=== PATIENT | female | born 1960 | race Caucasian/White ===

== ENCOUNTER 2023-03-03 14:43 | Outpatient (OUT) | payer MEDICARE, SELFPAY ==
[2023-03-03 15:16] LABS: Uric Acid 4.9 mg/dL (2.6-6.0)
== END 2023-03-03 14:44 | disposition home or self-care (01) ==
LOC: LAB 14:43
PROVIDERS: PCP Family Medicine; Visit Provider Family Medicine
DX: M25.579 Pain in unspecified ankle and joints of unspecified foot (principal)
CPT/HCPCS: 36415; 84550

== ENCOUNTER 2023-09-27 12:10 | Outpatient (OUT) | payer MEDICARE, SELFPAY ==
--- NOTE | 2023-09-27 | XR_ITS ---
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 FINDINGS: BONES: Mild dextrocurvature. Mild degenerative spondylosis and facet osteoarthropathy DISC SPACES: Normal. No significant disc height narrowing, subluxation, or endplate abnormality. PARASPINOUS: Negative. No paraspinous abnormality is seen. OTHER: Right-sided neurostimulator. 5 mm left nephrolith XR/XR lumbar spine 2-3V IMPRESSION: Mild degenerative changes with dextrocurvature Electronically authenticated by: CARLY TOTH Date: 09/29/2023 07:07
== END 2023-09-27 12:11 | disposition home or self-care (01) ==
LOC: RAD 12:13
PROVIDERS: PCP Family Medicine; Visit Provider Family Medicine
DX: M48.04 Spinal stenosis, thoracic region (principal); G95.9 Disease of spinal cord, unspecified
CPT/HCPCS: 72100

== ENCOUNTER 2023-10-25 09:00 | Inpatient (IN) | payer MEDICARE, SELFPAY ==
[2023-10-25] VITALS (12 sets, daily range): BP systolic 141–154; BP diastolic 82–103; PULSE 59–81; TEMP 36.6–36.9; O2SAT 97–98; BMI 22.3; BMI 24.4
--- OUTSIDE RECORDS SUMMARY | 2023-10-25 09:08 | XMS_ITS | CCD ---
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 Name Role Phone House Sr., Husam Escamilla Primary Care Provider HOUSE, DR BERNAL Primary Care Unavailable TIMMIS, DR MOORE Admitting Unavailable TIMMIS, DR MOORE Attending Unavailable TIMMIS, DR MOORE Consulting Unavailable ZIEBER, DR MEHUL Whatley Consulting Unavailable HOUSE, DR BERNAL Admitting Unavailable CENTER [place], DR CARLY Ross Consulting Unavailable GLEN ROCK, DR BERNAL Attending Unavailable HOUSE, DR BERNAL Primary Care Unavailable GLEN [place]OCK, DR BERNAL Consulting Unavailable GLEN ROCK, DR BERNAL Primary Care Unavailable [place]EN [place], DR HUSAM Hernandezitting Unavailable [place]EN [place]OCK, DR BERNAL Attending Unavailable GLEN ROCK, DR BERNAL Consulting Unavailable ZIEBER, DR MEHUL Whatley Consulting Unavailable [place]EN [place], DR BERNAL Primary Care Unavailable HOUSE, DR HUSAM Hernandezitting Unavailable [place], DR BERNAL Attending Unavailable [place], DR BERNAL Consulting Unavailable Sterling Sr., Husam Escamilla Primary Care Provider Sterling Sr., Husam SMITH Primary Care Prov ider COSTANDI, SARITHA Referring Unavailable COSTANDI, SARITHA Attending Unavailable HOUSE SR, HUSAM ESCAMILLA Primary Care Unavai lable COSTANDI, BEATRIZIF Referring Unavailable COSTANDI, BEATRIZIF Attending Unavailable HOUSE SR, HUSAM ESCAMILLA Primary Care Unavai lable HOUSE SR, HUSAM FRANCINE Primary [facility] [place] Unavai lable JASON SHIPMAN A Referring Unavailable JASON SHIPMAN Attending Unavailable Duy GUTHRIE, Raleigh Chavez Attending Unavailable HOUSE, HUSAM Araiza Primary Care Unavailable Duy GUTHRIE, Raleigh Chavez Attending Unavailable HOUSE, HUSAM Araiza Primary Care Unavailable Duy GUTHRIE, Raleigh Chavez Attending Unavailable Duy GUTHRIE, Raleigh Chavez Attending Unavailable HOUSE, HUSAM Araiza Primary Care Unavailable HOUSE, HUSAM Araiza Attending Unavailable HOUSE, HUSAM Araiza Primary Care Unavailable HOUSE, HUSAM Araiza Attending Unavailable HOUSE, HUSAM Araiza Primary Care Unavailable HOUSE, HUSAM P Primary Care Unavailable Allergies Allergy Classification Reported Allergen(s) Allergy Type Date of Onset Reaction(s) Facility (11 sources) Ciprofloxacin; Translations: [CIPROFLOXACIN] Drug Allergy 08-06-2016 [facility] Work Phone: (2 sources) Ciprofloxacin; Translations: [Cipro] Drug Allergy 08-10-2013 [facility] Repository Medications Current Medications Medication Drug Class(es) Dates Sig (Normalized) Sig (Original) amitriptyline hydrochloride 10 mg oral tablet (13 sources) Tricyclic Antidepressant Start: 03-17-2023 End: 11-25-2023 take 1 tablet by mouth once daily at bedtime amitriptyline (ELAVIL) 10 mg tablet Indications: Idiopathic peripheral neuropathy Take 1 tablet by mouth daily at bedtime. 30 tablet 2 08/27/2023 11/25/2023 Active Start: 07-31-2021 End: 03-17-2023 amitriptyline (ELAVIL) 50 mg tablet Comment on above: Take 1 tablet by krupa th daily at bedtime. topiramate 100 mg oral tablet (6 sources) Start: 08-07-2023 End: 08-06-2024 take 1 tablet by mouth once daily at bedtime topiramate (TOPAMAX) 100 mg tablet Take 1 tablet by mouth daily at bedtime. 30 tablet 3 08/07/2023 08/06/2024 Active take 50 mg by mouth once daily T OPIRAMATE ORAL Take 50 mg by mouth once daily. 0 Active Comment on above: Take 50 mg by mouth. Take 50 mg by mouth once daily. Take 1 tablet by krupa th daily at bedtime. Completed/Discontinued Medications Medication Drug Class(es) Dates Sig (Normalized) Sig (Original) baclofen 10 mg oral tablet (5 sources) gamma-Aminobutyri c Acid-ergic Agonist End: 08-29-2022 take 1 tablet by mouth every twenty-four hours as needed baclofen (LIORESAL) 10 mg tablet Take 10 mg by mouth at bedtime as needed. 0 08/29/2022 Discontinued Comment on above: Take 10 mg by mouth at bedtime as needed. Calcium Carbonate (5 sources) End: 08-29-2022 take 1 tablet by mouth twice daily CALCIUM CARBONATE (SCOTT-600 ORAL) Take 1 tablet by mouth twice daily. 0 08/29/2022 Discontinued take 1 tablet by mouth twice evelyne ly CALCIUM CARBONATE (SCOTT-600 ORAL) Take 1 tablet by mouth twice daily. 0 Active Comment on above: Take 1 tablet by krupa th twice daily. cholecalciferol 0.025 mg oral capsule (10 sources) Vitamin D take 1 capsule by mouth once daily Cholecalciferol, Vitamin D3, 25 mcg (1,000 unit) cap Take 1,000 Units by mouth once daily. 0 Active Comment on above: Take 1,000 Units by mouth once daily. dicyclomine hydrochloride 20 mg oral tablet (10 sources) Anticholinergic take 1 tablet by mouth four times daily dicyclomine (BENTYL) 20 mg tablet Take 20 mg by mouth four times daily. 0 Active Comment on above: Take 20 mg by mouth four times daily. docusate sodium 100 mg oral capsule (10 sources) take 1 capsule by mouth twice daily docusate sodium (COLACE) 100 mg capsule Take 100 mg by mouth twice daily. 0 Active Comment on above: Take 100 mg by mouth twice daily. Estrogens, Conjugated ([facility]) / medroxyPROGESTERone (10 sources) Progestin, Estrogen Start: 2019 take 1 tablet by mouth once daily PREMPRO 0.625-2.5 mg per tablet Take 1 tablet by mouth once daily. 0 07/29/2019 Active Comment on above: Take 1 tablet by krupa th once daily. ibuprofen 200 mg oral tablet (10 sources) Nonsteroidal Anti-inflammatory Drug take 1 tablet by mouth every six hours as needed ibuprofen (MOTRIN) 200 mg tablet Take 200 mg by mouth every 6 hours as needed. 0 Active Comment on above: Take 200 mg by mouth every 6 hours as needed. levothyroxine sodium 0.125 mg oral capsule (10 sources) l-Thyroxine take 1 tablet by mouth once daily Levothyroxine 125 mcg cap Take 1 tablet by mouth once daily. 0 Active Comment on above: Take 1 tablet by krupa th once daily. MEDICATION, NON-DATABASE (10 sources) MEDICATION, NON-DATABASE as needed. Medical marijuana. 0 Active Comment on above: as needed. Medical m arijuana. methocarbamol 500 mg oral tablet (10 sources) Muscle Relaxant take 1 tablet by mouth once daily at bedtime methocarbamol (ROBAXIN) 500 mg tablet Take 500 mg by mouth daily at bedtime. 0 Active Comment on above: Take 500 mg by mouth daily at bedtime. naproxen sodium 220 mg oral tablet (10 sources) Nonsteroidal Anti-inflammatory Drug take 1 tablet by mouth twice daily at mealtime naproxen sodium (ANAPROX) 220 mg tablet Take 220 mg by mouth twice daily with meals. 0 Active Comment on above: Take 220 mg by mouth twice daily with meals. nortriptyline 10 mg oral capsule (1 source) Tricyclic Antidepressant Start: 2022 End: 2022 take 1 capsule by mouth once daily at bedtime nortriptyline (PAMELOR) 10 mg capsule Take 1 capsule by mouth daily at bedtime. 30 capsule 2 03/17/2023 03/17/2023 Discontinued Comment on above: Take 1 capsule by mo uth daily at bedtime. pregabalin 150 mg oral capsule (10 sources) Start: 2021 take 1 capsule by mouth three times daily pregabalin (LYRICA) 150 mg capsule Take 150 mg by mouth three times daily. 0 07/31/2021 Active Comment on above: Take 150 mg by mouth three times daily. SUMAtriptan 100 mg oral tablet (10 sources) Serotonin-1b and Serotonin-1d Receptor Agonist SUMAtriptan (IMITREX) 100 mg tablet Take 100 mg by mouth as needed. 0 Active Comment on above: Take 100 mg by mouth as needed. Problems Active Problems Problem Classification Problem Date Documented Da te Episodic/Chronic Diseases of mouth; excluding dental (4 sources) Other diseases of salivary glands; Translations: [OTHER DISEASES OF SALIVARY GLANDS] Onset: 07-31-2022 Episodic Other nervous system disorders (5 sources) Polyneuropathy, unspecified; Translations: [POLYNEUROPATHY UNSPECIFIED] Onset: 04-01-2022 Chronic Other nervous system disorders (1 source) Idiopathic peripheral neuropathy; Translations: [Hereditary and idiopathic neuropathy, unspecified] 08-27-2023 Chronic Other nervous system disorders (1 source) Paresthesia of lower extremity; Translations: [Anesthesia of skin] 03-21-2023 Episodic Spondylosis; intervertebral disc disorders; other back problems (13 sources) Lumbar spondylosis; Translations: [Spondylosis without myelopathy or radiculopathy, lumbar region] Onset: 05-09-2021 Chronic Thyroid disorders (4 sources) Hypothyroidism, unspecified; Translations: [HYPOTHYROIDISM UNSPECIFIED] Onset: 03-27-2022 Chronic Past or Other Problems Problem Classification Problem Date Documented Da te Episodic/Chronic Cancer of thyroid (10 sources) History of malignant neoplasm of thyroid; Translations: [Personal history of malignant neoplasm of thyroid] Onset: 08-15-2021 08-15-2021 Episodic Other connective tissue disease (10 sources) Fibromyalgia; Translations: [Fibromyalgia] Onset: 08-23-2016 08-23-2016 Episodic Other non-traumatic joint disorders (4 sources) Pain in left shoulder; Translations: [PAIN IN LEFT SHOULDER] Onset: 04-03-2022 Episodic Other screening for suspected conditions (not mental disorders or infectious disease) (1 source) Encounter for screening mammogram for malignant neoplasm of breast; Translations: [ENC SCR MAMMO MALIG NEOPLASM BREAST] Onset: 04-01-2022 Episodic Residual codes; unclassified (1 source) Family history of malignant neoplasm of digestive organs; Translations: [FAM HX MALIG NEOPLASM DIGESTIV ORGN] Onset: 04-01-2022 Episodic Residual codes; unclassified (1 source) Family history of malignant neoplasm, unspecified; Translations: [FAM HX MALIGNANT NEOPLASM UNS] Onset: 04-01-2022 Episodic Screening and history of mental health and substance abuse codes (10 sources) Ex-smoker; Translations: [Personal history of nicotine dependence] Onset: 08-15-2021 08-15-2021 Episodic Spondylosis; intervertebral disc disorders; other back problems (20 sources) Chronic low back pain; Translations: [Chronic low back pain without sciatica, unspecified back pain laterality] Onset: 08-23-2016 Episodic Results Test Name Value Interpretation Reference Range [facility]il [facility] Rad - Other Radiology Report on 10-02-2023 Rad - Other Radiology Report [id number]# [facility] ) CLIFFORD FRIAS ([id number]) 1960 F Date Time Provider Department 08/07/23 1:15 PM SARITHA MENDEZ PAINMN During your visit today, we recorded the following information about you: Temperature Pulse Respiration Blood pressure 97.6 degrees 72/minute 18/minute 102/61 Weight Height 63.5 kg 1.626 m Saritha Mendez MD 08/07/2023 11:17 AM Signed SUBJECTIVE: Clifford Frias presents to [facility] for a follow-up appointment for LBP. Since the last visit, Clifford Frias states the pain has been improving. AMB ROOMING INTAKE FLOWSHEET DATA Risk Screening Do you have concerns about personal safety or safety in the home?: No Pain Pain Level: 4 Pain Location: Back-Middle Description: Stabbing Duration Amount of Time: 7 Duration Units: Years Frequency: Continuous Intervention/Comfort measure: Medication, Spinal Cord Stimulator The patient denies numbness or tingling. PROMIS-10 Flowsheet Row Office Visit from 08/20/2019 in [facility] Office Visit from 08/06/2016 in [facility] Global Physical Health T Score 37.4 32.4 Global Mental Health T Score 43.5 36.3 0-10 Standard Pain Scale 3 8 Previous pain treatments: physical therapy, medications, injections, Reactiv8 Pain Procedures: Reactiv8 Physical Therapy/Home Exercise: Yes Pain Medications: - Opioids: N - NSAIDs: N - Anti-Depressants: amitriptyline - Anti-Convulsants: Topamax - Others: N Pain medications reviewed: Yes Physical Examination: BP 102/61 Pulse 72 Temp 97.6 Resp 18 Ht 5' 4 [per patient[ (1.63m) Wt 140 lb (63.5kg) SpO2 100% LMP 08/15/2010 BMI 24.02 kg/(m2). General:Well appearing, alert, and in no acute distress Skin: skin color, texture, turgor normal, no rashes or lesions HEENT: normocephalic, atraumatic, sclera non-icteric CV: Regular rate and rhythm - pulses equal Resp: good diaphragmatic excursion normal to percussion GI: Soft, non-tender, non-distended. : not examined Musculoskeletal: Neck: Supple; good ROM. Back: No pain on palpation of the lumbar spine. Full ROM without reproducible pain. Extremities: Extremities normal. No deformities, edema, or skin discoloration Neurological: Mental Status: alert Cranial Nerves: Not examined Reflexes: Deep tendon reflexes are 2+ all throughout. Motor Strength: Motor strength and tone are 5/5 all throughout. Sensory: decreased sensation in both feet. Gait: Normal. Recent Imaging: Impression IMPRESSION: Multilevel degenerative changes of the lumbar spine, as detailed. Anatomic Thoracic/Lumbar Variant: Transitional L5 vertebral body. L4-5 is considered the level of the iliac crest and there are 5 lumbar-type vertebrae. ASSESSMENT: Clifford Frias is a 63 year old woman presenting with: #1 LBP s/p Reactiv8 study Restore implantation (08/20/21) who presents for a follow up appointment for 24 month follow-up. Overall, she is doing very well and has demonstrated improved functional capacity with her consistent self-directed workouts. She is highly motivated and appears determined to continue these exercises as it has helped tremendously with her pain, range of motion, and mood. #2 Regarding her chronic lower extremity numbness, the etiology remains unclear as there is no particular dermotome that is affected. We will trial her on low-dose amitriptyline to help with the numbness. 07/2023 Pt is reporting excellent relief with Reactiv8 Pt is reporting good relief with amitriptyline but is concerned about weight gain M54.50 Myofascial low back pain (primary encounter diagnosis) M47.816 Lumbar spondylosis G60.9 Idiopathic peripheral neuropathy PLAN: - Patient will benefit from emphasis on core stabilization exercises, correction of body mechanics, development of home exercise program, soft-tissue/joint mobilization, stretching/flexibilit y exercise - continue Amitriptyline 10mg qHS - Increase Topamax to 100 mg - Counseled the patient regarding the importance of continue daily exercises - Follow up: in 1 year for med refills with PA-C The above plan and management options were discussed at length with patient. Patient is in agreement with the above and verbalized understanding. Saritha Mendez MD August 07, 2023 Medical Decision Making: Problems: Moderate: 1+ chronic illnesses with change Risk: Moderate: Drug management Medical Decision Making Level: 4 - Moderate Saritha Mendez MD 08/07/2023 11:17 AM Signed PLAN: - Patient will benefit from emphasis on core stabilization exercises, correction of body mechanics, development of home exercise program, soft-tissue/joint mobilization, stretching/flexibilit y exercise - continue Amitriptyline 10mg qHS - Increase Topamax to 100 mg - Counseled the patient regarding the importance of continue daily e (more content not included)... Normal [facility] Controlled Substances Agreem entson 06-04-2023 Controlled Substances Agreements [id number]#1 .00OTGTIFF [facility] Lab - Other Lab [facility] - Other Lab Results [id number]#1 .00OTGTIFF [facility] CNOVon 03-17-2023 CNOV Office Visit (PAINMN ) CLIFFORD FRIAS ([id number]) 1960 F Date Time Provider Department 03/17/23 11:00 AM SARITHA MENDEZ PAINPINA During your visit today, we recorded the following information about you: Temperature Pulse Blood pressure Weight 96.5 degrees 67/minute 102/57 59 kg Height 1.626 m Saritha Mendez MD 03/21/2023 4:21 PM Signed [facility] Follow Up Evaluation Date: March 17, 2023 - 10:11 AM Chief Complaint: Patient presents with: Follow Up Medication Update SUBJECTIVE: Clifford Frias is a 62 year old woman with a history of of chronic bilateral L>R low back pain without leg pain s/p Reactiv8 study Restore implantation (08/20/21) who presents for a follow up appointment for 18 month follow-up. The plan from the last visit on 08/29/22 was: - device interrogation - Follow up per Reactiv8 research protocol. Since the last visit, the patient's pain has been imporving and she is doing well. She got a membership at [employer] in Jul 2022 and has been performing weightlifting exercises 3x/week including: Bicep curls - 15 lbs Pectoral fly - 20 lbs Triceps press - 25 lbs Triceps pushdown - 10 lbs Hip abduction - outside 45 lbs, inside 30 lbs Captain's chair (abs) - 60 reps She is dealing with some neuropathy in her feet but that remains stable, but it limits her ability to perform lower body exercises. Denies weakness and falls or issues with balance. Worker's Compensation: No. The patient denies red flags. Physical Therapy/Home Exercise: Yes Current Pain Medications and Dosages: - Opioids: N - NSAIDs: N - Anti-Depressants: N - Anti-Convulsants: Pregabalin 150mg TID - Others: CBD edibles Prior treatments: Nortriptyline Naproxen Methocarbamol Ibuprofen Topiramate Prior Pain Procedures (with percentage of pain relief and duration of relief): 08/20/21: Reactiv8 implant with Dr[address] Ajay BAEZ report: Reviewed: The patient's OARRS report was reviewed and is consistent with the reported medication use. Pain medications reviewed: Yes Pertinent Imaging: no new imaging since last visit PAST MEDICAL HISTORY Diagnosis Date Degenerative disc disease, lumbar Spinal stenosis cervical Thyroid cancer (HCC) removed age 21 s/p radiation PAST SURGICAL HISTORY Procedure Laterality Date SECTION HX x2 PAST SURGICAL HISTORY OF Right shoulder surgery THYROID SURGERY HX thyroid CA Social History Tobacco Use Smoking status: Former Packs/day: 0.50 Years: 20.00 Additional pack years: 0.00 Total pack years: 10.00 Types: Cigarettes Quit date: 2015 Years since quittin.6 Smokeless tobacco: Never Vaping Use Vaping Use: current everyday user Substances: THC Devices: Pre-filled pod Substance Use Topics Alcohol use: No Drug use: Yes Types: Marijuana Comment: medical card/vapes FAMILY HISTORY Problem Relation Age of Onset Colon Cancer Mother No Known Problems Father Cancer Paternal Grandfather gastric Anesthesia Problems No Family History ALLERGIES Allergen Reactions Ciprofloxacin Rash Current Outpatient Medications Medication Sig TOPIRAMATE ORAL Take 50 mg by mouth once daily. Cholecalciferol, Vitamin D3, 25 mcg (1,000 unit) cap Take 1,000 Units by mouth once daily. MEDICATION, NON-DATABASE as needed. Medical marijuana. pregabalin (LYRICA) 150 mg capsule Take 150 mg by mouth three times daily. dicyclomine (BENTYL) 20 mg tablet Take 20 mg by mouth four times daily. ibuprofen (MOTRIN) 200 mg tablet Take 200 mg by mouth every 6 hours as needed. naproxen sodium (ANAPROX) 220 mg tablet Take 220 mg by mouth twice daily with meals. docusate sodium (COLACE) 100 mg capsule Take 100 mg by mouth twice daily. methocarbamol (ROBAXIN) 500 mg tablet Take 500 mg by mouth daily at bedtime. PREMPRO 0.625-2.5 mg per tablet Take 1 tablet by mouth once daily. Levothyroxine 125 mcg cap Take 1 tablet by mouth once daily. SUMAtriptan (IMITREX) 100 mg tablet Take 100 mg by mouth as needed. amitriptyline (ELAVIL) 10 mg tablet Take 1 tablet by mouth daily at bedtime. No current facility-administered medications for this visit. Questionnaires: Patient Entered Questionnaires PROMIS Score Percentiles PROMIS Global Health Scale 08/06/2016 08/20/2019 Physical Health Percentile 4 10 Mental Health Percentile 9 26* Physical Health 08/20/2019 Physical Function Percentile 4 Pain Interference Percentile 1 Percentiles provide an indication of how the patient's score ranks in relation to the general population. Higher percentile rankings indicate better function/quality of life. 50th percentile is the average of the general population and indicates half of respondents had a worse score. > 31st percentile is within normal limits or better * < 31st percentile is at least ? SD wo (more content not included)... Normal [facility] Patient Handouton 03-05-2023 Patient Handout [id number]# 1.00OTGTIFF [facility] CNOVon 08-29-2022 CNOV Office Visit (PAINMN ) CLIFFORD FRIAS ([id number]) 1960 F Date Time Provider Department 08/29/22 11:00 AM JASON SHIPMAN PAINMN During your visit today, we recorded the following information about you: Temperature Pulse Blood pressure Weight 98.2 degrees 67/minute 112/65 54.4 kg Height 1.626 m Jason Shipman MD, PhD 09/04/2022 1:37 AM Signed [facility] Established Patient Patient name: Clifford Frias Date of Service: August 29, 2022 Site of Service: [facility] Established care at PMC: yes HPI Clifford Frias presents to [facility] for a follow-up appointment for 12-month follow-up visit for Reactiv8. Please see Reactiv8 research team note for further details. Clifford appears to be doing extremely well with her Reactiv8 device. Review of systems 12 point review of systems reviewed and negative except as noted above OARRS report Reviewed. The patient's OARRS report was reviewed and is consistent with the reported medication use. Medical History Past Medical History PAST MEDICAL HISTORY Diagnosis Date Degenerative disc disease, lumbar Spinal stenosis cervical Thyroid cancer (HCC) removed age 21 s/p radiation Past Surgical History PAST SURGICAL HISTORY Procedure Laterality Date SECTION HX x2 PAST SURGICAL HISTORY OF Right shoulder surgery THYROID SURGERY HX thyroid CA Social History Social History Tobacco Use Smoking status: Former Packs/day: 0.50 Years: 20.00 Pack years: 10.00 Types: Cigarettes Quit date: 2015 Years since quittin.1 Smokeless tobacco: Never Vaping Use Vaping Use: current everyday user Substances: THC Devices: Pre-filled pod Substance Use Topics Alcohol use: No Drug use: Yes Types: Marijuana Comment: medical card/vapes Family History FAMILY HISTORY Problem Relation Age of Onset Colon Cancer Mother No Known Problems Father Cancer Paternal Grandfather gastric Anesthesia Problems No Family History Allergies ALLERGIES Allergen Reactions Ciprofloxacin Rash Medications Current Outpatient Medications Medication Sig TOPIRAMATE ORAL Take 50 mg by mouth. Cholecalciferol, Vitamin D3, 25 mcg (1,000 unit) cap Take 1,000 Units by mouth once daily. MEDICATION, NON-DATABASE as needed. Medical marijuana. amitriptyline (ELAVIL) 50 mg tablet pregabalin (LYRICA) 150 mg capsule dicyclomine (BENTYL) 20 mg tablet Take 20 mg by mouth four times daily. ibuprofen (MOTRIN) 200 mg tablet Take 200 mg by mouth every 6 hours as needed. naproxen sodium (ANAPROX) 220 mg tablet Take 220 mg by mouth twice daily with meals. docusate sodium (COLACE) 100 mg capsule Take 100 mg by mouth twice daily. methocarbamol (ROBAXIN) 500 mg tablet Take 500 mg by mouth daily at bedtime. PREMPRO 0.625-2.5 mg per tablet Take 1 tablet by mouth once daily. Levothyroxine 125 mcg cap Take 1 tablet by mouth once daily. SUMAtriptan (IMITREX) 100 mg tablet Take 100 mg by mouth as needed. No current facility-administered medications for this visit. Physical Examination BP 112/65 Pulse 67 Temp 98.2 Ht 5' 4 (1.63m) Wt 120 lb (54.4kg) SpO2 99% LMP 08/15/2010 BMI 20.59 kg/(m2). General appearance: Well appearing, in no acute distress, alert. Psych: Mood and affect appropriate. Skin: Skin color, texture, turgor normal, no rashes or lesions. Head/face: Atraumatic, normocephalic. Neck: No pain to palpation over the cervical paraspinous muscles. Spurling Negative. No pain with neck flexion, extension, or lateral flexion. Cor: non-cyanotic Pulm: breathing comfortably on RA Back: Mild tenderness over lumbar paraspinal muscles L > R. Extremities: Peripheral joint ROM is full and pain free without obvious instability or laxity in all four extremities. No deformities, edema, or skin discoloration. Musculoskeletal: LE strength 5/5 b/l Neuro: Bilateral upper and lower extremity coordination and muscle stretch reflexes are physiologic and symmetric. Review of data Imaging Imaging listed below was directly visualized and independently reviewed. Medical Decision Making Assessment Clifford Frias is a 62 year old woman with a history of of chronic bilateral L>R low back pain without leg pain who received the Reactiv8 device and who presents for follow up for 12-month follow up. Today she underwent interrogation of the device performed by reps and answered questionnaire. (M54.50, G89.29) Chronic low back pain without sciatica, unspecified back pain laterality (primary encounter diagnosis) (Z00.6) Examination of participant or control in clinical research Plan - Follow up per Reactiv8 research protocol. The above plan and management options were discussed at length with the patient. The patient is in agreement with the (more content not included)... Normal [facility] CT NECK ST W CONon [address] W CON EXAMINATION: CT NECK ST W CON HISTORY: Disorder of salivary gland ; palpable, tender lumps on right side of neck COMPARISON: No relevant comparison available. TECHNIQUE: Axial, Coronal, and Sagittal CT images created with IV contrast. Dose reduction techniques were achieved by using automated exposure control and/or adjustment of mA and/or kV according to patient size and/or use of iterative reconstruction technique. FINDINGS: NASOPHARYNX: No asymmetry of the fossae of Rosenmuller and torus tubarius. ORAL CAVITY: No visible mass. OROPHARYNX: No asymmetry of the facial and lingual tonsils. HYPOPHARYNX: No mass or other visible lesion. LARYNX: No mass or asymmetry of the vocal cords. SINUSES: No significant fluid or mucosal thickening. NECK GLADS: Skin surface marker localizing the patient's palpable lumps overlie the right submandibular salivary glands and right parotid gland. No appreciable abnormality of the salivary glands or asymmetry between right and left sign. Prior thyroidectomy. LYMPH NODES: No pathological-appearin g or enlarged lymph nodes. VASCULATURE: No suspicious abnormality. BONES: Prominent reversal of normal lordotic curvature. Mild grade 1 anterior listhesis of C3 on 4. Marked degenerative disc disease C4-C5, C5-C6, C6-C7 resulting in central canal and foramen stenosis. Multilevel moderate degenerative facet arthropathy. OTHER: No additional imaging findings. IMPRESSION: 1. No abnormal or suspicious findings to account for patient's symptoms. 2. Marked degenerative changes of cervical spine. Electronically authenticated by: MEHUL BAIG Date: 2022-08-01 09:07 Normal [facility] CREATININEon 07-31-2022 Creatinine [Mass/Vol] 0.71 mg/dL Normal 0.55-1.02 [facility] Comment on above: Performed By: #### T 4, CMP, TSH #### [facility] [address] [address] [address] Bossman Capps EGFR-AF [facility] >60 Normal >=60 [facility] Comment on above: Performed By: #### T 4, CMP, TSH #### [facility] [address] [address] [address] Bossman Capps EGFR-NON AF [facility] >60 Normal >=60 [facility] Comment on above: Performed By: #### T 4, CMP, TSH #### [facility] [address] [place] [address] Dr. Bossman Capps CBC AUTO DIFFon 06-28-2022 BASO # 0.0 103/ul Normal 0.0-0.1 [facility] Comment on above: Performed By: #### C BC #### [facility] [address] [place] [address] Dr. Bossman Capps Basophils/100 WBC (Bld) 0.6 % Normal 0.2-2.0 [facility] Comment on above: Performed By: #### C BC #### [facility] [address] [place] [address] Dr. Bossman Capps EO # 0.1 103/ul Normal 0.0-0.7 [facility] Comment on above: Performed By: #### C BC #### [facility] [address] [place] [address] Dr. Bossman Capps Eosinophils/100 WBC (Bld) 1.1 % Normal 0.9-7.0 [facility] Comment on above: Performed By: #### C BC #### [facility] [address] [place] [address] Dr. Bossman Capps Erythrocyte distribution width (RBC) [Ratio] 13.1 % Normal 11.0-15.0 [facility] Comment on above: Performed By: #### C BC #### [facility] [address] [place] [address] Dr. Bossman Capps Hematocrit (Bld) [Volume fraction] 39.5 % Normal 36.0-48.0 [facility] Comment on above: Performed By: #### C BC #### [facility] [address] [place] [address] Dr. Bossman Capps Hemoglobin (Bld) [Mass/Vol] 13.5 g/dL Normal 12.0-16.0 [facility] Comment on above: Performed By: #### C BC #### [facility] [address] [place] [address] Dr. Bossman Capps IG # 0.01 10e3/ul Normal 0.00-0.03 [facility] Comment on above: Performed By: #### C BC #### [facility] [address] [place] [address] Dr. Bossman Capps IG % 0.2 % Normal 0.0-0.5 [facility] Comment on above: Performed By: #### C BC #### [facility] [address] [place] [address] Dr. Bossman Capps LYMPH # 2.1 103/ul Normal 1.2-3.8 [facility] Comment on above: Performed By: #### C BC #### [facility] [address] [place] [address] Dr. Bossman Capps Lymphocytes/100 WBC (Bld) 33.7 % Normal 20.5-60.0 [facility] Comment on above: Performed By: #### C BC #### [facility] [address] [place] [address] Dr. Bossman Capps MANUAL DIFF REQ NO Normal [facility] Comment on above: Performed By: #### C BC #### [facility] [address] [place] [address] Dr. Bossman Capps MCH (RBC) [Entitic mass] 32.0 pg Normal 26.7-34.0 [facility] Comment on above: Performed By: #### C BC #### [facility] [address] [place] [address] Dr. Bossman Capps MCHC (RBC) [Mass/Vol] 34.2 g/dL Normal 29.9-35.2 [facility] Comment on above: Performed By: #### C BC #### [facility] [address] [place] [address] Dr. Bossman Capps MCV (RBC) [Entitic vol] 93.6 fL Normal 81.0-99.0 [facility] Comment on above: Performed By: #### C BC #### [facility] [address] [place] [address] Dr. Bossman Capps MONO # 0.5 103/ul Normal 0.3-0.8 [facility] Comment on above: Performed By: #### C BC #### [facility] [address] [place] [address] Dr. Bossman Capps Monocytes/100 WBC (Bld) 8.0 % Normal 1.7-12.0 [facility] Comment on above: Performed By: #### C BC #### [facility] [address] [place] [address] Dr. Bossman Capps NEUT # 3.6 103/ul Normal 1.4-6.5 [facility] Comment on above: Performed By: #### C BC #### [facility] [address] [place] [address] Dr. Bossman Capps Neutrophils/100 WBC (Bld) 56.4 % Normal 43.0-75.0 [facility] Comment on above: Performed By: #### C BC #### [facility] [address] [place] [address] Dr. Bossman Capps Platelet mean volume (Bld) [Entitic vol] 9.9 fL Normal 9.5-13.5 [facility] Comment on above: Performed By: #### C BC #### [facility] [address] [place] [address] Dr. Bossman Capps PLT 290 103/ul Normal 150-450 [facility] Comment on above: Performed By: #### C BC #### [facility] [address] [place] [address] Dr. Bossman Capps RBC 4.22 106/ul Normal 4.20-5.40 [facility] Comment on above: Performed By: #### C BC #### [facility] [address] [place] [address] Dr. Bossman Capps WBC 6.4 103/ul Normal 4.0-11.0 [facility] Comment on above: Performed By: #### C BC #### [facility] [address] [place] [address] Dr. Bossman Capps PROF 14(COMP METB)on 022 Albumin [Mass/Vol] 3.3 g/dL Critically low 3.4-5.0 [facility] Comment on above: Performed By: #### T 4, CMP, TSH #### [facility] [address] [address] [address] Bossman Capps Albumin/Globulin [Mass ratio] 0.9 {ratio} Normal [facility] Comment on above: Performed By: #### T 4, CMP, TSH #### [facility] [address] [address] [address] Bossman Capps ALP [Catalytic activity/Vol] 76 U/L Normal 46-116 [facility] Comment on above: Performed By: #### T 4, CMP, TSH #### [facility] [address] [address] [address] Bossman Capps ALT [Catalytic activity/Vol] 13 U/L Critically low 14-59 [facility] Comment on above: Performed By: #### T 4, CMP, TSH #### [facility] [address] [address] [address] Bossman Capps Anion gap [Moles/Vol] 10.4 mmol/L Normal [facility] Comment on above: Performed By: #### T 4, CMP, TSH #### [facility] [address] [place] [address] Dr. Bossman Capps AST [Catalytic activity/Vol] 18 U/L Normal 15-37 [facility] Comment on above: Performed By: #### T 4, CMP, TSH #### [facility] [address] [address] [address] Bossman Capps Bilirubin [Mass/Vol] 0.2 mg/dL Normal 0.2-1.0 [facility] Comment on above: Performed By: #### T 4, CMP, TSH #### [facility] [address] [place] [address] Dr. Bossman Capps Calcium [Mass/Vol] 8.9 mg/dL Normal 8.5-10.1 [facility] Comment on above: Performed By: #### T 4, CMP, TSH #### [facility] [address] [address] [address] Bossman Capps Chloride [Moles/Vol] 107 mmol/L Normal 98-107 [facility] Comment on above: Performed By: #### T 4, CMP, TSH #### [facility] [address] [address] [address] Bossman Capps CO2 [Moles/Vol] 28.6 mmol/L Normal 21.0-32.0 [facility] Comment on above: Performed By: #### T 4, CMP, TSH #### [facility] [address] [place] [address] Dr. Bossman Capps Creatinine [Mass/Vol] 0.75 mg/dL Normal 0.55-1.02 [facility] Comment on above: Performed By: #### T 4, CMP, TSH #### [facility] [address] [place] [address] Dr. Bossman Capps EGFR-AF [facility] >60 Normal >=60 [facility] Comment on above: Performed By: #### T 4, CMP, TSH #### [facility] [address] [place] [address] Dr. Bossman Capps EGFR-NON AF [facility] >60 Normal >=60 [facility] Comment on above: Performed By: #### T 4, CMP, TSH #### [facility] [address] [place] [address] Dr. Bossman Capps Globulin (S) [Mass/Vol] 3.6 g/dL Normal [facility] Comment on above: Performed By: #### T 4, CMP, TSH #### [facility] [address] [place] [address] Dr. Bossman Capps Glucose [Mass/Vol] 85 mg/dL Normal 74-106 [facility] Comment on above: Performed By: #### T 4, CMP, TSH #### [facility] [address] [place] [address] Dr. Bossman Capps Potassium [Moles/Vol] 4.0 mmol/L Normal 3.5-5.1 [facility] Comment on above: Performed By: #### T 4, CMP, TSH #### [facility] [address] [place] [address] Dr. Bossman Capps Protein [Mass/Vol] 6.9 g/dL Normal 6.4-8.2 [facility] Comment on above: Performed By: #### T 4, CMP, TSH #### [facility] [address] [place] [address] Dr. Bossman Capps Sodium [Moles/Vol] 142 mmol/L Normal 136-145 [facility] Comment on above: Performed By: #### T 4, CMP, TSH #### [facility] [address] [place] [address] Dr. Bossman Capps Urea nitrogen [Mass/Vol] 10.0 mg/dL Normal 7.0-18.0 [facility] Comment on above: Performed By: #### T 4, CMP, TSH #### [facility] [address] [place] [address] Dr. Bossman Capps Urea nitrogen/Creatinin e [Mass ratio] 13.3 mg/mg Normal [facility] Comment on above: Performed By: #### T 4, CMP, TSH #### [facility] [address] [place] [address] Dr. Bossman Capps T4on 06-28-2022 T4 [Mass/Vol] 10.20 ug/dL Normal 4.80-13.90 [facility] Comment on above: Performed By: #### T 4, CMP, TSH #### [facility] [address] [place] [address] Dr. Bossman Capps TSHon 06-28-2022 TSH 0.041 uIU/mL Critically low 0.358-3.740 [facility] Comment on above: Performed By: #### T 4, CMP, TSH #### [facility] [address] [place] [address] Dr. Bossman Capps VIT B12 AND FOLATEon 022 Cobalamin (Vitamin B12) [Mass/Vol] 443.0 pg/mL Normal 193.0-986.0 [facility] Comment on above: Performed By: #### T 4, CMP, TSH #### [facility] [address] [place] [address] Dr. Bossman Capps FOLATE 12.00 ng/mL Normal 8.60-58.90 [facility] Comment on above: Performed By: #### T 4, CMP, TSH #### [facility] [address] [address] [address] Bossman Capps T4 [facility] 03-28-2022 T4 [Mass/Vol] 12.6 ug/dL Critically high 4.5-12.0 [facility] Comment on above: Performed By: #### T 4LC #### [facility] [address] [address] [address] Bossman Capps CBC AUTO DIFFon 03-27-2022 BASO # 0.1 103/ul Normal 0.0-0.1 [facility] Comment on above: Performed By: #### T 4, CMP, TSH #### [facility] [address] [address] [address] Bossman Capps Basophils/100 WBC (Bld) 1.1 % Normal 0.2-2.0 [facility] Comment on above: Performed By: #### T 4, CMP, TSH #### [facility] [address] [address] [address] Bossman Capps EO # 0.1 103/ul Normal 0.0-0.7 [facility] Comment on above: Performed By: #### T 4, CMP, TSH #### [facility] [address] [address] [address] Bossman Capps Eosinophils/100 WBC (Bld) 1.9 % Normal 0.9-7.0 [facility] Comment on above: Performed By: #### T 4, CMP, TSH #### [facility] [address] [address] [address] Bossman Capps Erythrocyte distribution width (RBC) [Ratio] 12.7 % Normal 11.0-15.0 [facility] Comment on above: Performed By: #### T 4, CMP, TSH #### [facility] [address] [address] [address] Bossman Capps Hematocrit (Bld) [Volume fraction] 43.7 % Normal 36.0-48.0 [facility] Comment on above: Performed By: #### T 4, CMP, TSH #### [facility] [address] [place] [address] Dr. Bossman Capps Hemoglobin (Bld) [Mass/Vol] 14.5 g/dL Normal 12.0-16.0 [facility] Comment on above: Performed By: #### T 4, CMP, TSH #### [facility] [address] [place] [address] Dr. Bossman Capps IG # 0.02 10e3/ul Normal 0.00-0.03 [facility] Comment on above: Performed By: #### T 4, CMP, TSH #### [facility] [address] [place] [address] Dr. Bossman Capps IG % 0.4 % Normal 0.0-0.5 [facility] Comment on above: Performed By: #### T 4, CMP, TSH #### [facility] [address] [place] [address] Dr. Bossman Capps LYMPH # 2.1 103/ul Normal 1.2-3.8 [facility] Comment on above: Performed By: #### T 4, CMP, TSH #### [facility] [address] [place] [address] Dr. Bossman Capps Lymphocytes/100 WBC (Bld) 38.0 % Normal 20.5-60.0 [facility] Comment on above: Performed By: #### T 4, CMP, TSH #### [facility] [address] [place] [address] Dr. Bossman Capps MANUAL DIFF REQ NO Normal [facility] Comment on above: Performed By: #### T 4, CMP, TSH #### [facility] [address] [place] [address] Dr. Bossman Capps MCH (RBC) [Entitic mass] 31.7 pg Normal 26.7-34.0 [facility] Comment on above: Performed By: #### T 4, CMP, TSH #### [facility] [address] [place] [address] Dr. Bossman Capps MCHC (RBC) [Mass/Vol] 33.2 g/dL Normal 29.9-35.2 [facility] Comment on above: Performed By: #### T 4, CMP, TSH #### [facility] [address] [place] [address] Dr. Bossman Capps MCV (RBC) [Entitic vol] 95.6 fL Normal 81.0-99.0 [facility] Comment on above: Performed By: #### T 4, CMP, TSH #### [facility] [address] [place] [address] Dr. Bossman Capps MONO # 0.5 103/ul Normal 0.3-0.8 [facility] Comment on above: Performed By: #### T 4, CMP, TSH #### [facility] [address] [place] [address] Dr. Bossman Capps Monocytes/100 WBC (Bld) 9.6 % Normal 1.7-12.0 [facility] Comment on above: Performed By: #### T 4, CMP, TSH #### [facility] [address] [place] [address] Dr. Bossman Capps NEUT # 2.7 103/ul Normal 1.4-6.5 [facility] Comment on above: Performed By: #### T 4, CMP, TSH #### [facility] [address] [place] [address] Dr. Bossman Capps Neutrophils/100 WBC (Bld) 49.0 % Normal 43.0-75.0 [facility] Comment on above: Performed By: #### T 4, CMP, TSH #### [facility] [address] [place] [address] Dr. Bossman Capps Platelet mean volume (Bld) [Entitic vol] 10.7 fL Normal 9.5-13.5 [facility] Comment on above: Performed By: #### T 4, CMP, TSH #### [facility] [address] [place] [address] Dr. Bossman Capps PLT 343 103/ul Normal 150-450 [facility] Comment on above: Performed By: #### T 4, CMP, TSH #### [facility] [address] [place], [place] [address] Dr. Bossman Capps RBC 4.57 106/ul Normal 4.20-5.40 [facility] Comment on above: Performed By: #### T 4, CMP, TSH #### [facility] [address] [place], [place] [address] Dr. Bossman Capps WBC 5.4 103/ul Normal 4.0-11.0 [facility] Comment on above: Performed By: #### T 4, CMP, TSH #### [facility] [address] [place], [place] [address] Dr. Bossman Capps MG MAMM SCREEN 3D BREANA CADon 03-27-2022 MG MAMM SCREEN 3D BREANA CAD Patient: CLIFFORD FRIAS Exam Date: 03/27/2022 : 1960 Gender:F Ordering : DR HUSAM ALCALA D.O. Admission #: [id number] Family : Order #: [id number] CLICK HERE TO VIEW EXAM RADIOLOGY REPORT PROCEDURE: MAMMOGRAM SCREENING 3D BILATERAL CAD COMPARISON: MG MAMM SCREEN BREANA W CAD, 10/23/2017. MG MAMM BREANA SCRN W CAD DIG, 09/19/2015. INDICATIONS: mammogram screening Calculator Name NCI Breast Cancer Risk Assessment Tool 5 Year Breast Cancer Risk 1.10% Lifetime Breast Cancer Risk 5.20% Personal Breast Cancer No Personal Ovarian Cancer No Treatments thyroidectomy, radiation pills Family Cancers Mother with colon cancer at age 62; Grandmother-paternal with unknown cancer at age 70. LOCATION: [facility] BREAST COMPOSITION: Heterogeneously dense,which may obscure small masses. FINDINGS: DIAGNOSTIC CATEGORY 1--NEGATIVE. NO CHANGE FROM COMPARISON ASSESSMENT. Scattered benign-appearing calcifications are present. RIGHT BREAST: No significant suspicious finding. LEFT BREAST: No significant suspicious finding. RECOMMENDATIONS: ROUTINE MAMMOGRAM AND CLINICAL EVALUATION IN 12 MONTHS. PLEASE NOTE: A NORMAL MAMMOGRAM DOES NOT EXCLUDE THE POSSIBILITY OF BREAST CANCER. A CLINICALLY SUSPICIOUS PALPABLE LUMP SHOULD BE BIOPSIED. Dictated by: Carly Recinos MD on 03/28/2022 at 07:44 Approved by: Carly Recinos MD on 03/28/2022 at 07:47 Normal [facility] PROF 14(COMP METB)on 022 Albumin [Mass/Vol] 4.1 g/dL Normal 3.4-5.0 [facility] Comment on above: Performed By: #### C MP, TSH #### [facility] [address] [place] [address] Dr. Bossman Capps Albumin/Globulin [Mass ratio] 1.1 {ratio} Normal [facility] Comment on above: Performed By: #### C MP, TSH #### [facility] [address] [address] [address] Bossman Capps ALP [Catalytic activity/Vol] 68 U/L Normal 46-116 [facility] Comment on above: Performed By: #### C MP, TSH #### [facility] [address] [place] [address] Dr. Bossman Capps ALT [Catalytic activity/Vol] 13 U/L Critically low 14-59 [facility] Comment on above: Performed By: #### C MP, TSH #### [facility] [address] [place] [address] Dr. Bossman Capps Anion gap [Moles/Vol] 10.8 mmol/L Normal [facility] Comment on above: Performed By: #### C MP, TSH #### [facility] [address] [place] [address] Dr. Bossman Capps AST [Catalytic activity/Vol] 12 U/L Critically low 15-37 [facility] Comment on above: Performed By: #### C MP, TSH #### [facility] [address] [place] [address] Dr. Bossman Capps Bilirubin [Mass/Vol] 0.5 mg/dL Normal 0.2-1.0 [facility] Comment on above: Performed By: #### C MP, TSH #### [facility] [address] [place] [address] Dr. Bossman Capps Calcium [Mass/Vol] 9.1 mg/dL Normal 8.5-10.1 [facility] Comment on above: Performed By: #### C MP, TSH #### [facility] [address] [place] [address] Dr. Bossman Capps Chloride [Moles/Vol] 104 mmol/L Normal 98-107 [facility] Comment on above: Performed By: #### C MP, TSH #### [facility] [address] [address] [address] Bossman Capps CO2 [Moles/Vol] 29.1 mmol/L Normal 21.0-32.0 [facility] Comment on above: Performed By: #### C MP, TSH #### [facility] [address] [address] [address] Bossman Capps Creatinine [Mass/Vol] 0.72 mg/dL Normal 0.55-1.02 [facility] Comment on above: Performed By: #### C MP, TSH #### [facility] [address] [address] [address] Bossman Capps EGFR-AF [facility] >60 Normal >=60 [facility] Comment on above: Performed By: #### C MP, TSH #### [facility] [address] [address] [address] Bossman Capps EGFR-NON AF [facility] >60 Normal >=60 [facility] Comment on above: Performed By: #### C MP, TSH #### [facility] [address] [place] [address] Dr. Bossman Capps Globulin (S) [Mass/Vol] 3.7 g/dL Normal [facility] Comment on above: Performed By: #### C MP, TSH #### [facility] [address] [address] [address] Bossman Capps Glucose [Mass/Vol] 93 mg/dL Normal 74-106 [facility] Comment on above: Performed By: #### C MP, TSH #### [facility] [address] [address] [address] Bossman Capps Potassium [Moles/Vol] 3.9 mmol/L Normal 3.5-5.1 [facility] Comment on above: Performed By: #### C MP, TSH #### [facility] [address] [address] [address] Bossman Capps Protein [Mass/Vol] 7.8 g/dL Normal 6.4-8.2 [facility] Comment on above: Performed By: #### C MP, TSH #### [facility] [address] [place] [address] Dr. Bossman Capps Sodium [Moles/Vol] 140 mmol/L Normal 136-145 [facility] Comment on above: Performed By: #### C MP, TSH #### [facility] [address] [place] [address] Dr. Bossman Capps Urea nitrogen [Mass/Vol] 10.0 mg/dL Normal 7.0-18.0 [facility] Comment on above: Performed By: #### C MP, TSH #### [facility] [address] [place] [address] Dr. Bossman Capps Urea nitrogen/Creatinin e [Mass ratio] 13.9 mg/mg Normal [facility] Comment on above: Performed By: #### C MP, TSH #### [facility] [address] [place] [address] Dr. Bossman Capps TSHon 03-27-2022 TSH 0.310 uIU/mL Critically low 0.358-3.740 [facility] Comment on above: Performed By: #### C MP, TSH #### [facility] [address] [place] [address] Dr. Bossman Capps ALLIED HEALTHon 07-10-2021 ALLIED HEALTH HNO ID: [id number] Author: RT Randi(R) Service: ? Author Type: Technologist Type: Allied Health Filed: 07/10/2021 7:43 AM Note Text: Radiology Service Progress Note PATIENT NAME: Clifford Frias DATE OF SERVICE: July 10, 2021 TIME: 7:32 AM PATIENT IDENTITY VERIFICATION COMPLETED USING TWO (2) IDENTIFIERS: Name and Date of confirmed by patient verbally and Name and Date of confirmed by identification band. FALL SCREENING: Has the patient had 2 falls in the last year or 1 fall with injury or currently using an Ambulatory Assistive Device (Walker, Cane, Wheelchair, Crutches, etc.)? No PATIENT GENDER DATA: Female. status: : No status: NO. PATIENT RELEVANT IMPLANT DATA REVIEWED: Yes RADIOLOGY DEPARTMENT: MR; Exam(s) Completed: Spine: Lumbar spine PERIPHERAL IV DATA: Not applicable SIGNED BY: RT Randi(R) July 10, 2021 7:32 AM [facility] MRI LUMBAR SPINE WO IVCONon 07-10-2021 MRI LUMBAR SPINE WO IVCON * * *Final Report* * * DATE OF EXAM: Jul 10 2021 7:55AM [facility] 0303 - MRI LUMBAR SPINE WO IVCON / PROCEDURE REASON: multiple diagnoses * * * * Physician Interpretation * * * * EXAMINATION: MRI LUMBAR SPINE WO IVCON CLINICAL HISTORY: Chronic left-sided low back pain without sciatica Chronic left-sided low back pain without sciatica TECHNIQUE: Routine lumbosacral spine MR protocol without gadolinium. MQ: [id number] COMPARISON: Lumbar spine radiograph 08/10/2019. RESULT: Counting reference: Lumbosacral junction. For the purposes of this report, L4-5 is considered the level of the iliac crest and assume there are 5 lumbar-type vertebrae. Anatomic variant: None. Localizer images: No significant findings. Alignment: Alignment is anatomic. There is severe degenerative loss of interval disc space height at L5-S1. Bone marrow signal/fracture: There are Modic type II changes at endplates of L5-S1. No evidence of pathologic marrow infiltration. No evidence of prior fracture. Conus: The conus is within normal limits of signal intensity and morphology. The conus medullaris terminates at L1-L2. Paraspinal soft tissues: Paraspinal soft tissues are within normal limits. Lower thoracic spine: Visualized lower thoracic canal and foramina are patent. T12-L1: Canal and foramina are patent. L1-L2: There is mild facet arthropathy without evidence of significant spinal canal stenosis or neural foraminal narrowing. L2-L3: There is mild diffuse disc bulge with a small central annular fissure resulting in minimal partial effacement of ventral thecal sac. There is no neural foraminal narrowing L3-L4: There is moderate bilateral facet arthropathy, diffuse disc bulge and ligamentum thickening resulting in mild spinal canal stenosis. There is no neural foraminal narrowing. L4-L5: There is mild bilateral facet arthropathy, diffuse disc bulge with a small superimposed shallow central disc protrusion and mild ligamentum flavum thickening resulting in mild spinal canal stenosis. There is no significant neural foraminal narrowing. L5-S1: There is mild diffuse disc bulge slightly eccentric to the left resulting in partial effacement of the left subarticular zone and contact of the left S1 descending nerve root. There is no neural foraminal narrowing. Sacrum and iliac wings: The visualized sacrum and iliac wings are within normal limits. IMPRESSION: Multilevel degenerative changes of the lumbar spine, as detailed. Anatomic Thoracic/Lumbar Variant: Transitional L5 vertebral body. L4-5 is considered the level of the iliac crest and there are 5 lumbar-type vertebrae. Job Honer: PSCB Transcribe Date/Time: Jul 10 2021 9:15A Dictated by : CORTES LERMA MD This examination was interpreted and the report reviewed and electronically signed by: CORTES LERMA MD on Jul 10 2021 9:23AM EST [id number] Normal [facility] Vital Signs Date Time Vital Sign Value Performing Clinician Faci lity 03-17-2023 10:34-0400 Body height 162.6 cm Saritha Mendez MD Work Phone: [facility] 03-17-2023 10:34-0400 Body temperature 96.49 [degF] Saritha Mendez MD Work Phone: [facility] 03-17-2023 10:34-0400 Body weight 58.97 kg Saritha Mendez MD Work Phone: [facility] 03-17-2023 10:34-0400 Diastolic blood pressure 57 mm[Hg] Saritha Mendez MD Work Phone: [facility] 03-17-2023 10:34-0400 Heart rate 67 /min Saritha Mendez MD Work Phone: [facility] 03-17-2023 10:34-0400 SaO2% (BldA) [Mass fraction] 100 % Saritha Mendez MD Work Phone: [facility] 03-17-2023 10:34-0400 Systolic blood pressure 102 mm[Hg] Saritha Mendez MD Work Phone: [facility] 08-29-2022 10:49-0500 Body height 162.6 cm Jason Shipman MD, PhD Work Phone: [facility] 08-29-2022 10:49-0500 Body temperature 98.2 [degF] Jason Shipman MD, PhD Work Phone: [facility] 08-29-2022 10:49-0500 Body weight 54.43 kg Jason Shipman MD, PhD Work Phone: [facility] 08-29-2022 10:49-0500 Diastolic blood pressure 65 mm[Hg] Jason Shipman MD, PhD Work Phone: [facility] 08-29-2022 10:49-0500 Heart rate 67 /min Jason Shipman MD, PhD Work Phone: [facility] 08-29-2022 10:49-0500 SaO2% (BldA) [Mass fraction] 99 % Jason Shipman MD, PhD Work Phone: [facility] 08-29-2022 10:49-0500 Systolic blood pressure 112 mm[Hg] Jason Shipman MD, PhD Work Phone: [facility] 10-08-2021 13:48-0400 Body height 160 cm Saritha Mendez MD Work Phone: [facility] 10-08-2021 13:48-0400 Body temperature 98.8 [degF] Saritha Mendez MD Work Phone: [facility] 10-08-2021 13:48-0400 Body weight 54.43 kg Saritha Mendez MD Work Phone: [facility] 10-08-2021 13:48-0400 Diastolic blood pressure 69 mm[Hg] Saritha Mendez MD Work Phone: [facility] 10-08-2021 13:48-0400 Heart rate 93 /min Saritha Mendez MD Work Phone: [facility] 10-08-2021 13:48-0400 SaO2% (BldA) [Mass fraction] 97 % Saritha Mendez MD Work Phone: [facility] 10-08-2021 [id number] Systolic blood pressure 110 mm[Hg] Saritha Mendez MD Work Phone: [facility] Encounters Encounter Date Encounter Type Care Provider Facility Start: 10-22-2023 End: 10-23-2023 ambulatory HUSAM P HOUSE Facility:[facility] Start: 09-25-2023 End: 09-26-2023 ambulatory HUSAM P HOUSE Facility:[facility] Start: 08-27-2023 End: 08-28-2023 ambulatory Raleigh Gordillo MD Facility:[facility] Start: 08-26-2023 Refill Sandhya palafox GENERAL NEUROLOGIST.ELECTRIC REPAIR SUPERVISOR Work Phone: [facility] Comment on above: Refill Request Start: 08-07-2023 End: 08-07-2023 ambulatory SARITHA MENDEZ Facility:[facility] Start: 06-30-2023 End: 07-01-2023 ambulatory HUSAM P HOUSE Facility:[facility] Start: 06-25-2023 End: 06-26-2023 ambulatory HUSAM P HOUSE Facility:[facility] Start: 05-28-2023 End: 05-29-2023 ambulatory HUSAM P [place] Facility:[facility] Start: 05-12-2023 Orders Only Sandhya Guerrero uson GENERAL NEUROLOGIST.ELECTRIC REPAIR SUPERVISOR Work Phone: [facility] Start: 03-17-2023 End: 03-17-2023 ambulatory Deisy Weaver MD [facility] Start: 03-17-2023 End: 03-17-2023 Patient encounter procedure Saritha Mendez MD Work Phone: [facility] Management Comment on above: Myofascial low back pain (Primary Dx); Numbness and tingling of both legs; Lumbar spondylosis Start: 02-27-2023 End: 02-28-2023 ambulatory Raleigh Gordillo MD Facility:[facility] Start: 08-29-2022 End: 08-29-2022 ambulatory Deisy Weaver MD [facility] Start: 08-29-2022 End: 08-29-2022 Patient encounter procedure Jason Shipman MD, PhD Work Phone: Pain Management Comment on above: Chronic low back darion n without sciatica, unspecified back pain laterality (Primary Dx); Examination of participant or control in clinical research Start: 07-31-2022 End: 08-01-[address] HUSAM ALCALA Facility:[facility] Start: 06-28-2022 End: 06-29-[address] HUSAM ALCALA Facility:[facility] Start: 04-03-2022 End: 04-04-[address] HUSAM ALCALA Facility:[facility] Start: 03-27-2022 End: 03-28-[address] HUSAM ALCALA Facility:[facility] Start: 02-04-2022 ambulatory Deisy Weaver MD [facility] Man [facility] Start: 12-24-2021 ambulatory Deisy Weaver MD [facility] Start: 10-08-2021 End: 10-09-2021 Patient encounter procedure Saritha Mendez MD Work Phone: Pain Management Comment on above: Clinical trial parti cipant (Primary Dx); Chronic low back pain without sciatica, unspecified back pain laterality; Lumbar spondylosis Start: 08-30-2021 End: 08-30-2021 Patient encounter procedure Sunita Griffiths PA-C Work Phone: Pain Management Comment on above: Lumbar spondylosis ( Primary Dx); Chronic left-sided low back pain without sciatica Procedures Date Procedure Procedure Detail Performing Clinician Start: 08-20-2019 Adult depression screening assessment Saritha Mendez MD Work Phone: Plan of Treatment Date Care Activity Detail Author Start: 08-15-2024 DIABETES SCREEN DIABETES SCREEN [facility] Start: 08-15-2024 Diabetes Screening Diabetes Screenin g [facility] Start: 07-21-2023 Depression Assessment Depression Ass [facility] Start: 03-21-2023 Covid-19 Vaccine ( season) Covid-19 Vaccine ( season) [facility] Start: 03-21-2023 Influenza vaccination [facility] Start: 07-21-2022 DEPRESSION ASSESSMENT DEPRESSION ASS ESSMENT [facility] Start: 03-21-2022 Influenza vaccination [facility] Start: 11-17-2021 COVID-19 VACCINE (4 - Booster for Moderna series) COVID-19 VACCINE (4 - Booster for Moderna series) [facility] Start: 03-21-2021 Influenza vaccination INFLUENZA (#1) [facility] Start: 08-20-2020 Adult depression scr eening assessment DEPRESSION SCREENING [facility] Start: 2020 RSV Vaccine (1 - 1-d ose 60+ series) RSV Vaccine (1 - 1-dose 60+ series) [facility] Start: 2010 SHINGRIX VACCINE (1 of 2) SHINGRIX V ACCINE (1 of 2) [facility] Start: 2005 COLOGUARD (FIT-DNA) COLOGUARD (FIT-D NA) [facility] Start: 2005 Colonoscopy COLONOSCOPY [facility] Start: 2005 COLORECTAL CANCER SCREENING COLORECTAL CANCER SCREENING [facility] Start: [address] COLONOGRAPHY [facility] Start: 2005 FECAL OCCULT BLOOD FECAL OCCULT BLOO D [facility] Start: 2005 Lipid 1996 panel - S mary or Plasma Lipid Screening [facility] Start: 2005 Lipid panel Lipid Screening [facility] Start: 2005 LIPID SCREEN LIPID SCREEN [facility] Start: 2005 Screening for malign ant neoplasm of colon [facility] Start: 2005 SIGMOIDOSCOPY SIGMOIDOSCOPY [facility] Start: 2000 Mammography [facility] Start: 2000 Screening for malign ant neoplasm of breast Mammogram Screening [facility] Start: 1990 HPV TESTING HPV TESTING [facility] Start: 1990 Screening for malign ant neoplasm of cervix HPV Testing [facility] Start: 1981 PAP TESTING PAP TESTING [facility] Start: 1981 Screening for malign ant neoplasm of cervix Pap Testing [facility] Start: 1979 Urine microalbumin profile [facility] Start: 1978 HEPATITIS C SCREENING HEPATITIS C [facility] Start: 1978 Hepatitis C screening Hep[facility] Start: 1978 HIV SCREENING HIV SCREENING [facility] Start: 1978 HIV screening HIV Screening James oliver[facility] Immunizations Immunization Date Immunization Notes Care Provider Fa romanty 04-19-2022 influenza virus vacc ine, unspecified formulation Sandhya Paiz APRN.CNP Work Phone: [facility] 07-19-2021 COVID-19 vaccine, booster dose (MODERNA) Saritha Mendez MD Work Phone: [facility] 10-28-2020 COVID-19 vaccine, fu ll dose (MODERNA) Saritha Mendez MD Work Phone: [facility] 09-30-2020 COVID-19 vaccine, fu ll dose (MODERNA) Saritha Mendez MD Work Phone: [facility] 05-01-2019 influenza, injectabl e, quadrivalent, preservative free Saritha Mendez MD Work Phone: [facility] Payers Date Payer Category Payer Unknown [id number] 2022 Self-pay 2022 Unknown [id number] 2021 Unknown ANTHEM BLUE [facility] S AND BLUE [employer]IELD ANTHEM MEDISNEHALUE O [id number] 2021-Present [phone] [address] [place] [address] O [id number] 2021 Unknown [id number] 1960 Unknown [id number] 1960 Unknown [id number] 1960 Unknown [id number] 1960 Unknown [id number] 1960 Unknown [id number] 1960 Unknown [id number] 1960 Unknown [id number] 1960 Unknown [id number] 1960 Unknown [id number] 1960 Unknown [id number] 1959 Medicare [id number] 1959 Unknown [id number] Social History Date Type Detail Facility Start: 08-06-2016 End: 03-17-2023 Tobacco smoking status NHIS Ex-smoker [facility] Work Phone: End: 07-21-2015 History of tobacco use Current smoker [facility] Work Phone: End: 07-21-2015 History of tobacco use Cigarette Smoker [facility] Work Phone: Start: 08-06-2016 End: 06-29-2020 Cigarettes smoked current (pack per day) - Reported 0.5 [facility] Start: 08-06-2016 End: 03-17-2023 Tobacco use and exposure Smokeless tobacco non-user [facility] Work Phone: Start: 10-08-2021 End: 08-07-2023 Alcohol intake Current non-drinker of alcohol (finding) [facility] Start: 08-15-2021 History SDOH Alcohol Frequency 1 [facility] Start: 1960 Sex Assigned At Not on file [facility] Start: 08-22-2021 End: 11-22-2021 Exposure to SARS-CoV-2 (event) Unable to assess [facility] Start: 12-14-2021 End: 02-04-2022 Exposure to SARS-CoV-2 (event) Not sure [facility] Start: 06-29-2020 End: 03-17-2023 Tobacco use panel [facility] Adult Depression Screening Assessment 2 [facility] Medical Equipment Procedure Code Equipment Code Equipment Origin al Text Equipment Identifier Dates Reactiv8 Percutaneous Lead [id number] Start: 08-20-2021 Comment on above: Description: Freda blandon: [facility] [employer] Reactiv8 Percutaneous Lead [id number] Start: 08-20-2021 Comment on above: Description: Freda blandon: [facility] [employer] Reactiv8 Implant able Pulse Generator [id number] Start: 08-20-2021 Comment on above: Description: Freda blandon: [facility] [employer] Clinical Notes 08-30-2021 to 10-12-2023 Telephone Encounter - Sandhya Paiz APRN.[facility] - 08/27/2023 12:38 PM Sandhya Whittaker APRN.[facility] - 05/12/2023 11:16 AM EDTCSaritha ley MD - 03/17/2023 11:00 AM EDT Note Date & Type Note Facility 10-12-2023 Note Entered by KARLI ALCALA DO on October 12, 2023 16:24:36 EDT From: HUSAM ALCALA DO To: [id number] Sent: 10/12/2023 16:24:36 EDT Subject: Medication Management Submitted: Complete:methocarbamol (methocarbamol 500 mg oral tablet) Signed by HUSAM ALCALA DO 10/12/2023 16:24:00 EDT Approved with modifications: methocarbamol (methocarbamol 500 mg tablet) TAKE 1 TABLET BY MOUTH IN THE EVENING Qty: 30 tab(s) Days Supply: 30 Refills: 3 Substitutions Allowed Route To Pharmacy - [id number] From: [facility] To: HUSAM ALCALA DO Sent: October 12, 2023 1:00:06 PM CDT Subject: Medication Management Due: October 13, 2023 12:31:36 AM CDT On Hold Pending Signature Drug: methocarbamol (methocarbamol 500 mg oral tablet), TAKE 1 TABLET BY MOUTH IN THE EVENING Quantity: 30 tab(s) Days Supply: 30 Refills: 3 Substitutions Allowed Notes from Pharmacy: Dispensed Drug: methocarbamol (methocarbamol 500 mg oral tablet), TAKE 1 TABLET BY MOUTH IN THE EVENING Quantity: 30 tab(s) Days Supply: 30 Refills: 3 Substitutions Allowed Notes from Pharmacy: [facility] 08-27-2023 Miscellaneous Notes The following approved medication requests have been transmitted electronically. Requested Prescriptions Signed Prescriptions Disp Refills amitriptyline (ELAVIL) 10 mg tablet 30 tablet 2 Sig: Take 1 tablet by mouth daily at bedtime. Authorizing Provider: SANDHYA PAIZ APRN.ELECTRIC REPAIR SUPERVISOR documented in this encounter [facility] 08-07-2023 Note HNO ID: [id number] Author: SARITHA MENDEZ MD Service: ? Author Type: Physician Type: Progress Notes Filed: 08/07/2023 11:17 Note Text: SUBJECTIVE: Clifford Frias presents to [facility] Pain Management Department for a follow-up appointment for LBP. Since the last visit, Clifford Frias states the pain has been improving. AMB ROOMING INTAKE FLOWSHEET DATA Risk Screening Do you have concerns about personal safety or safety in the home?: No Pain Pain Level: 4 Pain Location: Back-Middle Description: Stabbing Duration Amount of Time: 7 Duration Units: Years Frequency: Continuous Intervention/Comfort measure: Medication, Spinal Cord Stimulator The patient denies numbness or tingling. PROMIS-10 Flowsheet Row Office Visit from 08/20/2019 in [facility] Office Visit from 08/06/2016 in [facility] Global Physical Health T Score 37.4 32.4 Global Mental Health T Score 43.5 36.3 0-10 Standard Pain Scale 3 8 Previous pain treatments: physical therapy, medications, injections, Reactiv8 Pain Procedures: Reactiv8 Physical Therapy/Home Exercise: Yes Pain Medications: - Opioids: N - NSAIDs: N - Anti-Depressants: amitriptyline - Anti-Convulsants: Topamax - Others: N Pain medications reviewed: Yes Physical Examination: BP 102/61 Pulse 72 Temp 97.6 Resp 18 Ht 5' 4 [per patient[ (1.63m) Wt 140 lb (63.5kg) SpO2 100% LMP 08/15/2010 BMI 24.02 kg/(m2). General:Well appearing, alert, and in no acute distress Skin: skin color, texture, turgor normal, no rashes or lesions HEENT: normocephalic, atraumatic, sclera non-icteric CV: Regular rate and rhythm - pulses equal Resp: good diaphragmatic excursion normal to percussion GI: Soft, non-tender, non-distended. : not examined Musculoskeletal: Neck: Supple; good ROM. Back: No pain on palpation of the lumbar spine. Full ROM without reproducible pain. Extremities: Extremities normal. No deformities, edema, or skin discoloration Neurological: Mental Status: alert Cranial Nerves: Not examined Reflexes: Deep tendon reflexes are 2+ all throughout. Motor Strength: Motor strength and tone are 5/5 all throughout. Sensory: decreased sensation in both feet. Gait: Normal. Recent Imaging: Impression IMPRESSION: Multilevel degenerative changes of the lumbar spine, as detailed. Anatomic Thoracic/Lumbar Variant: Transitional L5 vertebral body. L4-5 is considered the level of the iliac crest and there are 5 lumbar-type vertebrae. ASSESSMENT: Clifford Frias is a 63 year old woman presenting with: #1 LBP s/p Reactiv8 study Restore implantation (08/20/21) who presents for a follow up appointment for 24 month follow-up. Overall, she is doing very well and has demonstrated improved functional capacity with her consistent self-directed workouts. She is highly motivated and appears determined to continue these exercises as it has helped tremendously with her pain, range of motion, and mood. #2 Regarding her chronic lower extremity numbness, the etiology remains unclear as there is no particular dermotome that is affected. We will trial her on low-dose amitriptyline to help with the numbness. 07/2023 Pt is reporting excellent relief with Reactiv8 Pt is reporting good relief with amitriptyline but is concerned about weight gain M54.50 Myofascial low back pain (primary encounter diagnosis) M47.816 Lumbar spondylosis G60.9 Idiopathic peripheral neuropathy PLAN: - Patient will benefit from emphasis on core stabilization exercises, correction of body mechanics, development of home exercise program, soft-tissue/joint mobilization, stretching/flexibility exercise - continue Amitriptyline 10mg qHS - Increase Topamax to 100 mg - Counseled the patient regarding the importance of continue daily exercises - Follow up: in 1 year for med refills with PA-C The above plan and management options were discussed at length with patient. Patient is in agreement with the above and verbalized understanding. Saritha Mendez MD August 07, 2023 Medical Decision Making: Problems: Moderate: 1+ chronic illnesses with change Risk: Moderate: Drug management Medical Decision Making Level: 4 - Moderate [facility] 08-07-2023 Note HNO ID: [id number] Author: DEISY WEAVER MD Service: ? Author Type: Fellow Type: Progress Notes Filed: 08/07/2023 11:11 Note Text: Summary: Research update Clifford Tali is a part of RESTORE study IRB # [id number] Mendez, the patient was seen today in the clinic for the 24 months follow up visit. The patient completed the study questionnaires according to the study protocol (SWAPNA, Back Pain NRS, EQ-5D, Percent pain relief, SGIC, Treatment satisfaction), the patient rated the LBP at 4 out of 10 for the last 24 hours and 4 out of 10 for the current moment.Cata malik [facility] was here for checking the device and do the necessary programming. The Healthcare utilization, Leg pain and low back pain description questionnaire were filled out by me according to the patient's answers. All the analgesics, muscle relaxants, antidepressants, anticonvulsants and other medications the patient's using were updated in the EDC according to the patient's answers as well. This is the last visit for the patient per the study protocol and she has now completed the study successfully. The patient has all my contact information for any concerns or questions. Deisy Weaver MD. Research fellow/ pain management department. [facility] 07-28-2023 Note Entered by KARLI ALCALA DO on July 28, 2023 07:38:55 EST From: HUSAM ALCALA DO To: [id number] Sent: 07/28/2023 07:38:55 EST Subject: Medication Management Submitted: Complete:SUMAtriptan (SUMAtriptan 100 mg oral tablet) Signed by HUSAM ALCALA DO 07/28/2023 07:38:00 EST Approved with modifications: SUMAtriptan (sumatriptan 100 mg tablet) TAKE 1 TABLET BY MOUTH NEEDED FOR MIGRAINE *may repeat after 2 (TWO) HOURS for a max OF 200 mg in 24 HOURS * Qty: 18 EA Days Supply: 18 Refills: 1 Substitutions Allowed Route To Pharmacy - [id number] From: [facility] To: HUSAM ALCALA DO Sent: July 25, 2023 2:08:38 PM INDUSTRIAL EDITOR Subject: Medication Management Due: July 26, 2023 12:07:31 AM INDUSTRIAL EDITOR On Hold Pending Signature Drug: SUMAtriptan (SUMAtriptan 100 mg oral tablet), TAKE 1 TABLET BY MOUTH DAILY NEEDED FOR MIGRAINE, may repeat after 2 (TWO) hours for a max OF 200 mg in 24 HOURS Quantity: 18 EA Days Supply: 18 Refills: 1 Substitutions Allowed Notes from Pharmacy: Dispensed Drug: SUMAtriptan (SUMAtriptan 100 mg oral tablet), TAKE 1 TABLET BY MOUTH NEEDED FOR MIGRAINE *may repeat after 2 (TWO) HOURS for a max OF 200 mg in 24 HOURS * Quantity: 18 EA Days Supply: 18 Refills: 1 Substitutions Allowed Notes from Pharmacy: [facility] 06-25-2023 Note - From: HUSAM ALCALA DO To: [facility] Clinical Pool ([facility]); Sent: 06/25/2023 11:39:12 EST Subject: FW: Medication Management Due Date/Time: 06/26/2023 11:18:00 EST Caller Name: CLIFFORD FRIAS; Caller Number: H Patient matched by HUSAM ALCALA DO on 06/25/2023 11:38:37 EST From: [id number] To: HUSAM ALCALA DO Sent: June 25, 2023 10:18:31 AM INDUSTRIAL EDITOR Subject: Medication Management Due: June 26, 2023 12:08:39 AM INDUSTRIAL EDITOR On Hold Pending Signature Drug: methocarbamol (methocarbamol 500 mg oral tablet), Take 1 Tablet(s) once a day (in the evening) Quantity: 30 tab(s) Days Supply: 30 Refills: 4 Substitutions Allowed Notes from Pharmacy: Dispensed Drug: methocarbamol (methocarbamol 500 mg oral tablet), TAKE 1 TABLET BY MOUTH IN THE EVENING Quantity: 30 tab(s) Days Supply: 30 Refills: 5 Substitutions Allowed Notes from Pharmacy: On Hold Pending Signature Drug: pregabalin (Lyrica 150 mg oral capsule), 1 cap(s) PO TID Quantity: 90 cap(s) Days Supply: 0 Refills: 0 Substitutions Allowed Notes from Pharmacy: Dispensed Drug: pregabalin (pregabalin 150 mg oral capsule), TAKE 1 CAPSULE BY MOUTH THREE TIMES DAILY Quantity: 90 cap(s) Days Supply: 30 Refills: 0 Substitutions Allowed Notes from Pharmacy: Documented Complete:methocarbamol (methocarbamol 500 mg oral tablet) Signed by DULCE MARTINEZ 06/25/2023 11:48:00 EST Approved with modifications: methocarbamol (methocarbamol 500 mg tablet) TAKE 1 TABLET BY MOUTH IN THE EVENING Qty: 30 tab(s) Days Supply: 30 Refills: 3 Substitutions Allowed Route To Pharmacy - [id number] Signed by DULCE MARTINEZ From: DULCE MARTINEZ To: [facility] Sent: 06/25/2023 11:51:47 EST Subject: FW: Medication Management Not Approved: Refill not appropriate pregabalin (pregabalin 150 mg capsule) TAKE 1 CAPSULE BY MOUTH THREE TIMES DAILY Qty: 90 cap(s) Days Supply: 30 Refills: 0 Substitutions Allowed Route To Pharmacy - [id number] Signed by DULCE MARTINEZ [facility] 05-26-2023 Note - From: HUSAM ALCALA DO To: [facility] Clinical Pool ([facility]); Sent: 05/26/2023 12:54:48 EST Subject: FW: Medication Management Due Date/Time: 05/27/2023 12:40:00 EST Caller Name: CLIFFORD FRIAS; Caller Number: H From: [id number] To: HUSAM ALCALA DO Sent: May 26, 2023 11:40:13 AM INDUSTRIAL EDITOR Subject: Medication Management Due: May 27, 2023 12:10:46 AM INDUSTRIAL EDITOR On Hold Pending Signature Drug: pregabalin (Lyrica 150 mg oral capsule), 1 cap(s) PO TID Quantity: 90 cap(s) Days Supply: 0 Refills: 0 Substitutions Allowed Notes from Pharmacy: Dispensed Drug: pregabalin (pregabalin 150 mg oral capsule), TAKE 1 CAPSULE BY MOUTH THREE TIMES DAILY Quantity: 90 cap(s) Days Supply: 30 Refills: 0 Substitutions Allowed Notes from Pharmacy: From: DULCE MARTINEZ To: [facility] Sent: 05/26/2023 13:11:42 EST Subject: FW: Medication Management Not Approved: Patient has requested refill too soon pregabalin (pregabalin 150 mg capsule) TAKE 1 CAPSULE BY MOUTH THREE TIMES DAILY Qty: 90 cap(s) Days Supply: 30 Refills: 0 Substitutions Allowed Route To Pharmacy - [id number] Signed by DULCE MARTINEZ [facility] 05-14-2023 Note Entered by KARLI ALCALA DO on May 14, 2023 14:00:16 EDT From: HUSAM ALCALA DO To: [facility] Sent: 05/14/2023 14:00:16 EDT Subject: Medication Management Documented Complete:SUMAtriptan (SUMAtriptan 100 mg oral tablet) Signed by HUSAM ALCALA DO 05/14/2023 14:00:00 EDT Submitted: Complete:SUMAtriptan (SUMAtriptan 100 mg oral tablet) Signed by HUSAM ALCALA DO 05/14/2023 14:00:00 EDT Approved SUMAtriptan (sumatriptan 100 mg tablet) TAKE 1 TABLET BY MOUTH DAILY NEEDED FOR MIGRAINE, may repeat after 2 (TWO) hours for a max OF 200 mg in 24 HOURS Qty: 18 EA Days Supply: 18 Refills: 1 Substitutions Allowed Route To Pharmacy - [facility] From: [facility] To: CARI HUSAM Teodora SMITH Sent: May 14, 2023 12:52:34 PM CDT Subject: Medication Management Due: May 15, 2023 12:24:00 AM CDT On Hold Pending Signature Drug: SUMAtriptan (SUMAtriptan 100 mg oral tablet), 1 tab(s) PO Daily,PRN:for migraine headache,Instr:may repeat dose after 2 hours up to a maximum of 200 mg in 24 hours Quantity: 18 tab(s) Days Supply: 0 Refills: 0 Substitutions Allowed Notes from Pharmacy: Dispensed Drug: SUMAtriptan (SUMAtriptan 100 mg oral tablet), TAKE 1 TABLET BY MOUTH DAILY NEEDED FOR MIGRAINE, may repeat after 2 (TWO) hours for a max OF 200 mg in 24 HOURS Quantity: 18 EA Days Supply: 18 Refills: 1 Substitutions Allowed Notes from Pharmacy: [facility] 05-12-2023 Note HNO ID: [id number] Author: Sandhya Paiz APRN.ELECTRIC REPAIR SUPERVISOR Service: ? Author Type: Nurse Practitioner Type: Progress Notes Filed: 05/12/2023 11:17 AM Note Text: The following approved medication requests have been transmitted electronically. Requested Prescriptions Signed Prescriptions Disp Refills amitriptyline (ELAVIL) 10 mg tablet 30 tablet 2 Sig: Take 1 tablet by mouth daily at bedtime. Sandhya Paiz APRN.ELECTRIC REPAIR SUPERVISOR [facility] 05-12-2023 History of Presen t illness Narrative The following approved medication requests have been transmitted electronically. Requested Prescriptions Signed Prescriptions Disp Refills amitriptyline (ELAVIL) 10 mg tablet 30 tablet 2 Sig: Take 1 tablet by mouth daily at bedtime. Sandhya Paiz APRN.CNP documented in this encounter [facility] 03-17-2023 Note HNO ID: [id number] Author: Saritha Mendez MD Service: ? Author Type: Physician Type: Progress Notes Filed: 03/21/2023 4:21 PM Note Text: [facility] Pain Management Department Follow Up Evaluation Date: March 17, 2023 - 10:11 AM Chief Complaint: Patient presents with: Follow Up Medication Update SUBJECTIVE: Clifford Frias is a 62 year old woman with a history of of chronic bilateral L>R low back pain without leg pain s/p Reactiv8 study Restore implantation (08/20/21) who presents for a follow up appointment for 18 month follow-up. The plan from the last visit on 08/29/22 was: - device interrogation - Follow up per Reactiv8 research protocol. Since the last visit, the patient's pain has been imporving and she is doing well. She got a membership at [employer] in Jul 2022 and has been performing weightlifting exercises 3x/week including: Bicep curls - 15 lbs Pectoral fly - 20 lbs Triceps press - 25 lbs Triceps pushdown - 10 lbs Hip abduction - outside 45 lbs, inside 30 lbs Captain's chair (abs) - 60 reps She is dealing with some neuropathy in her feet but that remains stable, but it limits her ability to perform lower body exercises. Denies weakness and falls or issues with balance. Worker's Compensation: No. The patient denies red flags. Physical Therapy/Home Exercise: Yes Current Pain Medications and Dosages: - Opioids: N - NSAIDs: N - Anti-Depressants: N - Anti-Convulsants: Pregabalin 150mg TID - Others: CBD edibles Prior treatments: Nortriptyline Naproxen Methocarbamol Ibuprofen Topiramate Prior Pain Procedures (with percentage of pain relief and duration of relief): 08/20/21: Reactiv8 implant with Dr[address] Ajay ELENARRS report: Reviewed: The patient's OARRS report was reviewed and is consistent with the reported medication use. Pain medications reviewed: Yes Pertinent Imaging: no new imaging since last visit PAST MEDICAL HISTORY Diagnosis Date Degenerative disc disease, lumbar Spinal stenosis cervical Thyroid cancer (HCC) removed age 21 s/p radiation PAST SURGICAL HISTORY Procedure Laterality Date SECTION HX x2 PAST SURGICAL HISTORY OF Right shoulder surgery THYROID SURGERY HX thyroid CA Social History Tobacco Use Smoking status: Former Packs/day: 0.50 Years: 20.00 Additional pack years: 0.00 Total pack years: 10.00 Types: Cigarettes Quit date: 2015 Years since quittin.6 Smokeless tobacco: Never Vaping Use Vaping Use: current everyday user Substances: THC Devices: Pre-filled pod Substance Use Topics Alcohol use: No Drug use: Yes Types: Marijuana Comment: medical card/vapes FAMILY HISTORY Problem Relation Age of Onset Colon Cancer Mother No Known Problems Father Cancer Paternal Grandfather gastric Anesthesia Problems No Family History ALLERGIES Allergen Reactions Ciprofloxacin Rash Current Outpatient Medications Medication Sig TOPIRAMATE ORAL Take 50 mg by mouth once daily. Cholecalciferol, Vitamin D3, 25 mcg (1,000 unit) cap Take 1,000 Units by mouth once daily. MEDICATION, NON-DATABASE as needed. Medical marijuana. pregabalin (LYRICA) 150 mg capsule Take 150 mg by mouth three times daily. dicyclomine (BENTYL) 20 mg tablet Take 20 mg by mouth four times daily. ibuprofen (MOTRIN) 200 mg tablet Take 200 mg by mouth every 6 hours as needed. naproxen sodium (ANAPROX) 220 mg tablet Take 220 mg by mouth twice daily with meals. docusate sodium (COLACE) 100 mg capsule Take 100 mg by mouth twice daily. methocarbamol (ROBAXIN) 500 mg tablet Take 500 mg by mouth daily at bedtime. PREMPRO 0.625-2.5 mg per tablet Take 1 tablet by mouth once daily. Levothyroxine 125 mcg cap Take 1 tablet by mouth once daily. SUMAtriptan (IMITREX) 100 mg tablet Take 100 mg by mouth as needed. amitriptyline (ELAVIL) 10 mg tablet Take 1 tablet by mouth daily at bedtime. No current facility-administered medications for this visit. Questionnaires: Patient Entered Questionnaires PROMIS Score Percentiles PROMIS Global Health Scale 08/06/2016 08/20/2019 Physical Health Percentile 4 10 Mental Health Percentile 9 26* Physical Health 08/20/2019 Physical Function Percentile 4 Pain Interference Percentile 1 Percentiles provide an indication of how the patient's score ranks in relation to the general population. Higher percentile rankings indicate better function/quality of life. 50th percentile is the average of the general population and indicates half of respondents had a worse score. > 31st percentile is within normal limits or better * < 31st percentile is at least ? SD worse than population, which may be clinically relevant < 16th percentile is at least 1 SD worse than population and warrants attention Depression Screening: PHQ-9 08/06/2016 08/20/2019 Score 13 6 PHQ-9 Self Harm 08/20/2019 Question 9 Not at all PHQ-9 Self-Harm (I (more content not included)... [facility] 03-17-2023 Note HNO ID: [id number] Author: Deisy Weaver MD Service: ? Author Type: Fellow Type: Progress Notes Filed: 03/17/2023 11:32 AM Note Text: Summary: Research Update Clifford Frias is a part of RESTORE study IRB # [id number] Mendez, the patient was seen today in the clinic for the 18 months follow up visit. The patient completed the study questionnaires according to the study protocol (SWAPNA, Back Pain NRS, EQ-5D, Percent pain relief, SGIC, Treatment satisfaction), the patient rated the LBP at 2 out of 10 for the last 24 hours and 2 out of 10 for the current moment. Zuri from [facility] was here for checking on the devise and do the necessary programing. The Healthcare utilization, Leg pain and low back pain description questionnaire were filled out by me according to the patient's answers. All the analgesics, muscle relaxants, antidepressants, anticonvulsants and other medications the patient's using were updated in the EDC according to the patient's answers as well. The patient will be contacted again for the 24 Months Follow up visit once the window opens. The patient has all my contact information for any concerns or questions. Deisy Weaver MD. Research fellow/ pain management department. [facility] 03-17-2023 History of Presen t illness Narrative [facility] Pain Management Department Follow Up Evaluation Date: March 17, 2023 - 10:11 AM Chief Complaint: Patient presents with: Follow Up Medication Update SUBJECTIVE: Clifford Frias is a 62 year old woman with a history of of chronic bilateral L>R low back pain without leg pain s/p Reactiv8 study Restore implantation (08/20/21) who presents for a follow up appointment for 18 month follow-up. The plan from the last visit on 08/29/22 was: - device interrogation - Follow up per Reactiv8 research protocol. Since the last visit, the patient's pain has been imporving and she is doing well. She got a membership at [employer] in Jul 2022 and has been performing weightlifting exercises 3x/week including: Bicep curls - 15 lbs Pectoral fly - 20 lbs Triceps press - 25 lbs Triceps pushdown - 10 lbs Hip abduction - outside 45 lbs, inside 30 lbs Captain's chair (abs) - 60 reps She is dealing with some neuropathy in her feet but that remains stable, but it limits her ability to perform lower body exercises. Denies weakness and falls or issues with balance. Worker's Compensation: No. The patient denies red flags. Physical Therapy/Home Exercise: Yes Current Pain Medications and Dosages: - Opioids: N - NSAIDs: N - Anti-Depressants: N - Anti-Convulsants: Pregabalin 150mg TID - Others: CBD edibles Prior treatments: Nortriptyline Naproxen Methocarbamol Ibuprofen Topiramate Prior Pain Procedures (with percentage of pain relief and duration of relief): 08/20/21: Reactiv8 implant [address] Ajay BAEZ report: Reviewed: The patient's OARRS report was reviewed and is consistent with the reported medication use. Pain medications reviewed: Yes Pertinent Imaging: no new imaging since last visit PAST MEDICAL HISTORY Diagnosis Date Degenerative disc disease, lumbar Spinal stenosis cervical Thyroid cancer (HCC) removed age 21 s/p radiation PAST SURGICAL HISTORY Procedure Laterality Date SECTION HX x2 PAST SURGICAL HISTORY OF Right shoulder surgery THYROID SURGERY HX thyroid CA Social History Tobacco Use Smoking status: Former Packs/day: 0.50 Years: 20.00 Additional pack years: 0.00 Total pack years: 10.00 Types: Cigarettes Quit date: 2015 Years since quittin.6 Smokeless tobacco: Never Vaping Use Vaping Use: current everyday user Substances: THC Devices: Pre-filled pod Substance Use Topics Alcohol use: No Drug use: Yes Types: Marijuana Comment: medical card/vapes FAMILY HISTORY Problem Relation Age of Onset Colon Cancer Mother No Known Problems Father Cancer Paternal Grandfather gastric Anesthesia Problems No Family History ALLERGIES Allergen Reactions Ciprofloxacin Rash Current Outpatient Medications Medication Sig TOPIRAMATE ORAL Take 50 mg by mouth once daily. Cholecalciferol, Vitamin D3, 25 mcg (1,000 unit) cap Take 1,000 Units by mouth once daily. MEDICATION, NON-DATABASE as needed. Medical marijuana. pregabalin (LYRICA) 150 mg capsule Take 150 mg by mouth three times daily. dicyclomine (BENTYL) 20 mg tablet Take 20 mg by mouth four times daily. ibuprofen (MOTRIN) 200 mg tablet Take 200 mg by mouth every 6 hours as needed. naproxen sodium (ANAPROX) 220 mg tablet Take 220 mg by mouth twice daily with meals. docusate sodium (COLACE) 100 mg capsule Take 100 mg by mouth twice daily. methocarbamol (ROBAXIN) 500 mg tablet Take 500 mg by mouth daily at bedtime. PREMPRO 0.625-2.5 mg per tablet Take 1 tablet by mouth once daily. Levothyroxine 125 mcg cap Take 1 tablet by mouth once daily. SUMAtriptan (IMITREX) 100 mg tablet Take 100 mg by mouth as needed. amitriptyline (ELAVIL) 10 mg tablet Take 1 tablet by mouth daily at bedtime. No current facility-administered medications for this visit. Questionnaires: Patient Entered Questionnaires PROMIS Score Percentiles PROMIS Global Health Scale 08/06/2016 08/20/2019 Physical Health Percentile 4 10 Mental Health Percentile 9 26* Physical Health 08/20/2019 Physical Function Percentile 4 Pain Interference Percentile 1 Percentiles provide an indication of how the patient's score ranks in relation to the general population. Higher percentile rankings indicate better function/quality of life. 50th percentile is the average of the general population and indicates half of respondents had a worse score. > 31st percentile is within normal limits or better * < 31st percentile is at least SD worse than population, which may be clinically relevant < 16th percentile is at least 1 SD worse than population and warrants attention Depression Screening: PHQ-9 08/06/2016 08/20/2019 Score 13 6 PHQ-9 Self Harm 08/20/2019 Question 9 Not at all PHQ-9 Self-Harm (Item 9) response options: 0 Not at all 1 Several days 2 More than half the days 3 Nearly every day PHQ-9 Levels: 0-4 Minimal depression 5-9 Mild depression 10-14 Moderate depression 15-19 Moderately severe depression 20-27 Severe depression PHQ-9 Score 08/20/2019 6 08/06/2016 13 (0-4) minimal depression, (5-9) mild depression, (10-14) moderate depression, (15-19) moderately severe depression, (20-27) severe depression No flowsheet data found. No flowsheet data found. REVIEW OF SYSTEMS: GENERAL: SEE HPI, No weight loss, malaise or fevers. HEENT: Negative for frequent or significant headaches, No changes in hearing or vision, no nose bleeds or other nasal problems NECK: Negative for lumps, goiter, pain and significant neck swelling RESPIRATORY: Negative for cough, wheezing or shortness of breath. CARDIOVASCULAR: Negative for chest pain, leg swelling or palpitations. GASTROINTESTINAL: Negative for abdominal discomfort, blood in stools or black stools or change in bowel habits GENITOURINARY: No history of dysuria, frequency or incontinence MUSCULOSKELETAL: Negative for joint pain or swelling, back pain or muscle pain. NEUROLOGIC: See HPI SKIN: Negative for lesions, rash, and itching. PSYCHIATRIC: Negative for sleep disturbance, mood disorder and recent psychosocial stressors. HEMATOLOGIC/LYMPHATIC/IMMUNOLOG IC: Negative for prolonged bleeding, bruising easily or swollen nodes. ENDOCRINE: Negative for cold or heat intolerance, polyuria, polydipsia and goiter. The remainder of the ROS was negative. OBJECTIVE: BP 102/57 Pulse 67 Temp (Src) 96.5 (Temporal) Ht 5' 4 (1.63m) Wt 130 lb (59.0kg) SpO2 100% LMP 08/15/2010 BMI 22.30 kg/(m^2). PHYSICAL EXAMINATION: General:well appearing, alert, and in no acute distress Psych: Appropriate affect Skin: skin color, texture, turgor normal, no rashes or lesions HEENT: normocephalic, atraumatic, sclera non-icteric CV: no edema Resp: Unlabored on room air GI: Soft, non-tender, non-distended. : not examined Musculoskeletal: Neck: Supple; good ROM. Back: No pain on palpation of the lumbar spine. Full ROM without reproducible pain. Straight leg raising test negative bilaterally. Extremities: Extremities normal. No deformities, edema, or skin discoloration Neurological: Mental Status: alert, oriented to person, place, and time Cranial Nerves: Cranial nerves II-XII are grossly intact ASSESSMENT: Clifford Frias is a 62 year old woman with a history of of chronic bilateral L>R low back pain without leg pain s/p Reactiv8 study Restore implantation (08/20/21) who presents for a follow up appointment for 18 month follow-up. Overall, she is doing very well and has demonstrated improved functional capacity with her consistent self-directed workouts. She is highly motivated and appears determined to continue these exercises as it has helped tremendously with her pain, range of motion, and mood. Regarding her chronic lower extremity numbness, the etiology remains unclear as there is no particular dermotome that is affected. We will trial her on low-dose amitriptyline to help with the numbness. Numbness and tingling of both legs Lumbar spondylosis Myofascial low back pain (primary encounter diagnosis) PLAN: - start Amitriptyline 10mg qHS to target lower extremity peripheral neuropathy - Counseled the patient regarding the importance of continue daily exercises - Follow up: Return to clinic as per Research protocol The above plan and management options were discussed at length with patient. Patient is in agreement with the above and verbalized understanding. It will be communicated with the referring physician via electronic record, fax, or mail. Deisy Griffin MD March 17, 2023 Teaching Statement I have interviewed and examined the patient and confirm the pertinent findings. I have discussed the case with the resident/fellow and edited the note as needed. I agree with the findings and plan as documented. Saritha Mendez MD March 21, 2023 Medical Decision Making: Problems: Moderate: 1+ chronic illnesses with change Risk: Moderate: Drug management Medical Decision Making Level: 4 - Moderate documented in this encounter [facility] 03-17-2023 History of Presen t illness Narrative Summary: Research Update Clifford Frias is a part of [employer] study IRB # [id number] Mendez, the patient was seen today in the clinic for the 18 months follow up visit. The patient completed the study questionnaires according to the study protocol (SWAPNA, Back Pain NRS, EQ-5D, Percent pain relief, SGIC, Treatment satisfaction), the patient rated the LBP at 2 out of 10 for the last 24 hours and 2 out of 10 for the current moment. Zuri malik [facility] was here for checking on the devise and do the necessary programing. The Healthcare utilization, Leg pain and low back pain description questionnaire were filled out by me according to the patient's answers. All the analgesics, muscle relaxants, antidepressants, anticonvulsants and other medications the patient's using were updated in the EDC according to the patient's answers as well. The patient will be contacted again for the 24 Months Follow up visit once the window opens. The patient has all my contact information for any concerns or questions. Deisy Weaver MD. Research fellow/ pain management department. documented in this encounter [facility] 08-29-2022 Note HNO ID: [id number] Author: Jason Shipman MD, PhD Service: ? Author Type: Physician Type: Progress Notes Filed: 09/04/2022 1:37 AM Note Text: [facility] Established Patient Patient name: Clifford Frias Date of Service: August 29, 2022 Site of Service: [facility] Established care at [facility]: yes HPI Clifford Frias presents to [facility] for a follow-up appointment for 12-month follow-up visit for Reactiv8. Please see Reactiv8 research team note for further details. Clifford appears to be doing extremely well with her Reactiv8 device. Review of systems 12 point review of systems reviewed and negative except as noted above OARRS report Reviewed. The patient's OARRS report was reviewed and is consistent with the reported medication use. Medical History Past Medical History PAST MEDICAL HISTORY Diagnosis Date Degenerative disc disease, lumbar Spinal stenosis cervical Thyroid cancer (HCC) removed age 21 s/p radiation Past Surgical History PAST SURGICAL HISTORY Procedure Laterality Date SECTION HX x2 PAST SURGICAL HISTORY OF Right shoulder surgery THYROID SURGERY HX thyroid CA Social History Social History Tobacco Use Smoking status: Former Packs/day: 0.50 Years: 20.00 Pack years: 10.00 Types: Cigarettes Quit date: 2015 Years since quittin.1 Smokeless tobacco: Never Vaping Use Vaping Use: current everyday user Substances: THC Devices: Pre-filled pod Substance Use Topics Alcohol use: No Drug use: Yes Types: Marijuana Comment: medical card/vapes Family History FAMILY HISTORY Problem Relation Age of Onset Colon Cancer Mother No Known Problems Father Cancer Paternal Grandfather gastric Anesthesia Problems No Family History Allergies ALLERGIES Allergen Reactions Ciprofloxacin Rash Medications Current Outpatient Medications Medication Sig TOPIRAMATE ORAL Take 50 mg by mouth. Cholecalciferol, Vitamin D3, 25 mcg (1,000 unit) cap Take 1,000 Units by mouth once daily. MEDICATION, NON-DATABASE as needed. Medical marijuana. amitriptyline (ELAVIL) 50 mg tablet pregabalin (LYRICA) 150 mg capsule dicyclomine (BENTYL) 20 mg tablet Take 20 mg by mouth four times daily. ibuprofen (MOTRIN) 200 mg tablet Take 200 mg by mouth every 6 hours as needed. naproxen sodium (ANAPROX) 220 mg tablet Take 220 mg by mouth twice daily with meals. docusate sodium (COLACE) 100 mg capsule Take 100 mg by mouth twice daily. methocarbamol (ROBAXIN) 500 mg tablet Take 500 mg by mouth daily at bedtime. PREMPRO 0.625-2.5 mg per tablet Take 1 tablet by mouth once daily. Levothyroxine 125 mcg cap Take 1 tablet by mouth once daily. SUMAtriptan (IMITREX) 100 mg tablet Take 100 mg by mouth as needed. No current facility-administered medications for this visit. Physical Examination BP 112/65 Pulse 67 Temp 98.2 Ht 5' 4 (1.63m) Wt 120 lb (54.4kg) SpO2 99% LMP 08/15/2010 BMI 20.59 kg/(m2). General appearance: Well appearing, in no acute distress, alert. Psych: Mood and affect appropriate. Skin: Skin color, texture, turgor normal, no rashes or lesions. Head/face: Atraumatic, normocephalic. Neck: No pain to palpation over the cervical paraspinous muscles. Spurling Negative. No pain with neck flexion, extension, or lateral flexion. Cor: non-cyanotic Pulm: breathing comfortably on RA Back: Mild tenderness over lumbar paraspinal muscles L > R. Extremities: Peripheral joint ROM is full and pain free without obvious instability or laxity in all four extremities. No deformities, edema, or skin discoloration. Musculoskeletal: LE strength 5/5 b/l Neuro: Bilateral upper and lower extremity coordination and muscle stretch reflexes are physiologic and symmetric. Review of data Imaging Imaging listed below was directly visualized and independently reviewed. Medical Decision Making Assessment Clifford Frias is a 62 year old woman with a history of of chronic bilateral L>R low back pain without leg pain who received the Reactiv8 device and who presents for follow up for 12-month follow up. Today she underwent interrogation of the device performed by reps and answered questionnaire. (M54.50, G89.29) Chronic low back pain without sciatica, unspecified back pain laterality (primary encounter diagnosis) (Z00.6) Examination of participant or control in clinical research Plan - Follow up per Reactiv8 research protocol. The above plan and management options were discussed at length with the patient. The patient is in agreement with the above and verbalized understanding. Carly Almaraz MD Pain Medicine Fellow August 29, 2022 Attending note: waddell findings were confirmed. I discussed with resident physician and the patient, was present for procedure/visit. Plan is as outlined. ELECTRONIC SIGNATURE, Jason Barba (more content not included)... [facility] 08-29-2022 Note HNO ID: [id number] Author: Deisy Weaver MD Service: ? Author Type: Fellow Type: Progress Notes Filed: 08/29/2022 12:13 PM Note Text: Summary: Research update Clifford Frias is a part of RESTORE study IRB # [id number] Mendez, the patient was seen today in the clinic for the 12 months follow up visit. The patient completed the study questionnaires according to the study protocol (SWAPNA, Back Pain NRS, EQ-5D, Percent pain relief, SGIC, Treatment satisfaction), the patient rated the LBP at 6 out of 10 for the last 24 hours for an instance she had which was picking sticks in her backyard and 2 out of 10 for the current moment, she would average her pain over the last period at 2. The Healthcare utilization, Leg pain and low back pain description questionnaire were filled out by me according to the patient's answers. The patient will be contacted again for the 18 Months Follow up visit once the window opens. The patient has all my contact information for any concerns or questions. Deisy Weaver MD. Research fellow/ pain management department. [facility] 08-29-2022 History of Presen t illness Narrative [facility] [place] Established Patient Patient name: Clifford Frias Date of Service: August 29, 2022 Site of Service: [facility] Established care at [facility]: yes HPI Clifford Frias presents to [facility] for a follow-up appointment for 12-month follow-up visit for Reactiv8. Please see Reactiv8 research team note for further details. Clifford appears to be doing extremely well with her Reactiv8 device. Review of systems 12 point review of systems reviewed and negative except as noted above OARRS report Reviewed. The patient's OARRS report was reviewed and is consistent with the reported medication use. Medical History Past Medical History PAST MEDICAL HISTORY Diagnosis Date Degenerative disc disease, lumbar Spinal stenosis cervical Thyroid cancer (HCC) removed age 21 s/p radiation Past Surgical History PAST SURGICAL HISTORY Procedure Laterality Date SECTION HX x2 PAST SURGICAL HISTORY OF Right shoulder surgery THYROID SURGERY HX thyroid CA Social History Social History Tobacco Use Smoking status: Former Packs/day: 0.50 Years: 20.00 Pack years: 10.00 Types: Cigarettes Quit date: 2015 Years since quittin.1 Smokeless tobacco: Never Vaping Use Vaping Use: current everyday user Substances: THC Devices: Pre-filled pod Substance Use Topics Alcohol use: No Drug use: Yes Types: Marijuana Comment: medical card/vapes Family History FAMILY HISTORY Problem Relation Age of Onset Colon Cancer Mother No Known Problems Father Cancer Paternal Grandfather gastric Anesthesia Problems No Family History Allergies ALLERGIES Allergen Reactions Ciprofloxacin Rash Medications Current Outpatient Medications Medication Sig TOPIRAMATE ORAL Take 50 mg by mouth. Cholecalciferol, Vitamin D3, 25 mcg (1,000 unit) cap Take 1,000 Units by mouth once daily. MEDICATION, NON-DATABASE as needed. Medical marijuana. amitriptyline (ELAVIL) 50 mg tablet pregabalin (LYRICA) 150 mg capsule dicyclomine (BENTYL) 20 mg tablet Take 20 mg by mouth four times daily. ibuprofen (MOTRIN) 200 mg tablet Take 200 mg by mouth every 6 hours as needed. naproxen sodium (ANAPROX) 220 mg tablet Take 220 mg by mouth twice daily with meals. docusate sodium (COLACE) 100 mg capsule Take 100 mg by mouth twice daily. methocarbamol (ROBAXIN) 500 mg tablet Take 500 mg by mouth daily at bedtime. PREMPRO 0.625-2.5 mg per tablet Take 1 tablet by mouth once daily. Levothyroxine 125 mcg cap Take 1 tablet by mouth once daily. SUMAtriptan (IMITREX) 100 mg tablet Take 100 mg by mouth as needed. No current facility-administered medications for this visit. Physical Examination BP 112/65 Pulse 67 Temp 98.2 Ht 5' 4 (1.63m) Wt 120 lb (54.4kg) SpO2 99% LMP 08/15/2010 BMI 20.59 kg/(m^2). General appearance: Well appearing, in no acute distress, alert. Psych: Mood and affect appropriate. Skin: Skin color, texture, turgor normal, no rashes or lesions. Head/face: Atraumatic, normocephalic. Neck: No pain to palpation over the cervical paraspinous muscles. Spurling Negative. No pain with neck flexion, extension, or lateral flexion. Cor: non-cyanotic Pulm: breathing comfortably on RA Back: Mild tenderness over lumbar paraspinal muscles L > R. Extremities: Peripheral joint ROM is full and pain free without obvious instability or laxity in all four extremities. No deformities, edema, or skin discoloration. Musculoskeletal: LE strength 5/5 b/l Neuro: Bilateral upper and lower extremity coordination and muscle stretch reflexes are physiologic and symmetric. Review of data Imaging Imaging listed below was directly visualized and independently reviewed. Medical Decision Making Assessment Clifford Frias is a 62 year old woman with a history of of chronic bilateral L>R low back pain without leg pain who received the Reactiv8 device and who presents for follow up for 12-month follow up. Today she underwent interrogation of the device performed by reps and answered questionnaire. (M54.50, G89.29) Chronic low back pain without sciatica, unspecified back pain laterality (primary encounter diagnosis) (Z00.6) Examination of participant or control in clinical research Plan - Follow up per Reactiv8 research protocol. The above plan and management options were discussed at length with the patient. The patient is in agreement with the above and verbalized understanding. Carly Almaraz MD Pain Medicine Fellow August 29, 2022 Attending note: waddell findings were confirmed. I discussed with resident physician and the patient, was present for procedure/visit. Plan is as outlined. ELECTRONIC SIGNATURE, Jason Shipman MD, PhD documented in this encounter [facility] 08-29-2022 History of Presen t illness Narrative Summary: Research update Clifford Frias is a part of RESTORE study IRB # [id number] Mendez, the patient was seen today in the clinic for the 12 months follow up visit. The patient completed the study questionnaires according to the study protocol (SWAPNA, Back Pain NRS, EQ-5D, Percent pain relief, SGIC, Treatment satisfaction), the patient rated the LBP at 6 out of 10 for the last 24 hours for an instance she had which was picking sticks in her backyard and 2 out of 10 for the current moment, she would average her pain over the last period at 2. The Healthcare utilization, Leg pain and low back pain description questionnaire were filled out by me according to the patient's answers. The patient will be contacted again for the 18 Months Follow up visit once the window opens. The patient has all my contact information for any concerns or questions. Deisy Weaver MD. Research fellow/ pain management department. documented in this encounter [facility] 04-03-2022 Note PROCEDURE: XR SHOULD ER LT 2V or > HISTORY: Pain of left shoulder joint for several months; no known injury COMPARISON: None. FINDINGS: BONES:No fracture, acute abnormality, or significant arthropathy. SOFT TISSUES:No visible soft tissue swelling. EFFUSION:None visible. OTHER: Incidental calcified granuloma within lateral left midlung. IMPRESSION: 1. No acute bone abnormality or significant degenerative changes of the left shoulder. Electronically authenticated by: MEHUL BAIG Date: 2022-04-03 14:18 [facility] 02-04-2022 History of Presen t illness Narrative Summary: research update Clifford Huffmanjose migueldae is a part of RESTORE study IRB # [id number] Mendez, she was seen today in the clinic for his 6 Months follow up visit. The patient completed the study questionnaires according to the study protocol (SWAPNA, Back Pain NRS, EQ-5D, Percent pain relief, SGIC, Treatment satisfaction) The zuleikaena rated her LBP as 6 out of 10 for the last 24 hours and At the current moment at 4 The Healthcare utilization, Leg pain and low back pain description questionnaire was filled out by me according to the patient's answers. she will be contacted again for her 12 Months Follow up visit once the window opens The patient has all my contact information for any concerns or questions that he may have Deisy Weaver MD. Research fellow/ pain management department [email or web address] [phone] documented in this encounter [facility] 12-24-2021 History of Presen t illness Narrative Summary: Research update Clifford Frias is a part of RESTORE study IRB # [id number] Mendez, He was seen today in the clinic for his 3 Months follow up visit The patient completed the study questionnaires according to the study protocol (SWAPNA, Back Pain NRS, EQ-5D, Percent pain relief, SGIC, Treatment satisfaction), Where her low back NRS is: 4 The patient stated she is not taking the Ibuprofen since 15-OCT-2021 The Healthcare utilization, Leg pain and low back pain description questionnaire was filled out by me according to the patient's answers. she will be contacted again for her 6 Months Follow up visit once the window opens The patient has all my contact information for any concerns or questions that he may have Deisy Weaver MD. Research fellow/ pain management department [email or web address] [phone] documented in this encounter [facility] 10-08-2021 History of Presen t illness Narrative SUBJECTIVE: Clifford Frias presents to [facility] for a follow-up appointment for Restore Implant 08/20/2021. She is here for her 1.5month follow up. Since the last visit, Clifford Frias states the pain has been improving. Current pain intensity is 1 on a scale of 0 -10. Overall, she is doing well. She has less pain than prior and has been moving around. She reports some minor numbness along the generator site. -Pain Medications: - Opioids: no longer taking percocet. - NSAIDs: aleve 220 mg or advil 200 mg - Anti-Depressants: none. - Anti-Convulsants: gabapentin previously (did not help). - Others: lyrica 150 mg TID, robaxin 500 mg at night. Voltaren gel has not helped in the past. - Anticoagulation: none. Pain Procedures: Restore Implant 08/20/2021 Left Lumbar Facet Medial Nerve Block 05/09/2021 Physical Therapy/Home Exercise: Yes Imaging: IMPRESSION: Multilevel degenerative changes of the lumbar spine, as detailed. Anatomic Thoracic/Lumbar Variant: Transitional L5 vertebral body. L4-5 is considered the level of the iliac crest and there are 5 lumbar-type vertebrae. Past Medical History: PAST MEDICAL HISTORY Diagnosis Date Degenerative disc disease, lumbar Spinal stenosis cervical Thyroid cancer (HCC) removed age 21 s/p radiation Past Surgical History: PAST SURGICAL HISTORY Procedure Laterality Date SECTION HX x2 PAST SURGICAL HISTORY OF Right shoulder surgery THYROID SURGERY HX thyroid CA Family History: FAMILY HISTORY Problem Relation Age of Onset Colon Cancer Mother No Known Problems Father Cancer Paternal Grandfather gastric Anesthesia Problems No Family History Social History: Social History Tobacco Use Smoking status: Former Smoker Packs/day: 0.50 Years: 20.00 Pack years: 10.00 Types: Cigarettes Quit date: 2015 Years since quittin.2 Smokeless tobacco: Never Used Vaping Use Vaping Use: current everyday user Substances: THC Devices: Pre-filled pod Substance Use Topics Alcohol use: No Drug use: Yes Types: Marijuana Comment: medical card/vapes OBJECTIVE: BP 110/69 Pulse 93 Temp 98.8 Ht 5' 3 (1.60m) Wt 120 lb (54.4kg) SpO2 97% LMP 08/15/2010 BMI 21.26 kg/(m^2). PHYSICAL EXAMINATION: General appearance: Well appearing, in no acute distress, alert. Psych: Mood and affect appropriate. Head/face: Normocephalic, atraumatic. Cor:RRR Pulm: breathing comfortably on room air. Back: Tenderness to palpation over bilateral lumbar paraspinals. multifidus lift test positive, Neuro: 5/5 LE strength; ASSESSMENT: 61 year old female with history of chronic bilateral L>R low back pain without leg pain, that has not responded well to physical therapy, medications, and injections. She is s/p Restore Implant 08/20/2021. She has had no issues with the implantation.Incisions are healing will, clean, dry and intact. She has met with the device rep Wilfrid who titrated the device to her satisfaction. We will follow up as per Reactiv8 protocol. (Z00.6) Clinical trial participant (primary encounter diagnosis) (M54.50, G89.29) Chronic low back pain without sciatica, unspecified back pain laterality (M47.816) Lumbar spondylosis PLAN: 1) Follow up as per Reactiv8 protocol. 2) Interrogation of the device performed by reps The above plan and management options were discussed at length with the patient. The patient is in agreement with the above and verbalized understanding. Yvette Fabian October 08, 2021 Teaching Statement I have interviewed and examined the patient and confirm the pertinent findings. I have discussed the case with the resident/fellow and edited the note as needed. I agree with the findings and plan as documented. Saritha Mendez MD October 10, 2021 Medical Decision Making: Problems: Moderate: 1+ chronic illnesses with change Data: Unique test result(s) reviewed: 2 Medical Decision Making Level: 3 - Low documented in this encounter [facility] 08-30-2021 History of Presen t illness Narrative SUBJECTIVE: Clifford Frias is a 61 year old female who presents to [facility] for suture removal following Restore implant.She is enrolled in Reactiv8 study. Since the last visit states symptoms are stable. She has notneeded additional medication for post-operative pain. Surigical pain 0 Baseline pain 4 System will be activated on 09/03 OBJECTIVE: Dressing noted to beclean, dry or intact. Dressings removed and well approximated suture line noted. Areas cleansed with cloroprep and suture removal completed using sterile technique. Primapore dressings applied.No warmth, erythema or swelling noted at the site. ASSESSMENT: Lumbar spondylosis (primary encounter diagnosis) Chronic left-sided low back pain without sciatica PLAN: Keep incisions dry and clean Ok to shower in 24 hours No submersion in water ie) hot tub, bath tub or swimming pool x 4 weeks post op Discussed post op restrictions Stimulator will be activated on 09/03 TACHO Fishman PA-C documented in this encounter [facility] Evaluation note Diagnosis Clinical trial participant- Primary Chronic low back pain without sciatica, unspecified back pain laterality Lumbar spondylosis Lumbosacral spondylosis without myelopathy [facility] Diagnosis Lumbar spondylosis- Primary Lumbosacral spondylosis without myelopathy Chronic left-sided low back pain without sciatica [facility] Diagnosis Chronic low back pain without sciatica, unspecified back pain laterality- Primary Examination of participant or control in clinical research Examination of participant in clinical trial [facility] Diagnosis Myofascial low back pain- Primary Numbness and tingling of both legs Disturbance of skin sensation Lumbar spondylosis Lumbosacral spondylosis without myelopathy [facility] Diagnosis Idiopathic peripheral neuropathy Unspecified hereditary and idiopathic peripheral neuropathy documented in this encounter [facility] Summary Purpose Family History No Family History Records FoundNo Family History Records FoundNo Family History Records FoundNo Family History Records Found Advance Directives No Advanced Directives Records FoundDocuments on File Type Date Recorded 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 DATE CREATED AUTHOR AUTHOR'S ORGANIZ ATION 08/03/2022 [facility] DATE CREATED AUTHOR AUTHOR'S ORGANIZ ATION 08/08/2023 [facility] DATE CREATED AUTHOR AUTHOR'S ORGANIZ ATION 10/23/2023 [facility] l Source Comments (unrecognize d section and content) In the event this informatio n is protected by the Federal Confidentiality of Alcohol and Drug Abuse Patient Records regulations: The Federal rules restrict any use of the information to criminally investigate or prosecute any alcohol or drug abuse patient.[facility]In the event this information is protected by the Federal Confidentiality of Alcohol and Drug Abuse Patient Records regulations: The Federal rules restrict any use of the information to criminally investigate or prosecute any alcohol or drug abuse patient.[facility] the event this information is protected by the Federal Confidentiality of Alcohol and Drug Abuse Patient Records regulations: The Federal rules restrict any use of the information to criminally investigate or prosecute any alcohol or drug abuse patient.[facility] the event this information is protected by the Federal Confidentiality of Alcohol and Drug Abuse Patient Records regulations: The Federal rules restrict any use of the information to criminally investigate or prosecute any alcohol or drug abuse patient.[facility] the event this information is protected by the Federal Confidentiality of Alcohol and Drug Abuse Patient Records regulations: The Federal rules restrict any use of the information to criminally investigate or prosecute any alcohol or drug abuse patient.[facility] the event this information is protected by the Federal Confidentiality of Alcohol and Drug Abuse Patient Records regulations: The Federal rules restrict any use of the information to criminally investigate or prosecute any alcohol or drug abuse patient.[facility] the event this information is protected by the Federal Confidentiality of Alcohol and Drug Abuse Patient Records regulations: The Federal rules restrict any use of the information to criminally investigate or prosecute any alcohol or drug abuse patient.[facility] the event this information is protected by the Federal Confidentiality of Alcohol and Drug Abuse Patient Records regulations: The Federal rules restrict any use of the information to criminally investigate or prosecute any alcohol or drug abuse patient.[facility] the event this information is protected by the Federal Confidentiality of Alcohol and Drug Abuse Patient Records regulations: The Federal rules restrict any use of the information to criminally investigate or prosecute any alcohol or drug abuse patient.[facility] the event this information is protected by the Federal Confidentiality of Alcohol and Drug Abuse Patient Records regulations: The Federal rules restrict any use of the information to criminally investigate or prosecute any alcohol or drug abuse patient.[facility] Reason for Visit (unrecogniz ed section and content) Reason Comments Medication Update Establish Care Reason Comments Establish Care Medication Update Reason Comments Follow Up Medication Update Reason Comments Refill Request Care Teams (unrecognized sec tion and content) Electric Pile Driver Operator Relationship Specialty Start Date End Date Cari Husam Escamilla SrCheri PCP - General Family Practice 07/11/16 Electric Pile Driver Operator Relationship Specialty Start Date End Date Husam Alcala SrCheri PCP - General Family Practice 07/11/16 Electric Pile Driver Operator Relationship Specialty Start Date End Date Cari Husam Escamilla SrCheri PCP - General Family Practice 07/11/16 Electric Pile Driver Operator Relationship Specialty Start Date End Date Cari Husam Escamilla SrCheri PCP - General Family Medicine 07/11/16 Electric Pile Driver Operator Relationship Specialty Start Date End Date Cari Husam Escamilla SrCheri PCP - General Family Medicine 07/11/16 Electric Pile Driver Operator Relationship Specialty Start Date End Date Cari Husam Escamilla SrCheri PCP - General Family Medicine 07/11/16 Electric Pile Driver Operator Relationship Specialty Start Date End Date Husam Alcala Sr. PCP - General Family Medicine 07/11/16 Electric Pile Driver Operator Relationship Specialty Start Date End Date Husam Alcala Sr., DO PCP - General Family Medicine 07/11/16 Electric Pile Driver Operator Relationship Specialty Start Date End Date Husam Alcala Sr., DO PCP - General Family Medicine 07/11/16 FOR RECORDS PERTAINING TO PATIENTS WHO ARE OR HAVE BEEN ENROLLED IN A CHEMICAL DEPENDENCY/SUBSTANCEABUSE PROGRAM, SOME INFORMATION MAY BE OMITTED. This clinical summary was aggregated from multiple sources. Caution should be exercised in using it in the provision of clinical care. This summary normalizes information from multiple sources, and as a consequence, information in this document may materially change the coding, format and clinical context of patient data. In addition, data may be omitted in some cases. CLINICAL DECISIONS SHOULD BE BASED ON THE PRIMARY CLINICAL RECORDS. [employer] [facility]. provides no warranty or guarantee of the accuracy or completeness of information in this document.
--- NOTE | 2023-10-25 09:40 | ED_ITS ---
HPI - Nausea/Vomiting/Diarrhea General Chief complaint: Nausea/Vomiting/Diarrhea Stated complaint: FLU LIKE SYMPTOMS >4 DAYS Time Seen by Provider: 10/25/23 09:28 Source: patient Mode of arrival: Wheelchair Limitations: no limitations History of Present Illness HPI Narrative: This patient is here for nausea vomiting and diarrhea. Historically she says she did not feel good on of this week so she went and saw her primary care doctor her complaint at that time was that her urine had a bad smell. She did not have frequency urgency dysuria hematuria or nocturia. She relates the doctor checked her urine and said that she had a UTI. He gave her prescription for Macrobid. She took 1 Macrobid that day and then after that she has had vomiting and diarrhea ever since. She had 3 episodes of diarrhea yesterday. 1 today. She has had chills she has had a runny nose but no sore throat cough or congestion. She then changed her mind and said that she did have a head cold and that is why she took Coricidin last night. She does not have myalgias or arthralgias. Related Data Home Medications ?Medication ?Instructions ?Recorded ?Confirmed amitriptyline 10 mg tablet 10 mg PO BEDTIME 10/25/23 10/25/23 benzonatate 100 mg capsule 100 mg PO TID 10/25/23 10/25/23 dicyclomine 20 mg tablet 20 mg PO BID 10/25/23 10/25/23 levothyroxine 112 mcg tablet 112 mcg PO DAILY 10/25/23 10/25/23 montelukast 10 mg tablet 10 mg PO DAILY 10/25/23 10/25/23 nitrofurantoin 100 mg PO BID 10/25/23 10/25/23 monohydrate/macrocrystals 100 mg capsule pregabalin 150 mg capsule 150 mg PO TID 10/25/23 10/25/23 rizatriptan 10 mg tablet 10 mg PO PRN 10/25/23 10/25/23 sumatriptan succinate 100 mg tablet 100 mg PO PRN 10/25/23 10/25/23 tizanidine 4 mg tablet 4 mg PO BID 10/25/23 10/25/23 topiramate 100 mg tablet 100 mg PO DAILY 10/25/23 10/25/23 Allergies Allergy/AdvReac Type Severity Reaction Status Date / Time ciprofloxacin [From Cipro] Allergy Intermediate Verified 10/25/23 09:10 Exam Narrative Exam Narrative: Awake alert vital signs are stable she does not appear ill or toxic. Peripheral perfusion extremities is normal there is no cyanosis clamminess or diaphoresis. Her lungs are completely clear with no wheeze rales or rhonchi there is no cough or congestion. Heart sounds are normal. ENT examination shows no rhinitis. There is no facial swelling. There is no nuchal rigidity or meningeal irritation. Abdomen shows very active bowel sounds. There is no surgical incisions. There is no guarding rebound rigidity or peritoneal findings. Constitutional Vital Signs, click to edit/add: Last Vital Signs Temp 98.3 F 10/25/23 09:04 Pulse 76 10/25/23 09:04 Resp 16 10/25/23 09:04 BP 150/83 H 10/25/23 09:04 Pulse Ox 98 10/25/23 09:04 O2 Del Method Room Air 10/25/23 09:04 Course Vital Signs Vital signs: Vital Signs Temperature 98.3 F 10/25/23 09:04 Pulse Rate 76 10/25/23 09:04 Respiratory Rate 16 10/25/23 09:04 Blood Pressure 150/83 H 10/25/23 09:04 Pulse Oximetry 98 10/25/23 09:04 Oxygen Delivery Method Room Air 10/25/23 09:04 Temperature 98.3 F 10/25/23 09:04 Pulse Rate 76 10/25/23 09:04 Respiratory Rate 16 10/25/23 09:04 Blood Pressure 150/83 H 10/25/23 09:04 Pulse Oximetry 98 10/25/23 09:04 Oxygen Delivery Method Room Air 10/25/23 09:04 MDM - Nausea/Vomiting/Diarrhea MDM Narrative Medical decision making narrative: This patient's laboratory testing shows a decreased potassium. We were unable to give her oral potassium because despite several doses of antiemetic medication she Vomiting. We decided to do additional studies including lipase t esting which was normal. We also did an abdominal CT study which was normal for no evidence of bowel obstruction or other acute intra-abdominal pathology. She does have a concentrated urine with ketones. She does clinically look greatly improved after 2 L of fluids but still has had several episodes of diarrhea and does not feel very good to go home. I discussed with the on-call physician piter lew we have not really made much progress on the vomiting diarrhea we will admit her for supportive care we are awaiting her studies with stool to come back for C. difficile but after only 1 dose of Macrobid that seems unlikely. The urine does show bacteria but no white blood cells so we will wait for the urine culture. Discharge Plan Discharge Chief Complaint: Nausea/Vomiting/Diarrhea Clinical Impression: Acute dehydration Patient Disposition: Admitted as Observation Time of Disposition Decision: 15:50 Prescriptions / Home Meds: No Action amitriptyline 10 mg tablet 10 mg PO BEDTIME benzonatate 100 mg capsule 100 mg PO TID dicyclomine 20 mg tablet 20 mg PO BID levothyroxine 112 mcg tablet 112 mcg PO DAILY montelukast 10 mg tablet 10 mg PO DAILY nitrofurantoin monohyd/m-cryst 100 mg capsule 100 mg PO BID pregabalin 150 mg capsule 150 mg PO TID rizatriptan 10 mg tablet 10 mg PO PRN sumatriptan succinate 100 mg tablet 100 mg PO PRN Patient Comments: may repeat in 2 hrs with 200mg tizanidine 4 mg tablet 4 mg PO BID topiramate 100 mg tablet 100 mg PO DAILY Patient Comments: take 1 1/2 pills daily dose 150mg Print Language: Pashto Referrals: GABE ALCALA [Primary Care Provider] - 1 week
[2023-10-25] MEDS: 0.9 % SODIUM CHLORIDE 1,000 ML 999 ML IV ×2 (10:07→17:45)
[2023-10-25] MEDS: ONDANSETRON PF 4 MG/2 ML VIAL IV ×2 (10:07→20:12)
[2023-10-25 10:12] LABS: Basophils Percent Auto 0.2 % (0.2-2.0); Eosinophils Absolute Auto 0.1 10^3/uL (0.0-0.7); Eosinophils Percent Auto 0.8 % (0.9-7.0); Hemoglobin 14.3 g/dL (12.0-16.0); Immature Granulocytes Abs Auto 0.02 10^3/uL (0.00-0.03); Immature Granulocytes Pct Auto 0.2 % (0.0-0.5); Lymphocytes Absolute Auto 0.8 10^3/uL (1.2-3.8); Lymphocytes Percent Auto 8.3 % (20.5-60.0); Mean Corpuscular HGB Conc 34.9 g/dL (29.9-35.2); Mean Corpuscular Hemoglobin 32.1 pg (26.7-34.0); Mean Corpuscular Volume 91.9 fL (81.0-99.0); Monocytes Absolute Auto 0.6 10^3/uL (0.3-0.8); Monocytes Percent Auto 6.1 % (1.7-12.0); Neutrophils Absolute Auto 8.4 10^3/uL (1.4-6.5); Neutrophils Percent Auto 84.4 % (43.0-75.0); Platelet Count 350 10^3/uL (150-450); Red Blood Count 4.46 10^6/uL (4.20-5.40); Red Cell Distribution Width 12.2 % (11.0-15.0)
[2023-10-25 10:13] LABS: Bilirubin Urine SMALL (NEGATIVE); Blood Urine MODERATE (NEGATIVE); Clarity Urine CLEAR (CLEAR); Color Urine YELLOW (YELLOW); Glucose Urine UA NEGATIVE (NEGATIVE); Ketones Urine 40 mg/dL (NEGATIVE); Leukocyte Esterase Urine NEGATIVE (NEGATIVE); Nitrite Urine NEGATIVE (NEGATIVE); Protein Urine TRACE mg/dL (NEG/TRACE); Specific Gravity Urine >=1.030 (1.005-1.025); Urobilinogen Urine 0.2 EU/dL (0.2-1.0)
[2023-10-25 10:28] LABS: Urine Microscopic Indicated YES
[2023-10-25 10:35] LABS: Bacteria Urine LARGE #/HPF (NONE SEEN); Cast Seen? SEEN #/LPF (NONE SEEN); Hyaline Casts Urine FEW; Mucus Urine MODERATE (NONE SEEN); RBC Urine 0-2 #/HPF (0-2); Squamous Epithelial Cell Urine FEW #/LPF (NONE/RARE)
[2023-10-25 10:36] LABS: Lactate/Lactic Acid 1.2 mmol/L (0.4-2.0)
[2023-10-25 10:36] LABS: Urine Culture Indicated YES
[2023-10-25 10:43] LABS: Alanine Aminotransferase 20 U/L (14-59); Albumin Globulin Ratio 1.1; Albumin Level 4.3 g/dL (3.4-5.0); Alkaline Phosphatase 122 U/L (46-116); Anion Gap 19.3; Aspartate Amino Transferase 21 U/L (15-37); BUN Creatinine Ratio 14.5; Bilirubin Total 0.5 mg/dL (0.2-1.0); Calcium 9.5 mg/dL (8.5-10.1); Carbon Dioxide 20.6 mmol/L (21.0-32.0); Chloride 102 mmol/L (98-107); Estimated GFR (African America >60 (>=60); Estimated GFR (Non-African Ame >60 (>=60); Globulin 3.9 g/dL; Glucose 112 mg/dL (74-106); Sodium 139 mmol/L (136-145); Total Protein 8.2 g/dL (6.4-8.2)
[2023-10-25 10:48] LABS: Potassium 2.9 mmol/L (3.5-5.1)
[2023-10-25] MEDS: 0.9 % SODIUM CHLORIDE 1,000 ML 1000 ML IV (11:32)
[2023-10-25] MEDS: PROMETHAZINE HCL 12.5 MG in 0.9 % SODIUM CHLORIDE 50 ML 202 MG IV (11:33)
--- NOTE | 2023-10-25 11:40 | ECG_ITS ---
The [facility] Test Date: 2023-10-25 Pat Name: CLIFFORD FRIAS Department: Room: - Gender: Female Balance Wheel Hand Filer: : 1960 Requested By: Order Number: [id number] Reading MD: MENDOZA HERNANDEZ Measurements Intervals [place] Rate: 67 P: 65 MD: 164 QRS: 79 QRSD: 92 T: 69 QT: 422 QTc: 438 Interpretive Statements 1100 Sinus rhythm 9110 normal ECG No previous ECG available for comparison Electronically Signed On 10-26-2023 7:39:24 EDT by MENDOZA HERNANDEZ
[2023-10-25 12:24] LABS: Troponin I High Sensitivity 9.6 pg/mL (4.0-51.3)
--- NOTE | 2023-10-25 12:39 | XR_ITS ---
The [address] [address] Patient Name: CLIFFORD FRIAS MRN: [id number] date: 1960 Sex: F Assigned Patient Location: ER Current Patient Location: ER Accession/Order Number: [id number] Exam Date: 10/25/2023 14:00 Report Date: 10/25/2023 15:24 At the request of: CHRISSY SAUNDERS Procedure: XR chest 1V EXAM: XR chest 1V HISTORY: Cough COMPARISON: None. TECHNIQUE: AP upright portable. FINDINGS: Calcified bilateral hilar lymph nodes and scattered pulmonary granulomatous calcifications. Cardiac size and pulmonary vascularity are within normal limits. The costophrenic angles are clear. Surgical clips noted at the right thoracic inlet. XR/XR chest 1V IMPRESSION: No acute cardiopulmonary disease. Electronically authenticated by: LANDEN ALFONSO Date: 10/25/2023 15:24
--- NOTE | 2023-10-25 12:48 | CT_ITS ---
The [address] [address] Patient Name: CLIFFORD FRIAS MRN: [id number] date: 1960 Sex: F Assigned Patient Location: ER Current Patient Location: Accession/Order Number: [id number] Exam Date: 10/25/2023 13:48 Report Date: 10/25/2023 15:25 At the request of: CHRISSY SAUNDERS Procedure: CT abdomen pelvis w con EXAM: CT abdomen pelvis w con HISTORY: Abdominal pain/vomiting . Diarrhea. Hypokalemia. COMPARISON: 06/08/2020. TECHNIQUE: Enhanced helical acquisition obtained through the abdomen and the pelvis. FINDINGS: The visualized lung bases and the pleural spaces are clear. Unremarkable gallbladder. No biliary ductal dilatation. The liver, spleen, pancreas and the kidneys are unremarkable. Chronic diffuse adrenal calcifications bilaterally. No enlarged lymph nodes within the abdomen or the pelvis. Normal appendix. Diverticulosis without radiographic evidence of diverticulitis. No ascites or focal intraperitoneal fluid collections. Moderate diffuse atherosclerotic disease. Moderate-severe degenerative disc disease L5-S1. CT/CT abdomen pelvis w con IMPRESSION: 1. Diverticulosis without radiographic evidence of diverticulitis. Normal appendix. No inflammatory changes within the abdomen or the pelvis. 2. Chronic bilateral adrenal calcifications consistent with sequela of remote prior adrenal infection or adrenal hemorrhage. Electronically authenticated by: LANDEN ALFONSO Date: 10/25/2023 15:25
[2023-10-25] MEDS: POTASSIUM CHLORIDE 10 MEQ ER TABLET 20 MEQ PO (14:11)
--- OUTSIDE RECORDS SUMMARY | 2023-10-25 17:12 | XMS_ITS | CCD ---
Author Organization [facility] Care Team Providers Care Oracle Brm Developer Name Role Phone House Sr., Husam Escamilla Primary Care Provider HOUSE, DR BERNAL Primary Care Unavailable TIMMIS, DR MOORE Admitting Unavailable TIMMIS, DR MOORE Attending Unavailable TIMMIS, DR MOORE Consulting Unavailable ZIEBER, DR MEHUL Whatley Consulting Unavailable HOUSE, DR BERNAL Admitting Unavailable WELLFORD, DR CARLY Ross Consulting Unavailable [place], DR BERNAL Attending Unavailable HOUSE, DR BERNAL Primary Care Unavailable [place], DR BERNAL Consulting Unavailable [place], DR BERNAL Primary Care Unavailable [place], DR HUSAM Hernandezitting Unavailable [place], DR BERNAL Attending Unavailable [place], DR BERNAL Consulting Unavailable ZIEBER, DR MEHUL Whatley Consulting Unavailable [place], DR BERNAL Primary Care Unavailable HOUSE, DR HUSAM Hernandezitting Unavailable [place], DR BERNAL Attending Unavailable [place], DR BERNAL Consulting Unavailable Cooter Sr., Husam Escamilla Primary Care Provider Cooter Sr., Husam SMITH Primary Care Prov ider [...] Ciprofloxacin; Translations: [CIPROFLOXACIN] Drug Allergy 08-06-2016 Rash [facility] Work Phone: (2 sources) Ciprofloxacin; Translations: [Cipro] Drug Allergy 08-10-2013 [facility] Repository Medications Current Medications Medication Drug [...] mg by mouth twice daily. Estrogens, Conjugated (SHELTER) / medroxyPROGESTERone (10 sources) Progestin, Estrogen Start: [...] Test Name Value Interpretation Reference Range Facil [facility] Rad - Other Radiology Report on 10-02-2023 Rad - Other Radiology Report [id number]# [facility]MN ) CLIFFORD FRIAS ([id number]) 1960 F Date Time Provider Department 08/07/23 1:15 PM SARITHA MENDEZ PAINMN During your visit today, we recorded the following information about you: Temperature Pulse Respiration Blood pressure 97.6 degrees 72/minute 18/minute 102/61 Weight Height 63.5 kg 1.626 m Saritha Mendez MD 08/07/2023 11:17 AM Signed SUBJECTIVE: Clifford Frias presents to [facility] Pain Management Department for a follow-up appointment [...] Row Office Visit from 08/20/2019 in [facility] Office Visit from 08/06/2016 in [facility] T Score 37.4 32.4 [...] daily e (more content not included)... Normal [facility] Controlled Substances Agreem entson 06-04-2023 Controlled Substances Agreements [id number]#1 .00OTGTIFF [facility] - Other Lab [facility] Lab - Other Lab Results [id number]#1 .00OTGTIFF [facility] CNOVon 03-17-2023 CNOV Office Visit (PAINMN ) CLIFFORD FRIAS ([id number]) 1960 F Date Time Provider Department 03/17/23 11:00 AM SARITHA MENDEZ PAINPINA During your visit today, we recorded the following information about you: Temperature Pulse Blood pressure Weight 96.5 degrees 67/minute 102/57 59 kg Height 1.626 m Saritha Mendez MD 03/21/2023 4:21 PM Signed [facility] Pain Management Department Follow Up Evaluation Date: [...] doing well. She got a membership at [employer] in Jul 2022 and has been performing [...] SD wo (more content not included)... Normal [facility] Patient Handouton 03-05-2023 Patient Handout [id number]# 1.00OTGTIFF [facility] CNOVon 08-29-2022 CNOV Office Visit (PAINMN ) CLIFFORD FRIAS ([id number]) 1960 F Date Time Provider Department 08/29/22 11:00 AM JASON SHIPMAN PAINMN During your visit today, we recorded the following information about you: Temperature Pulse Blood pressure Weight 98.2 degrees 67/minute 112/65 54.4 kg Height 1.626 m Jason Shipman MD, PhD 09/04/2022 1:37 AM Signed [facility] Established Patient Patient name: Clifford Frias Date of Service: August 29, 2022 Site of Service: [facility] Established care at PMC: yes HPI Clifford Frias presents to [facility] Pain Management Department for a follow-up appointment [...] with the (more content not included)... Normal [facility] CT NECK ST W CONon 3 CT [...] MEHUL BAIG Date: 2022-08-01 09:07 Normal [facility] CREATININEon 07-31-2022 Creatinine [Mass/Vol] 0.71 mg/dL Normal 0.55-1.02 [facility] Comment on above: Performed By: #### T 4, CMP, TSH #### [facility] [address] [address] [address] Bossman Capps EGFR-AF ICELANDIC >60 Normal >=60 [facility] Comment on above: Performed By: #### T 4, CMP, TSH #### [facility] [address] [address] [address] Bossman Capps EGFR-NON AF ICELANDIC >60 Normal >=60 [facility] Comment on above: Performed By: #### T 4, CMP, TSH #### [facility] [address] [place] [address] Dr. Bossman Capps CBC AUTO DIFFon 06-28-2022 BASO # 0.0 103/ul Normal 0.0-0.1 [facility] Comment on above: Performed By: #### C BC #### [facility] [address] [place] [address] Dr. Bossman Capps Basophils/100 WBC (Bld) 0.6 % Normal 0.2-2.0 [facility] Comment on above: Performed By: #### C BC #### [facility] [address] [place] [address] Dr. Bossman Capps EO # 0.1 103/ul Normal 0.0-0.7 [facility] Comment on above: Performed By: #### C BC #### [facility] [address] [place] [address] Dr. Bossman Capps Eosinophils/100 WBC (Bld) 1.1 % Normal 0.9-7.0 [facility] Comment on above: Performed By: #### C BC #### [facility] [address] [place] [address] Dr. Bossman Capps Erythrocyte distribution width (RBC) [Ratio] 13.1 % Normal 11.0-15.0 [facility] Comment on above: Performed By: #### C BC #### [facility] [address] [place] [address] Dr. Bossman Capps Hematocrit (Bld) [Volume fraction] 39.5 % Normal 36.0-48.0 [facility] Comment on above: Performed By: #### C BC #### [facility] [address] [place] [address] Dr. Bossman Capps Hemoglobin (Bld) [Mass/Vol] 13.5 g/dL Normal 12.0-16.0 [facility] Comment on above: Performed By: #### C BC #### [facility] [address] [place] [address] Dr. Bossman Capps IG # 0.01 10e3/ul Normal 0.00-0.03 [facility] Comment on above: Performed By: #### C BC #### [facility] [address] [place] [address] Dr. Bossman Capps IG % 0.2 % Normal 0.0-0.5 [facility] Comment on above: Performed By: #### C BC #### [facility] [address] [place] [address] Dr. Bossman Capps LYMPH # 2.1 103/ul Normal 1.2-3.8 [facility] Comment on above: Performed By: #### C BC #### [facility] [address] [place] [address] Dr. Bossman Capps Lymphocytes/100 WBC (Bld) 33.7 % Normal 20.5-60.0 [facility] Comment on above: Performed By: #### C BC #### [facility] [address] [place] [address] Dr. Bossman Capps MANUAL DIFF REQ NO Normal [facility] Comment on above: Performed By: #### C BC #### [facility] [address] [place] [address] Dr. Bossman Capps MCH (RBC) [Entitic mass] 32.0 pg Normal 26.7-34.0 [facility] Comment on above: Performed By: #### C BC #### [facility] [address] [place] [address] Dr. Bossman Capps MCHC (RBC) [Mass/Vol] 34.2 g/dL Normal 29.9-35.2 [facility] Comment on above: Performed By: #### C BC #### [facility] [address] [place] [address] Dr. Bossman Capps MCV (RBC) [Entitic vol] 93.6 fL Normal 81.0-99.0 [facility] Comment on above: Performed By: #### C BC #### [facility] [address] [place] [address] Dr. Bossman Capps MONO # 0.5 103/ul Normal 0.3-0.8 [facility] Comment on above: Performed By: #### C BC #### [facility] [address] [place] [address] Dr. Bossman Capps Monocytes/100 WBC (Bld) 8.0 % Normal 1.7-12.0 [facility] Comment on above: Performed By: #### C BC #### [facility] [address] [place] [address] Dr. Bossman Capps NEUT # 3.6 103/ul Normal 1.4-6.5 [facility] Comment on above: Performed By: #### C BC #### [facility] [address] [place] [address] Dr. Bossman Capps Neutrophils/100 WBC (Bld) 56.4 % Normal 43.0-75.0 [facility] Comment on above: Performed By: #### C BC #### [facility] [address] [place] [address] Dr. Bossman Capps Platelet mean volume (Bld) [Entitic vol] 9.9 fL Normal 9.5-13.5 [facility] Comment on above: Performed By: #### C BC #### [facility] [address] [place] [address] Dr. Bossman Capps PLT 290 103/ul Normal 150-450 [facility] Comment on above: Performed By: #### C BC #### [facility] [address] [place] [address] Dr. Bossman Capps RBC 4.22 106/ul Normal 4.20-5.40 [facility] Comment on above: Performed By: #### C BC #### [facility] [address] [place] [address] Dr. Bossman Capps WBC 6.4 103/ul Normal 4.0-11.0 [facility] Comment on above: Performed By: #### C BC #### [facility] [address] [place] [address] Dr. Bossman Capps PROF 14(COMP METB)on 022 Albumin [Mass/Vol] 3.3 g/dL Critically low 3.4-5.0 [facility] Comment on above: Performed By: #### T 4, CMP, TSH #### [facility] [address] [address] [address] Bossman Capps Albumin/Globulin [Mass ratio] 0.9 {ratio} Normal [facility] Comment on above: Performed By: #### T 4, CMP, TSH #### [facility] [address] [address] [address] Bossman Capps ALP [Catalytic activity/Vol] 76 U/L Normal 46-116 [facility] Comment on above: Performed By: #### T 4, CMP, TSH #### [facility] [address] [address] [address] Bossman Capps ALT [Catalytic activity/Vol] 13 U/L Critically low 14-59 [facility] Comment on above: Performed By: #### T 4, CMP, TSH #### [facility] [address] [address] [address] Bossman Capps Anion gap [Moles/Vol] 10.4 mmol/L Normal [facility] Comment on above: Performed By: #### T 4, CMP, TSH #### [facility] [address] [place] [address] Dr. Bossman Capps AST [Catalytic activity/Vol] 18 U/L Normal 15-37 [facility] Comment on above: Performed By: #### T 4, CMP, TSH #### [facility] [address] [address] [address] Bossman Capps Bilirubin [Mass/Vol] 0.2 mg/dL Normal 0.2-1.0 [facility] Comment on above: Performed By: #### T 4, CMP, TSH #### [facility] [address] [place] [address] Dr. Bossman Capps Calcium [Mass/Vol] 8.9 mg/dL Normal 8.5-10.1 [facility] Comment on above: Performed By: #### T 4, CMP, TSH #### [facility] [address] [address] [address] Bossman Capps Chloride [Moles/Vol] 107 mmol/L Normal 98-107 [facility] Comment on above: Performed By: #### T 4, CMP, TSH #### [facility] [address] [address] [address] Bossman Capps CO2 [Moles/Vol] 28.6 mmol/L Normal 21.0-32.0 [facility] Comment on above: Performed By: #### T 4, CMP, TSH #### [facility] [address] [place] [address] Dr. Bossman Capps Creatinine [Mass/Vol] 0.75 mg/dL Normal 0.55-1.02 [facility] Comment on above: Performed By: #### T 4, CMP, TSH #### [facility] [address] [place] [address] Dr. Bossman Capps EGFR-AF ICELANDIC >60 Normal >=60 [facility] Comment on above: Performed By: #### T 4, CMP, TSH #### [facility] [address] [place] [address] Dr. Bossman Capps EGFR-NON AF ICELANDIC >60 Normal >=60 [facility] Comment on above: Performed By: #### T 4, CMP, TSH #### [facility] [address] [place] [address] Dr. Bossman Capps Globulin (S) [Mass/Vol] 3.6 g/dL Normal [facility] Comment on above: Performed By: #### T 4, CMP, TSH #### [facility] [address] [place] [address] Dr. Bossman Capps Glucose [Mass/Vol] 85 mg/dL Normal 74-106 [facility] Comment on above: Performed By: #### T 4, CMP, TSH #### [facility] [address] [place] [address] Dr. Bossman Capps Potassium [Moles/Vol] 4.0 mmol/L Normal 3.5-5.1 [facility] Comment on above: Performed By: #### T 4, CMP, TSH #### [facility] [address] [place] [address] Dr. Bossman Capps Protein [Mass/Vol] 6.9 g/dL Normal 6.4-8.2 [facility] Comment on above: Performed By: #### T 4, CMP, TSH #### [facility] [address] [place] [address] Dr. Bossman Capps Sodium [Moles/Vol] 142 mmol/L Normal 136-145 [facility] Comment on above: Performed By: #### T 4, CMP, TSH #### [facility] [address] [place] [address] Dr. Bossman Capps Urea nitrogen [Mass/Vol] 10.0 mg/dL Normal 7.0-18.0 [facility] Comment on above: Performed By: #### T 4, CMP, TSH #### [facility] [address] [place] [address] Dr. Bossman Capps Urea nitrogen/Creatinin e [Mass ratio] 13.3 mg/mg Normal [facility] Comment on above: Performed By: #### T 4, CMP, TSH #### [facility] [address] [place] [address] Dr. Bossman Capps T4on 06-28-2022 T4 [Mass/Vol] 10.20 ug/dL Normal 4.80-13.90 [facility] Comment on above: Performed By: #### T 4, CMP, TSH #### [facility] [address] [place] [address] Dr. Bossman Capps TSHon 06-28-2022 TSH 0.041 uIU/mL Critically low 0.358-3.740 [facility] Comment on above: Performed By: #### T 4, CMP, TSH #### [facility] [address] [place] [address] Dr. Bossman Capps VIT B12 AND FOLATEon 022 Cobalamin (Vitamin B12) [Mass/Vol] 443.0 pg/mL Normal 193.0-986.0 [facility] Comment on above: Performed By: #### T 4, CMP, TSH #### [facility] [address] [place] [address] Dr. Bossman Capps FOLATE 12.00 ng/mL Normal 8.60-58.90 [facility] Comment on above: Performed By: #### T 4, CMP, TSH #### [facility] [address] [address] [address] Bossman Capps T4 [facility] 03-28-2022 T4 [Mass/Vol] 12.6 ug/dL Critically high 4.5-12.0 [facility] Comment on above: Performed By: #### T 4LC #### [facility] [address] [address] [address] Bossman Capps CBC AUTO DIFFon 03-27-2022 BASO # 0.1 103/ul Normal 0.0-0.1 [facility] Comment on above: Performed By: #### T 4, CMP, TSH #### [facility] [address] [address] [address] Bossman Capps Basophils/100 WBC (Bld) 1.1 % Normal 0.2-2.0 [facility] Comment on above: Performed By: #### T 4, CMP, TSH #### [facility] [address] [address] [address] Bossman Capps EO # 0.1 103/ul Normal 0.0-0.7 [facility] Comment on above: Performed By: #### T 4, CMP, TSH #### [facility] [address] [address] [address] Bossman Capps Eosinophils/100 WBC (Bld) 1.9 % Normal 0.9-7.0 [facility] Comment on above: Performed By: #### T 4, CMP, TSH #### [facility] [address] [address] [address] Bossman Capps Erythrocyte distribution width (RBC) [Ratio] 12.7 % Normal 11.0-15.0 [facility] Comment on above: Performed By: #### T 4, CMP, TSH #### [facility] [address] [address] [address] Bossman Capps Hematocrit (Bld) [Volume fraction] 43.7 % Normal 36.0-48.0 [facility] Comment on above: Performed By: #### T 4, CMP, TSH #### [facility] [address] [place] [address] Dr. Bossman Capps Hemoglobin (Bld) [Mass/Vol] 14.5 g/dL Normal 12.0-16.0 [facility] Comment on above: Performed By: #### T 4, CMP, TSH #### [facility] [address] [place] [address] Dr. Bossman Capps IG # 0.02 10e3/ul Normal 0.00-0.03 [facility] Comment on above: Performed By: #### T 4, CMP, TSH #### [facility] [address] [place] [address] Dr. Bossman Capps IG % 0.4 % Normal 0.0-0.5 [facility] Comment on above: Performed By: #### T 4, CMP, TSH #### [facility] [address] [place] [address] Dr. Bossman Capps LYMPH # 2.1 103/ul Normal 1.2-3.8 [facility] Comment on above: Performed By: #### T 4, CMP, TSH #### [facility] [address] [place] [address] Dr. Bossman Capps Lymphocytes/100 WBC (Bld) 38.0 % Normal 20.5-60.0 [facility] Comment on above: Performed By: #### T 4, CMP, TSH #### [facility] [address] [place] [address] Dr. Bossman Capps MANUAL DIFF REQ NO Normal [facility] Comment on above: Performed By: #### T 4, CMP, TSH #### [facility] [address] [place] [address] Dr. Bossman Capps MCH (RBC) [Entitic mass] 31.7 pg Normal 26.7-34.0 [facility] Comment on above: Performed By: #### T 4, CMP, TSH #### [facility] [address] [place] [address] Dr. Bossman Capps MCHC (RBC) [Mass/Vol] 33.2 g/dL Normal 29.9-35.2 [facility] Comment on above: Performed By: #### T 4, CMP, TSH #### [facility] [address] [place] [address] Dr. Bossman Capps MCV (RBC) [Entitic vol] 95.6 fL Normal 81.0-99.0 [facility] Comment on above: Performed By: #### T 4, CMP, TSH #### [facility] [address] [place] [address] Dr. Bossman Capps MONO # 0.5 103/ul Normal 0.3-0.8 [facility] Comment on above: Performed By: #### T 4, CMP, TSH #### [facility] [address] [place] [address] Dr. Bossman Capps Monocytes/100 WBC (Bld) 9.6 % Normal 1.7-12.0 [facility] Comment on above: Performed By: #### T 4, CMP, TSH #### [facility] [address] [place] [address] Dr. Bossman Capps NEUT # 2.7 103/ul Normal 1.4-6.5 [facility] Comment on above: Performed By: #### T 4, CMP, TSH #### [facility] [address] [place] [address] Dr. Bossman Capps Neutrophils/100 WBC (Bld) 49.0 % Normal 43.0-75.0 [facility] Comment on above: Performed By: #### T 4, CMP, TSH #### [facility] [address] [place] [address] Dr. Bossman Capps Platelet mean volume (Bld) [Entitic vol] 10.7 fL Normal 9.5-13.5 [facility] Comment on above: Performed By: #### T 4, CMP, TSH #### [facility] [address] [place] [address] Dr. Bossman Capps PLT 343 103/ul Normal 150-450 [facility] Comment on above: Performed By: #### T 4, CMP, TSH #### [facility] [address] [place], [place] [address] Dr. Bossman Capps RBC 4.57 106/ul Normal 4.20-5.40 [facility] Comment on above: Performed By: #### T 4, CMP, TSH #### [facility] [address] [place], [place] [address] Dr. Bossman Capps WBC 5.4 103/ul Normal 4.0-11.0 [facility] Comment on above: Performed By: #### T 4, CMP, TSH #### [facility] [address] [place], [place] [address] Dr. Bossman Capps MG MAMM SCREEN 3D BREANA CADon 03-27-2022 MG MAMM SCREEN 3D BREANA CAD Patient: CLIFFORD FRIAS Exam Date: 03/27/2022 : 1960 Gender:F Ordering : DR HUSAM ALCALA D.O. Admission #: [id number] Family : Order #: [id number] CLICK HERE TO VIEW EXAM RADIOLOGY REPORT [...] unknown cancer at age 70. LOCATION: [facility] BREAST COMPOSITION: Heterogeneously dense,which may obscure [...] MD on 03/28/2022 at 07:47 Normal [facility] PROF 14(COMP METB)on 022 Albumin [Mass/Vol] 4.1 g/dL Normal 3.4-5.0 [facility] Comment on above: Performed By: #### C MP, TSH #### [facility] [address] [place] [address] Dr. Bossman Capps Albumin/Globulin [Mass ratio] 1.1 {ratio} Normal [facility] Comment on above: Performed By: #### C MP, TSH #### [facility] [address] [address] [address] Bossman Capps ALP [Catalytic activity/Vol] 68 U/L Normal 46-116 [facility] Comment on above: Performed By: #### C MP, TSH #### [facility] [address] [place] [address] Dr. Bossman Capps ALT [Catalytic activity/Vol] 13 U/L Critically low 14-59 [facility] Comment on above: Performed By: #### C MP, TSH #### [facility] [address] [place] [address] Dr. Bossman Capps Anion gap [Moles/Vol] 10.8 mmol/L Normal [facility] Comment on above: Performed By: #### C MP, TSH #### [facility] [address] [place] [address] Dr. Bossman Capps AST [Catalytic activity/Vol] 12 U/L Critically low 15-37 [facility] Comment on above: Performed By: #### C MP, TSH #### [facility] [address] [place] [address] Dr. Bossman Capps Bilirubin [Mass/Vol] 0.5 mg/dL Normal 0.2-1.0 [facility] Comment on above: Performed By: #### C MP, TSH #### [facility] [address] [place] [address] Dr. Bossman Capps Calcium [Mass/Vol] 9.1 mg/dL Normal 8.5-10.1 [facility] Comment on above: Performed By: #### C MP, TSH #### [facility] [address] [place] [address] Dr. Bossman Capps Chloride [Moles/Vol] 104 mmol/L Normal 98-107 [facility] Comment on above: Performed By: #### C MP, TSH #### [facility] [address] [address] [address] Bossman Capps CO2 [Moles/Vol] 29.1 mmol/L Normal 21.0-32.0 [facility] Comment on above: Performed By: #### C MP, TSH #### [facility] [address] [address] [address] Bossman Capps Creatinine [Mass/Vol] 0.72 mg/dL Normal 0.55-1.02 [facility] Comment on above: Performed By: #### C MP, TSH #### [facility] [address] [address] [address] Bossman Capps EGFR-AF ICELANDIC >60 Normal >=60 [facility] Comment on above: Performed By: #### C MP, TSH #### [facility] Laboratory [address] [address] [address] Bossman Capps EGFR-NON AF ICELANDIC >60 Normal >=60 [facility] Comment on above: Performed By: #### C MP, TSH #### [facility] [address] [place] [address] Dr. Bossman Capps Globulin (S) [Mass/Vol] 3.7 g/dL Normal [facility] Comment on above: Performed By: #### C MP, TSH #### [facility] [address] [address] [address] Bossman Capps Glucose [Mass/Vol] 93 mg/dL Normal 74-106 [facility] Comment on above: Performed By: #### C MP, TSH #### [facility] [address] [address] [address] Bossman Capps Potassium [Moles/Vol] 3.9 mmol/L Normal 3.5-5.1 [facility] Comment on above: Performed By: #### C MP, TSH #### [facility] [address] [address] [address] Bossman Capps Protein [Mass/Vol] 7.8 g/dL Normal 6.4-8.2 [facility] Comment on above: Performed By: #### C MP, TSH #### [facility] [address] [place] [address] Dr. Bossman Capps Sodium [Moles/Vol] 140 mmol/L Normal 136-145 [facility] Comment on above: Performed By: #### C MP, TSH #### [facility] [address] [place] [address] Dr. Bossman Capps Urea nitrogen [Mass/Vol] 10.0 mg/dL Normal 7.0-18.0 [facility] Comment on above: Performed By: #### C MP, TSH #### [facility] [address] [place] [address] Dr. Bossman Capps Urea nitrogen/Creatinin e [Mass ratio] 13.9 mg/mg Normal [facility] Comment on above: Performed By: #### C MP, TSH #### [facility] [address] [place] [address] Dr. Bossman Capps TSHon 03-27-2022 TSH 0.310 uIU/mL Critically low 0.358-3.740 [facility] Comment on above: Performed By: #### C MP, TSH #### [facility] [address] [place] [address] Dr. Bossman Capps ALLIED HEALTHon 07-10-2021 ALLIED HEALTH HNO ID: [id number] Author: RT Randi(R) Service: ? Author Type: [...] RT Randi(R) July 10, 2021 7:32 AM [facility] MRI LUMBAR SPINE WO IVCONon 07-10-2021 MRI LUMBAR SPINE WO IVCON * * *Final Report* * * DATE OF EXAM: Jul 10 2021 7:55AM [facility] 0303 - MRI LUMBAR SPINE WO IVCON [...] crest and there are 5 lumbar-type vertebrae. Drill Doctor: PSCB Transcribe Date/Time: Jul 10 2021 9:15A Dictated by : CORTES LERMA MD This examination was interpreted and the report reviewed and electronically signed by: CORTES LERMA MD on Jul 10 2021 9:23AM EST [id number] Normal [facility] Vital Signs Date Time Vital Sign Value Performing Clinician Faci lity 03-17-2023 10:34-0400 Body height 162.6 cm Saritha Mendez MD Work Phone: [facility] 03-17-2023 10:34-0400 Body temperature 96.49 [degF] Saritha Mendez MD Work Phone: [facility] 03-17-2023 10:34-0400 Body weight 58.97 kg Saritha Mendez MD Work Phone: [facility] 03-17-2023 10:34-0400 Diastolic blood pressure 57 mm[Hg] Saritha Mendez MD Work Phone: [facility] 03-17-2023 10:34-0400 Heart rate 67 /min Saritha Mendez MD Work Phone: [facility] 03-17-2023 10:34-0400 SaO2% (BldA) [Mass fraction] 100 % Saritha Mendez MD Work Phone: [facility] 03-17-2023 10:34-0400 Systolic blood pressure 102 mm[Hg] Saritha Mendez MD Work Phone: [facility] 08-29-2022 10:49-0500 Body height 162.6 cm Jason Shipman MD, PhD Work Phone: [facility] 08-29-2022 10:49-0500 Body temperature 98.2 [degF] Jason Shipman MD, PhD Work Phone: [facility] 08-29-2022 10:49-0500 Body weight 54.43 kg Jason Shipman MD, PhD Work Phone: [facility] 08-29-2022 10:49-0500 Diastolic blood pressure 65 mm[Hg] Jason Shipman MD, PhD Work Phone: [facility] 08-29-2022 10:49-0500 Heart rate 67 /min Jason Shipman MD, PhD Work Phone: [facility] 08-29-2022 10:49-0500 SaO2% (BldA) [Mass fraction] 99 % Jason Shipman MD, PhD Work Phone: [facility] 08-29-2022 10:49-0500 Systolic blood pressure 112 mm[Hg] Jason Shipman MD, PhD Work Phone: [facility] 10-08-2021 13:48-0400 Body height 160 cm Saritha Mendez MD Work Phone: [facility] 10-08-2021 13:48-0400 Body temperature 98.8 [degF] Saritha Mendez MD Work Phone: [facility] 10-08-2021 13:48-0400 Body weight 54.43 kg Saritha Mendez MD Work Phone: [facility] 10-08-2021 13:48-0400 Diastolic blood pressure 69 mm[Hg] Saritha Mendez MD Work Phone: [facility] 10-08-2021 13:48-0400 Heart rate 93 /min Saritha Mendez MD Work Phone: [facility] 10-08-2021 13:48-0400 SaO2% (BldA) [Mass fraction] 97 % Saritha Mendez MD Work Phone: [facility] 10-08-2021 [id number] Systolic blood pressure 110 mm[Hg] Saritha Mendez MD Work Phone: [facility] Encounters Encounter Date Encounter Type Care Provider Facility Start: 10-22-2023 End: 10-23-2023 ambulatory HUSAM P HOUSE Facility:[facility] Start: 09-25-2023 End: 09-26-2023 ambulatory HUSAM P HOUSE Facility:[facility] Start: 08-27-2023 End: 08-28-2023 ambulatory Raleigh Gordillo MD Facility:[facility] Start: 08-26-2023 Refill Sandhya palafox 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 Phone: Pain Management Comment on above: Refill Request Start: 08-07-2023 End: 08-07-2023 ambulatory SARITHA MENDEZ Facility:[facility] Start: 06-30-2023 End: 07-01-2023 ambulatory HUSAM P HOUSE Facility:[facility] Start: 06-25-2023 End: 06-26-2023 ambulatory HUSAM P HOUSE Facility:[facility] Start: 05-28-2023 End: 05-29-2023 ambulatory HUSAM P [place] Facility:[facility] Start: 05-12-2023 Orders Only Sandhya Guerrero uson 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 Phone: Pain Management Start: 03-17-2023 End: 03-17-2023 ambulatory Deisy Weaver MD Pain Management Start: 03-17-2023 End: 03-17-2023 Patient encounter procedure Saritha Mendez MD Work Phone: Pain Management Comment on above: Myofascial low back pain (Primary Dx); Numbness and tingling of both legs; Lumbar spondylosis Start: 02-27-2023 End: 02-28-2023 ambulatory Raleigh Gordillo MD Facility:[facility] Start: 08-29-2022 End: 08-29-2022 ambulatory Deisy Weaver [...] Author Start: 08-15-2024 DIABETES SCREEN DIABETES SCREEN [facility] Start: 08-15-2024 Diabetes Screening Diabetes Screenin g [facility] Start: 07-21-2023 Depression Assessment Depression Ass [facility] Start: 03-21-2023 Covid-19 Vaccine ( season) Covid-19 Vaccine ( season) [facility] Start: 03-21-2023 Influenza vaccination C [facility] Start: 07-21-2022 DEPRESSION ASSESSMENT DEPRESSION ASS ESSMENT [facility] Start: 03-21-2022 Influenza vaccination [facility] Start: 11-17-2021 COVID-19 VACCINE (4 - Booster for Moderna series) COVID-19 VACCINE (4 - Booster for Moderna series) [facility] Start: 03-21-2021 Influenza vaccination INFLUENZA (#1) [facility] Start: 08-20-2020 Adult depression scr eening assessment DEPRESSION SCREENING [facility] Start: 2020 RSV Vaccine (1 - 1-d ose 60+ series) RSV Vaccine (1 - 1-dose 60+ series) [facility] Start: 2010 SHINGRIX VACCINE (1 of 2) SHINGRIX V ACCINE (1 of 2) [facility] Start: 2005 COLOGUARD (FIT-DNA) COLOGUARD (FIT-D NA) [facility] Start: 2005 Colonoscopy COLONOSCOPY [facility] Start: 2005 COLORECTAL CANCER SCREENING COLORECTAL CANCER SCREENING [facility] Start: [address] COLONOGRAPHY [facility] Start: 2005 FECAL OCCULT BLOOD FECAL OCCULT BLOO D [facility] Start: 2005 Lipid 1996 panel - S mary or Plasma Lipid Screening [facility] Start: 2005 Lipid panel Lipid Screening [facility] Start: 2005 LIPID SCREEN LIPID SCREEN [facility] Start: 2005 Screening for malign ant neoplasm of colon [facility] Start: 2005 SIGMOIDOSCOPY SIGMOIDOSCOPY [facility] Start: 2000 Mammography [facility] Start: 2000 Screening for malign ant neoplasm of breast Mammogram Screening [facility] Start: 1990 HPV TESTING HPV TESTING [facility] Start: 1990 Screening for malign ant neoplasm of cervix HPV Testing [facility] Start: 1981 PAP TESTING PAP TESTING [facility] Start: 1981 Screening for malign ant neoplasm of cervix Pap Testing [facility] Start: 1979 Urine microalbumin profile [facility] Start: 1978 HEPATITIS C SCREENING HEPATITIS C [facility] Start: 1978 Hepatitis C screening Hepatitis C [facility] Start: 1978 HIV SCREENING HIV SCREENING [facility] Start: 1978 HIV screening HIV Screening James olivera [facility] c Immunizations Immunization Date Immunization Notes Care Provider Fa romanty 04-19-2022 influenza virus vacc ine, unspecified formulation Sandhya Paiz APRN.CNP Work Phone: [facility] 07-19-2021 COVID-19 vaccine, booster dose (MODERNA) Saritha Mendez MD Work Phone: [facility] 10-28-2020 COVID-19 vaccine, fu ll dose (MODERNA) Saritha Mendez MD Work Phone: [facility] 09-30-2020 COVID-19 vaccine, fu ll dose (MODERNA) Saritha Mendez MD Work Phone: [facility] 05-01-2019 influenza, injectabl e, quadrivalent, preservative free Saritha Mendez MD Work Phone: [facility] Payers Date Payer Category Payer Unknown [id number] 2022 Self-pay 2022 Unknown [id number] 2021 Unknown ANTHEM [facility]UE [facility] AND BLUE [employer] ANTHEM [employer] O [id number] 2021-Present [phone] [address] [place] [address] O [id number] 2021 Unknown [id number] 1960 Unknown [id number] 1960 Unknown [id number] 1960 Unknown [id number] 1960 Unknown [id number] 1960 Unknown [id number] 1960 Unknown [id number] 1960 Unknown [id number] 1960 Unknown [id number] 1960 Unknown [id number] 1960 Unknown [id number] 1959 Medicare [id number] 1959 Unknown [id number] Social History Date Type Detail Facility Start: 08-06-2016 End: 03-17-2023 Tobacco smoking status NHIS Ex-smoker [facility] Work Phone: End: 07-21-2015 History of tobacco use Current smoker [facility] Work Phone: End: 07-21-2015 History of tobacco use Cigarette Smoker [facility] Work Phone: Start: 08-06-2016 End: 06-29-2020 Cigarettes smoked current (pack per day) - Reported 0.5 [facility] Start: 08-06-2016 End: 03-17-2023 Tobacco use and exposure Smokeless tobacco non-user [facility] Work Phone: Start: 10-08-2021 End: 08-07-2023 Alcohol intake Current non-drinker of alcohol (finding) [facility] Start: 08-15-2021 History SDOH Alcohol Frequency 1 [facility] Start: 1960 Sex Assigned At Not on file C [facility] Start: 08-22-2021 End: 11-22-2021 Exposure to SARS-CoV-2 (event) Unable to assess [facility] Start: 12-14-2021 End: 02-04-2022 Exposure to SARS-CoV-2 (event) Not sure [facility] Start: 06-29-2020 End: 03-17-2023 Tobacco use panel [facility] Adult Depression Screening Assessment 2 [facility] Medical Equipment Procedure Code Equipment Code Equipment Origin al Text Equipment Identifier Dates Reactiv8 Percutaneous Lead [id number] Start: 08-20-2021 Comment on above: Description: Freda blandon: [employer] Reactiv8 Percutaneous Lead [id number] Start: 08-20-2021 Comment on above: Description: Freda blandon: [employer] Reactiv8 Implant able Pulse Generator [id number] Start: 08-20-2021 Comment on above: Description: Freda blandon: [employer] Clinical Notes 08-30-2021 to 10-12-2023 Telephone Encounter - Sandhya Paiz APRN.[facility] - 08/27/2023 12:38 PM Sandhya Whittaker APRN.[facility] - 05/12/2023 11:16 AM EDTCSaritha ley MD - 03/17/2023 11:00 AM EDT Note Date & Type Note Facility 10-12-2023 Note Entered by KARLI ALCALA DO on October 12, 2023 16:24:36 EDT From: HUSAM ALCALA DO To: [facility] Sent: 10/12/2023 16:24:36 EDT Subject: Medication Management Submitted: Complete:methocarbamol (methocarbamol 500 mg oral tablet) Signed by HUSAM ALCALA DO 10/12/2023 16:24:00 EDT Approved with modifications: methocarbamol (methocarbamol 500 mg tablet) TAKE 1 TABLET BY MOUTH IN THE EVENING Qty: 30 tab(s) Days Supply: 30 Refills: 3 Substitutions Allowed Route To Pharmacy - [facility] From: [facility] To: HUSAM ALCALA DO Sent: October [...] Refills: 3 Substitutions Allowed Notes from Pharmacy: [facility] 08-27-2023 Miscellaneous Notes The following approved medication requests have been transmitted electronically. Requested Prescriptions Signed Prescriptions Disp Refills amitriptyline (ELAVIL) 10 mg tablet 30 tablet 2 Sig: Take 1 tablet by mouth daily at bedtime. Authorizing Provider: SANDHYA PAIZ APRN.EDGE ROLLER documented in this encounter [facility] 08-07-2023 Note HNO ID: [id number] Author: SARITHA MENDEZ MD Service: ? Author Type: Physician Type: Progress Notes Filed: 08/07/2023 11:17 Note Text: SUBJECTIVE: Clifford Frias presents to The [facility] Pain Management Department for a follow-up appointment [...] Row Office Visit from 08/20/2019 in [facility] Visit from 08/06/2016 [facility] T Score 37.4 32.4 [...] Medical Decision Making Level: 4 - Moderate [facility] 08-07-2023 Note HNO ID: [id number] Author: DEISY WEAVER MD Service: ? Author [...] of 10 for the current moment.Cata malik [facility] was here for checking the device and [...] Weaver MD. Research fellow/ pain management department. [facility] 07-28-2023 Note Entered by KARLI ALCALA DO on July 28, 2023 07:38:55 EST From: HUSAM ALCALA DO To: [facility] Sent: 07/28/2023 07:38:55 EST Subject: Medication [...] 1 Substitutions Allowed Route To Pharmacy - [facility] From: [facility] To: HUSAM ALCALA DO Sent: July 25, 2023 2:08:38 PM COMPUTER OPERATOR Subject: Medication Management Due: July 26, 2023 12:07:31 AM COMPUTER OPERATOR On Hold Pending Signature Drug: SUMAtriptan (SUMAtriptan [...] Refills: 1 Substitutions Allowed Notes from Pharmacy: [facility] 06-25-2023 Note - From: HUSAM ALCALA DO To: [facility] Clinical Pool ([facility]); Sent: 06/25/2023 11:39:12 EST Subject: FW: Medication Management Due Date/Time: 06/26/2023 11:18:00 EST Caller Name: CLIFFORD FRIAS; Caller Number: [id number] Patient matched by HUSAM ALCALA DO on 06/25/2023 11:38:37 EST From: [facility] To: HUSAM ALCALA DO Sent: June 25, 2023 10:18:31 AM COMPUTER OPERATOR Subject: Medication Management Due: June 26, 2023 12:08:39 AM COMPUTER OPERATOR On Hold Pending Signature Drug: methocarbamol (methocarbamol [...] 3 Substitutions Allowed Route To Pharmacy - [facility] Signed by DULCE MARTINEZ From: DULCE MARTINEZ To: [facility] Sent: 06/25/2023 11:51:47 EST Subject: FW: Medication Management Not Approved: Refill not appropriate pregabalin (pregabalin 150 mg capsule) TAKE 1 CAPSULE BY MOUTH THREE TIMES DAILY Qty: 90 cap(s) Days Supply: 30 Refills: 0 Substitutions Allowed Route To Pharmacy - [facility] Signed by DULCE MARTINEZ [facility] 05-26-2023 Note - From: HUSAM ALCALA DO To: [facility] Clinical Pool ([facility]); Sent: 05/26/2023 12:54:48 EST Subject: FW: Medication Management Due Date/Time: 05/27/2023 12:40:00 EST Caller Name: CLIFFORD FRIAS; Caller Number: [id number] From: [facility] To: HUSAM ALCALA DO Sent: May 26, 2023 11:40:13 AM COMPUTER OPERATOR Subject: Medication Management Due: May 27, 2023 12:10:46 AM COMPUTER OPERATOR On Hold Pending Signature Drug: pregabalin (Lyrica 150 mg oral capsule), 1 cap(s) PO TID Quantity: 90 cap(s) Days Supply: 0 Refills: 0 Substitutions Allowed Notes from Pharmacy: Dispensed Drug: pregabalin (pregabalin 150 mg oral capsule), TAKE 1 CAPSULE BY MOUTH THREE TIMES DAILY Quantity: 90 cap(s) Days Supply: 30 Refills: 0 Substitutions Allowed Notes from Pharmacy: From: DULCE MARTINEZ To: [facility] Sent: 05/26/2023 13:11:42 EST Subject: FW: Medication Management Not Approved: Patient has requested refill too soon pregabalin (pregabalin 150 mg capsule) TAKE 1 CAPSULE BY MOUTH THREE TIMES DAILY Qty: 90 cap(s) Days Supply: 30 Refills: 0 Substitutions Allowed Route To Pharmacy - [facility] Signed by DULCE MARTINEZ [facility] 05-14-2023 Note Entered by KARLI ALCALA DO on May 14, 2023 14:00:16 EDT From: HUSAM ALCALA DO To: [facility] Sent: 05/14/2023 14:00:16 EDT Subject: Medication [...] 1 Substitutions Allowed Route To Pharmacy - [facility] From: [facility] To: CARI HUSAM Teodora SMITH Sent: [...] Refills: 1 Substitutions Allowed Notes from Pharmacy: [facility] 05-12-2023 Note HNO ID: [id number] Author: Sandhya Paiz APRN.EDGE ROLLER Service: ? Author Type: Nurse Practitioner Type: Progress Notes Filed: 05/12/2023 11:17 AM Note Text: The following approved medication requests have been transmitted electronically. Requested Prescriptions Signed Prescriptions Disp Refills amitriptyline (ELAVIL) 10 mg tablet 30 tablet 2 Sig: Take 1 tablet by mouth daily at bedtime. Sandhya Paiz APRN.EDGE ROLLER [facility] 05-12-2023 History of Presen t illness Narrative The following approved medication requests have been transmitted electronically. Requested Prescriptions Signed Prescriptions Disp Refills amitriptyline (ELAVIL) 10 mg tablet 30 tablet 2 Sig: Take 1 tablet by mouth daily at bedtime. Sandhya Paiz APRN.CNP documented in this encounter [facility] 03-17-2023 Note HNO ID: [id number] Author: Saritha Mendez MD Service: ? Author Type: Physician Type: Progress Notes Filed: 03/21/2023 4:21 PM Note Text: [facility] Pain Management Department Follow Up Evaluation Date: [...] doing well. She got a membership at [employer] in Jul 2022 and has been performing [...] PHQ-9 Self-Harm (I (more content not included)... [facility] 03-17-2023 Note HNO ID: [id number] Author: Deisy Weaver MD Service: ? Author [...] 10 for the current moment. Zuri from [facility] was here for checking on the devise [...] Weaver MD. Research fellow/ pain management department. [facility] 03-17-2023 History of Presen t illness Narrative [facility] Pain Management Department Follow Up Evaluation Date: [...] doing well. She got a membership at [employer] in Jul 2022 and has been performing [...] 4 - Moderate documented in this encounter [facility] 03-17-2023 History of Presen t illness Narrative [...] 10 for the current moment. Zuri malik [facility] was here for checking on the devise [...] pain management department. documented in this encounter [facility] 08-29-2022 Note HNO ID: [id number] Author: Jason Shipman MD, PhD Service: ? Author Type: Physician Type: Progress Notes Filed: 09/04/2022 1:37 AM Note Text: [facility] Pain Management Center Established Patient Patient name: Clifford Frias Date of Service: August 29, 2022 Site of Service: [facility] Established care at [facility]: yes HPI Clifford Frias presents to The [facility] Pain Management Department for a follow-up appointment [...] SIGNATURE, Jason Barba (more content not included)... [facility] 08-29-2022 Note HNO ID: [id number] Author: Deisy Weaver MD Service: ? Author [...] Weaver MD. Research fellow/ pain management department. [facility] 08-29-2022 History of Presen t illness Narrative [facility] Established Patient Patient name: Clifford Frias Date of Service: August 29, 2022 Site of Service: [facility] Established care at [facility]: yes HPI Clifford Frias presents to The [facility] Pain Management Department for a follow-up appointment [...] Shipman MD, PhD documented in this encounter [facility] 08-29-2022 History of Presen t illness Narrative [...] pain management department. documented [facility] [facility] [place] 04-[facility]22 Note PROCEDURE: XR SHOULD ER LT [...] authenticated by: MEHUL BAIG Date: 2022-04-03 14:18 [facility] 02-04-2022 History of Presen t illness [...] Weaver MD. Research fellow/ pain management department [email or web address] [phone] documented in this encounter [facility] [place] 12-24-2021 History of Presen t illness Narrative [...] Weaver MD. Research fellow/ pain management department [email or web address] [phone] documented in this encounter [facility] [place] 10-08-2021 History of Presen t illness Narrative SUBJECTIVE: Clifford Frias presents to [facility] [place] Pain Management Department for a follow-up appointment [...] 3 - Low documented in this encounter [facility] [place] 08-30-2021 History of Presen t illness Narrative SUBJECTIVE: Clifford Frias is a 61 year old female who presents to [facility] [place] Pain Management Department for suture removal following [...] TACHO Fishman PA-C documented in this encounter [facility] [place] Evaluation note Diagnosis Clinical trial participant- Primary Chronic low back pain without sciatica, unspecified back pain laterality Lumbar spondylosis Lumbosacral spondylosis without myelopathy documented [facility] this [facility] [place] Diagnosis Lumbar spondylosis- Primary Lumbosacral spondylosis without myelopathy Chronic left-sided low back pain without sciatica documented [facility] [place] Diagnosis Chronic low back pain without sciatica, unspecified back pain laterality- Primary Examination of participant or control in clinical research Examination of participant in clinical trial documented [facility] [place] Diagnosis Myofascial low back pain- Primary Numbness and tingling of both legs Disturbance of skin sensation Lumbar spondylosis Lumbosacral spondylosis without myelopathy [facility] Diagnosis Idiopathic peripheral neuropathy Unspecified hereditary and idiopathic peripheral neuropathy documented in this encounter [facility] [place] Summary Purpose Family History No Family History Records FoundNo Family History Records FoundNo Family History Records FoundNo Family History Records Found Advance Directives No Advanced Directives Records FoundDocuments on File Type Date Recorded 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 Advance Directive(s) 08/09/2021 3:10 PM Advance Directive(s) 04/24/2021 2:57 PM Additional Source Comments INFORMATION SOURCE (unrecogn ized section and content) DATE CREATED AUTHOR 07/10/2021 [facility] DATE CREATED AUTHOR AUTHOR'S ORGANIZ ATION 08/03/2022 [facility] DATE CREATED AUTHOR AUTHOR'S ORGANIZ ATION 08/08/2023 [facility] DATE CREATED AUTHOR AUTHOR'S ORGANIZ ATION 10/23/2023 [facility] l Source Comments (unrecognize d section [...] or prosecute any alcohol or drug abuse patient.[facility] [place] the event this information is protected by the Federal Confidentiality of Alcohol and Drug Abuse Patient Records regulations: The Federal rules restrict any use of the information to criminally investigate or prosecute any alcohol or drug abuse patient.[facility] the event this information is protected by the Federal Confidentiality of Alcohol and Drug Abuse Patient Records regulations: The Federal rules restrict any use of the information to criminally investigate or prosecute any alcohol or drug abuse patient.[facility] the event this information is protected by the Federal Confidentiality of Alcohol and Drug Abuse Patient Records regulations: The Federal rules restrict any use of the information to criminally investigate or prosecute any alcohol or drug abuse patient.[facility] the event this information is protected by the Federal Confidentiality of Alcohol and Drug Abuse Patient Records regulations: The Federal rules restrict any use of the information to criminally investigate or prosecute any alcohol or drug abuse patient.[facility] the event this information is protected by the Federal Confidentiality of Alcohol and Drug Abuse Patient Records regulations: The Federal rules restrict any use of the information to criminally investigate or prosecute any alcohol or drug abuse patient.[facility] the event this information is protected by the Federal Confidentiality of Alcohol and Drug Abuse Patient Records regulations: The Federal rules restrict any use of the information to criminally investigate or prosecute any alcohol or drug abuse patient.[facility] the event this information is protected by the Federal Confidentiality of Alcohol and Drug Abuse Patient Records regulations: The Federal rules restrict any use of the information to criminally investigate or prosecute any alcohol or drug abuse patient.[facility] [place] the event this information is protected by the Federal Confidentiality of Alcohol and Drug Abuse Patient Records regulations: The Federal rules restrict any use of the information to criminally investigate or prosecute any alcohol or drug abuse patient.[facility] [place] Reason for Visit (unrecogniz ed section and content) Reason Comments Medication Update Establish Care Reason Comments Establish Care Medication Update Reason Comments Follow Up Medication Update Reason Comments Refill Request Care Teams (unrecognized sec tion and content) [employer] Brm Developer Relationship Specialty Start Date End Date Cari Husam Escamilla SrCheri PCP - General Family Practice 07/11/16 [employer] Developer Relationship Specialty Start Date End Date Husam Alcala SrCheri PCP - General Family Practice 07/11/16 [employer] Brm Developer Relationship Specialty Start Date End Date Cari Husam Escamilla SrCheri PCP - General Family Practice 07/11/16 [employer] Brm Developer Relationship Specialty Start Date End Date Cari Husam Escamilla SrCheri PCP - General Family Medicine 07/11/16 [employer] Brm Developer Relationship Specialty Start Date End Date Cari Husam Escamilla SrCheri PCP - General Family Medicine 07/11/16 [employer] Brm Developer Relationship Specialty Start Date End Date Cari Husam Escamilla SrCheri PCP - General Family Medicine 07/11/16 [employer] Brm Developer Relationship Specialty Start Date End Date Husam Alcala Sr. PCP - General Family Medicine 07/11/16 [employer] Brm Developer Relationship Specialty Start Date End Date Husam Alcala Sr., DO PCP - General Family Medicine 07/11/16 [employer] Brm Developer Relationship Specialty Start Date End Date Husam [...] BE BASED ON THE PRIMARY CLINICAL RECORDS. [email or web address] [facility]. provides no warranty or guarantee of the accuracy or completeness of information in this document.
[2023-10-25 17:32] LABS: C. Difficile PCR POSITIVE (NEGATIVE)
--- NOTE | 2023-10-25 17:55 | PC.NURSE ---
admitted to room 274, at bedside. pt anxious, in and out of bed continuously. stated i see knats flying in my room. i saw them in ER too. pt then stated she is seeing floaters, not knats. pt had episodes of dry heaving, ice chips given per request. oriented to room and call light.
[2023-10-25] MEDS: POTASSIUM CHLORIDE/D5-0.9%NACL 1,000 ML 100 MEQ IV (18:18)
[2023-10-25] MEDS: CEFTRIAXONE 1,000 MG in 0.9 % SODIUM CHLORIDE 50 ML 100 MG IV (20:11)
[2023-10-25] MEDS: PROCHLORPERAZINE 10 MG/2 ML VIAL IV (21:45)
[2023-10-25] MEDS: LORAZEPAM 2 MG/ML VIAL 0.5 MG IV (21:46)
[2023-10-26] VITALS (8 sets, daily range): BP systolic 114–154; BP diastolic 58–106; PULSE 61–77; TEMP 36.5–36.9; O2SAT 95–99
--- NOTE | 2023-10-26 01:26 | PC.NURSE ---
Pt asked not to be woken up for vital signs if finally sleeping. Pt remains resting with eyes closed at this time. Pt left side lying. Respirations even. Will cont to monitor and assess vitals when patient wakes up.
[2023-10-26] MEDS: POTASSIUM CHLORIDE/D5-0.9%NACL 1,000 ML 100 MEQ IV ×2 (04:11→14:12)
[2023-10-26] MEDS: ONDANSETRON PF 4 MG/2 ML VIAL IV ×2 (04:11→10:50)
[2023-10-26] MEDS: VANCOMYCIN HCL 7,500 MG/150 ML BOTTLE 125 MG PO ×4 (05:00→21:06)
[2023-10-26 05:01] LABS: Basophils Percent Auto 0.4 % (0.2-2.0); Eosinophils Percent Auto 0.2 % (0.9-7.0); Hematocrit 38.3 % (36.0-48.0); Hemoglobin 13.2 g/dL (12.0-16.0); Immature Granulocytes Abs Auto 0.05 10^3/uL (0.00-0.03); Immature Granulocytes Pct Auto 0.5 % (0.0-0.5); Lymphocytes Absolute Auto 1.6 10^3/uL (1.2-3.8); Lymphocytes Percent Auto 16.7 % (20.5-60.0); Mean Corpuscular HGB Conc 34.5 g/dL (29.9-35.2); Mean Corpuscular Hemoglobin 31.7 pg (26.7-34.0); Mean Corpuscular Volume 92.1 fL (81.0-99.0); Mean Platelet Volume 10.6 fL (9.5-13.5); Monocytes Absolute Auto 1.2 10^3/uL (0.3-0.8); Monocytes Percent Auto 11.8 % (1.7-12.0); Neutrophils Absolute Auto 6.9 10^3/uL (1.4-6.5); Neutrophils Percent Auto 70.4 % (43.0-75.0); Platelet Count 310 10^3/uL (150-450); Red Blood Count 4.16 10^6/uL (4.20-5.40); Red Cell Distribution Width 12.2 % (11.0-15.0); White Blood Count 9.8 10^3/uL (4.0-11.0)
[2023-10-26 05:35] LABS: Alanine Aminotransferase 16 U/L (14-59); Albumin Globulin Ratio 1.1; Albumin Level 3.7 g/dL (3.4-5.0); Alkaline Phosphatase 102 U/L (46-116); Anion Gap 16.9; Aspartate Amino Transferase 24 U/L (15-37); BUN Creatinine Ratio 11.8; Bilirubin Total 0.4 mg/dL (0.2-1.0); Chloride 107 mmol/L (98-107); Estimated GFR (African America >60 (>=60); Estimated GFR (Non-African Ame >60 (>=60); Globulin 3.3 g/dL; Glucose 97 mg/dL (74-106); Sodium 143 mmol/L (136-145)
[2023-10-26 05:41] LABS: Potassium 2.9 mmol/L (3.5-5.1)
[2023-10-26] MEDS: POTASSIUM CHLORIDE 40 MEQ in 0.9 % SODIUM CHLORIDE 250 ML 40.5 MEQ IV (08:39)
[2023-10-26] MEDS: MONTELUKAST SODIUM 10 MG TABLET PO (08:44)
[2023-10-26] MEDS: DICYCLOMINE HCL 10 MG CAPSULE 20 MG PO ×2 (08:44→21:06)
[2023-10-26] MEDS: TOPIRAMATE 100 MG TABLET PO (08:44)
[2023-10-26] MEDS: LEVOTHYROXINE SODIUM 112 MCG TABLET PO (08:46)
[2023-10-26] MEDS: TIZANIDINE HCL 4 MG TABLET PO (08:46)
[2023-10-26] MEDS: POTASSIUM CHLORIDE 10 MEQ ER TABLET 40 MEQ PO (10:50)
[2023-10-26] MEDS: METRONIDAZOLE/SODIUM CHLORIDE 500 MG/100 ML PREMIX 100 MG IV ×3 (12:33→23:01)
[2023-10-26] MEDS: PREGABALIN 75 MG CAPSULE 150 MG PO ×2 (14:10→21:06)
--- NOTE | 2023-10-26 14:28 | PM.HP ---
HPI H&P: HPI History of Present Illness Chief complaint: FLU LIKE SYMPTOMS >4 DAYS Acute dehydration Narrative: 63 y/o female to ER c/o not feeling well for several days. Generalized fatigue and no energy. Severe nausea. Noticed concentrated urine with strong odor and seen by PCP. Given macrobid and after 1 dose developed severe nauesa and vomiting. Developed watery diarrhea and going several times a day. Decreased PO and not able to keep down liquids and to ER. WBC normal and afebrile. UA showed UTI and potassium low at 2.9. CT abdomen and pelvis normal. Continued nausea and admitted. Started rocephin for UTI and IV fluids for dehydration. Stool positive for C. diff and started oral vancomycin. Not much improvement overnight. Continues to have weakness and diarrhea. Diffuse abdominal cramping. Continued nausea but no further emesis. Opioid HPI Opioid Management Most Recent Opioid Data: Last Pain Scale 3 10/26/23 09:00 Last Pain Assessment 10/26/23 14:00 Last ORT Total Score 0 10/25/23 17:10 Last ORT Risk Category Low Risk 10/25/23 17:10 Review of Systems ROS Constitutional Reports: fatigue; Denies: fever or chills Cardiovascular Denies: chest pain, palpitations or edema Respiratory Denies: shortness of breath, cough or wheezing Gastrointestinal Reports: abdominal pain, nausea, vomiting and diarrhea Genitourinary Denies: painful urination PFSH PFS Medical History (Updated 10/26/23 @ 09:34 by Roger Arthur MD) Anxiety ?F41.9 - Anxiety disorder, unspecified (ICD-10) Thyroid cancer ?C73 - Malignant neoplasm of thyroid gland (ICD-10) Surgical History (Updated 10/25/23 @ 17:27 by Little Rodriguez) H/O thyroidectomy ?E89.0 - Postprocedural hypothyroidism (ICD-10) Family History (Updated 10/25/23 @ 17:28 by Little Rodriguez) Other Family history of cancer Social History (Updated 10/25/23 @ 17:28 by Little Rodriguez) Within the past year, how often did you have a drink containing alcohol: never Score interpretation: A score less than 3 is consistent with normal alcohol consumption. Do you use any of these nicotine containing products: vaping products Highest level of school completed/degree received: high school graduate Meds Home Medications and Allergies Home Medications ?Medication ?Instructions ?Recorded ?Confirmed ?Type amitriptyline 10 mg tablet 10 mg PO BEDTIME 10/25/23 10/25/23 History dicyclomine 20 mg tablet 20 mg PO BID 10/25/23 10/25/23 History levothyroxine 112 mcg tablet 112 mcg PO DAILY 10/25/23 10/25/23 History montelukast 10 mg tablet 10 mg PO DAILY 10/25/23 10/25/23 History nitrofurantoin 100 mg PO BID 10/25/23 10/25/23 History monohydrate/macrocrystals 100 mg capsule pregabalin 150 mg capsule 150 mg PO TID 10/25/23 10/25/23 History sumatriptan succinate 100 mg tablet 100 mg PO Q2H PRN migraine headache 10/25/23 10/26/23 History topiramate 100 mg tablet 150 mg PO DAILY 10/25/23 10/26/23 History methocarbamol 500 mg tablet 500 mg PO .qhs 10/26/23 10/26/23 History Allergies Allergy/AdvReac Type Severity Reaction Status Date / Time ciprofloxacin [From Cipro] Allergy Intermediate Verified 10/25/23 09:10 Exam Constitutional Vital Signs, click to edit/add: Last Vital Signs Temp 97.7 F 10/26/23 10:40 Pulse 61 10/26/23 04:28 Resp 16 10/26/23 12:00 BP 126/77 10/26/23 10:40 Pulse Ox 99 10/26/23 07:27 O2 Del Method Room Air 10/25/23 17:10 Documenting provider has reviewed patient's vital signs: yes Common normals: no apparent distress, oriented x3 and alert HENMT Common normals: normocephalic Eye Common normals: PERRL and EOMs intact bilaterally Respiratory Common normals: normal respiratory effort and clear to auscultation bilaterally Cardio Common normals: regular rate, regular rhythm, no gallops, no murmurs and no rub GI Common normals: Normal to inspection, nondistended, normoactive bowel sounds present Palpation: tender (Mild diffuse TTP); no guarding Extremity Common normals: no pedal edema Results Labs Labs: Short CBC 10/26/23 Range/Units 04:01 WBC 9.8 (4.0-11.0) 10^3/uL Hgb 13.2 (12.0-16.0) g/dL Hct 38.3 (36.0-48.0) % Plt Count 310 (150-450) 10^3/uL BMP 10/26/23 04:01 Sodium 143 Potassium 2.9 L* Chloride 107 Carbon Dioxide 22.0 BUN 8.0 Creatinine 0.68 Glucose 97 Calcium 9.0 Liver Function 10/26/23 Range/Units 04:01 Total Bilirubin 0.4 (0.2-1.0) mg/dL AST 24 (15-37) U/L ALT 16 (14-59) U/L Alkaline Phosphatase 102 (46-116) U/L Albumin 3.7 (3.4-5.0) g/dL Assessment and Plan Assessment and Plan (1) C. difficile colitis: (2) Hypokalemia: (3) Acute dehydration: Plan Continues to have severe GI symptoms. Add flagyl in addition to vancomycin for C. diff. Use bentyl for cramping. Potassium remains low and replace IV and PO. Encourage PO intake and increase liquids. Resume home medication. Plan for at least a 2 midnight stay for inpatient medically necessary services. Urinary Catheter Management Urinary Catheter Management Straight: Cath placed during this visit: yes Urethral indwelling: No Insertion date: 10/25/23 Insertion time: 09:45
[2023-10-26 14:52] LABS: Anion Gap 16.3; BUN Creatinine Ratio 11.7; Calcium 8.2 mg/dL (8.5-10.1); Carbon Dioxide 20.6 mmol/L (21.0-32.0); Chloride 109 mmol/L (98-107); Estimated GFR (African America >60 (>=60); Estimated GFR (Non-African Ame >60 (>=60); Glucose 112 mg/dL (74-106); Potassium 3.9 mmol/L (3.5-5.1); Sodium 142 mmol/L (136-145)
[2023-10-26] MEDS: ACETAMINOPHEN 500 MG TABLET 1000 MG PO ×2 (17:13→22:54)
[2023-10-26] MEDS: LORAZEPAM 0.5 MG TABLET PO ×2 (17:14→22:54)
[2023-10-26] MEDS: CEFTRIAXONE 1,000 MG in 0.9 % SODIUM CHLORIDE 50 ML 100 MG IV (21:05)
[2023-10-26] MEDS: AMITRIPTYLINE HCL 10 MG TABLET PO (21:06)
[2023-10-26] MEDS: METHOCARBAMOL 500 MG TABLET PO (21:06)
[2023-10-26] MEDS: ENOXAPARIN SODIUM 40 MG/0.4 ML SYRINGE SUBQ (21:06)
[2023-10-27] MEDS: POTASSIUM CHLORIDE/D5-0.9%NACL 1,000 ML 100 MEQ IV (02:17)
[2023-10-27 03:55] VITALS: BP 142/84; PULSE 91; TEMP 36.6; O2SAT 96
[2023-10-27 04:59] LABS: Basophils Absolute Auto 0.1 10^3/uL (0.0-0.1); Basophils Percent Auto 0.6 % (0.2-2.0); Eosinophils Absolute Auto 0.1 10^3/uL (0.0-0.7); Eosinophils Percent Auto 1.1 % (0.9-7.0); Hematocrit 38.4 % (36.0-48.0); Hemoglobin 13.1 g/dL (12.0-16.0); Immature Granulocytes Abs Auto 0.02 10^3/uL (0.00-0.03); Immature Granulocytes Pct Auto 0.2 % (0.0-0.5); Lymphocytes Absolute Auto 1.9 10^3/uL (1.2-3.8); Lymphocytes Percent Auto 23.2 % (20.5-60.0); Mean Corpuscular HGB Conc 34.1 g/dL (29.9-35.2); Mean Corpuscular Hemoglobin 31.6 pg (26.7-34.0); Mean Corpuscular Volume 92.5 fL (81.0-99.0); Mean Platelet Volume 10.1 fL (9.5-13.5); Neutrophils Absolute Auto 5.1 10^3/uL (1.4-6.5); Neutrophils Percent Auto 62.9 % (43.0-75.0); Platelet Count 303 10^3/uL (150-450); Red Blood Count 4.15 10^6/uL (4.20-5.40); Red Cell Distribution Width 12.3 % (11.0-15.0); White Blood Count 8.1 10^3/uL (4.0-11.0)
[2023-10-27 05:16] LABS: Alanine Aminotransferase 17 U/L (14-59); Albumin Globulin Ratio 1.2; Albumin Level 3.5 g/dL (3.4-5.0); Alkaline Phosphatase 96 U/L (46-116); Anion Gap 15.7; Aspartate Amino Transferase 20 U/L (15-37); BUN Creatinine Ratio 6.8; Bilirubin Total 0.4 mg/dL (0.2-1.0); Chloride 110 mmol/L (98-107); Estimated GFR (African America >60 (>=60); Estimated GFR (Non-African Ame >60 (>=60); Globulin 2.9 g/dL; Glucose 99 mg/dL (74-106); Potassium 3.7 mmol/L (3.5-5.1); Sodium 142 mmol/L (136-145); Total Protein 6.4 g/dL (6.4-8.2)
[2023-10-27] MEDS: METRONIDAZOLE/SODIUM CHLORIDE 500 MG/100 ML PREMIX 100 MG IV (05:33)
[2023-10-27] MEDS: ACETAMINOPHEN 500 MG TABLET 1000 MG PO (05:34)
[2023-10-27] MEDS: PREGABALIN 75 MG CAPSULE 150 MG PO (05:34)
[2023-10-27] MEDS: VANCOMYCIN HCL 7,500 MG/150 ML BOTTLE 125 MG PO ×2 (05:34→11:19)
[2023-10-27] MEDS: LEVOTHYROXINE SODIUM 112 MCG TABLET PO (05:34)
[2023-10-27 07:53] VITALS: BP 145/92; PULSE 85; TEMP 36.6; O2SAT 97
[2023-10-27] MEDS: MONTELUKAST SODIUM 10 MG TABLET PO (09:09)
[2023-10-27] MEDS: DICYCLOMINE HCL 10 MG CAPSULE 20 MG PO (09:09)
[2023-10-27] MEDS: TOPIRAMATE 100 MG TABLET 150 MG PO (09:12)
--- NOTE | 2023-10-27 12:07 | PM.DS1 ---
DS: Providers Provider Date of admission: 10/26/23 12:45 Primary care physician: GABE ALCALA Consults: 10/25/23 Consult to Dietitian Routine Reason For Exam: n/v/d x 4 days Reason for consultation: n/v/d x 4 days Has provider been notified: No DS: Diagnosis Discharge Diagnosis (1) C. difficile colitis: (2) UTI (urinary tract infection): (3) Hypokalemia: (4) Acute dehydration: DS: Summary Hospital Course Hospital Course: Reason for admission: See H&P for details. 63 y/o female to ER c/o not feeling well for several days. Generalized fatigue and no energy. Severe nausea. Noticed concentrated urine with strong odor and seen by PCP. Given macrobid and after 1 dose developed severe nauesa and vomiting. Developed watery diarrhea and going several times a day. Decreased PO and not able to keep down liquids and to ER. WBC normal and afebrile. UA showed UTI and potassium low at 2.9. CT abdomen and pelvis normal. Continued nausea and admitted. Hospital course: Started rocephin for UTI and IV fluids for dehydration. Stool positive for C. diff and started oral vancomycin. Not much improvement overnight. Continued to have weakness and diarrhea. Diffuse abdominal cramping. Continued nausea but no further emesis. Potassium remained low and replaced PO and IV. Added IV flagyl. Urine culture showed UTI due to E. coli. Slowly improved. Able to tolerate liquids. Decreased PO and nausea with solids but no emesis. Continued diarrhea and cramping but improving. Discharged home in stable condition. Will take cefdinir for UTI. Take oral vanco and flagyl for C. diff. Use zofran for nausea. Resume home medication as directed. Follow up with PCP in 1-2 weeks. Time Spent with Patient Time attestation: Total time spent providing and/or coordinating discharge services: Exam Constitutional Vital Signs, click to edit/add: Last Vital Signs Temp 97.8 F 10/27/23 07:53 Pulse 85 10/27/23 07:53 Resp 16 10/27/23 07:53 BP 145/92 H 10/27/23 07:53 Pulse Ox 97 10/27/23 07:53 O2 Del Method Room Air 10/27/23 07:53 Documenting provider has reviewed patient's vital signs: yes Common normals: no apparent distress, oriented x3 and alert HENMT Common normals: normocephalic Eye Common normals: PERRL and EOMs intact bilaterally Respiratory Common normals: normal respiratory effort and clear to auscultation bilaterally Cardio Common normals: regular rate, regular rhythm, no gallops, no murmurs and no rub GI Common normals: Normal to inspection, nondistended, normoactive bowel sounds present Palpation: tender (Mild diffuse TTP); no guarding Extremity Common normals: no pedal edema DS: Data Data Completed and Pending Labs on day of discharge: Labs from last 24 hours 10/27/23 10/26/23 04:42 14:33 WBC 8.1 RBC 4.15 L Hgb 13.1 Hct 38.4 MCV 92.5 MCH 31.6 MCHC 34.1 RDW 12.3 Plt Count 303 MPV 10.1 Neut % (Auto) 62.9 Lymph % (Auto) 23.2 Burke % (Auto) 12.0 Eos % (Auto) 1.1 Baso % (Auto) 0.6 Neut # (Auto) 5.1 Lymph # (Auto) 1.9 Burke # (Auto) 1.0 H Eos # (Auto) 0.1 Baso # (Auto) 0.1 Abs Immat Gran (auto) 0.02 Imm/Tot Granulo (auto) 0.2 Sodium 142 142 Potassium 3.7 3.9 Chloride 110 H 109 H Carbon Dioxide 20.0 L 20.6 L Anion Gap 15.7 16.3 BUN 5.0 L 7.0 Creatinine 0.74 0.60 Est GFR ( Amer) >60 >60 Est GFR (Non-Af Amer) >60 >60 BUN/Creatinine Ratio 6.8 11.7 Glucose 99 112 H Calcium 9.0 8.2 L Total Bilirubin 0.4 AST 20 ALT 17 Alkaline Phosphatase 96 Total Protein 6.4 Albumin 3.5 Globulin 2.9 Albumin/Globulin Ratio 1.2 Discharge Plan Discharge Disposition: Home, Self-Care Discharge Medications: New ondansetron 4 mg tablet,disintegrating 4 mg PO Q6H PRN (Reason: nausea and vomiting) Qty: 20 0RF cefdinir 300 mg capsule 300 mg PO BID 10 Days Qty: 20 0RF metronidazole 500 mg tablet 500 mg PO Q6H 10 Days Qty: 40 0RF vancomycin 125 mg capsule 125 mg PO Q6H 10 Days Qty: 40 0RF Continued amitriptyline 10 mg tablet 10 mg PO BEDTIME dicyclomine 20 mg tablet 20 mg PO BID levothyroxine 112 mcg tablet 112 mcg PO DAILY montelukast 10 mg tablet 10 mg PO DAILY nitrofurantoin monohyd/m-cryst 100 mg capsule 100 mg PO BID Patient Comments: 10/22/23-10/29/23 pregabalin 150 mg capsule 150 mg PO TID sumatriptan succinate 100 mg tablet 100 mg PO Q2H PRN (Reason: migraine headache) Patient Comments: may repeat in 2 hrs with 200mg topiramate 100 mg tablet 150 mg PO DAILY Patient Comments: take 1 1/2 pills daily dose 150mg methocarbamol 500 mg tablet 500 mg PO .qhs Activity: increase activity as tolerated Diet: advance to your usual diet Print Language: Hungarian Patient Instructions: Metronidazole (By mouth), Ondansetron (By mouth), Vancomycin (By mouth), Cefdinir (By mouth), Dehydration (DC), Urinary Tract Infection in Women (DC), C. Diff (Clostridioides Difficile) Infection (DC), Urinary Tract Infection in Older Adults (DC) Forms: Portal Instructions Follow Up Appointments: November 02 @ 2:15pm with Dr. Alcala [facility] [address] [place] [phone]
--- NOTE | 2023-10-27 12:18 | CM.NOTE ---
Rounds made with Dr. Arthur, pt will discharge to home today. Dr. Arthur discussed new medications for pt and need for probiotic. Pt verbalizes understanding.
--- NOTE | 2023-10-27 13:04 | CM.NOTE ---
Important Message From Medicare discussed with pt, pt verbalizes understanding and signs paper. Original given to pt and copy placed in pt's chart.
--- NOTE | 2023-10-28 15:22 | CM.DCFOLLOWU ---
Person spoke with: patient How are you feeling? well How is your pain? no pain Did you understand your discharge instructions? yes Do you have any questions about your discharge instructions? no Were you given any prescriptions at discharge? yes Were you able to get your prescriptions filled? yes Do you understand how to take your medications as ordered? yes Do you have any questions about your follow up appointment and do you plan to keep your follow up appointment? no questions, reviewed follow up apt date and time Is there anything else that you would like to discuss? no Questions/Comments/Concerns/Other: N/A
== END 2023-10-27 12:05 | disposition home or self-care (01) | DRG 372 ==
LOC: ER 15:50 → ICU 17:10 → MS 10-26 14:20
PROVIDERS: Admitting Provider Family Medicine; Emergency Provider Emergency Medicine Emergency Medical Services; PCP Family Medicine; Visit Provider Family Medicine
DX: A04.72 Enterocolitis due to Clostridium difficile, not specified as recurrent (principal); N39.0 Urinary tract infection, site not specified; E87.6 Hypokalemia; E86.0 Dehydration; B96.20 Unspecified Escherichia coli [E. coli] as the cause of diseases classified elsewhere; E89.0 Postprocedural hypothyroidism; F41.9 Anxiety disorder, unspecified; Z85.850 Personal history of malignant neoplasm of thyroid; F17.290 Nicotine dependence, other tobacco product, uncomplicated; Z79.899 Other long term (current) drug therapy; Z79.890 Hormone replacement therapy
CPT/HCPCS: 36415; 71045; 74177; 80048; 80053; 81001; 83605; 83690; 84484; 85025; 87086; 87150; 87186; 87493; 93005; 96361; 96365; 96366; 96367; 96368; 96372; 96375; 96376; 99285; G0378; J3480; Q9967

== ENCOUNTER 2024-03-26 12:35 | Outpatient (OUT) | payer MEDICARE, SELFPAY ==
--- OUTSIDE RECORDS SUMMARY | 2024-03-26 12:57 | XMS_ITS | CCD ---
Author Organization [facility] CliniSypr Care Team Providers Care Range Aid Name Role Phone House Sr., Husam Escamilla Primary Care Provider HOUSE, DR BERNAL Primary Care Unavailable TIMMIS, DR MOORE Admitting Unavailable TIMMIS, DR MOORE Attending Unavailable TIMMIS, DR MOORE Consulting Unavailable EB, DR MEHUL Whatley Consulting Unavailable TEMPE, DR BERNAL Admitting Unavailable STRASBURG, DR CARLY Ross Consulting Unavailable TEMPE, DR BERNAL Attending Unavailable TEMPE, DR BERNAL Primary Care Unavailable TEMPE, DR BERNAL Consulting Unavailable TEMPE, DR BERNAL Primary Care Unavailable TEMPE, DR HUSAM Hernandezitting Unavailable TEMPE, DR BERNAL Attending Unavailable TEMPE, DR BERNAL Consulting Unavailable [facility], DR MEHUL Whatley Consulting Unavailable TEMPE, DR BERNAL Primary Care Unavailable HOUSE, DR BERNAL Admitting Unavailable TEMPE, DR BERNAL Attending Unavailable TEMPE, DR BERNAL Consulting Unavailable Aydlett Sr., Husam Escamilla Primary Care Provider Aydlett Sr., Husam SMITH Primary Care Prov ider COSTANDI, SARITHA Referring Unavailable COSTANDI, SARITHA Attending Unavailable HOUSE SR, HUSAM ESCAMILLA Primary Care Unavai lable COSTANDI, BEATRIZIF Referring Unavailable COSTANDI, SARITHA Attending Unavailable HOUSE SR, HUSAM ESCAMILLA Primary Care Unavai lable HOUSE SR, HUSAM ESCAMILLA Primary Care Unavai lable JASON SHIPMAN Referring Unavailable JASON SHIPMAN Attending Unavailable ANNE GRAHAM Attending Unavailable KILEY COLEY Referring Unavailable JONO, KANDY Teixeira Attending Unavailable JONO, KANDY Teixeira Attending Unavailable JONO, KANDY Teixeira Attending Unavailable HOUSE, DO HUSAM Araiza Attending Unavailable HOUSE, HUSAM Araiza Primary Care Unavailable HOUSE, DO HUSAM Araiza Attending Unavailable HOUSE, HUSAM Araiza Primary Care Unavailable HOUSE, DO HUSAM Araiza Attending Unavailable HOUSE, HUSAM Araiza Primary Care Unavailable HOUSE, DO HUSAM Araiza Attending Unavailable HOUSE, HUSAM P Primary Care Unavailable HOUSE, HUSAM Araiza Primary Care Unavailable Raleigh Gordillo MD Attending Unavailable HOUSE, HUSAM Araiza Primary Care Unavailable Raleigh Gordillo MD Attending Unavailable HOUSE, HUSAM Araiza Primary Care Unavailable HOUSE, DO HUSAM Araiza Attending Unavailable HOUSE, HUSAM Araiza Primary Care Unavailable Raleigh Gordillo MD Attending Unavailable HOUSE, HUSAM Araiza Primary Care Unavailable HOUSE, DO HUSAM Araiza Attending Unavailable HOUSE, HUSAM P Primary Care Unavailable Allergies Allergy Classification Reported Allergen(s) Allergy Type Date of Onset Reaction(s) Facility (11 sources) Ciprofloxacin; Translations: [CIPROFLOXACIN] Drug Allergy 08-06-2016 [facility] Work Phone: (2 sources) Ciprofloxacin; Translations: [Cipro] Drug Allergy 08-10-2013 [facility] Repository Medications Current Medications Medication Drug Class(es) Dates Sig (Normalized) Sig (Original) amitriptyline hydrochloride 10 mg oral tablet (14 sources) Tricyclic Antidepressant Start: 01-07-2024 take 10 mg by mouth once daily Amitriptyline Active 10 MG PO Daily January 07, 2024 12:00am Start: 03-17-2023 End: 11-25-2023 take 1 tablet by mouth once daily at bedtime amitriptyline (ELAVIL) 10 mg tablet Indications: Idiopathic peripheral neuropathy Take 1 tablet by mouth daily at bedtime. 30 tablet 2 08/27/2023 11/25/2023 Active Start: 07-31-2021 End: 03-17-2023 amitriptyline (ELAVIL) 50 mg tablet Comment on above: Take 1 tablet by krupa th daily at bedtime. dicyclomine hydrochloride 20 mg oral tablet (12 sources) Anticholinergic Start: 01-07-20 take 20 mg by mouth twice daily Dicyclomine Active 20 MG PO Twice daily January 07, 2024 10:41am Start: 05-31-2020 End: 01-07-2024 take 20 mg by mouth four times daily Dicyclomine Discontinued 20 MG PO Four times daily May 31, 2020 1:00am January 07, 2024 10:44am Comment on above: Take 20 mg by mouth four times daily. docusate sodium 100 mg oral capsule (11 sources) Start: 01-07-2024 take 100 mg by mouth twice daily Docusate Sodium Active 100 MG PO Twice daily January 07, 2024 12:00am take 1 capsule by mouth twice da eulalio docusate sodium (COLACE) 100 mg capsule Take 100 mg by mouth twice daily. 0 Active Comment on above: Take 100 mg by mouth twice daily. famotidine 20 mg oral tablet (1 source) Histamine-2 Receptor Antagonist Start: 4 take 20 mg by mouth twice daily Famotidine Active 20 MG PO Twice daily 60 30 January 07, 2024 12:00am levothyroxine sodium 0.125 mg oral tablet (11 sources) l-Thyroxine Start: 0 take 125 ug by mouth once daily Levothyroxine Active 125 MCG PO Daily May 31, 2020 1:00am take 1 tablet by mouth once henry y Levothyroxine 125 mcg cap Take 1 tablet by mouth once daily. 0 Active Comment on above: Take 1 tablet by krupa th once daily. methocarbamol 750 mg oral tablet (11 sources) Muscle Relaxant Start: 0 take 1 tablet by mouth once daily at bedtime Methocarbamol (Robaxin-750) 750 mg Tablet Active 750 MG PO Daily at bedtime May 31, 2020 1:00am take 1 tablet by krupa th once daily at bedtime methocarbamol (ROBAXIN) 500 mg tablet Ta ke 500 mg by mouth daily at bedtime. 0 Active Comment on above: Take 500 mg by mouth daily at bedtime. montelukast 10 mg oral tablet (1 source) Leukotriene Receptor Antagonist Start: 4 take 10 mg by mouth once daily Montelukast Active 10 MG PO Daily January 07, 2024 12:00am Polyethylene Glycol 3350 (Miralax) 17 gram/dose powder (1 source) Start: 4 Polyethylene Glycol 3350 (Miralax) 17 gram/dose powder Active 17 GM PO Daily 510 30 January 07, 2024 12:00am SUMAtriptan 100 mg oral tablet (11 sources) Serotonin-1b and Serotonin-1d Receptor Agonist Start: 0 Sumatriptan Succinate (Imitrex) 100 mg Tablet Active 100 MG PO As Directed May 31, 2020 1:00am Comment on above: Take 100 mg by mouth as needed. topiramate 100 mg oral tablet (7 sources) Start: 4 End: 5 take 100 mg by mouth once daily Topiramate Active 100 MG PO Daily January 07, 2024 12:00am take 50 mg by mouth once daily [...] mg by mouth at bedtime as needed. biotin 5 mg sublingual tablet (1 source) Start: 05-31-2020 End: 01-07-2024 take 5000 ug under the tongue once daily Biotin Discontinued 5000 MCG SUBLINGUAL Daily May 31, 2020 1:00am January 07, 2024 10:40am Calcium Carbonate (5 sources) End: 08-29-2022 take 1 tablet by mouth twice daily CALCIUM CARBONATE (SCOTT-600 ORAL) Take 1 tablet by mouth twice daily. 0 08/29/2022 Discontinued take 1 tablet by mouth twice evelyne ly CALCIUM CARBONATE (SCOTT-600 ORAL) Take 1 tablet by mouth twice daily. 0 Active Comment on above: Take 1 tablet by krupa th twice daily. calcium citrate 1500 mg / cholecalciferol 250 unt oral tablet (1 source) Vitamin D Start: 05-31-20 End: 01-07-20 24 take 1 tablet by mouth once daily Calcium Citrate-Vitamin D3 (Citracal + D Maximum) 315 mg-6.25 mcg (250 unit) Tablet Discontinued 1 TAB PO Daily May 31, 2020 1:00am January 07, 2024 10:40am cholecalciferol 0.025 mg oral capsule (10 sources) Vitamin D take 1 capsule by mouth once daily Cholecalciferol, Vitamin D3, 25 mcg (1,000 unit) cap Take 1,000 Units by mouth once daily. 0 Active Comment on above: Take 1,000 Units by mouth once daily. 24 hr diclofenac sodium 100 mg extended release oral tablet (1 source) Nonsteroidal Anti-inflammatory Drug Start: 05-31-20 End: 06-07-20 take 1 tablet by mouth twice daily Diclofenac Sodium (Voltaren-Xr) 100 mg Tablet Extended Release 24 Hr Discontinued 100 MG PO Twice daily May 31, 2020 1:00am June 07, 2020 3:38pm Conj Estrog-Medroxyprogest Umair (11 sources) Progestin, Estrogen Start: 05-31-20 End: 01-07-20 take 0.625-2.5 mg by mouth once daily Conj Estrog-Medroxyproge st Umair (Prempro) 0.625-2.5 mg Tablet Discontinued 1 TAB PO Daily May 31, 2020 1:00am January 07, 2024 10:40am Start: 07-29-2019 take 1 tablet by krupa th once daily PREMPRO 0.625-2.5 mg per tablet [...] by mouth every 6 hours as needed. MEDICATION, NON-DATABASE (10 sources) MEDICATION, NON-DATABASE as needed. Medical marijuana. 0 Active Comment on above: as needed. Medical m nayana. naproxen sodium 220 mg oral tablet (10 sources) Nonsteroidal Anti-inflammatory Drug take 1 tablet by mouth twice daily at mealtime naproxen sodium (ANAPROX) 220 mg tablet Take 220 mg by mouth twice daily with meals. 0 Active Comment on above: Take 220 mg by mouth twice daily with meals. nortriptyline 10 mg oral capsule (1 source) Tricyclic Antidepressant Start: 023 End: 023 take 1 capsule by mouth once daily at bedtime nortriptyline (PAMELOR) 10 mg capsule Take 1 capsule by mouth daily at bedtime. 30 capsule 2 03/17/2023 03/17/2023 Discontinued Comment on above: Take 1 capsule by mo uth daily at bedtime. pregabalin 150 mg oral capsule (11 sources) Start: 022 take 1 capsule by mouth three times daily pregabalin (LYRICA) 150 mg capsule Take 150 mg by mouth three times daily. 0 07/31/2021 Active Start: 05-31-2020 take 1 capsule by mo uth three times daily Pregabalin (Lyrica) 100 mg Capsule Active 100 MG PO Three times daily May 31, 2020 1:00am Comment on above: Take 150 mg by mouth three times daily. promethazine hydrochloride 25 mg oral tablet (1 source) Phenothiazine Start: 05-31-20 End: 01-07-20 24 take 25 mg by mouth every six hours Promethazine Discontinued 25 MG PO Q6H May 31, 2020 1:00am January 07, 2024 10:42am Problems Active Problems Problem Classification Problem Date Documented Da te Episodic/Chronic Abdominal pain (1 source) Chronic abdominal pain; Translations: [Unspecified abdominal pain] 05-31-2020 Episodic Diseases of mouth; excluding dental (4 sources) Other diseases of salivary glands; Translations: [OTHER DISEASES OF SALIVARY GLANDS] Onset: 07-31-2022 Episodic Nausea and vomiting (1 source) Nausea and vomiting; Translations: [Nausea with vomiting, unspecified] 05-31-2020 Episodic Other connective tissue disease (11 sources) Fibromyalgia; Translations: [Fibromyalgia] Onset: 08-23-2016 08-23-2016 Episodic Other nervous system disorders (5 sources) [...] of thyroid] Onset: 08-15-2021 08-15-2021 Episodic Other non-traumatic joint disorders (4 sources) [...] Test Name Value Interpretation Reference Range Facil ity Outside Recordson 02-17-2024 Outside Records [id number][facility]-2024 Outside Records [id number]#[facility] 01-06-2024 Outside Records [id number]#[facility] 12-08-2023 Outside Records [id number]#1 [facility] 10-28-2023 Outside Records [id number]# 1.00[facility] Rad - Other Radiology Report on 10-02-2023 Rad - Other Radiology Report [id number][facility] ([facility] ) CLIFFORD FRIAS ([id number]) 1960 F Date Time Provider Department 08/07/23 1:15 PM SARITHA MENDEZ PAINMN During your visit today, we recorded the following information about you: Temperature Pulse Respiration Blood pressure 97.6 degrees 72/minute 18/minute 102/61 Weight Height 63.5 kg 1.626 m Saritha Mendez MD 08/07/2023 11:17 AM Signed SUBJECTIVE: Clifford Frias presents to [facility] for a follow-up appointment [...] Row Office Visit from 08/20/2019 in [facility] Office Visit from 08/06/2016 in [facility] T Score 37.4 32.4 [...] in 1 year for med refills with PA-Sherri The above plan and management options were [...] content not included)... Normal [facility] Controlled Substances Agreem entson 06-04-2023 Controlled Substances Agreements [id number]#1 .00OTGTIFF [facility] CNOVon 03-17-2023 [facility] Office Visit (PAINMN ) CLIFFORD FRIAS ([id number]) 1960 F Date Time Provider Department 03/17/23 11:00 AM SARITHA MENDEZ PAINMN During your visit today, we recorded the following information about you: Temperature Pulse Blood pressure Weight 96.5 degrees 67/minute 102/57 59 kg Height 1.626 m Saritha Mendez MD 03/21/2023 4:21 PM Signed [facility] Follow Up Evaluation Date: [...] doing well. She got a membership at [employer] in Jul 2022 and has been performing [...] content not included)... Normal [facility] CNOVon 08-29-2022 [facility]OV Office Visit (PAINMN ) CLIFFORD FRIAS ([id number]) 1960 F Date Time Provider Department 08/29/22 11:00 AM JASON SHIPMAN During your visit today, we recorded the following information about you: Temperature Pulse Blood pressure Weight 98.2 degrees 67/minute 112/65 54.4 kg Height 1.626 m Jason Shipman MD, PhD 09/04/2022 1:37 AM Signed [facility] Established Patient Patient name: Clifford Frias Date of Service: August 29, 2022 Site of Service: [facility] [place] Established care at [facility]: yes HPI Clifford Frias presents to [facility] for a follow-up appointment [...] content not included)... Normal [facility] CT NECK ST W CONon 3 CT [...] MEHUL BAIG Date: 2022-08-01 09:07 Normal [facility] CREATININEon 07-31-2022 Creatinine [Mass/Vol] 0.71 mg/dL Normal 0.55-1.02 [facility] Comment on above: Performed By: #### T 4, CMP, TSH #### [facility] [address] [place] [address] Dr. Bossman Capps EGFR-AF TUNISIAN >60 Normal >=60 [facility] Comment on above: Performed By: #### T 4, CMP, TSH #### [facility] [address] [place] [address] Dr. Bossman Capps EGFR-NON AF TUNISIAN >60 Normal >=60 [facility] Comment on above: Performed By: #### T 4, CMP, TSH #### [facility] [address] [place] [address] Dr. Bossman Capps CBC AUTO DIFFon 06-28-2022 BASO # 0.0 103/ul Normal 0.0-0.1 [facility] Comment on above: Performed By: #### C BC #### [facility] [address] [place] [address] Dr. Bossman Capps Basophils/100 WBC (Bld) 0.6 % Normal 0.2-2.0 [facility] Comment on above: Performed By: #### C BC #### [facility] [address] [place] [address] Dr. Bossman Capps EO # 0.1 103/ul Normal 0.0-0.7 [facility] Comment on above: Performed By: #### C BC #### [facility] [address] [place] [address] Dr. Bossman Capps Eosinophils/100 WBC (Bld) 1.1 % Normal 0.9-7.0 [facility] Comment on above: Performed By: #### C BC #### [facility] [address] [place] [address] Dr. Bossman Capps Erythrocyte distribution width (RBC) [Ratio] 13.1 % Normal 11.0-15.0 [facility] Comment on above: Performed By: #### C BC #### [facility] [address] [place] [address] Dr. Bossman Capps Hematocrit (Bld) [Volume fraction] 39.5 % Normal 36.0-48.0 [facility] Comment on above: Performed By: #### C BC #### [facility] [address] [place] [address] Dr. Bossman Capps Hemoglobin (Bld) [Mass/Vol] 13.5 g/dL Normal 12.0-16.0 [facility] Comment on above: Performed By: #### C BC #### [facility] [address] [place] [address] Dr. Bossman Capps IG # 0.01 10e3/ul Normal 0.00-0.03 [facility] Comment on above: Performed By: #### C BC #### [facility] [address] [place] [address] Dr. Bossman Capps IG % 0.2 % Normal 0.0-0.5 [facility] Comment on above: Performed By: #### C BC #### [facility] [address] [place] [address] Dr. Bossman Capps LYMPH # 2.1 103/ul Normal 1.2-3.8 [facility] Comment on above: Performed By: #### C BC #### [facility] [address] [place] [address] Dr. Bossman Capps Lymphocytes/100 WBC (Bld) 33.7 % Normal 20.5-60.0 [facility] Comment on above: Performed By: #### C BC #### [facility] [address] [place] [address] Dr. Bossman Capps MANUAL DIFF REQ NO Normal [facility] Comment on above: Performed By: #### C BC #### [facility] [address] [place] [address] Dr. Bossman Capps MCH (RBC) [Entitic mass] 32.0 pg Normal 26.7-34.0 [facility] Comment on above: Performed By: #### C BC #### [facility] [address] [place] [address] Dr. Bossman Capps MCHC (RBC) [Mass/Vol] 34.2 g/dL Normal 29.9-35.2 [facility] Comment on above: Performed By: #### C BC #### [facility] [address] [place] [address] Dr. Bossman Capps MCV (RBC) [Entitic vol] 93.6 fL Normal 81.0-99.0 [facility] Comment on above: Performed By: #### C BC #### [facility] [address] [place] [address] Dr. Bossman Capps MONO # 0.5 103/ul Normal 0.3-0.8 [facility] Comment on above: Performed By: #### C BC #### [facility] [address] [place] [address] Dr. Bossman Capps Monocytes/100 WBC (Bld) 8.0 % Normal 1.7-12.0 [facility] Comment on above: Performed By: #### C BC #### [facility] [address] [place] [address] Dr. Bossman Capps NEUT # 3.6 103/ul Normal 1.4-6.5 [facility] Comment on above: Performed By: #### C BC #### [facility] [address] [place] [address] Dr. Bossman Capps Neutrophils/100 WBC (Bld) 56.4 % Normal 43.0-75.0 [facility] Comment on above: Performed By: #### C BC #### [facility] [address] [place] [address] Dr. Bossman Capps Platelet mean volume (Bld) [Entitic vol] 9.9 fL Normal 9.5-13.5 [facility] Comment on above: Performed By: #### C BC #### [facility] [address] [place] [address] Dr. Bossman Capps PLT 290 103/ul Normal 150-450 [facility] Comment on above: Performed By: #### C BC #### [facility] [address] [place] [address] Dr. Bossman Cpaps RBC 4.22 106/ul Normal 4.20-5.40 [facility] Comment on above: Performed By: #### C BC #### [facility] [address] [place] [address] Dr. Bossmna Capps WBC 6.4 103/ul Normal 4.0-11.0 [facility] Comment on above: Performed By: #### C BC #### [facility] [address] [address] [address] Bossman Capps PROF 14(COMP METB)on 022 Albumin [Mass/Vol] 3.3 g/dL Critically low 3.4-5.0 [facility] Comment on above: Performed By: #### T 4, CMP, TSH #### [facility] [address] [address] [address] Bossman Capps Albumin/Globulin [Mass ratio] 0.9 {ratio} Normal [facility] Comment on above: Performed By: #### T 4, CMP, TSH #### [facility] [address] [address] [address] Bossman Capps ALP [Catalytic activity/Vol] 76 U/L Normal 46-116 [facility] Comment on above: Performed By: #### T 4, CMP, TSH #### [facility] [address] [place] [address] Dr. Bossman Capps ALT [Catalytic activity/Vol] 13 U/L Critically low 14-59 [facility] Comment on above: Performed By: #### T 4, CMP, TSH #### [facility] [address] [place] [address] Dr. Bossman Capps Anion gap [Moles/Vol] 10.4 mmol/L Normal [facility] Comment on above: Performed By: #### T 4, CMP, TSH #### [facility] [address] [address] [address] Bossman Capps AST [Catalytic activity/Vol] 18 U/L Normal 15-37 [facility] Comment on above: Performed By: #### T 4, CMP, TSH #### [facility] [address] [address] [address] Bossman Capps Bilirubin [Mass/Vol] 0.2 mg/dL Normal 0.2-1.0 [facility] Comment on above: Performed By: #### T 4, CMP, TSH #### [facility] [address] [place] [address] Dr. Bossman Capps Calcium [Mass/Vol] 8.9 mg/dL Normal 8.5-10.1 [facility] Comment on above: Performed By: #### T 4, CMP, TSH #### [facility] [address] [place] [address] Dr. Bossman Capps Chloride [Moles/Vol] 107 mmol/L Normal 98-107 [facility] Comment on above: Performed By: #### T 4, CMP, TSH #### [facility] [address] [place] [address] Dr. Bossman Capps CO2 [Moles/Vol] 28.6 mmol/L Normal 21.0-32.0 [facility] Comment on above: Performed By: #### T 4, CMP, TSH #### [facility] [address] [place] [address] Dr. Bossman Capps Creatinine [Mass/Vol] 0.75 mg/dL Normal 0.55-1.02 [facility] Comment on above: Performed By: #### T 4, CMP, TSH #### [facility] [address] [place] [address] Dr. Bossman Capps EGFR-AF TUNISIAN >60 Normal >=60 [facility] Comment on above: Performed By: #### T 4, CMP, TSH #### [facility] [address] [place] [address] Dr. Bossman Capps EGFR-NON AF TUNISIAN >60 Normal >=60 [facility] Comment on above: Performed By: #### T 4, CMP, TSH #### [facility] [address] [place] [address] Dr. Bossman Capps Globulin (S) [Mass/Vol] 3.6 g/dL Normal [facility] Comment on above: Performed By: #### T 4, CMP, TSH #### [facility] [address] [place] [address] Dr. Bossman Capps Glucose [Mass/Vol] 85 mg/dL Normal 74-106 [facility] Comment on above: Performed By: #### T 4, CMP, TSH #### [facility] [address] [place] [address] Dr. Bossman Capps Potassium [Moles/Vol] 4.0 mmol/L Normal 3.5-5.1 [facility] Comment on above: Performed By: #### T 4, CMP, TSH #### [facility] [address] [place] [address] Dr. Bossman Capps Protein [Mass/Vol] 6.9 g/dL Normal 6.4-8.2 [facility] Comment on above: Performed By: #### T 4, CMP, TSH #### [facility] [address] [place] [address] Dr. Bossman Capps Sodium [Moles/Vol] 142 mmol/L Normal 136-145 [facility] Comment on above: Performed By: #### T 4, CMP, TSH #### [facility] [address] [place] [address] Dr. Bossman Capps Urea nitrogen [Mass/Vol] 10.0 mg/dL Normal 7.0-18.0 [facility] Comment on above: Performed By: #### T 4, CMP, TSH #### [facility] [address] [place] [address] Dr. Bossman Capps Urea nitrogen/Creatinin e [Mass ratio] 13.3 mg/mg Normal [facility] Comment on above: Performed By: #### T 4, CMP, TSH #### [facility] [address] [place] [address] Dr. Bossman Capps T4on 06-28-2022 T4 [Mass/Vol] 10.20 ug/dL Normal 4.80-13.90 [facility] Comment on above: Performed By: #### T 4, CMP, TSH #### [facility] [address] [place] [address] Dr. Bossman Capps TSHon 06-28-2022 TSH 0.041 uIU/mL Critically low 0.358-3.740 [facility] Comment on above: Performed By: #### T 4, CMP, TSH #### [facility] [address] [place] [address] Dr. Bossman Capps VIT B12 AND FOLATEon 022 Cobalamin (Vitamin B12) [Mass/Vol] 443.0 pg/mL Normal 193.0-986.0 [facility] Comment on above: Performed By: #### T 4, CMP, TSH #### [facility] [address] [place] [address] Dr. Bossman Capps FOLATE 12.00 ng/mL Normal 8.60-58.90 [facility] Comment on above: Performed By: #### T 4, CMP, TSH #### [facility] [address] [place] [address] Dr. Bossman Capps T4 [facility]on 03-28-2022 T4 [Mass/Vol] 12.6 ug/dL Critically high 4.5-12.0 [facility] Comment on above: Performed By: #### T 4LC #### [facility] [address] [place] [address] Dr. Bossman Capps CBC AUTO DIFFon 03-27-2022 BASO # 0.1 103/ul Normal 0.0-0.1 [facility] Comment on above: Performed By: #### T 4, CMP, TSH #### [facility] [address] [place] [address] Dr. Bossman Capps Basophils/100 WBC (Bld) 1.1 % Normal 0.2-2.0 [facility] Comment on above: Performed By: #### T 4, CMP, TSH #### [facility] [address] [place] [address] Dr. Bossman Capps EO # 0.1 103/ul Normal 0.0-0.7 [facility] Comment on above: Performed By: #### T 4, CMP, TSH #### [facility] [address] [place] [address] Dr. Bossman Capps Eosinophils/100 WBC (Bld) 1.9 % Normal 0.9-7.0 [facility] Comment on above: Performed By: #### T 4, CMP, TSH #### [facility] [address] [place] [address] Dr. Bossman Capps Erythrocyte distribution width (RBC) [Ratio] 12.7 % Normal 11.0-15.0 [facility] Comment on above: Performed By: #### T 4, CMP, TSH #### [facility] [address] [place] [address] Dr. Bossman Capps Hematocrit (Bld) [Volume fraction] 43.7 % Normal 36.0-48.0 [facility] Comment on above: Performed By: #### T 4, CMP, TSH #### [facility] [address] [place] [address] Dr. Bossman Capps Hemoglobin (Bld) [Mass/Vol] 14.5 g/dL Normal 12.0-16.0 [facility] Comment on above: Performed By: #### T 4, CMP, TSH #### [facility] [address] [place] [address] Dr. Bossman Capps IG # 0.02 10e3/ul Normal 0.00-0.03 [facility] Comment on above: Performed By: #### T 4, CMP, TSH #### [facility] [address] [place] [address] Dr. Bossman Capps IG % 0.4 % Normal 0.0-0.5 [facility] Comment on above: Performed By: #### T 4, CMP, TSH #### [facility] [address] [place] [address] Dr. Bossman Capps LYMPH # 2.1 103/ul Normal 1.2-3.8 [facility] Comment on above: Performed By: #### T 4, CMP, TSH #### [facility] [address] [place] [address] Dr. Bossman Capps Lymphocytes/100 WBC (Bld) 38.0 % Normal 20.5-60.0 [facility] Comment on above: Performed By: #### T 4, CMP, TSH #### [facility] [address] [place] [address] Dr. Bossman Capps MANUAL DIFF REQ NO Normal [facility] Comment on above: Performed By: #### T 4, CMP, TSH #### [facility] [address] [place] [address] Dr. Bossman Capps MCH (RBC) [Entitic mass] 31.7 pg Normal 26.7-34.0 [facility] Comment on above: Performed By: #### T 4, CMP, TSH #### [facility] [address] [place] [address] Dr. Bossman Capps MCHC (RBC) [Mass/Vol] 33.2 g/dL Normal 29.9-35.2 [facility] Comment on above: Performed By: #### T 4, CMP, TSH #### [facility] [address] [place] [address] Dr. Bossman Capps MCV (RBC) [Entitic vol] 95.6 fL Normal 81.0-99.0 [facility] Comment on above: Performed By: #### T 4, CMP, TSH #### [facility] [address] [place] [address] Dr. Bossman Capps MONO # 0.5 103/ul Normal 0.3-0.8 [facility] Comment on above: Performed By: #### T 4, CMP, TSH #### [facility] [address] [place] [address] Dr. Bossman Capps Monocytes/100 WBC (Bld) 9.6 % Normal 1.7-12.0 [facility] Comment on above: Performed By: #### T 4, CMP, TSH #### [facility] [address] [place] [address] Dr. Bossman Capps NEUT # 2.7 103/ul Normal 1.4-6.5 [facility] Comment on above: Performed By: #### T 4, CMP, TSH #### [facility] [address] [place] [address] Dr. Bossman Capps Neutrophils/100 WBC (Bld) 49.0 % Normal 43.0-75.0 [facility] Comment on above: Performed By: #### T 4, CMP, TSH #### [facility] [address] [place] [address] Dr. Bossman Capps Platelet mean volume (Bld) [Entitic vol] 10.7 fL Normal 9.5-13.5 [facility] Comment on above: Performed By: #### T 4, CMP, TSH #### [facility] [address] [place], [place] [address] Dr. Bossman Capps PLT 343 103/ul Normal 150-450 [facility] Comment on above: Performed By: #### T 4, CMP, TSH #### [facility] [address] [place], [place] [address] Dr. Bossman Capps RBC 4.57 106/ul Normal 4.20-5.40 [facility] Comment on above: Performed By: #### T 4, CMP, TSH #### [facility] [address] [place], [place] [address] Dr. Bossman Capps WBC 5.4 103/ul Normal 4.0-11.0 [facility] Comment on above: Performed By: #### T 4, CMP, TSH #### [facility] [address] [place], [place] [address] Dr. Bossman Capps MG MAMM SCREEN 3D BREANA CADon 03-27-2022 MG MAMM SCREEN 3D BREANA CAD Patient: CLIFFORD FRIAS Exam Date: 03/27/2022 : 1960 Gender:F Ordering : DR HUSAM ALCALA D.O. Admission #: [id number] Family : Order #: [id number] CLICK HERE TO VIEW EXAM RADIOLOGY REPORT [...] unknown cancer at age 70. LOCATION: [facility] BREAST COMPOSITION: Heterogeneously dense,which may obscure small [...] Recinos MD on 03/28/2022 at 07:47 Normal [facility] PROF 14(COMP METB)on 022 Albumin [Mass/Vol] 4.1 g/dL Normal 3.4-5.0 [facility] Comment on above: Performed By: #### C MP, TSH #### [facility] [address] [place] [address] Dr. Bossman Capps Albumin/Globulin [Mass ratio] 1.1 {ratio} Normal [facility] Comment on above: Performed By: #### C MP, TSH #### [facility] [address] [place] [address] Dr. Bossman Capps ALP [Catalytic activity/Vol] 68 U/L Normal 46-116 [facility] Comment on above: Performed By: #### C MP, TSH #### [facility] [address] [place] [address] Dr. Bossman Capps ALT [Catalytic activity/Vol] 13 U/L Critically low 14-59 [facility] Comment on above: Performed By: #### C MP, TSH #### [facility] [address] [place] [address] Dr. Bossman Capps Anion gap [Moles/Vol] 10.8 mmol/L Normal [facility] Comment on above: Performed By: #### C MP, TSH #### [facility] [address] [place] [address] Dr. Bossman Capps AST [Catalytic activity/Vol] 12 U/L Critically low 15-37 [facility] Comment on above: Performed By: #### C MP, TSH #### [facility] [address] [place] [address] Dr. Bossman Capps Bilirubin [Mass/Vol] 0.5 mg/dL Normal 0.2-1.0 [facility] Comment on above: Performed By: #### C MP, TSH #### [facility] [address] [place] [address] Dr. Bossman Capps Calcium [Mass/Vol] 9.1 mg/dL Normal 8.5-10.1 [facility] Comment on above: Performed By: #### C MP, TSH #### [facility] [address] [place] [address] [address] Bossman Capps Chloride [Moles/Vol] 104 mmol/L Normal 98-107 [facility] Comment on above: Performed By: #### C MP, TSH #### [facility] [address] [place] [address] [address] Bossman Capps CO2 [Moles/Vol] 29.1 mmol/L Normal 21.0-32.0 [facility] Comment on above: Performed By: #### C MP, TSH #### [facility] [address] [place] [address] [address] Bossman Capps Creatinine [Mass/Vol] 0.72 mg/dL Normal 0.55-1.02 [facility] Comment on above: Performed By: #### C MP, TSH #### [facility] [address] [place] [address] Dr. Bossman Capps EGFR-AF TUNISIAN >60 Normal >=60 [facility] Comment on above: Performed By: #### C MP, TSH #### [facility] [address] [place] [address] Dr. Bossman Capps EGFR-NON AF TUNISIAN >60 Normal >=60 [facility] Comment on above: Performed By: #### C MP, TSH #### [facility] [address] [place] [address] [address] Bossman Capps Globulin (S) [Mass/Vol] 3.7 g/dL Normal [facility] Comment on above: Performed By: #### C MP, TSH #### [facility] [address] [place] [address] [address] Bossman Capps Glucose [Mass/Vol] 93 mg/dL Normal 74-106 [facility] Comment on above: Performed By: #### C MP, TSH #### [facility] [address] [place] [address] [address] Bossman Capps Potassium [Moles/Vol] 3.9 mmol/L Normal 3.5-5.1 [facility] Comment on above: Performed By: #### C MP, TSH #### [facility] [address] [place] [address] [address] Bossman Capps Protein [Mass/Vol] 7.8 g/dL Normal 6.4-8.2 [facility] Comment on above: Performed By: #### C MP, TSH #### [facility] [address] [place] [address] [address] Bossman Capps Sodium [Moles/Vol] 140 mmol/L Normal 136-145 [facility] Comment on above: Performed By: #### C MP, TSH #### [facility] [address] [place] [address] [address] Bossman Capps Urea nitrogen [Mass/Vol] 10.0 mg/dL Normal 7.0-18.0 [facility] Comment on above: Performed By: #### C MP, TSH #### [facility] [address] [place] [address] [address] Bossman Capps Urea nitrogen/Creatinin e [Mass ratio] 13.9 mg/mg Normal [facility] Comment on above: Performed By: #### C MP, TSH #### [facility] [address] [place] [address] [address] Bossman Capps TSHon 03-27-2022 TSH 0.310 uIU/mL Critically low 0.358-3.740 [facility] Comment on above: Performed By: #### C MP, TSH #### [facility] [address] [place] [address] Dr. Bossman Capps ALLIED HEALTHon 07-10-2021 ALLIED HEALTH HNO ID: [id number] Author: RT Randi(R) Service: ? Author Type: [...] RT Randi(R) July 10, 2021 7:32 AM [facility] MRI LUMBAR SPINE WO IVCONon 07-10-2021 MRI LUMBAR SPINE WO IVCON * * *Final Report* * * DATE OF EXAM: Jul 10 2021 7:55AM [facility] 0303 - MRI LUMBAR SPINE [...] crest and there are 5 lumbar-type vertebrae. Squirrel Man: PADMAJA Transcribe Date/Time: Jul 10 2021 9:15A Dictated by : CORTES LERMA MD This examination was interpreted and the report reviewed and electronically signed by: CORTES LERMA MD on Jul 10 2021 9:23AM EST [id number] Normal [facility] Vital Signs Date Time Vital Sign Value Performing Clinician Facility 01-07-2024 10:38-0400 Body height 162.56 cm [facility] 01-07-2024 10:38-0400 Body mass index (BMI) [Ratio] 23.8 kg/m2 [facility] 01-07-2024 10:38-0400 Body weight 63.04 kg [facility] 03-17-2023 10:34-0400 Body height 162.6 cm Saritha Mendez MD Work Phone: [facility] 03-17-2023 10:34-0400 Body temperature 96.49 [degF] Saritha Mendez MD Work Phone: [facility] 03-17-2023 10:34-0400 Body weight 58.97 kg Saritha Mendez MD Work Phone: [facility] 03-17-2023 10:34-0400 Diastolic blood pressure 57 mm[Hg] Saritha Mendez MD Work Phone: [facility] 03-17-2023 10:34-0400 Heart rate 67 /min Saritha Mendez MD Work Phone: [facility] 03-17-2023 10:34-0400 SaO2% (BldA) [Mass fraction] 100 % Saritha Mendez MD Work Phone: [facility] 03-17-2023 10:34-0400 Systolic blood pressure 102 mm[Hg] Saritha Mendez MD Work Phone: [facility] 08-29-2022 10:49-0500 Body height 162.6 cm Jason Shipman MD, PhD Work Phone: [facility] 08-29-2022 10:49-0500 Body temperature 98.2 [degF] Jason Shipman MD, PhD Work Phone: [facility] 08-29-2022 10:49-0500 Body weight 54.43 kg Jason Shipman MD, PhD Work Phone: [facility] 08-29-2022 10:49-0500 Diastolic blood pressure 65 mm[Hg] Jason Shipman MD, PhD Work Phone: [facility] 08-29-2022 10:49-0500 Heart rate 67 /min Jason Shipman MD, PhD Work Phone: [facility] 08-29-2022 10:49-0500 SaO2% (BldA) [Mass fraction] 99 % Jason Shipman MD, PhD Work Phone: [facility] 08-29-2022 10:49-0500 Systolic blood pressure 112 mm[Hg] Jason Shipman MD, PhD Work Phone: [facility] 10-08-2021 13:48-0400 Body height 160 cm Saritha Mendez MD Work Phone: [facility] 10-08-2021 13:48-0400 Body temperature 98.8 [degF] Saritha Mendez MD Work Phone: [facility] 10-08-2021 13:48-0400 Body weight 54.43 kg Saritha Mendez MD Work Phone: [facility] 10-08-2021 13:48-0400 Diastolic blood pressure 69 mm[Hg] Saritha Mendez MD Work Phone: [facility] 10-08-2021 13:48-0400 Heart rate 93 /min Saritha Mendez MD Work Phone: [facility] 10-08-2021 13:48-0400 SaO2% (BldA) [Mass fraction] 97 % Saritha Mendez MD Work Phone: [facility] 10-08-2021 13:48-0400 Systolic blood pressure 110 mm[Hg] Saritha Mendez MD Work Phone: [facility] Encounters Encounter Date Encounter Type Care Provider Facility Start: 03-25-2024 ambulatory DO HUSAM ALCALA Faci lity:[facility] Start: 02-17-2024 End: 02-17-2024 ambulatory KANDY DE LA CRUZ Not Available Start: 01-15-2024 End: 01-15-2024 ambulatory DO HUSAM ALCALA Facility:[facility] Start: 01-07-2024 End: 01-07-2024 ambulatory [facility] Work Phone: Start: 01-07-2024 End: 01-07-2024 Patient encounter procedure [facility] Work Phone: Start: 01-06-2024 End: 01-06-2024 ambulatory KANDY DE LA CRUZ Not Available Start: 12-30-2023 End: 12-30-2023 ambulatory DO HUSAM ALCALA Facility:[facility] Start: 12-23-2023 End: 12-23-2023 ambulatory KANDY DE LA CRUZ Not Available Start: 12-11-2023 End: 12-11-2023 ambulatory ANNE GRAHAM Not Available Start: 11-17-2023 End: 11-17-2023 ambulatory DO HUSAM ALCALA Facility:[facility] Start: 10-22-2023 End: 10-22-2023 ambulatory DO HUSAM ALCALA Facility:[facility] Start: 09-25-2023 End: 09-25-2023 ambulatory DO HUSAM ALCALA Facility:[facility] Start: 08-27-2023 End: 08-27-2023 ambulatory Raleigh Gordillo MD Facility:[facility] Start: 08-26-2023 Refill Sandhya palafox BIOCHEMISTRY TECHNOLOGIST.IMPREGNATING HELPER Work Phone: [facility] Comment on above: Refill Request Start: 08-07-2023 End: 08-07-2023 ambulatory SARITHA MENDEZ Facility:[facility] Start: 06-30-2023 End: 06-30-2023 ambulatory Raleigh Gordillo MD Facility:[facility] Start: 06-25-2023 End: 06-25-2023 ambulatory HUSAM Teodora ALCALA Facility:[facility] Start: 05-28-2023 End: 05-28-2023 ambulatory Raleigh Gordillo MD Facility:[facility] Start: 05-12-2023 Orders Only Sandhya palafox BIOCHEMISTRY TECHNOLOGIST.IMPREGNATING HELPER Work Phone: [facility] Start: 03-17-2023 End: 03-17-2023 ambulatory Deisy Weaver MD [facility] Start: 03-17-2023 End: 03-17-2023 Patient encounter procedure Saritha Mendez MD Work Phone: [facility] Comment on above: Myofascial low back pain (Primary Dx); Numbness and tingling of both legs; Lumbar spondylosis Start: 08-29-2022 End: 08-29-2022 ambulatory Deisy Weaver MD [facility] Start: 08-29-2022 End: 08-29-2022 Patient encounter procedure Jason Shipman MD, PhD Work Phone: [facility] Comment on above: Chronic low back darion n without sciatica, unspecified back pain laterality (Primary Dx); Examination of participant or control in clinical research Start: 07-31-2022 End: 08-01-[address] HUSAM ALCALA Facility: Start: 06-28-2022 End: 06-29-[address] HUSAM [...] Author Start: 08-15-2024 DIABETES SCREEN DIABETES SCREEN [facility] Start: 08-15-2024 Diabetes Screening Diabetes Screenin g [facility] Start: 07-21-2023 Depression Assessment Depression Ass essment [facility] Start: 03-21-2023 Covid-19 Vaccine ( season) Covid-19 Vaccine ( season) [facility] Start: 03-21-2023 Influenza vaccination [facility] Start: 07-21-2022 DEPRESSION ASSESSMENT DEPRESSION ASS ESSMENT [facility] Start: 03-21-2022 Influenza vaccination [facility] Start: 11-17-2021 COVID-19 VACCINE (4 - Booster for Moderna series) COVID-19 VACCINE (4 - Booster for Moderna series) [facility] Start: 03-21-2021 Influenza vaccination INFLUENZA (#1) [facility] Start: 08-20-2020 Adult depression scr eening assessment DEPRESSION SCREENING [facility] Start: 2020 RSV Vaccine (1 - 1-d ose 60+ series) RSV Vaccine (1 - 1-dose 60+ series) [facility] Start: 2010 SHINGRIX VACCINE (1 of 2) SHINGRIX V ACCINE (1 of 2) [facility] Start: 2005 COLOGUARD (FIT-DNA) COLOGUARD (FIT-D NA) [facility] Start: 2005 Colonoscopy COLONOSCOPY [facility] Start: 2005 COLORECTAL CANCER SCREENING COLORECTAL CANCER SCREENING [facility] Start: [address] COLONOGRAPHY [facility] Start: 2005 FECAL OCCULT BLOOD FECAL OCCULT BLOO D [facility] Start: 2005 Lipid 1996 panel - S mary or Plasma Lipid Screening [facility] Start: 2005 Lipid panel Lipid Screening [facility] Start: 2005 LIPID SCREEN LIPID SCREEN [facility] Start: 2005 Screening for malign ant neoplasm of colon [facility] Start: 2005 SIGMOIDOSCOPY SIGMOIDOSCOPY [facility] Start: 2000 Mammography [facility] Start: 2000 Screening for malign ant neoplasm of breast Mammogram Screening [facility] Start: 1990 HPV TESTING HPV TESTING [facility] Start: 1990 Screening for malign ant neoplasm of cervix HPV Testing [facility] Start: 1981 PAP TESTING PAP TESTING [facility] Start: 1981 Screening for malign ant neoplasm of cervix Pap Testing [facility] Start: 1979 Urine microalbumin profile [facility] Start: 1978 HEPATITIS C SCREENING HEPATITIS C [facility] Start: 1978 Hepatitis C screening Hepatitis C [facility] Start: 1978 HIV SCREENING HIV SCREENING [facility] Start: 1978 HIV screening HIV Screening [facility] Immunizations Immunization Date Immunization Notes Care Provider Ryan moore 04-19-2022 influenza virus vacc ine, unspecified formulation Sandhya Paiz APRN.CNP Work Phone: [facility] 07-19-2021 COVID-19 vaccine, booster dose (MODERNA) Saritha Mendez MD Work Phone: [facility] 10-28-2020 COVID-19 vaccine, fu ll dose (MODERNA) Saritha Mendez MD Work Phone: [facility] 09-30-2020 COVID-19 vaccine, fu ll dose (MODERNA) Saritha Mendez MD Work Phone: [facility] 05-01-2019 influenza, injectabl e, quadrivalent, preservative free Saritha Mendez MD Work Phone: [facility] Payers Date Payer Category Payer Unknown [id number] 2022 Unknown [id number] 2021 Unknown ANTHEM BLUE [facility] S AND BLUE [employer]IELD ANTHEM MEDIBLUE O [id number] 2021-Present [phone] [address] [place] [address] [facility] [id number] 2021 Unknown [id number]. [id number] 1960 Unknown [id number] [id number] 3 1960 Unknown [id number] 2.16.840.1.628565.3.579.2.59 3 1960 Unknown [id number] 2.16.840.1.868832.3.579.2.59 3 1960 Unknown [id number] 2.16.840.1.924471.3.579.2.59 3 1960 Unknown [id number] 2.16.840.1.916956.3.579.2.12 59 1960 Unknown [id number] 2.16.840.1.089686.3.579.2.12 59 1960 Unknown [id number] 2.16.840.1.404863.3.579.2.12 59 1960 Unknown [id number] 2.16.840.1.279850.3.579.2.12 59 1960 Unknown [id number] 2.16.840.1.760600.3.579.2.71 8 1960 Unknown [id number] 2.16.840.1.419432.3.579.2.71 8 1960 Unknown [id number] 2.16.840.1.450726.3.579.2.71 8 1960 Unknown [id number] 2.16.840.1.971722.3.579.2.71 8 1960 Unknown [id number] 2.16.840.1.484844.3.579.2.71 8 1960 Unknown [id number] 2.16.840.1.343631.3.579.2.71 8 1960 Unknown [id number] 2.16.840.1.489623.3.579.2.71 8 1960 Unknown [id number] 2.16.840.1.382120.3.579.2.71 8 1960 Unknown [id number] 2.16.840.1.075408.3.579.2.71 8 1959 Medicare [id number] 1959 Unknown [id number] Self-pay Self Pay [id number] Unknown [facility] [id number] Social History Date Type Detail Facility Start: 08-06-2016 End: 10-18-2020 Tobacco smoking status CAIS Ex-smoker [facility] Work Phone: End: 07-21-2015 History of tobacco use Current smoker [facility] Work Phone: End: 07-21-2015 History of tobacco use Cigarette Smoker [facility] Work Phone: Start: 08-06-2016 End: 06-29-2020 Cigarettes smoked current (pack per day) - Reported 0.5 [facility] Start: 08-06-2016 End: 03-17-2023 Tobacco use and exposure Smokeless tobacco non-user [facility] Work Phone: Start: 10-08-2021 End: 08-07-2023 Alcohol intake Current non-drinker of alcohol (finding) [facility] Start: 08-15-2021 History SDOH Alcohol Frequency 1 [facility] Start: 1960 Sex Assigned At Not on file C [facility] Start: 08-22-2021 End: 11-22-2021 Exposure to SARS-CoV-2 (event) Unable to assess [facility] Start: 12-14-2021 End: 02-04-2022 Exposure to SARS-CoV-2 (event) Not sure [facility] Start: 06-29-2020 End: 03-17-2023 Tobacco use panel [facility] Adult Depression Screening Assessment 2 [facility] Start: 1960 Sex Assigned At Female F [facility] Medical Equipment Procedure Code Equipment Code Equipment Origin al Text Equipment Identifier Dates Reactiv8 Percutaneous Lead [id number] Start: 08-20-2021 Comment on above: Description: Armandosherri florianvipin: [facility] Reactiv8 Percutaneous Lead [id number] Start: 08-20-2021 Comment on above: Description: Freda blandon: [facility] [employer] Reactiv8 Implant able Pulse Generator [id number] Start: 08-20-2021 Comment on above: Description: Freda blandon: [facility] Clinical Notes 08-30-2021 to 02-26-2024 Telephone Encounter - Sandhya Paiz, [facility] - 08/27/2023 12:38 PM Sandhya Whittaker APRN.IMPREGNATING HELPER - 05/12/2023 11:16 AM Saritha Santos MD - 03/17/2023 11:00 AM EDT Note Date & Type Note Facility 02-26-2024 Note - From: HUSAM ALCALA DO, DO To: [facility] Clinical Pool ([facility]); Sent: 02/26/2024 14:59:10 EDT Subject: FW: Medication Management Due Date/Time: 02/27/2024 11:26:00 EDT Caller Name: CLIFFORD FRIAS; Caller Number: H From: [id number] To: HUSAM ALCALA DO, DO Sent: February 26, 2024 10:26:18 AM CDT Subject: Medication Management Due: February 27, 2024 12:06:10 AM CDT On Hold Pending Signature Drug: pregabalin (Lyrica 150 mg oral capsule), 1 cap(s) Oral TID Quantity: 90 cap(s) Days Supply: 0 Refills: 0 Substitutions Allowed Notes from Pharmacy: Dispensed Drug: pregabalin (pregabalin 150 mg oral capsule), TAKE 1 CAPSULE BY MOUTH THREE TIMES DAILY Quantity: 90 cap(s) Days Supply: 30 Refills: 0 Substitutions Allowed Notes from Pharmacy: On Hold Pending Signature Drug: methocarbamol (methocarbamol 500 mg oral tablet), TAKE 1 TABLET BY MOUTH IN THE EVENING Quantity: 30 tab(s) Days Supply: 30 Refills: 3 Substitutions Allowed Notes from Pharmacy: Dispensed Drug: methocarbamol (methocarbamol 500 mg oral tablet), TAKE 1 TABLET BY MOUTH IN THE EVENING Quantity: 30 tab(s) Days Supply: 30 Refills: 0 Substitutions Allowed Notes from Pharmacy: Submitted: Order:methocarbamol (methocarbamol 500 mg oral tablet) 1 tab(s) Oral qPM Qty: 30 tab(s) Days Supply: 30 Refills: 0 Substitutions Allowed Route To Pharmacy - [id number] Signed by Nan Fonseca 02/26/2024 15:28:00 EDT Submitted: Complete:methocarbamol (methocarbamol 500 mg oral tablet) Signed by Nan Fonseca 02/26/2024 15:29:00 EDT Not Approved: New Rx to follow methocarbamol (methocarbamol 500 mg tablet) TAKE 1 TABLET BY MOUTH IN THE EVENING Qty: 30 tab(s) Days Supply: 30 Refills: 0 Substitutions Allowed Route To Pharmacy - [id number] Signed by Nan Fonseca From: Nan Fonseca To: [facility] Sent: 02/26/2024 15:30:50 EDT Subject: FW: Medication Management Not Approved: proposed to provider pregabalin (pregabalin 150 mg capsule) TAKE 1 CAPSULE BY MOUTH THREE TIMES DAILY Qty: 90 cap(s) Days Supply: 30 Refills: 0 Substitutions Allowed Route To Pharmacy - [id number] Signed by Nan Fonseca [facility] 01-27-2024 Note - From: HUSAM ALCALA DO To: [facility] Clinical Pool ([facility] Sent: 01/26/2024 13:55:29 EDT Subject: FW: Medication Management Due Date/Time: 01/27/2024 13:03:00 EDT Caller Name: CLIFFORD FRIAS; Caller Number: H From: [id number] To: HUSAM ALCALA DO Sent: January 26, 2024 12:03:12 PM CDT Subject: Medication Management Due: January 27, 2024 12:02:47 AM CDT On Hold Pending Signature Drug: pregabalin (Lyrica 150 mg oral capsule), 1 cap(s) Oral TID Quantity: 90 cap(s) Days Supply: 0 Refills: 0 Substitutions Allowed Notes from Pharmacy: Dispensed Drug: pregabalin (pregabalin 150 mg oral capsule), TAKE 1 CAPSULE BY MOUTH THREE TIMES DAILY Quantity: 90 cap(s) Days Supply: 30 Refills: 0 Substitutions Allowed Notes from Pharmacy: From: Nan Fonseca To: [facility] Sent: 01/27/2024 09:06:57 EDT Subject: FW: Medication Management Not Approved: proposed to provider pregabalin (pregabalin 150 mg capsule) TAKE 1 CAPSULE BY MOUTH THREE TIMES DAILY Qty: 90 cap(s) Days Supply: 30 Refills: 0 Substitutions Allowed Route To Pharmacy - [id number] Signed by Nan Fonseca [facility] 12-27-2023 Note - From: HUSAM ALCALA DO To: [facility] Clinical Pool ([facility] Sent: 12/27/2023 19:36:45 EDT Subject: FW: Medication Management Due Date/Time: 12/27/2023 17:36:00 EDT Caller Name: CLIFFORD FRIAS; Caller Number: H From: [id number] To: HUSAM ALCALA DO Sent: December 26, 2023 4:36:43 PM CDT Subject: Medication Management Due: December 27, 2023 12:02:04 AM CDT On Hold Pending Signature Drug: pregabalin (Lyrica 150 mg oral capsule), 1 cap(s) Oral TID Quantity: 90 cap(s) Days Supply: 0 Refills: 0 Substitutions Allowed Notes from Pharmacy: Dispensed Drug: pregabalin (pregabalin 150 mg oral capsule), TAKE 1 CAPSULE BY MOUTH THREE TIMES DAILY Quantity: 90 cap(s) Days Supply: 30 Refills: 0 Substitutions Allowed Notes from Pharmacy: [facility] 11-26-2023 Note - From: HUSAM ALCALA DO To: [facility] Clinical Pool ([facility] Sent: 11/26/2023 12:38:00 EDT Subject: FW: Medication Management Due Date/Time: 11/27/2023 11:27:00 EDT Caller Name: CLIFFORD FRIAS; Caller Number: H From: [id number] To: HUSAM ALCALA DO Sent: November 26, 2023 10:27:58 AM CDT Subject: Medication Management Due: November 27, 2023 12:05:37 AM CDT On Hold Pending Signature Drug: pregabalin (Lyrica 150 mg oral capsule), 1 cap(s) Oral TID Quantity: 90 cap(s) Days Supply: 0 Refills: 0 Substitutions Allowed Notes from Pharmacy: Dispensed Drug: pregabalin (pregabalin 150 mg oral capsule), TAKE 1 CAPSULE BY MOUTH THREE TIMES DAILY Quantity: 90 cap(s) Days Supply: 30 Refills: 0 Substitutions Allowed Notes from Pharmacy: From: Nan Fonseca To: [facility] Sent: 11/26/2023 15:18:31 EDT Subject: FW: Medication Management Not Approved: proposed to provider pregabalin (pregabalin 150 mg capsule) TAKE 1 CAPSULE BY MOUTH THREE TIMES DAILY Qty: 90 cap(s) Days Supply: 30 Refills: 0 Substitutions Allowed Route To Pharmacy - [facility] Signed by Marian [facility] 11-11-2023 Note Entered by Suri Prince on November 11, 2023 16:20:40 EDT From: Ember Prince To: [facility] Sent: 11/11/2023 16:20:40 EDT Subject: FW: Medication Management Documented Complete:montelukast (montelukast 10 mg oral tablet) Signed by Ember Prince 11/11/2023 16:20:00 EDT Approved with modifications: montelukast (montelukast 10 mg tablet) TAKE 1 TABLET BY MOUTH DAILY Qty: 30 tab(s) Days Supply: 30 Refills: 11 Substitutions Allowed Route To Pharmacy - [id number] Signed by Ember Prince Patient matched by Ember Prince on 11/11/2023 16:19:37 EDT From: HUSAM ALCALA DO To: [facility] Clinical Pool ([facility] Sent: 11/11/2023 16:16:57 EDT Subject: FW: Medication Management Due Date/Time: 11/12/2023 11:47:00 EDT From: [facility] To: HUSAM ALCALA DO Sent: November 11, 2023 10:47:30 AM CDT Subject: Medication Management Due: November 12, 2023 12:07:18 AM CDT On Hold Pending Signature Drug: montelukast (montelukast 10 mg oral tablet), Take 1 Tablet(s) 1 time a day Quantity: 30 tab(s) Days Supply: 30 Refills: 10 Substitutions Allowed Notes from Pharmacy: Dispensed Drug: montelukast (montelukast 10 mg oral tablet), TAKE 1 TABLET BY MOUTH DAILY Quantity: 30 tab(s) Days Supply: 30 Refills: 11 Substitutions Allowed Notes from Pharmacy: [facility] 10-30-2023 Note - From: HUSAM ALCALA DO To: [facility] Clinical Pool ([facility]); Sent: 10/30/2023 13:16:13 EDT Subject: FW: Medication Management Due Date/Time: 10/31/2023 11:29:00 EDT Caller Name: CLIFFORD FRIAS; Caller Number: H From: [id number] To: HUSAM ALCALA DO Sent: October 30, 2023 10:29:46 AM CDT Subject: Medication Management Due: October 31, 2023 1:56:01 AM CDT On Hold Pending Signature Drug: pregabalin (Lyrica 150 mg oral capsule), 1 cap(s) Oral TID Quantity: 90 cap(s) Days Supply: 0 Refills: 0 Substitutions Allowed Notes from Pharmacy: Dispensed Drug: pregabalin (pregabalin 150 mg oral capsule), TAKE 1 CAPSULE BY MOUTH THREE TIMES DAILY Quantity: 90 cap(s) Days Supply: 30 Refills: 0 Substitutions Allowed Notes from Pharmacy: From: Ember Prince To: [facility] Sent: 10/30/2023 16:08:09 EDT Subject: FW: Medication Management Not Approved: Refill not appropriate, sent to provider. pregabalin (pregabalin 150 mg capsule) TAKE 1 CAPSULE BY MOUTH THREE TIMES DAILY Qty: 90 cap(s) Days Supply: 30 Refills: 0 Substitutions Allowed Route To Pharmacy - [id number] Signed by Ember Prince [facility] 10-12-2023 Note Entered by KARLI ALCALA DO on October 12, 2023 16:24:36 EDT From: HUSAM ALCALA DO To: [facility] Sent: 10/12/2023 16:24:36 EDT Subject: Medication Management Submitted: Complete:methocarbamol (methocarbamol 500 mg oral tablet) Signed by HUSAM ALCALA DO 10/12/2023 16:24:00 EDT Approved with modifications: methocarbamol (methocarbamol 500 mg tablet) TAKE 1 TABLET BY MOUTH IN THE EVENING Qty: 30 tab(s) Days Supply: 30 Refills: 3 Substitutions Allowed Route To Pharmacy - [facility] From: [facility] To: HUSAM ALCALA DO Sent: October [...] Refills: 3 Substitutions Allowed Notes from Pharmacy: [facility] 08-27-2023 Miscellaneous Notes The following approved medication requests have been transmitted electronically. Requested Prescriptions Signed Prescriptions Disp Refills amitriptyline (ELAVIL) 10 mg tablet 30 tablet 2 Sig: Take 1 tablet by mouth daily at bedtime. Authorizing Provider: SANDHYA PAIZ APRN.IMPREGNATING HELPER documented in this encounter [facility] 08-07-2023 Note HNO ID: [id number] Author: SARITHA MENDEZ MD Service: ? Author Type: Physician Type: Progress Notes Filed: 08/07/2023 11:17 Note Text: SUBJECTIVE: Clifford Frias presents to [facility] Pain Management Department for a follow-up appointment [...] Row Office Visit from 08/20/2019 in [facility] Office Visit from 08/06/2016 in [facility] T Score 37.4 32.4 [...] Level: 4 - Moderate [facility] 08-07-2023 Note HNO ID: [id number] Author: DEISY WEAVER MD Service: ? Author Type: Fellow Type: Progress Notes Filed: 08/07/2023 11:11 Note Text: Summary: Research update Clifford Huffmanjose migueldae is a part [...] of 10 for the current moment.Cata malik [facility] was here for checking the device and [...] fellow/ pain management department. [facility] 07-28-2023 Note Entered by KARLI ALCALA DO on July 28, 2023 07:38:55 EST From: HUSAM ALCALA DO To: [facility] Sent: 07/28/2023 07:38:55 EST Subject: Medication [...] 1 Substitutions Allowed Route To Pharmacy - [facility] From: [facility] To: HUSAM ALCALA DO Sent: July 25, 2023 2:08:38 PM GLUELINE WORKER Subject: Medication Management Due: July 26, 2023 12:07:31 AM GLUELINE WORKER On Hold Pending Signature Drug: SUMAtriptan (SUMAtriptan [...] Refills: 1 Substitutions Allowed Notes from Pharmacy: [facility] 06-25-2023 Note - From: HUSAM ALCALA DO To: [facility] Clinical Pool ([facility]); Sent: 06/25/2023 11:39:12 EST Subject: FW: Medication Management Due Date/Time: 06/26/2023 11:18:00 EST Caller Name: CLIFFORD FRIAS; Caller Number: H Patient matched by HUSAM ALCALA DO on 06/25/2023 11:38:37 EST From: [facility] To: HUSAM ALCALA DO Sent: June 25, 2023 10:18:31 AM GLUELINE WORKER Subject: Medication Management Due: June 26, 2023 12:08:39 AM GLUELINE WORKER On Hold Pending Signature Drug: methocarbamol (methocarbamol [...] 500 mg oral tablet) Signed by DULCE PRINCE 06/25/2023 11:48:00 EST Approved with modifications: methocarbamol (methocarbamol 500 mg tablet) TAKE 1 TABLET BY MOUTH IN THE EVENING Qty: 30 tab(s) Days Supply: 30 Refills: 3 Substitutions Allowed Route To Pharmacy - [facility] Signed by DULCE PRINCE From: DULCE PRINCE To: [facility] Sent: 06/25/2023 11:51:47 EST Subject: FW: Medication Management Not Approved: Refill not appropriate pregabalin (pregabalin 150 mg capsule) TAKE 1 CAPSULE BY MOUTH THREE TIMES DAILY Qty: 90 cap(s) Days Supply: 30 Refills: 0 Substitutions Allowed Route To Pharmacy - [facility] Signed by DULCE PRINCE [facility] 05-26-2023 Note - From: HUSAM ALCALA DO To: [facility] Clinical Pool ([facility] Sent: 05/26/2023 12:54:48 EST Subject: FW: Medication Management Due Date/Time: 05/27/2023 12:40:00 EST Caller Name: CLIFFORD FRIAS; Caller Number: H From: [facility] To: HUSAM ALCALA DO Sent: May 26, 2023 11:40:13 AM GLUELINE WORKER Subject: Medication Management Due: May 27, 2023 12:10:46 AM GLUELINE WORKER On Hold Pending Signature Drug: pregabalin (Lyrica 150 mg oral capsule), 1 cap(s) PO TID Quantity: 90 cap(s) Days Supply: 0 Refills: 0 Substitutions Allowed Notes from Pharmacy: Dispensed Drug: pregabalin (pregabalin 150 mg oral capsule), TAKE 1 CAPSULE BY MOUTH THREE TIMES DAILY Quantity: 90 cap(s) Days Supply: 30 Refills: 0 Substitutions Allowed Notes from Pharmacy: From: DULCE PRINCE To: [facility] Sent: 05/26/2023 13:11:42 EST Subject: FW: Medication Management Not Approved: Patient has requested refill too soon pregabalin (pregabalin 150 mg capsule) TAKE 1 CAPSULE BY MOUTH THREE TIMES DAILY Qty: 90 cap(s) Days Supply: 30 Refills: 0 Substitutions Allowed Route To Pharmacy - [facility] Signed by JUAN [facility] 05-14-2023 Note Entered by KARLI ALCALA DO on May 14, 2023 14:00:16 EDT From: HUSAM ALCALA DO To: [facility] Sent: 05/14/2023 14:00:16 EDT Subject: Medication [...] 1 Substitutions Allowed Route To Pharmacy - [facility] From: [facility] To: HUSAM ALCALA DO Sent: May 14, 2023 12:52:34 PM CDT [...] Refills: 1 Substitutions Allowed Notes from Pharmacy: [facility] 05-12-2023 Note HNO ID: [id number] Author: Sandhya Paiz APRN.CNP Service: ? Author Type: Nurse Practitioner Type: Progress Notes Filed: 05/12/2023 11:17 AM Note Text: The following approved medication requests have been transmitted electronically. Requested Prescriptions Signed Prescriptions Disp Refills amitriptyline (ELAVIL) 10 mg tablet 30 tablet 2 Sig: Take 1 tablet by mouth daily at bedtime. Sandhya Paiz APRN.CNP [facility] 05-12-2023 History of Presen t illness Narrative The following approved medication requests have been transmitted electronically. Requested Prescriptions Signed Prescriptions Disp Refills amitriptyline (ELAVIL) 10 mg tablet 30 tablet 2 Sig: Take 1 tablet by mouth daily at bedtime. Sandhya Paiz APRN.CNP documented in this encounter [facility] 03-17-2023 Note HNO ID: [id number] Author: Saritha Mendez MD Service: ? Author Type: Physician Type: Progress Notes Filed: 03/21/2023 4:21 PM Note Text: [facility] Pain Management Department Follow Up Evaluation Date: [...] doing well. She got a membership at [employer] in Jul 2022 and has been performing [...] (more content not included)... [facility] 03-17-2023 Note HNO ID: [id number] Author: Deisy Weaver MD Service: ? Author [...] 10 for the current moment. Zuri malik [facility] was here for checking on the devise [...] fellow/ pain management department. [facility] 03-17-2023 History of Presen t illness Narrative [facility] Pain Management Department Follow Up Evaluation Date: [...] doing well. She got a membership at [employer] in Jul 2022 and has been performing [...] 4 - Moderate documented in this encounter [facility] 03-17-2023 History of Presen t illness Narrative [...] 10 for the current moment. Zuri malik [facility] was here for checking on the devise [...] pain management department. documented in this encounter [facility] 08-29-2022 Note HNO ID: [id number] Author: Jason Shipman MD, PhD Service: ? Author Type: Physician Type: Progress Notes Filed: 09/04/2022 1:37 AM Note Text: [facility] Established Patient Patient name: Clifford Frias Date of Service: August 29, 2022 Site of Service: [facility] Established care at [facility]: yes HPI Clifford Frias presents to [facility] Pain Management Department for a follow-up appointment [...] (more content not included)... [facility] 08-29-2022 Note HNO ID: [id number] Author: Deisy Weaver MD Service: ? Author [...] fellow/ pain management department. [facility] 08-29-2022 History of Presen t illness Narrative [facility] Established Patient Patient name: Clifford Frias Date of Service: August 29, 2022 Site of Service: [facility] [place] Established care at [facility]: yes HPI Clifford Frias presents to [facility] Pain Management Department for a follow-up appointment [...] Shipman MD, PhD documented in this encounter [facility] 08-29-2022 History of Presen t illness Narrative Summary: Research update Clifford Huffmanjose migueldae is a part [...] pain management department. documented in this encounter [facility] 04-03-2022 Note PROCEDURE: XR SHOULD ER LT [...] authenticated by: MEHUL BAIG Date: 2022-04-03 14:18 [facility] 02-04-2022 History of Presen t illness Narrative Summary: research update Clifford Hernandesdae is a part of [employer] study IRB # [id number] Mendez, she was seen today in the clinic for his 6 Months follow up visit. The patient completed the study questionnaires according to the study protocol (SWAPNA, Back Pain NRS, EQ-5D, Percent pain relief, SGIC, Treatment satisfaction) The patiena rated her LBP as 6 out of [...] Weaver MD. Research fellow/ pain management department [email or web address] [phone] documented in this encounter [facility] 12-24-2021 History of Presen t illness Narrative Summary: Research update Clifford Ceciliodae is a part of [employer] study IRB [...] Weaver MD. Research fellow/ pain management department [email or web address] [phone] documented in this encounter [facility] 10-08-2021 History of Presen t illness Narrative SUBJECTIVE: Clifford Frias presents to [facility] Pain Management Department for a follow-up appointment [...] 2) Interrogation of the device performed by repryan The above plan and management options were [...] 3 - Low documented in this encounter [facility] 02-10-2022 History of Presen t illness Narrative SUBJECTIVE: Clifford Frias is a 61 year old female who presents to [facility] Pain Management Department for suture removal following [...] TACHO Fishman PA-C documented in this encounter [facility] Evaluation note Diagnosis Clinical trial participant- Primary Chronic low back pain without sciatica, unspecified back pain laterality Lumbar spondylosis Lumbosacral spondylosis without myelopathy [facility] Diagnosis Lumbar spondylosis- Primary Lumbosacral spondylosis without myelopathy Chronic left-sided low back pain without sciatica [facility] Chronic low back pain without sciatica, unspecified back pain laterality- Primary Examination of participant or control in clinical research Examination of participant in clinical trial [facility] Diagnosis Myofascial low back pain- Primary Numbness and tingling of both legs Disturbance of skin sensation Lumbar spondylosis Lumbosacral spondylosis without myelopathy [facility] Diagnosis Idiopathic peripheral neuropathy Unspecified hereditary and idiopathic peripheral neuropathy [facility] noteNo assessment information availableGreen [facility] Work Phone: Summary Purpose Family History No Family History Records Found Relationship Condition Age at Onset Recorded Date/T [place] Not Specified Malignant neoplasm of colon Unknown father Malignant neoplasm Unknown History of skin disorder Unknown Not Specified Family history of colon cancer Unknown Family history of mental disorder Unknown Malignant neoplasm Unknown Unknown Advance Directives No Advanced Directives Records FoundDocuments on File Type Date Recorded Patient Roll Reclaimer Expl anation Advance Directive(s) 08/09/2021 3:10 PM Advance Directive(s) 04/24/2021 2:57 PM Advance Directive Response Recorded Date/ Time Advance Directives No May 26, 2020 3:46pm Chief Complaint and Reason for Visit Chief Complaint diverticulosis, spas tic colon Additional Source Comments INFORMATION SOURCE (unrecogn ized section and content) DATE CREATED AUTHOR 07/10/2021 [facility] DATE CREATED AUTHOR AUTHOR'S ORGANIZ ATION 08/03/2022 [facility] DATE CREATED AUTHOR AUTHOR'S ORGANIZ ATION 08/08/2023 [facility] DATE CREATED AUTHOR AUTHOR'S ORGANIZ ATION [facility]/19/2024 [facility] DATE CREATED AUTHOR AUTHOR'S ORGANIZ ATION 03/25/2024 [facility] l Source Comments (unrecognize d section and content) In the event this informatio n is protected by the Federal Confidentiality of Alcohol and Drug Abuse Patient Records regulations: The Federal rules restrict any use of the information to criminally investigate or prosecute any alcohol or drug abuse patient.[facility] the event this information is protected by the Federal Confidentiality of Alcohol and Drug Abuse Patient Records regulations: The Federal rules restrict any use of the information to criminally investigate or prosecute any alcohol or drug abuse patient.[facility] the event this information is protected by the Federal Confidentiality of Alcohol and Drug Abuse Patient Records regulations: The Federal rules restrict any use of the information to criminally investigate or prosecute any alcohol or drug abuse patient.[facility] the event this information is protected by the Federal Confidentiality of Alcohol and Drug Abuse Patient Records regulations: The Federal rules restrict any use of the information to criminally investigate or prosecute any alcohol or drug abuse patient.[facility] HospitalIn the event this information is protected by the Federal Confidentiality of Alcohol and Drug Abuse Patient Records regulations: The Federal rules restrict any use of the information to criminally investigate or prosecute any alcohol or drug abuse patient.[facility] Hospital[facility] the event this information is protected by the Federal Confidentiality of Alcohol and Drug Abuse Patient Records regulations: The Federal rules restrict any use of the information to criminally investigate or prosecute any alcohol or drug abuse patient.[facility] Hospital[facility] the event this information is protected by the Federal Confidentiality of Alcohol and Drug Abuse Patient Records regulations: The Federal rules restrict any use of the information to criminally investigate or prosecute any alcohol or drug abuse patient.[facility] Hospital[facility] the event this information is protected by the Federal Confidentiality of Alcohol and Drug Abuse Patient Records regulations: The Federal rules restrict any use of the information to criminally investigate or prosecute any alcohol or drug abuse patient.[facility] HospitalIn the event this information is protected by the Federal Confidentiality of Alcohol and Drug Abuse Patient Records regulations: The Federal rules restrict any use of the information to criminally investigate or prosecute any alcohol or drug abuse patient.[facility] the event this information is protected by the Federal Confidentiality of Alcohol and Drug Abuse Patient Records regulations: The Federal rules restrict any use of the information to criminally investigate or prosecute any alcohol or drug abuse patient.[facility] Reason for Visit (unrecogniz ed section and content) Reason Comments Medication Update Establish Care Reason Comments Establish Care Medication Update Reason Comments Follow Up Medication Update Reason Comments Refill Request Care Teams (unrecognized sec tion and content) Range Aid Relationship Specialty Start Date End Date Husam Alcala SrCheri PCP - General Family Practice 07/11/16 Range Aid Relationship Specialty Start Date End Date Vijay Husam Escamilla SrCheri PCP - General Family Practice 07/11/16 Range Aid Relationship Specialty Start Date End Date Vijay Husam Escamilla PCP - General Family Practice 07/11/16 Range Aid Relationship Specialty Start Date End Date Vijay Husam Escamilla PCP - General Family Medicine 07/11/16 Range Aid Relationship Specialty Start Date End Date Vijay Husam Escamilla PCP - General Family Medicine 07/11/16 Range Aid Relationship Specialty Start Date End Date Vijay Husam Escamilla PCP - General Family Medicine 07/11/16 Range Aid Relationship Specialty Start Date End Date Vijay Husam Escamilla PCP - General Family Medicine 07/11/16 Range Aid Relationship Specialty Start Date End Date Vijay Husam Burlesondaniel Kyle DO PCP - General Family Medicine 07/11/16 Range Aid Relationship Specialty Start Date End Date Vijay Husam Burlesondaniel Kyle DO PCP - General Family Medicine 07/11/16 Team Status: Active Member Role Status Dates Husam Alcala DO Primary Care Provider Active Team Status: Inactive Member Role Status Dates Evelyn Frost DO Attending Provider Active St art: January 07, 2024 End: January 07, 2024 Husam Alcala DO Primary Care Provider Active Start: January 07, 2024 End: January 07, 2024 Goals (unrecognized section and content) Goals may be documented in a n alternate section FOR RECORDS PERTAINING TO PATIENTS WHO ARE [...] BE BASED ON THE PRIMARY CLINICAL RECORDS. [facility] [employer] [facility]. provides no warranty or guarantee of the accuracy or completeness of information in this document.
[2024-03-26 15:26] LABS: Alanine Aminotransferase 12 U/L (14-59); Albumin Level 3.6 g/dL (3.4-5.0); Alkaline Phosphatase 108 U/L (46-116); Anion Gap 10.4; Aspartate Amino Transferase 13 U/L (15-37); BUN Creatinine Ratio 13.9; Bilirubin Total 0.3 mg/dL (0.2-1.0); Calcium 8.9 mg/dL (8.5-10.1); Carbon Dioxide 24.2 mmol/L (21.0-32.0); Chloride 108 mmol/L (98-107); Estimated GFR (African America >60 (>=60); Estimated GFR (Non-African Ame >60 (>=60); Globulin 3.5 g/dL; Glucose 84 mg/dL (74-106); Potassium 3.6 mmol/L (3.5-5.1); Sodium 139 mmol/L (136-145); Thyroid Stimulating Hormone 0.032 uIU/mL (0.358-3.740); Total Protein 7.1 g/dL (6.4-8.2)
[2024-03-26 16:42] LABS: Basophils Percent Auto 0.5 % (0.2-2.0); Eosinophils Absolute Auto 0.1 10^3/uL (0.0-0.7); Eosinophils Percent Auto 1.2 % (0.9-7.0); Hematocrit 39.5 % (36.0-48.0); Immature Granulocytes Abs Auto 0.03 10^3/uL (0.00-0.03); Immature Granulocytes Pct Auto 0.7 % (0.0-0.5); Lymphocytes Absolute Auto 1.1 10^3/uL (1.2-3.8); Lymphocytes Percent Auto 24.9 % (20.5-60.0); Mean Corpuscular HGB Conc 32.9 g/dL (29.9-35.2); Mean Corpuscular Hemoglobin 31.6 pg (26.7-34.0); Mean Corpuscular Volume 96.1 fL (81.0-99.0); Mean Platelet Volume 11.5 fL (9.5-13.5); Monocytes Absolute Auto 0.4 10^3/uL (0.3-0.8); Monocytes Percent Auto 9.1 % (1.7-12.0); Neutrophils Absolute Auto 2.7 10^3/uL (1.4-6.5); Neutrophils Percent Auto 63.6 % (43.0-75.0); Platelet Count 219 10^3/uL (150-450); Red Blood Count 4.11 10^6/uL (4.20-5.40); Red Cell Distribution Width 12.7 % (11.0-15.0); White Blood Count 4.3 10^3/uL (4.0-11.0)
== END 2024-03-26 12:36 | disposition home or self-care (01) ==
LOC: LAB 12:37
PROVIDERS: PCP Family Medicine; Visit Provider Family Medicine
DX: E03.9 Hypothyroidism, unspecified (principal); R53.83 Other fatigue
CPT/HCPCS: 36415; 80053; 84436; 84443; 85025

== ENCOUNTER 2024-10-26 12:50 | Outpatient (OUT) | payer MEDICARE, SELFPAY ==
--- NOTE | 2024-10-26 13:00 | MM_ITS ---
Patient Name: CLIFFORD FRIAS MR#: [id number] : 1960 Exam Date: 10/26/2024 Ordering Doctor: DR GABE ALCALA D.O. RADIOLOGY REPORT PROCEDURE: MM TOMOSYNTHESIS SCREENING BI COMPARISON: MG MAMM SCREEN 3D BREANA CAD, 03/27/2022. MG MAMM SCREEN BREANA W CAD, 05/04/2020. MG MAMM SCREEN BREANA W CAD, 10/23/2017. MG MAMM BREANA SCRN W CAD DIG, 09/19/2015. INDICATIONS: Screening Calculator Name NCI Breast Cancer Risk Assessment Tool 5 Year Breast Cancer Risk 1.20% Lifetime Breast Cancer Risk 4.70% Personal Breast Cancer No Personal Ovarian Cancer No Treatments thyroidectomy, radiation pills Family Cancers Mother with colon cancer at age 62; Grandmother-paternal with unknown cancer at age ~70. LOCATION: [facility] BREAST COMPOSITION: The breasts are heterogeneously dense,which may obscure small masses. FINDINGS: RIGHT BREAST: No significant suspicious finding. LEFT BREAST: No significant suspicious finding. RECOMMENDATIONS: ROUTINE MAMMOGRAM AND CLINICAL EVALUATION IN 12 MONTHS. PLEASE NOTE: A NORMAL MAMMOGRAM DOES NOT EXCLUDE THE POSSIBILITY OF BREAST CANCER. A CLINICALLY SUSPICIOUS PALPABLE LUMP SHOULD BE BIOPSIED. Dictated by: Jc Lindo DO on 10/26/2024 at 14:14 Approved by: Jc Lindo DO on 10/26/2024 at 14:17
--- NOTE | 2024-10-26 13:01 | XR_ITS ---
The [address] [address] Patient Name: CLIFFORD FRIAS MRN: [id number] date: 1960 Sex: F Assigned Patient Location: [facility] Current Patient Location: [facility] Accession/Order Number: [id number] Exam Date: 10/26/2024 13:47 Report Date: 10/26/2024 13:50 At the request of: GABE ALCALA Procedure: XR lumbar spine 2-3V 3 views Lumbar Spine HISTORY: Acute back pain. One month duration. Twisting injury. COMPARISON: 09/27/2023 POSTSURGICAL CHANGES: Neurostimulator intact BONY ALIGNMENT: Similar mild scoliosis. HYPERMOBILITY:No bending imaging. LISTHESIS:None FRACTURE: None DEGENERATIVE CHANGES: Similar mild degenerative changes. SOFT TISSUES: Unremarkable BONY MINERALIZATION:Adequate A similar left nephrolithiasis. Suspected pancreatic calcifications. XR/XR lumbar spine 2-3V IMPRESSION: Similar degenerative changes. No acute findings. Intact neurostimulator. Impression dictated by: Jc Lindo M.D.10/26/2024 1:50 PM Dictation Location: [place] [address] Electronically authenticated by: [id number] Y Date: 10/26/2024 13:50
--- OUTSIDE RECORDS SUMMARY | 2024-10-26 13:14 | XMS_ITS | CCD ---
Author Organization [facility] CliniSyhi Care Team Providers Care Medical Instructor Name Role Phone House Sr., Husam Escamilla Primary Care Provider CARI, DR WEINER Primary Care Unavailable TIMMIS, DR MOORE Admitting Unavailable TIMMIS, DR MOORE Attending Unavailable TIMMIS, DR MOORE Consulting Unavailable [facility], DR MEHUL Whatley Consulting Unavailable BLACK HAWK, DR WEINER Admitting Unavailable [place], DR CARLY Ross Consulting Unavailable BLACK HAWK, DR WEINER Attending Unavailable BLACK HAWK, DR WEINER Primary Care Unavailable BLACK HAWK, DR WEINER Consulting Unavailable BLACK HAWK, DR WEINER Primary Care Unavailable BLACK HAWK, DR HUSAM Hernandezitting Unavailable BLACK HAWK, DR WEINER Attending Unavailable BLACK HAWK, DR WEINER Consulting Unavailable [facility], DR MEHUL Whatley Consulting Unavailable BLACK HAWK, DR WEINER Primary Care Unavailable BLACK HAWK, DR WEINER Admitting Unavailable BLACK HAWK, DR WEINER Attending Unavailable BLACK HAWK, DR WEINER Consulting Unavailable [place] Sr., Husam Escamilla Primary Care Provider Cari Sr., Husam SMITH Primary Care Prov ider COSTANDI, BEATRIZIF Referring Unavailable COSTANDI, SARITHA Attending Unavailable HOUSE SR, HUSAM ESCAMILLA Primary Care Unavai lable COSTANDI, SHRIF Referring Unavailable COSTANDI, SARITHA Attending Unavailable HOUSE SR, HUSAM ESCAMILLA Primary Care Unavai lable HOUSE SR, HUSAM [facility] Care Rachealvai lable JALEESA JASON A Referring Unavailable JALEESA JASON A Attending Unavailable Cari, DO Weiner Primary Care Provider DO Evelyn Frost Attending Provider [phone] Evelyn Frost Attending Unavailable Evelyn Frost Admitting Unavailable Husam Alcala Primary Care Unavailable Husam Alcala MD Primary Care Provider HUSAM ALCALA Primary Care Physician NURA TERESA Attending Unavailable NURA TERESA Referring Unavailable JONO, KANDY Teixeira Attending Unavailable JONO, KANDY Teixeira Attending Unavailable JONO, KANDY Teixeira Attending Unavailable [facility], ANNE Sutherland Attending Unavailable HALADAY, KILEY Chavez Referring Unavailable APLING, DEE Hamm Attending Unavailable APLING, DEE Hamm Referring Unavailable APLING, DEE Hamm Referring Unavailable APLING, DEE Hamm Attending Unavailable Ludmila, Yu Attending Unavailable Ludmila, Yu Attending Unavailable Ludmila, Yu Attending Unavailable Ludmila, Yu Referring Unavailable Ludmila, Yu Admitting Unavailable HOUSE, DO HUSAM P Attending Unavailable HOUSE, HUSAM P Primary Care Unavailable HOUSE, HUSAM P Primary Care Unavailable HOUSE, DO HUSAM P Attending Unavailable HOUSE, HUSAM P Primary Care Unavailable HOUSE, DO HUSAM P Attending Unavailable HOUSE, HUSAM P Primary Care Unavailable HOUSE, DO HUSAM P Attending Unavailable HOUSE, HUSAM P Primary Care Unavailable HOUSE, DO HUSAM P Attending Unavailable HOUSE, DO HUSAM P Attending Unavailable HOUSE, HUSAM P Primary Care Unavailable HOUSE, HUSAM P Primary Care Unavailable HOUSE, DO HUSAM P Attending Unavailable Allergies Allergy Classification Reported Allergen(s) Allergy Type Date of Onset Reaction(s) Facility (20 sources) Ciprofloxacin; Translations: [CIPROFLOXACIN] Drug Allergy 7 Rash, Hives, Unknown [facility] Work Phone: (2 sources) Ciprofloxacin; Translations: [Cipro] Drug Allergy 4 [facility] Repository (1 source) Ciprofloxacin Drug Allergy 4 [facility] Repository Medications Current Medications Medication Drug Class(es) Dates Sig (Normalized) Sig (Original) amitriptyline hydrochloride 10 mg oral tablet (20 sources) Tricyclic Antidepressant Start: 08-24-2024 amitriptyline 10 mg Tab 10 mg = 1 tab(s), Refills(s) 0 Start Date: 08/24/24 Status: Ordered Start: 01-07-2024 take 10 mg by mouth [...] bedtime. dicyclomine hydrochloride 20 mg oral tablet (20 sources) Anticholinergic Start: 01-07-2024 dicyclomine 20 mg Tab 20 mg = 1 tab(s), Refills(s) 0 Start Date: 08/24/24 Status: Ordered Start: 05-31-2020 End: 01-07-2024 take 20 mg by mouth four times daily Dicyclomine Discontinued 20 MG PO Four times daily May 31, 2020 1:00am January 07, 2024 10:44am Comment on above: Take 20 mg by mouth four times daily. estradiol 0.1 mg/ml vaginal cream (2 sources) Estrogen Start: 08-24-2024 Estrace 0.1 mg/g Cream See Instructions, 42.5 gm, Refill(s) 5, Apply pea-sized amount around urethra 3 times per week at night for 4 weeks, then 2 times a week for maintenance, [employer] #72, 163, cm, 08/24/24 13:48:00 EST, Height/Length Dosing, 67.5, kg, 08/24/24 13:48:00 EST, Weight Dosing Start Date: 08/24/24 Status: Ordered famotidine 20 mg oral tablet (14 sources) Histamine-2 Receptor Antagonist Start: 01-07-2024 famotidine 20 mg Tab 20 mg = 1 tab(s), Refills(s) 0 Start Date: 08/24/24 Status: Ordered levothyroxine sodium 0.112 mg oral tablet (20 sources) l-Thyroxine Start: 08-24-2024 levothyroxine 112 mcg (0.112 mg) Tab 112 mcg = 1 tab(s), Refills(s) 0 Start Date: 08/24/24 Status: Ordered Start: 05-19-2024 take 112 ug by mouth once daily Levothyroxine Active 112 MCG PO Daily May 19, 2024 12:00am Start: 05-31-2020 End: 05-19-2024 take 125 ug by mouth once daily Levothyroxine Discontinued 125 MCG PO Daily May 31, 2020 1:00am May 19, 2024 11:15am take 1 tablet by krupa th once daily Levothyroxine 125 mcg cap Take 1 tablet by mouth once daily. 0 Active Comment on above: Take 1 tablet by krupa th once daily. methocarbamol 500 mg oral tablet (20 sources) Muscle Relaxant Start: 05-19-2024 methocarbamol 500 mg Tab 500 mg = 1 tab(s), Refills(s) 0 Start Date: 08/24/24 Status: Ordered Start: 05-31-2020 End: 05-19-2024 take 1 tablet by mouth once daily at bedtime Methocarbamol (Robaxin-750) 750 mg Tablet Discontinued 750 MG PO Daily at bedtime May 31, 2020 1:00am May 19, 2024 11:15am Comment on above: Take 500 mg by mouth daily at bedtime. montelukast 10 mg oral tablet (14 sources) Leukotriene Receptor Antagonist Start: 4 montelukast 10 mg Tab 10 mg = 1 tab(s), Refills(s) 0 Start Date: 08/24/24 Status: Ordered Miralax (2 sources) Osmotic Laxative Start: 5 take 17 g by mouth once daily MiraLax 17 gm, Oral, Daily, Refill(s) 0 Start Date: 08/24/24 Status: Ordered Polyethylene Glycol 3350 (Miralax) 17 gram/dose powder (3 sources) Start: 4 Polyethylene Glycol 3350 (Miralax) 17 gram/dose powder Active 17 GM PO Daily 510 January 07, 2024 12:00am pregabalin 150 mg oral capsule (20 sources) Start: 2 pregabalin 150 mg Cap 150 mg = 1 cap(s), Refills(s) 0 Start Date: 08/24/24 Status: Ordered Start: 05-31-2020 End: 05-19-2024 take 1 capsule by mouth three times daily Pregabalin (Lyrica) 100 mg Capsule Discontinued 100 MG PO Three times daily May 31, 2020 1:00am May 19, 2024 11:15am Comment on above: Take 150 mg by mouth three times daily. SUMAtriptan 100 mg oral tablet (20 sources) Serotonin-1b and Serotonin-1d Receptor Agonist Start: 05-31-2020 SUMAtriptan 100 mg Tab 100 mg = 1 tab(s), Refills(s) 0 Start Date: 08/24/24 Status: Ordered Comment on above: Take 100 mg by mouth as needed. topiramate 100 mg oral tablet (20 sources) Start: 08-24-2024 topiramate 100 mg Tab 100 mg = 1 tab(s), Refills(s) 0 Start Date: 08/24/24 Status: Ordered Start: 05-19-2024 take 150 mg by mouth once daily Topiramate Active 150 MG PO Daily May 19, 2024 12:00am Start: 08-07-2023 End: 08-06-2024 take 100 mg by mouth once daily Topiramate Discontinued 100 MG PO Daily January 07, 2024 12:00am May 19, 2024 11:22am take 50 mg by mouth once daily [...] as needed. biotin 5 mg sublingual tablet (3 sources) Start: 05-31-2020 End: 01-07-2024 take 5000 ug [...] mg / cholecalciferol 250 unt oral tablet (3 sources) Vitamin D Start: 05-31-20 End: 01-07-20 24 [...] sodium 100 mg extended release oral tablet (3 sources) Nonsteroidal Anti-inflammatory Drug Start: 05-31-20 End: 06-07-20 take 1 tablet by mouth twice daily Diclofenac Sodium (Voltaren-Xr) 100 mg Tablet Extended Release 24 Hr Discontinued 100 MG PO Twice daily May 31, 2020 1:00am June 07, 2020 3:38pm docusate sodium 100 mg oral capsule (13 sources) Start: 01-07-20 End: 05-06-20 take 100 mg by mouth twice daily Docusate Sodium Discontinued 100 MG PO Twice daily January 07, 2024 12:00am May 06, 2024 2:16pm take 1 capsule by mouth twice da eulalio docusate sodium (COLACE) 100 mg capsule Take 100 mg by mouth twice daily. 0 Active Comment on above: Take 100 mg by mouth twice daily. Conj Estrog-Medroxyprog est Umair (13 sources) Progestin, Estrogen Start: 05-31-2020 End: 01-07-2024 take 0.625-2.5 mg by mouth once daily Conj Estrog-Medroxyprogest Umair (Prempro) 0.625-2.5 mg Tablet Discontinued 1 [...] on above: as needed. Medical m arijuana. 1 ml methylPREDNISolone acetate 40 mg/ml injection (12 sources) Corticosteroid Start: 2024 End: 2024 methylPREDNISolone acetate (DEPO-Medrol) injection 40 mg Start: 09-13-2024 End: 09-13-2024 40 mg, Intra-articular, Once PRN Procedure, Starting on Fri09/13/24 at 1552, For 1 dose Start: 08-30-2024 End: 08-30-2024 methylPREDNISolone acetate ( DEPO-Medrol) injection 40 mg Start: 08-30-2024 End: 08-30-2024 40 mg, Intra-articular, Once PRN Procedure, Starting on Fri08/30/24 at 1123, For 1 dose Start: 08-16-2024 End: 08-16-2024 methylPREDNISolone acetate ( DEPO-Medrol) injection 40 mg Start: 08-16-2024 End: 08-16-2024 40 mg, Intra-articular, Once PRN Procedure, Starting on Fri08/16/24 at 1009, For 1 dose naproxen sodium 220 mg oral tablet (10 [...] capsule by mo uth daily at bedtime. promethazine hydrochloride 25 mg oral tablet (3 sources) Phenothiazine Start: 020 End: 024 take 25 mg by mouth every six hours Promethazine Discontinued 25 MG PO Q6H May 31, 2020 1:00am January 07, 2024 10:42am Problems Active Problems Problem Classification Problem Date Documented Da te Episodic/Chronic Abdominal pain (3 sources) Chronic abdominal pain; Translations: [Unspecified abdominal pain] 05-31-2020 Episodic Cancer of thyroid (2 sources) Malignant tumor of thyroid gland 08-18-2024 Chronic Deficiency and other anemia (2 sources) Anemia 08-18-2024 Episodic Diseases of mouth; excluding dental (4 sources) Other diseases of salivary glands; Translations: [OTHER DISEASES OF SALIVARY GLANDS] Onset: 07-31-2022 Episodic Headache; including migraine (9 sources) Migraine; Translations: [Migraine, unspecified, not intractable, without status migrainosus] Onset: 12-22-2023 12-22-2023 Chronic Headache; including migraine (2 sources) Headache 08-18-2024 Episodic Joint disorders and dislocations; trauma-related (4 sources) Derangement of right knee; Translations: [Unspecified internal derangement of right knee] 09-13-2024 Chronic Menopausal disorders (3 sources) Atrophic vaginitis; Translations: [Postmenopausal atrophic vaginitis] Onset: 08-24-2024 Chronic Nausea and vomiting (3 sources) Nausea and vomiting; Translations: [Nausea with vomiting, unspecified] 05-31-2020 Episodic Osteoarthritis (20 sources) Osteoarthritis; Translations: [Unspecified osteoarthritis, unspecified site] Onset: 12-22-2023 12-22-2023 Chronic Other disorders of stomach and duodenum (2 sources) Indigestion; Translations: [Functional dyspepsia] 01-07-2024 Episodic Other disorders of stomach and duodenum (2 sources) Functional dyspepsia; Translations: [Dyspepsia and other specified disorders of function of stomach] 04-26-2024 Episodic Other gastrointestinal disorders (2 sources) Chronic constipation; Translations: [Other constipation] 01-07-2024 Episodic Other gastrointestinal disorders (3 sources) Other constipation; Translations: [Constipation, unspecified] Onset: 05-19-2024 04-26-2024 Episodic Other nervous system disorders (5 sources) Polyneuropathy, unspecified; Translations: [POLYNEUROPATHY UNSPECIFIED] Onset: 04-01-2022 Chronic Other nervous system disorders (1 source) Idiopathic peripheral neuropathy; Translations: [Hereditary and idiopathic neuropathy, unspecified] 08-27-2023 Chronic Other nervous system disorders (9 sources) Spinal cord disease; Translations: [Disease of spinal cord, unspecified] Onset: 12-22-2023 12-22-2023 Chronic Other nervous system disorders (9 sources) Neuropathy; Translations: [Polyneuropathy, unspecified] Onset: 12-22-2023 12-22-2023 Chronic Other nervous system disorders (1 source) Paresthesia of lower extremity; Translations: [Anesthesia of skin] 03-21-2023 Episodic Other non-traumatic joint disorders (4 sources) Arthritis of right knee 08-23-2024 Chronic Other non-traumatic joint disorders (4 sources) Pain in right knee; Translations: [Pain in joint, lower leg] 08-12-2024 Episodic Other non-traumatic joint disorders (2 sources) Pain in left knee; Translations: [Pain in joint, lower leg] 09-13-2024 Episodic Spondylosis; intervertebral disc disorders; other back problems (20 sources) Lumbar spondylosis; Translations: [Spondylosis without myelopathy or radiculopathy, lumbar region] Onset: 05-09-2021 Chronic Thyroid disorders (13 sources) Hypothyroidism, unspecified; Translations: [Hypothyroidism] Onset: 03-27-2022 Chronic Urinary tract infections (3 sources) Urinary tract infectious disease; Translations: [Urinary tract infection, site not specified] Onset: 08-24-2024 Episodic Past or Other Problems Problem Classification Problem Date Documented Da te Episodic/Chronic Cancer of thyroid (19 sources) History of malignant neoplasm of thyroid; Translations: [Personal history of malignant neoplasm of thyroid] Onset: 08-15-2021 08-15-2021 Episodic Intestinal infection (9 sources) Clostridial enteric disease; Translations: [Enterocolitis due to Clostridium difficile, not specified as recurrent] Onset: 12-22-2023 12-22-2023 Episodic Other connective tissue disease (20 sources) Fibromyalgia; Translations: [Fibromyalgia] Onset: 08-23-2016 08-23-2016 [...] Results Test Name Value Interpretation Reference Range Facility Controlled Substances [facility]re[facility] 10-22-2024 Controlled Substances Agreements [id number]#1.00 [facility]-27[facility]2024 Reminders Reminders From: Jade Keane To: [place] - Clinical; Sent: 08/24/2024 14:50:55 EST Show up: 09/18/2024 14:50:00 EST Subject: Ambulatory Reminder Due Date/Time: 11/20/2024 14:50:00 EDT Reminder/Recall Patient needs scheduled for a 3 month F/U with [facility] in [place], due back in early November From: Cassie Bland ([place] - Clinical) To: EU - Administrative; Sent: 09/27/2024 11:38:50 EDT ! Show up: 09/27/2024 11:38:00 EDT patient scheduled 11/24/24 om the [facility] Outside Recordson 09-14-2024 Outside Records [id number]#1.00O [facility] No Panel Informationon 09-13 Nura Teresa NP 09/13/2024 3:54 PM L Inj/Asp: L knee on 09/13/2024 3:52 PM Indications: pain Details: 21 G needle, anteromedial approach Medications: 40 mg methylPREDNISolone acetate 40 MG/ML Outcome: tolerated well, no immediate complications Site was cleaned with isopropyl alcohol Procedure, treatment alternatives, risks and benefits explained, specific risks discussed. Consent was given by the patient. [facility] XR Knee - left 1 or 2 Viewso n 09-13-2024 Imaging Result: 09/13/2024: AP and lateral views of left knee showed mildly decreased medial joint, flattening of the articular surfaces to the medial joint line and patellofemoral joint. Subchondral sclerosis was noted at the medial joint line surfaces as well as the patellofemoral joint. Marginal osteophytic formation was noted medially on poles of patella. There is no evidence of fracture or dislocation. 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 CLINICAL HISTORY: Kidney stone. COMPARISON: None available. COMMENT: The right kidney measures approximately 10.1 cm in length, with renal cortical thickness of approximately 1.1 cm. The left kidney measures approximately 10.4 cm in length, with renal cortical thickness of approximately 1.6 cm. No solid or cystic renal lesions. No shadowing calculi or hydronephrosis. Ordering Provider: Yu Keys FINAL REPORT Dictated: 09/07/2024 3:35 pm Kiley Agarwal DO Signed (Electronic Signature): 09/07/2024 3:35 pm Signed by: Kiley Agarwal DO Transcribed by: SIMEON Technologist: GARCÍA Sullivan [facility] XR Abdomen 1 Viewon 09-07-19 XR Abdomen 1 View Exam Date/Time: 09/07/2024 10:28 EST Reason for Exam: N39.0;Kidney stone Report IMPRESSION: NO URINARY TRACT CALCULI IDENTIFIED BY RADIOGRAPHY. EXAMINATION: XR Abdomen 1 View HISTORY: Kidney stone TECHNIQUE: Frontal view of the abdomen and pelvis COMPARISON: None available FINDINGS: No calcifications identified over the bilateral renal shadows or expected course of the ureters. Pelvic phleboliths are noted. Nonobstructive bowel gas pattern. No evidence of free air. Medical power pack with leads projects over the mid and right aspect of the abdomen. No acute osseous abnormality. Ordering Provider: Yu Keys FINAL REPORT Dictated: 09/07/2024 3:34 pm Kiley Agarwal DO Signed (Electronic Signature): 09/07/2024 3:34 pm Signed by: Kiley Agarwal DO Transcribed by: SIMEON Technologist: Nate NEWSOME [facility] No Panel Informationon 08-30 Dee Rogers NP 08/30/2024 11:24 AM L Inj/Asp: R knee on 08/30/2024 11:23 AM Indications: pain Details: 20 G needle, anterolateral approach Medications: 40 mg methylPREDNISolone acetate 40 MG/ML UTILIZING ASEPTIC TECHNIQUE PT GIVEN INJECTION IN RIGHT KNEE, NEUROVASC INTACT S/P INJ, TOLERATED WELL Procedure, treatment alternatives, risks and benefits explained, specific risks discussed. Consent was given by the patient. [facility] Outside Recordson 08-30-2024 Outside Records [id number]#1.00O [facility] Outside Recordson 08-24-2024 Outside Records [id number]#1.00 [facility]-24-[facility] Urology Office/Clinic Note Urology Office/Clinic Note Chief Complaint frequent uti HPI Staff 64yr old female new pt here for recurrent uti. This has been going on for the past 2 years. Pt's PCP has been treating her. She was then hospitalized with CDiff. Believes it may have been due to ATB use. Pt would like second opinion on why she keeps getting uti's. Symptoms started about 3 months ago. She is currently taking Bactrim 2x daily for 7 days. She started it on 08/18/24. Does not believe it is helping with symptoms. BBSQ score 7. Dysuria: burning with urination Incomplete bladder emptying: denies Hematuria: denies Frequency: 4-5x per day Urgency: occasionally Nocturia: denies Stream: has trouble starting her stream, has a strong stream Leaking: denies Post void dripping: denies Wearing pads/ Depends: denies Urge incontinence: denies Stress incontinence: denies Incontinence without Sensory Awareness: denies Abdominal pain: has intermittent lower left side pain Flank pain: pt has chronic back pain - unable to tell History of Present Illness I have reviewed and verified the staff HPI to be accurate for this encounter. Review of Systems PHQ Score Initial Depression Screen Score: 0 SCORE Physical Exam Vitals & Measurements HR: 66(Peripheral) RR: 18 BP: 124/81 HT: 64 in HT: 163 cm WT: 67.5 kg WT: 148.812 lb BMI: 25.41 General: Well developed, well nourished, in no acute distress. 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 Recurrent UTI (N39.0: Urinary tract infection, site not specified) 10/25/23 - >100K E. Coli, tx w/ Cefdinir 300 mg BID x 10 days No other urine cultures found on [facility], but patient tx with multiple antibiotics throughout the year (2023) Most recent UTI: currently on Bactrim x 7D for UTI, started 08/18/24 UA in office today not suspicious for UTI (on ATB) current UTI symptoms yes UTI frequency every 1-2 mos UTIs started worsening in the past 1-2 yrs Prior to that averaged UTIs very rarely pt's typical UTI sx include: foul odor, dysuria, suprapubic pain hx stones no immunosuppressed no post-menopausal/hystere ctomy yes proper hygiene habits: wipes front to back every time yes avoids baths/hot tubs yes avoids scented UNIT CLERK products yes urinates after sexual activity n/a (not sexually active) UA today with trace leuks, neg nitrites and blood No PVR done today BBS 6 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 Patient states UTIs have worsened in the past 2 years. Prior to this, she rarely experienced UTIs. She states she gets them 1x/month. She is currently on Bactrim for a UTI. States current sxs have improved on Bactrim but still has urethral burning. Her typical sxs include foul odor, dysuria and urethral burning, suprapubic pain. Denies frequency, urgency, or weak stream. Her UTIs have previously been managed by PCP Dr. Husam Alcala ([facility]). Patient reports PCP does not typically send urine culture and treats her UTIs based on the UA dipstick. Patient states she was hospitalized at [facility] in October 2023 for C.Diff infection, which she was told that C. Diff infection was from the frequent use of antibiotics for UTIs. Patient denies hx of kidney stones and no recent imaging. Denies gross hematuria. She states she rarely drinks water, mostly tea, coffee and milk. States she is not sexually active and performs proper hygiene habits. Today we discussed the following methods to decrease frequency of UTIs: 1) Increase fluids. Aim for at least 2L daily. Most General bladder health reviewed and pt education provided. Bladder irritant list provided for pt to review. 2) Ensure bladder emptying fully. Discussed double void maneuvers (encouraged to lean forward, apply gentle pressure on the bladder, and standing then sitting again). 3) We discussed that there is evidence that herbal supplements may help - cranberry, probiotics, and d-mannose. Handout provided. We will check KUB & CHRISTINA to rule out stones as contributing factor to UTIs. Will call pt with results. If shows significant stone burden, pt will need appt to discuss tx options. Patient also reports vaginal dryness and burning. We will start pt on topical estrogen cream today. She denies personal hx of uterine/cervical/ovaria n/breast CA or DVT/PE. Reasoning, side effects, risks/benefits discussed. Rx sent to pharmacy. Pt advised that UA does not look suspicious today for infection. She was informed to contact our office w all future UTI sx so we can monitor urine cx results, treat appropriately and monitor frequency of infections. Pt advised if develops fever, severe flank pain, vomiting - needs to go to ER. Briefly discussed that if she continues to get breakthrough UTIs, then may need to consider cystoscopy. -Start OTC supplements for UTI prevention (cranberry, probiotics, and d-mannose). Handout provided. -Start Estrace cream 3x/week for 1 month, then 2x/week for maintenance. Risks/SE discussed -Increase fluid intake (more content not included)... Normal [facility] Comment on above: Result Comment: Elec tronically Signed By: Ludmila AMBROSIO, Yu\.br\Date and Time Signed: 08/24/24 15:57 EST XR Knee - left 1 or 2 Viewso n 08-18-2024 Imaging Result: X-rays AP and lateral of left knee show mild degenerative changes with mild flattening of the articular surfaces to the medial joint line with decreased joint space height to the medial joint line. Lateral joint line appeared to be well preserved there was subchondral sclerosis noted at the medial joint line and patellofemoral joint. There is no evidence of fracture or dislocation. Bony structures visualized appeared to be adequately ossified. [place] XR Knee - right 1 or 2 Views on 08-18-2024 Imaging Result: AP and lateral of right knee showed varus deformity. There was narrowing of the medial joint line with evidence of flattening of the articular surfaces to the medial tibial plateau and medial femoral condyle. There was evidence of subchondral sclerosis to the medial joint line and patellofemoral joint. There is marginal osteophytes noted to the medial joint line and patellofemoral joint. There is no evidence of fracture dislocations. Bony structures viewed showed appropriate ossification. Impression: Mild varus deforming arthritic degeneration , right knee. No acute bony process noted. [facility] XR Knee - right 1 or 2 Views Ordered By: Jr. 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 Consent was given by the patient. [facility] Knee - left 1 or 2 Viewso n 08-16-2024 Radiology Study observation (narrative) [facility] XR Knee - right 1 or 2 Views on 08-16-2024 Radiology Study observation (narrative) [facility] 05-19-2024 Outside Records [id number]#1.00O TGTIFF Normal [facility] Outside Records [id number]#1.00O TGTIFF Normal [facility] Pathology Request for Lab Co rpon 05-19-2024 Pathology Request for Lab Artie Normal [facility] Comment on above: Order Comment: PATHO LOGY GI SPECIMEN Result Comment: See report. Scanned copy available in EMR. PERFORMED BY: [place] [address] PATHOLOGIST WELL PULLER [employer] PIETER CARMICHAEL M.D. Performed By: #### P ATH TO [facility] #### [address] Outside [facility] 04-28-2024 Outside Records [id number]#1.00O TGTIFF Normal [facility] Lab - Other Lab Resultson Lab - Other Lab Results [id number]#1.0 0OTGTIFF Normal [facility] Outside [facility] 02-17-2024 Outside Records [id number]#1.00O TGTIFF Normal [facility] Outside [facility] 01-13-2024 Outside Records [id number]#1.00O TGTIFF Normal [facility] Outside [facility] 01-06-2024 Outside Records [id number]#1.00O TGTIFF Normal [facility] Outside [facility] 12-08-2023 Outside Records [id number]#1.00O [facility] Outside [facility] 10-28-2023 Outside Records [id number]#1.00 [facility] CNOVon 08-07-2023 CNOV Office Visit (PAINMN ) CLIFFORD FRIAS ([id number]) 1960 F Date Time Provider Department 08/07/23 1:15 PM SARITHA MENDEZ PAINMN During your visit today, we recorded the following information about you: Temperature Pulse Respiration Blood pressure 97.6 degrees 72/minute 18/minute 102/61 Weight Height 63.5 kg 1.626 m Saritha Mendez MD 08/07/2023 11:17 AM Signed SUBJECTIVE: Clifford Frias presents to [facility] Department for a follow-up [...] Row Office Visit from 08/20/2019 in [facility] Office Visit from 08/06/2016 in [facility] T Score 37.4 32.4 [...] daily e (more content not included)... Normal [facility] CNOVon 03-17-2023 CNOV Office Visit (PAINMN ) CLIFFORD FRIAS ([id number]) 1960 F Date Time Provider Department 03/17/23 11:00 AM SARITHA MENDEZ PAINMN During your visit today, we recorded the following information about you: Temperature Pulse Blood pressure Weight 96.5 degrees 67/minute 102/57 59 kg Height 1.626 m Saritha Mendez MD 03/21/2023 4:21 PM Signed [facility] Follow Up Evaluation [...] doing well. She got a membership at [employer] in Jul 2022 and has been performing [...] SD wo (more content not included)... Normal [facility] CNOVon 08-29-2022 CNOV Office Visit (PAINMN ) CLIFFORD FRIAS ([id number]) 1960 F Date Time Provider Department 08/29/22 11:00 AM JASON SHIPMAN During your visit today, we recorded the following information about you: Temperature Pulse Blood pressure Weight 98.2 degrees 67/minute 112/65 54.4 kg Height 1.626 m Jason Shipman MD, PhD 09/04/2022 1:37 AM Signed [facility] Established Patient Patient name: Clifford Frias Date of Service: August 29, 2022 Site of Service: [facility] Established care at [facility]: yes HPI Clifford Frias presents to [facility] for a follow-up [...] with the (more content not included)... Normal [facility] CT NECK [facility] W CONon 3 CT [...] left sign. Prior thyroidectomy. LYMPH NODES: No pathological-appearing or enlarged lymph nodes. VASCULATURE: No suspicious [...] MEHUL BAIG Date: 2022-08-01 09:07 Normal [facility] CREATININEon 07-31-2022 Creatinine [Mass/Vol] 0.71 mg/dL Normal 0.55-1.02 [facility] Comment on above: Performed By: #### T 4, CMP, TSH #### [facility] [address] [place] [address] Dr. Bossman Capps EGFR-AF ALGERIAN >60 Normal >=60 [facility] Comment on above: Performed By: #### T 4, CMP, TSH #### [facility] [address] [place] [address] Dr. Bossman Capps EGFR-NON AF ALGERIAN >60 Normal >=60 [facility] Comment on above: Performed By: #### T 4, CMP, TSH #### [facility] [address] [place] [address] Dr. Bossman Capps CBC AUTO DIFFon 06-28-2022 BASO # 0.0 103/ul Normal 0.0-0.1 [facility] Comment on above: Performed By: #### C BC #### [facility] [address] [place] [address] Dr. Bossman Capps Basophils/100 WBC (Bld) 0.6 % Normal 0.2-2.0 [facility] Comment on above: Performed By: #### C BC #### [facility] [address] [place] [address] Dr. Bossman Capps EO # 0.1 103/ul Normal 0.0-0.7 [facility] Comment on above: Performed By: #### C BC #### [facility] [address] [place] [address] Dr. Bossman Capps Eosinophils/100 WBC (Bld) 1.1 % Normal 0.9-7.0 [facility] Comment on above: Performed By: #### C BC #### [facility] [address] [place] [address] Dr. Bossman Capps Erythrocyte distribution width (RBC) [Ratio] 13.1 % Normal 11.0-15.0 [facility] Comment on above: Performed By: #### C BC #### [facility] [address] [place] [address] Dr. Bossman Capps Hematocrit (Bld) [Volume fraction] 39.5 % Normal 36.0-48.0 [facility] Comment on above: Performed By: #### C BC #### [facility] [address] [place] [address] Dr. Bossman Capps Hemoglobin (Bld) [Mass/Vol] 13.5 g/dL Normal 12.0-16.0 [facility] Comment on above: Performed By: #### C BC #### [facility] [address] [place] [address] Dr. Bossman Capps IG # 0.01 10e3/ul Normal 0.00-0.03 [facility] Comment on above: Performed By: #### C BC #### [facility] [address] [place] [address] Dr. Bossman Capps IG % 0.2 % Normal 0.0-0.5 [facility] Comment on above: Performed By: #### C BC #### [facility] [address] [place] [address] Dr. Bossman Capps LYMPH # 2.1 103/ul Normal 1.2-3.8 [facility] Comment on above: Performed By: #### C BC #### [facility] [address] [place] [address] Dr. Bossman Capps Lymphocytes/100 WBC (Bld) 33.7 % Normal 20.5-60.0 [facility] Comment on above: Performed By: #### C BC #### [facility] [address] [place] [address] Dr. Bossman Capps MANUAL DIFF REQ NO Normal [facility] [place] Comment on above: Performed By: #### C BC #### [facility] [address] [place] [address] Dr. Bossman Capps MCH (RBC) [Entitic mass] 32.0 pg Normal 26.7-34.0 [facility] Comment on above: Performed By: #### C BC #### [facility] [address] [place] [address] Dr. Bossman Capps MCHC (RBC) [Mass/Vol] 34.2 g/dL Normal 29.9-35.2 [facility] Comment on above: Performed By: #### C BC #### [facility] [address] [place] [address] Dr. Bossman Capps MCV (RBC) [Entitic vol] 93.6 fL Normal 81.0-99.0 [facility] Comment on above: Performed By: #### C BC #### [facility] [address] [place] [address] Dr. Bossman Capps MONO # 0.5 103/ul Normal 0.3-0.8 [facility] Comment on above: Performed By: #### C BC #### [facility] [address] [place] [address] Dr. Bossman Capps Monocytes/100 WBC (Bld) 8.0 % Normal 1.7-12.0 [facility] Comment on above: Performed By: #### C BC #### [facility] [address] [place] [address] Dr. Bossman Capps NEUT # 3.6 103/ul Normal 1.4-6.5 [facility] Comment on above: Performed By: #### C BC #### [facility] [address] [place] [address] Dr. Bossman Capps Neutrophils/100 WBC (Bld) 56.4 % Normal 43.0-75.0 [facility] Comment on above: Performed By: #### C BC #### [facility] [address] [place] [address] Dr. Bossman Capps Platelet mean volume (Bld) [Entitic vol] 9.9 fL Normal 9.5-13.5 [facility] Comment on above: Performed By: #### C BC #### [facility] [address] [place] [address] Dr. Bossman Capps PLT 290 103/ul Normal 150-450 [facility] Comment on above: Performed By: #### C BC #### [facility] [address] [place] [address] Dr. Bossman Capps RBC 4.22 106/ul Normal 4.20-5.40 [facility] Comment on above: Performed By: #### C BC #### [facility] [address] [place] [address] Dr. Bossman Capps WBC 6.4 103/ul Normal 4.0-11.0 [facility] Comment on above: Performed By: #### C BC #### [facility] [address] [place] [address] Dr. Bossman Capps PROF 14(COMP METB)on 022 Albumin [Mass/Vol] 3.3 g/dL Critically low 3.4-5.0 [facility] Comment on above: Performed By: #### T 4, CMP, TSH #### [facility] [address] [address] [address] Bossman Capps Albumin/Globulin [Mass ratio] 0.9 {ratio} Normal [facility] Comment on above: Performed By: #### T 4, CMP, TSH #### [facility] [address] [address] [address] Bossman Capps ALP [Catalytic activity/Vol] 76 U/L Normal 46-116 [facility] Comment on above: Performed By: #### T 4, CMP, TSH #### [facility] [address] [address] [address] Bossman Capps ALT [Catalytic activity/Vol] 13 U/L Critically low 14-59 [facility] Comment on above: Performed By: #### T 4, CMP, TSH #### [facility] [address] [address] [address] Bossman Capps Anion gap [Moles/Vol] 10.4 mmol/L Normal [facility] Comment on above: Performed By: #### T 4, CMP, TSH #### [facility] [address] [address] [address] Bossman Capps AST [Catalytic activity/Vol] 18 U/L Normal 15-37 [facility] Comment on above: Performed By: #### T 4, CMP, TSH #### [facility] [address] [address] [address] Bossman Capps Bilirubin [Mass/Vol] 0.2 mg/dL Normal 0.2-1.0 [facility] Comment on above: Performed By: #### T 4, CMP, TSH #### [facility] [address] [address] [address] Bossman Capps Calcium [Mass/Vol] 8.9 mg/dL Normal 8.5-10.1 [facility] Comment on above: Performed By: #### T 4, CMP, TSH #### [facility] [address] [address] [address] Bossman Capps Chloride [Moles/Vol] 107 mmol/L Normal 98-107 [facility] Comment on above: Performed By: #### T 4, CMP, TSH #### [facility] [address] [place] [address] Dr. Bossman Capps CO2 [Moles/Vol] 28.6 mmol/L Normal 21.0-32.0 [facility] Comment on above: Performed By: #### T 4, CMP, TSH #### [facility] [address] [place] [address] Dr. Bossman Capps Creatinine [Mass/Vol] 0.75 mg/dL Normal 0.55-1.02 [facility] Comment on above: Performed By: #### T 4, CMP, TSH #### [facility] [address] [place] [address] Dr. Bossman Capps EGFR-AF ALGERIAN >60 Normal >=60 [facility] Comment on above: Performed By: #### T 4, CMP, TSH #### [facility] [address] [place] [address] Dr. Bossman Capps EGFR-NON AF ALGERIAN >60 Normal >=60 [facility] Comment on above: Performed By: #### T 4, CMP, TSH #### [facility] [address] [place] [address] Dr. Bossman Capps Globulin (S) [Mass/Vol] 3.6 g/dL Normal [facility] Comment on above: Performed By: #### T 4, CMP, TSH #### [facility] [address] [place] [address] Dr. Bossman Capps Glucose [Mass/Vol] 85 mg/dL Normal 74-106 [facility] Comment on above: Performed By: #### T 4, CMP, TSH #### [facility] [address] [place] [address] Dr. Bossman Capps Potassium [Moles/Vol] 4.0 mmol/L Normal 3.5-5.1 [facility] Comment on above: Performed By: #### T 4, CMP, TSH #### [facility] [address] [place] [address] Dr. Bossman Capps Protein [Mass/Vol] 6.9 g/dL Normal 6.4-8.2 [facility] Comment on above: Performed By: #### T 4, CMP, TSH #### [facility] [address] [place] [address] Dr. Bossman Capps Sodium [Moles/Vol] 142 mmol/L Normal 136-145 [facility] Comment on above: Performed By: #### T 4, CMP, TSH #### [facility] [address] [place] [address] Dr. Bossman Capps Urea nitrogen [Mass/Vol] 10.0 mg/dL Normal 7.0-18.0 [facility] Comment on above: Performed By: #### T 4, CMP, TSH #### [facility] [address] [place] [address] Dr. Bossman Capps Urea nitrogen/Creatinin e [Mass ratio] 13.3 mg/mg Normal [facility] Comment on above: Performed By: #### T 4, CMP, TSH #### [facility] [address] [place] [address] Dr. Bossman Capps T4on 06-28-2022 T4 [Mass/Vol] 10.20 ug/dL Normal 4.80-13.90 [facility] Comment on above: Performed By: #### T 4, CMP, TSH #### [facility] [address] [place] [address] Dr. Bossman Capps TSHon 06-28-2022 TSH 0.041 uIU/mL Critically low 0.358-3.740 [facility] Comment on above: Performed By: #### T 4, CMP, TSH #### [facility] [address] [place] [address] Dr. Bossman Capps VIT B12 AND FOLATEon 022 Cobalamin (Vitamin B12) [Mass/Vol] 443.0 pg/mL Normal 193.0-986.0 [facility] Comment on above: Performed By: #### T 4, CMP, TSH #### [facility] [address] [place] [address] Dr. Bossman Capps FOLATE 12.00 ng/mL Normal 8.60-58.90 [facility] Comment on above: Performed By: #### T 4, CMP, TSH #### [facility] [address] [place] [address] Dr. Bossman Capps T4 [facility] 03-28-2022 T4 [Mass/Vol] 12.6 ug/dL Critically high 4.5-12.0 [facility] Comment on above: Performed By: #### T 4LC #### [facility] [address] [place] [address] Dr. Bossman Capps CBC AUTO DIFFon 03-27-2022 BASO # 0.1 103/ul Normal 0.0-0.1 [facility] Comment on above: Performed By: #### T 4, CMP, TSH #### [facility] [address] [place] [address] Dr. Bossman Capps Basophils/100 WBC (Bld) 1.1 % Normal 0.2-2.0 [facility] Comment on above: Performed By: #### T 4, CMP, TSH #### [facility] [address] [place] [address] Dr. Bossman Capps EO # 0.1 103/ul Normal 0.0-0.7 [facility] Comment on above: Performed By: #### T 4, CMP, TSH #### [facility] [address] [place] [address] Dr. Bossman Capps Eosinophils/100 WBC (Bld) 1.9 % Normal 0.9-7.0 [facility] Comment on above: Performed By: #### T 4, CMP, TSH #### [facility] [address] [place] [address] Dr. Bossman Capps Erythrocyte distribution width (RBC) [Ratio] 12.7 % Normal 11.0-15.0 [facility] Comment on above: Performed By: #### T 4, CMP, TSH #### [facility] [address] [place] [address] Dr. Bossman Capps Hematocrit (Bld) [Volume fraction] 43.7 % Normal 36.0-48.0 [facility] Comment on above: Performed By: #### T 4, CMP, TSH #### [facility] [address] [place] [address] Dr. Bossman Capps Hemoglobin (Bld) [Mass/Vol] 14.5 g/dL Normal 12.0-16.0 [facility] Comment on above: Performed By: #### T 4, CMP, TSH #### [facility] [address] [place] [address] Dr. Bossman Capps IG # 0.02 10e3/ul Normal 0.00-0.03 [facility] Comment on above: Performed By: #### T 4, CMP, TSH #### [facility] [address] [place] [address] Dr. Bossman Capps IG % 0.4 % Normal 0.0-0.5 [facility] Comment on above: Performed By: #### T 4, CMP, TSH #### [facility] [address] [place] [address] Dr. Bossman Capps LYMPH # 2.1 103/ul Normal 1.2-3.8 [facility] Comment on above: Performed By: #### T 4, CMP, TSH #### [facility] [address] [place] [address] Dr. Bossman Capps Lymphocytes/100 WBC (Bld) 38.0 % Normal 20.5-60.0 [facility] Comment on above: Performed By: #### T 4, CMP, TSH #### [facility] [address] [place] [address] Dr. Bossman Capps MANUAL DIFF REQ NO Normal [facility] Comment on above: Performed By: #### T 4, CMP, TSH #### [facility] [address] [place] [address] Dr. Bossman Capps MCH (RBC) [Entitic mass] 31.7 pg Normal 26.7-34.0 [facility] Comment on above: Performed By: #### T 4, CMP, TSH #### [facility] [address] [address] [address] Bossman Capps MCHC (RBC) [Mass/Vol] 33.2 g/dL Normal 29.9-35.2 [facility] Comment on above: Performed By: #### T 4, CMP, TSH #### [facility] [address] [place] [address] Dr. Bossman Capps MCV (RBC) [Entitic vol] 95.6 fL Normal 81.0-99.0 [facility] Comment on above: Performed By: #### T 4, CMP, TSH #### [facility] [address] [place] [address] Dr. Bossman Capps MONO # 0.5 103/ul Normal 0.3-0.8 [facility] Comment on above: Performed By: #### T 4, CMP, TSH #### [facility] [address] [place] [address] Dr. Bossman Capps Monocytes/100 WBC (Bld) 9.6 % Normal 1.7-12.0 [facility] Comment on above: Performed By: #### T 4, CMP, TSH #### [facility] [address] [place] [address] Dr. Bossman Capps NEUT # 2.7 103/ul Normal 1.4-6.5 [facility] Comment on above: Performed By: #### T 4, CMP, TSH #### [facility] [address] [place] [address] Dr. Bossman Capps Neutrophils/100 WBC (Bld) 49.0 % Normal 43.0-75.0 [facility] Comment on above: Performed By: #### T 4, CMP, TSH #### [facility] [address] [place] [address] Dr. Bossman Capps Platelet mean volume (Bld) [Entitic vol] 10.7 fL Normal 9.5-13.5 [facility] Comment on above: Performed By: #### T 4, CMP, TSH #### [facility] [address] [place] [address] Dr. Bossman Capps PLT 343 103/ul Normal 150-450 [facility] Comment on above: Performed By: #### T 4, CMP, TSH #### [facility] [address] [place], [place] [address] Dr. Bossman Capps RBC 4.57 106/ul Normal 4.20-5.40 [facility] Comment on above: Performed By: #### T 4, CMP, TSH #### [facility] [address] [place], [place] [address] Dr. Bossman Capps WBC 5.4 103/ul Normal 4.0-11.0 [facility] Comment on above: Performed By: #### T 4, CMP, TSH #### [facility] [address] [place], [place] [address] Dr. Bossman Capps MG MAMM SCREEN 3D BREANA CADon 03-27-2022 MG MAMM SCREEN 3D BREANA CAD Patient: CLIFFORD FRIAS Exam Date: 03/27/2022 : 1960 Gender:F Ordering : DR HUSAM ALCALA D.O. Admission #: [id number] Family : Order #: [id number] CLICK HERE TO VIEW EXAM RADIOLOGY REPORT [...] unknown cancer at age 70. LOCATION: [facility] BREAST COMPOSITION: Heterogeneously dense,which may obscure [...] MD on 03/28/2022 at 07:47 Normal [facility] PROF 14(COMP METB)on 022 Albumin [Mass/Vol] 4.1 g/dL Normal 3.4-5.0 [facility] Comment on above: Performed By: #### C MP, TSH #### [facility] [address] [address] [address] Bossman Capps Albumin/Globulin [Mass ratio] 1.1 {ratio} Normal [facility] Comment on above: Performed By: #### C MP, TSH #### [facility] [address] [address] [address] Bossman Capps ALP [Catalytic activity/Vol] 68 U/L Normal 46-116 [facility] Comment on above: Performed By: #### C MP, TSH #### [facility] [address] [address] [address] Bossman Capps ALT [Catalytic activity/Vol] 13 U/L Critically low 14-59 [facility] Comment on above: Performed By: #### C MP, TSH #### [facility] [address] [address] [address] Bossman Capps Anion gap [Moles/Vol] 10.8 mmol/L Normal [facility] Comment on above: Performed By: #### C MP, TSH #### [facility] [address] [address] [address] Bossman Capps AST [Catalytic activity/Vol] 12 U/L Critically low 15-37 [facility] Comment on above: Performed By: #### C MP, TSH #### [facility] [address] [address] [address] Bossman Capps Bilirubin [Mass/Vol] 0.5 mg/dL Normal 0.2-1.0 [facility] Comment on above: Performed By: #### C MP, TSH #### [facility] [address] [address] [address] Bossman Capps Calcium [Mass/Vol] 9.1 mg/dL Normal 8.5-10.1 [facility] Comment on above: Performed By: #### C MP, TSH #### [facility] [address] [address] [address] Bossman Capps Chloride [Moles/Vol] 104 mmol/L Normal 98-107 [facility] Comment on above: Performed By: #### C MP, TSH #### [facility] [address] [place] [address] Dr. Bossman Capps CO2 [Moles/Vol] 29.1 mmol/L Normal 21.0-32.0 [facility] Comment on above: Performed By: #### C MP, TSH #### [facility] [address] [place] [address] Dr. Bossman Capps Creatinine [Mass/Vol] 0.72 mg/dL Normal 0.55-1.02 [facility] Comment on above: Performed By: #### C MP, TSH #### [facility] [address] [place] [address] Dr. Bossman Capps EGFR-AF ALGERIAN >60 Normal >=60 [facility] Comment on above: Performed By: #### C MP, TSH #### [facility] [address] [place] [address] Dr. Bossman Capps EGFR-NON AF ALGERIAN >60 Normal >=60 [facility] Comment on above: Performed By: #### C MP, TSH #### [facility] [address] [place] [address] Dr. Bossman Capps Globulin (S) [Mass/Vol] 3.7 g/dL Normal [facility] Comment on above: Performed By: #### C MP, TSH #### [facility] [address] [address] [address] Bossman Capps Glucose [Mass/Vol] 93 mg/dL Normal 74-106 [facility] Comment on above: Performed By: #### C MP, TSH #### [facility] [address] [place] [address] Dr. Bossman Capps Potassium [Moles/Vol] 3.9 mmol/L Normal 3.5-5.1 [facility] Comment on above: Performed By: #### C MP, TSH #### [facility] [address] [place] [address] Dr. Bossman Capps Protein [Mass/Vol] 7.8 g/dL Normal 6.4-8.2 [facility] Comment on above: Performed By: #### C MP, TSH #### [facility] [address] [place] [address] Dr. Bossman Capps Sodium [Moles/Vol] 140 mmol/L Normal 136-145 [facility] Comment on above: Performed By: #### C MP, TSH #### [facility] [address] [place] [address] Dr. Bossman Capps Urea nitrogen [Mass/Vol] 10.0 mg/dL Normal 7.0-18.0 [facility] Comment on above: Performed By: #### C MP, TSH #### [facility] [address] [place] [address] Dr. Bossman Capps Urea nitrogen/Creatinin e [Mass ratio] 13.9 mg/mg Normal [facility] Comment on above: Performed By: #### C MP, TSH #### [facility] [address] [place] [address] Dr. Bossman Capps TSHon 03-27-2022 TSH 0.310 uIU/mL Critically low 0.358-3.740 [facility] Comment on above: Performed By: #### C MP, TSH #### [facility] [address] [place] [address] Dr. Bossman Capps ALLIED HEALTHon 07-10-2021 ALLIED HEALTH HNO ID: [id number] Author: RT Randi(R) Service: ? Author Type: [...] RT Randi(R) July 10, 2021 7:32 AM [facility] MRI LUMBAR SPINE WO IVCONon 07-10-2021 MRI LUMBAR SPINE WO IVCON * * *Final Report* * * DATE OF EXAM: Jul 10 2021 7:55AM [facility] 0303 - MRI LUMBAR SPINE WO [...] crest and there are 5 lumbar-type vertebrae. 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: PSCB Transcribe Date/Time: Jul 10 2021 9:15A Dictated by : CORTES LERMA MD This examination was interpreted and the report reviewed and electronically signed by: CORTES LERMA MD on Jul 10 2021 9:23AM EST [id number] Normal [facility] Vital Signs Date Time Vital Sign Value Performing Clinician Facility 08-24-2024 13:23-0500 Blood Pressure Location Yu Keys [facility] 08-24-2024 13:23-0500 Diastolic blood pressure 81 mm[Hg] Yu Keys [facility] 08-24-2024 13:23-0500 Heart rate 66 /min Yu Keys [facility] 08-24-2024 13:23-0500 Respiratory rate 18 /min Yu Keys [facility] 08-24-2024 13:23-0500 Systolic blood pressure 124 mm[Hg] Yu Keys [facility] 05-19-2024 13:05-0400 Diastolic blood pressure 55 mm[Hg] DO Husam House Work Phone: [facility] 05-19-2024 13:05-0400 Heart rate 60 /min DO Husam House Work Phone: [facility] 05-19-2024 13:05-0400 Respiratory rate 20 /min DO Husam Alcala Work Phone: [facility] 05-19-2024 13:05-0400 SaO2% (BldA) [Mass fraction] 100 % DO Husam Alcala Work Phone: [facility] 05-19-2024 13:05-0400 Systolic blood pressure 102 mm[Hg] DO Husam Alcala Work Phone: [facility] 05-19-2024 11:22-0400 Body height 162.56 cm DO Husam Alcala Work Phone: [facility] 05-19-2024 11:22-0400 Body weight 61.23 kg DO Husam Alcala Work Phone: [facility] 04-26-2024 11:13-0400 Body height 162.56 cm [facility] 04-26-2024 11:13-0400 Body mass index (BMI) [Ratio] 23.3 kg/m2 [facility] 04-26-2024 11:13-0400 Body weight 61.85 kg [facility] 04-26-2024 11:13-0400 Diastolic blood pressure 57 mm[Hg] [facility] 04-26-2024 11:13-0400 Heart rate 69 /min [facility] 04-26-2024 11:13-0400 Systolic blood pressure 141 mm[Hg] [facility] 01-07-2024 10:38-0400 Body height 162.56 cm [facility] 01-07-2024 10:38-0400 Body mass index (BMI) [Ratio] 23.8 kg/m2 [facility] 01-07-2024 10:38-0400 Body weight 63.04 kg [facility] 03-17-2023 10:34-0400 Body height 162.6 cm Saritha Mendez MD Work Phone: [facility] 03-17-2023 10:34-0400 Body temperature 96.49 [degF] Saritha Mendez MD Work Phone: [facility] 03-17-2023 10:34-0400 Body weight 58.97 kg Saritha Mendez MD Work Phone: [facility] 03-17-2023 10:34-0400 Diastolic blood pressure 57 mm[Hg] Saritha Mendez MD Work Phone: [facility] 03-17-2023 10:34-0400 Heart rate 67 /min Saritha Mendez MD Work Phone: [facility] 03-17-2023 10:34-0400 SaO2% (BldA) [Mass fraction] 100 % Saritha Mendez MD Work Phone: [facility] 03-17-2023 10:34-0400 Systolic blood pressure 102 mm[Hg] Saritha Mendez MD Work Phone: [facility] 08-29-2022 10:49-0500 Body height 162.6 cm Jason Shipman MD, PhD Work Phone: [facility] 08-29-2022 10:49-0500 Body temperature 98.2 [degF] Jason Shipman MD, PhD Work Phone: [facility] 08-29-2022 10:49-0500 Body weight 54.43 kg Jason Shipman MD, PhD Work Phone: [facility] 08-29-2022 10:49-0500 Diastolic blood pressure 65 mm[Hg] Jason Shipman MD, PhD Work Phone: [facility] 08-29-2022 10:49-0500 Heart rate 67 /min Jason Shipman MD, PhD Work Phone: [facility] 08-29-2022 10:49-0500 SaO2% (BldA) [Mass fraction] 99 % Jason Shipman MD, PhD Work Phone: [facility] 08-29-2022 10:49-0500 Systolic blood pressure 112 mm[Hg] Jason Shipman MD, PhD Work Phone: [facility] 10-08-2021 13:48-0400 Body height 160 cm Saritha Mendez MD Work Phone: [facility] 10-08-2021 13:48-0400 Body temperature 98.8 [degF] Saritha Mendez MD Work Phone: [facility] 10-08-2021 13:48-0400 Body weight 54.43 kg Saritha Mendez MD Work Phone: [facility] 10-08-2021 13:48-0400 Diastolic blood pressure 69 mm[Hg] Saritha Mendez MD Work Phone: [facility] 10-08-2021 13:48-0400 Heart rate 93 /min Saritha Mendez MD Work Phone: [facility] 10-08-2021 13:48-0400 SaO2% (BldA) [Mass fraction] 97 % Saritha Mendez MD Work Phone: [facility] 10-08-2021 13:48-0400 Systolic blood pressure 110 mm[Hg] Saritha Mendez MD Work Phone: [facility] Encounters Encounter Date Encounter Type Care Provider Facility Start: 11-24-2024 ambulatory Yu Keys Facility:[facility] Start: 10-18-2024 ambulatory DO HUSAM Galindo lity:[facility] Start: 09-13-2024 End: 09-13-2024 Bamboo flowsheet Nura Teresa NP Work Phone: [facility] Start: 09-13-2024 End: 09-13-2024 Bamboo flowsheet Nura Teresa ENGINEERING COORDINATOR Work Phone: [facility] Start: 09-13-2024 End: 09-13-2024 Office outpatient visit 25 minutes Nura Teresa NP Work Phone: [facility] Comment on above: Acute internal deran gement of right knee (Primary Dx); Acute pain of left knee; Osteoarthritis of left knee, unspecified osteoarthritis type Start: 09-13-2024 End: 09-13-2024 ambulatory NURA TERESA Not Available Start: 09-07-2024 End: 09-07-2024 ambulatory Yu Keys Facility:[facility] Start: 09-07-2024 End: 09-07-2024 Patient encounter procedure Yu Keys [facility] Start: 08-30-2024 End: 08-30-2024 Bamboo flowsheet Dee Rogers ENGINEERING COORDINATOR Work Phone: [facility] Start: 08-30-2024 End: 08-30-2024 Bamboo flowsheet Dee Rogers ENGINEERING COORDINATOR Work Phone: [facility] Start: 08-30-2024 End: 08-30-2024 Office outpatient visit 25 minutes Dee Rogers ENGINEERING COORDINATOR Work Phone: [facility] Comment on above: Pain in both knees, unspecified chronicity (Primary Dx); Arthritis of right knee Start: 08-30-2024 End: 08-30-2024 ambulatory DEE ROGERS Not Available Start: 08-24-2024 ambulatory Yu Keys Facility:[facility] Start: 08-24-2024 End: 08-24-2024 ambulatory Yu Keys Facility:[facility] Start: 08-24-2024 End: 08-24-2024 Patient encounter procedure Yu Keys [facility] Start: 08-16-2024 End: 08-16-2024 Bamboo flowsheet Dee Rogers ENGINEERING COORDINATOR Work Phone: [facility] Start: 08-16-2024 End: 08-16-2024 Bamboo flowsheet Dee Hamm Apling ENGINEERING COORDINATOR Work Phone: [facility] Start: 08-16-2024 End: 08-16-2024 Office outpatient visit 25 minutes Dee Hamm Ken ENGINEERING COORDINATOR Work Phone: [facility] Comment on above: Pain in both knees, unspecified chronicity (Primary Dx); Arthritis of left knee; Arthritis of right knee Start: 08-16-2024 End: 08-16-2024 ambulatory DEE Hamm KEN Not Available Start: 07-19-2024 ambulatory DO HUSAM P HOUSE Faci lity:[facility] Start: 05-19-2024 Non-patient / Non-visit DO Antonia manes House Work Phone: [facility] Work Phone: Start: 05-19-2024 End: 05-19-2024 Admission to same day surgery center DO Husam Alcala Work Phone: [facility] Work Phone: Start: 05-19-2024 End: 05-19-2024 ambulatory DO Husam House Work Phone: [facility] Work Phone: Start: 04-26-2024 End: 04-26-2024 ambulatory [facility] Work Phone: Start: 04-26-2024 End: 04-26-2024 Patient encounter procedure [facility] Work Phone: Start: 04-14-2024 End: 04-14-2024 ambulatory HUSAM P HOUSE Facility:[facility] jose alberto Start: 03-25-2024 End: 03-25-2024 ambulatory HUSAM P HOUSE Facility:[facility]ber[facility] Start: 02-17-2024 End: 02-17-2024 ambulatory KANDY DE LA CRUZ Not Available Start: 01-15-2024 End: 01-15-2024 ambulatory HUSAM P HOUSE Facility:[facility]ber[facility] Start: 01-07-2024 End: 01-07-2024 ambulatory [facility] Work Phone: Start: 01-07-2024 End: 01-07-2024 Patient encounter procedure [facility] Work Phone: Start: 01-06-2024 End: 01-06-2024 ambulatory KANDY DE LA CRUZ Not Available Start: 12-30-2023 End: 12-30-2023 ambulatory HUSAM ALCALA Facility:[facility] Start: 12-23-2023 End: 12-23-2023 ambulatory KANDY DE LA CRUZ Not Available Start: 12-11-2023 End: 12-11-2023 ambulatory ANNE GRAHAM Not Available Start: 11-17-2023 End: 11-17-2023 ambulatory HUSAM ALCALA Facility:[facility] Start: 08-26-2023 Refill Sandhya palafox HAZARDOUS MATERIALS WASTE TECHNICIAN.METAL SPINNER Work Phone: [facility] Comment on above: Refill Request Start: 08-07-2023 End: 08-07-2023 ambulatory SARITHA MENDEZ Facility:[facility] Start: 05-12-2023 Orders Only Sandhya palafox HAZARDOUS MATERIALS WASTE TECHNICIAN.METAL SPINNER Work Phone: [facility] Start: 03-17-2023 End: [...] Date Procedure Procedure Detail Performing Clinician Start: 09-13-2024 Arthrocentesis aspir &/inj major jt/bursa w/o us Nura Teresa ENGINEERING COORDINATOR Work Phone: Start: 09-13-2024 Radiologic examinati on knee 1/2 views Nura Teresa ENGINEERING COORDINATOR Work Phone: Start: 08-30-2024 Arthrocentesis aspir &/inj major jt/bursa w/o us Dee Rogers NP Work Phone: Start: 08-16-2024 Arthrocentesis aspir &/inj major jt/bursa w/o us Dee Rogers ENGINEERING COORDINATOR Work Phone: Start: 08-16-2024 End: 08-16-2024 Radiologic examination knee 1/2 views Dee Rogers NP Work Phone: Start: 05-19-2024 Colonoscopy DO Husam Alcala Work Phone: Start: 08-20-2019 Adult depression scr eening assessment Saritha Mendez MD Work Phone: Bilateral tubal ligation Tj Keys Dawson Keys Plan of Treatment Date Care Activity Detail Author Start: 09-13-2024 End: 09-13-2025 MR Knee - right WO contrast MR knee right wo IV contrast Imaging Routine Acute internal derangement of right knee Expected: 09/13/2024 (Approximate), Expires: 09/13/2025 [facility] Work Phone: Comment on above: Expected: 09/13/2024 (Approximate), Expires: 09/13/2025 Start: 09-13-2024 End: 09-13-2024 Patient encounter procedure [facility] Comment on above: Arrived Start: 08-30-2024 End: 08-30-2024 Patient encounter procedure [facility] Comment on above: Pain in both knees, unspecified chronicity (Primary Dx); Arthritis of right knee Start: 08-16-2024 End: 08-16-2024 Patient encounter procedure 08/16/2024 10:15 AM EST Office Visit [facility] [address] [facility] [address] [place] [address] Dee Rogers, ENGINEERING COORDINATOR [address] [facility] [address] [place] [address] Pain in both knees, unspecified chronicity (Primary Dx) [facility] Comment on above: Pain in both knees, unspecified chronicity (Primary Dx) Start: 08-15-2024 DIABETES SCREEN DIABETES SCREEN [facility] Start: 08-15-2024 Diabetes Screening Diabetes Screenin g [facility] Start: 05-19-2024 [facility] Start: 03-21-2024 Influenza vaccination Influenza Vacc ine (#1) [facility] Start: 07-21-2023 Depression Assessment Depression Ass [facility] Start: 03-21-2023 Covid-19 Vaccine ( season) Covid-19 Vaccine ( season) [facility] Start: 03-21-2023 Influenza vaccination C [facility] Start: 07-21-2022 DEPRESSION ASSESSMENT DEPRESSION ASS [facility] Start: 03-21-2022 Influenza vaccination C [facility] Start: 11-17-2021 COVID-19 VACCINE (4 - Booster for Moderna series) COVID-19 VACCINE (4 - Booster for Moderna series) [facility] Start: 03-21-2021 Influenza vaccination INFLUENZA (#1) [facility] Start: 08-20-2020 Adult depression screening assessment DEPRESSION SCREENING [facility] Start: 2020 RSV Vaccine (1 - 1-d ose 60+ series) RSV Vaccine (1 - 1-dose 60+ series) [facility] Start: 2010 SHINGRIX VACCINE (1 of 2) SHINGRIX VACCINE (1 of 2) [facility] Start: 2005 COLOGUARD (FIT-DNA) COLOGUARD (FIT-D NA) [facility] Start: 2005 Colonoscopy COLONOSCOPY [facility] Start: 2005 COLORECTAL CANCER SCREENING COLORECTAL CANCER SCREENING [facility] Start: [address] COLONOGRAPHY [facility] Start: 2005 FECAL OCCULT BLOOD FECAL OCCULT BLOO D [facility] Start: 2005 Lipid 1996 panel - Serum or Plasma Lipid Screening [facility] Start: 2005 Lipid panel [facility] Start: 2005 LIPID SCREEN LIPID SCREEN [facility] Start: 2005 Screening for malign ant neoplasm of colon [facility] Start: 2005 SIGMOIDOSCOPY SIGMOIDOSCOPY [facility] Start: 2000 Mammography [facility] Start: 2000 Screening for malign ant neoplasm of breast [facility] Start: 1990 HPV TESTING HPV TESTING [facility] Start: 1990 Screening for malign ant neoplasm of cervix [facility] Start: 1981 PAP TESTING PAP TESTING [facility] Start: 1981 Screening for malign ant neoplasm of cervix [facility] Start: 1979 Urine microalbumin profile [facility] Start: 1978 HEPATITIS C SCREENING HEPATITIS C [facility] Start: 1978 Hepatitis C screening Hepatitis C [facility] Start: 1978 HIV SCREENING HIV SCREENING [facility] Start: 1978 HIV screening HIV Screening [facility] Start: 1960 Screening for malign ant neoplasm of colon [facility] Patient Education Colon Polypect nadja (DC) Know your Meds [facility] Work Phone: [facility] Immunizations Immunization Date Immunization Notes Care Provider Ryan owensdebra 05-28-2023 influenza, injectabl e, quadrivalent, preservative free Dee Rogers ENGINEERING COORDINATOR Work Phone: [facility] 05-28-2023 influenza virus vaccine, unspecified formulation Dee Apling ENGINEERING COORDINATOR Work Phone: [facility] 04-19-2022 influenza, injectabl e, quadrivalent, preservative free Dee Apling ENGINEERING COORDINATOR Work Phone: [facility] 04-19-2022 SARS-CoV-2 (COVID-19 ) [id number] Yu Keys [facility] 04-19-2022 influenza virus vaccine, unspecified formulation Sandhya Paiz APRN.METAL SPINNER Work Phone: [facility] 07-19-2021 COVID-19 vaccine, booster dose (MODERNA) Saritha Mendez MD Work Phone: [facility] Comment on above: Result Comment: 2024: [id number] 10-28-2020 COVID-19 vaccine, fu ll dose (MODERNA) Saritha Mendez MD Work Phone: [facility] 09-30-2020 COVID-19 vaccine, fu ll dose (MODERNA) Saritha Mendez MD Work Phone: [facility] 05-01-2019 influenza, injectabl e, quadrivalent, preservative free Saritha Mendez MD Work Phone: [facility] 03-30-2019 influenza virus vaccine, unspecified formulation Yu Keys [facility] 03-30-2019 influenza, injectabl e, quadrivalent, preservative free Dee Rogers NP Work Phone: [facility] Payers Date Payer Category Payer Unknown [id number] 2024 Self-pay [id number] 2023 Medicare (Managed Care) [employer] Member Subscriber Plan / Payer (Effective 2023-Present) Name: Clifford Frias Relation to Subscriber: Self Name: Clifford Frias Payer ID: Not on file Group ID: [id number] Type: Not on file Address: [address] [id number] 2021 Unknown LANCE BL[employer] S AND BLUE SHIELD [employer] MEDIBLUE O [id number] 2021-Present [phone] [address] [place] [address] [facility] [id number]. [id number] 2021 Unknown [id number] 1.13.159. 2.7.3.213948.315 1960 Unknown [id number] 2.16.840.1.304998.3.579. 2.593 1960 Unknown [id number] 2.16.840.1.358929.3.579. 2.593 1960 Unknown [id number] 2.16.840.1.347117.3.579. 2.593 1960 Unknown [id number] 2.16.840.1.790222.3.579. 2.593 1960 Unknown [id number] 2.16.840.1.831039.3.579. 2.1259 1960 Unknown [id number] 2.16.840.1.286467.3.579. 2.1258 1960 Unknown [id number] 2.16.840.1.102418.3.579. 2.1258 1960 Unknown [id number] 2.16.840.1.476581.3.579. 2.1258 1960 Unknown [id number] 2.16.840.1.895107.3.579. 2.1258 1960 Unknown [id number] 2.16.840.1.043397.3.579. 2.1258 1960 Unknown [id number] 2.16.840.1.859645.3.579. 2.1258 1960 Unknown [id number] 2.16.840.1.284613.3.579. 2.1258 1960 Unknown [id number] 2.16.840.1.369988.3.579. 2.1258 1960 Unknown [id number] 2.16.840.1.419393.3.579. 2.1258 1960 Unknown [id number] 2.16.840.1.916442.3.579. 2. 1960 Unknown [id number] 2.16.840.1.233184.3.579. 2. 1960 Unknown [id number] 2.16.840.1.783782.3.579. 2. 1960 Unknown [id number] 2.16.840.1.313024.3.579. 2. 1960 Unknown [id number] 2.16.840.1.703655.3.579. 2. 1960 Unknown [id number] 2.16.840.1.210098.3.579. 2.718 1960 Unknown [id number] 2.16.840.1.933728.3.579. 2.718 1960 Unknown [id number] 2.16.840.1.372414.3.579. 2.718 1960 Unknown [id number] 2.16.840.1.254525.3.579. 2.718 1960 Unknown [id number] 2.16.840.1.139473.3.579. 2.718 1959 Medicare [id number] 1959 Unknown [id number] Unknown [facility] [id number] Unknown [id number] 2.16.840.1.976793.3.579. 2.531 Social History Date Type Detail Facility Start: 08-06-2016 End: 12-22-2023 Tobacco smoking status NHIS Ex-smoker [facility] Work Phone: End: 07-21-2015 History of tobacco use Current smoker [facility] Work Phone: End: 07-21-2015 History of tobacco use Cigarette Smoker [facility] Work Phone: Start: 08-06-2016 End: 09-13-2024 Cigarettes smoked current (pack per day) - Reported 0.5 [facility] Start: 08-06-2016 End: 12-22-2023 Tobacco use and exposure Smokeless tobacco non-user [facility] Work Phone: Start: 10-08-2021 End: 08-07-2023 Alcohol intake Current non-drinker of alcohol (finding) [facility] Start: 08-15-2021 History SDOH Alcohol Frequency 1 [facility] Start: 1960 Sex Assigned At Not on file C [facility] Start: 08-22-2021 End: 11-22-2021 Exposure to SARS-CoV-2 (event) Unable to assess [facility] Start: 12-14-2021 End: 02-04-2022 Exposure to SARS-CoV-2 (event) Not sure [facility] Start: 03-17-2023 End: 09-13-2024 Tobacco use panel [facility] Start: 12-03-2023 Adult Depression Screening Assessment 2 [facility] Start: 1960 Sex Assigned At Female F [facility] Start: 02-17-2024 End: 09-13-2024 Alcoholic beverage intake Ex-drinker (finding) [facility] Start: 12-03-2023 Gender identity Identifies as female gender (finding) [facility] Medical Equipment Procedure Code Equipment Code Equipment Origin al Text Equipment Identifier Dates Reactiv8 Percutaneous Lead [id number] Start: 08-20-2021 Comment on above: Description: Manufac ture: [facility] [employer] Reactiv8 Percutaneous Lead [id number] Start: 08-20-2021 Comment on above: Description: Manufac ture: [facility] Reactiv8 Implant able Pulse Generator [id number] Start: 08-20-2021 Comment on above: Description: Manufac ture: [facility] [facility] Goals Date Patient Goal Desired Activity /State Functional Status Date Assessment Result Facility 08-24-2024 Functional Status N/A [facility] Clinical Notes 08-30-2021 to 09-23-2024 Nura Teresa, ENGINEERING COORDINATOR - 09/13/2024 10:15 AM Pancho Rogers, ENGINEERING COORDINATOR - 08/30/2024 10:45 AM Pancho Rogers, ENGINEERING COORDINATOR - 08/16/2024 10:15 AM EST Note Date & Type Note Facility 09-23-2024 Note Entered by KARLI ALCALA DO on September 23, 2024 09:36:04 EST From: HUSAM ALCALA DO To: [id number] Sent: 09/23/2024 09:36:03 EST Subject: Medication Management Submitted: Complete:amitriptyline (amitriptyline 10 mg oral tablet) Signed by HUSAM ALCALA DO 09/23/2024 09:36:00 EST Documented Complete:amitriptyline (amitriptyline 10 mg oral tablet) Signed by HUSAM ALCALA DO 09/23/2024 09:36:00 EST Submitted: Complete:methocarbamol (methocarbamol 500 mg oral tablet) Signed by HUSAM ALCALA DO 09/23/2024 09:36:00 EST Submitted: Complete:topiramate (topiramate 100 mg oral tablet) Signed by HUSAM ALCALA DO 09/23/2024 09:36:00 EST Approved with modifications: topiramate (topiramate 100 mg tablet) TAKE 1 & 1/2 (ONE AND ONE-HALF) TABLETS BY MOUTH DAILY Qty: 135 tab(s) Days Supply: 90 Refills: 1 Substitutions Allowed Route To [employer] [facility]72 Approved methocarbamol (methocarbamol 500 mg tablet) TAKE 1 TABLET BY MOUTH EVERY EVENING Qty: 30 tab(s) Days Supply: 30 Refills: 1 Substitutions Allowed Route To [employer] [facility]72 Approved with modifications: amitriptyline (amitriptyline 10 mg tablet) TAKE 1 TABLET BY MOUTH AT BEDTIME Qty: 30 tab(s) Days Supply: 30 Refills: 2 Substitutions Allowed Route To [employer] [facility]72 --------- From: [employer] [id number] To: HUSAM ALCALA DO Sent: September 23, 2024 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 Subject: Medication Management Due: September 24, 2024 12:02:42 AM 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 On Hold Pending Signature Drug: topiramate (topiramate 100 mg oral tablet), TAKE 1 & 1/2 (ONE AND ONE-HALF) TABLETS BY MOUTH DAILY Quantity: 135 tab(s) Days Supply: 90 Refills: 1 Substitutions Allowed Notes from Pharmacy: Dispensed Drug: topiramate (topiramate 100 mg oral tablet), TAKE 1 & 1/2 (ONE AND ONE-HALF) TABLETS BY MOUTH DAILY Quantity: 135 tab(s) Days Supply: 90 Refills: 1 Substitutions Allowed Notes from Pharmacy: On Hold Pending Signature Drug: methocarbamol (methocarbamol 500 mg oral tablet), TAKE 1 TABLET BY MOUTH ONCE DAILY IN THE EVENING Quantity: 30 tab(s) Days Supply: 30 Refills: 1 Substitutions Allowed Notes from Pharmacy: Dispensed Drug: methocarbamol (methocarbamol 500 mg oral tablet), TAKE 1 TABLET BY MOUTH EVERY EVENING Quantity: 30 tab(s) Days Supply: 30 Refills: 1 Substitutions Allowed Notes from Pharmacy: On Hold Pending Signature Drug: amitriptyline (amitriptyline 10 mg oral tablet), 1 tab(s) Oral Once a day (at bedtime) Quantity: 30 tab(s) Days Supply: 0 Refills: 4 Substitutions Allowed Notes from Pharmacy: Dispensed Drug: amitriptyline (amitriptyline 10 mg oral tablet), TAKE 1 TABLET BY MOUTH AT BEDTIME Quantity: 30 tab(s) Days Supply: 30 Refills: 1 Substitutions Allowed Notes from Pharmacy: --------- [facility] 09-13-2024 History of Present illness Narrative Associated Order(s): L Inj/Asp: L knee Post-Procedure Diagnose(s): Osteoarthritis of left knee, unspecified osteoarthritis type Images from the original note were not included. HISTORY OF PRESENT ILLNESS: EST PT Clifford Frias is an 64 y.o. @ female. *RT KNEE* EST PT WITH LINH-RECHECK RT KNEE S/P CORTISONE INJ RT KNEE 08/30/24; PT NOTES GREAT TEMP RELIEF (1DAY) XRAY B/L KNEE 08/16/24 EPIC DEPO INJECTION 08/16/24, 08/30/24 PAIN MEDIALLY GENERALLY- OCCASIONAL LATERAL KNEE PAIN- DENIES SWELLING- PAIN IS CONSTANT- +WAKES HS- +INSTABILITY- +STIFFNESS WITH PROLONG SITTING- +LYRICA/ROBAXIN HS Hx Fibromyalgia. *LT KNEE* EST PT RECHECK LT KNEE- PT NOTES PAIN FOR YRS- INCREASE PAIN RECENTLY AFTER SHE ROLLED OUT OF HER BED 1 DAY AGO 09/12/24 XRAY LT KNEE TODAY EPIC 09/13/24 XRAY B/L KNEE 08/16/24 NO CORTISONE INJ PAIN LATERAL KNEE- DENIES SWELLING- PT ICES/ELEVATES- +STIFFNESS WITH PROLONG SITTING - +LYRICA/ROBAXIN ALLERGIES: Allergies Allergen Reactions Ciprofloxacin Hives, Rash and Unknown HOME MEDICATIONS: Current Outpatient Medications Medication Instructions amitriptyline (ELAVIL) 10 mg, Oral, Nightly dicyclomine (BENTYL) 20 mg, Oral, 2 times daily famotidine (PEPCID) 20 mg, Oral, 2 times daily levothyroxine (SYNTHROID, LEVOXYL) 112 mcg, Oral, Daily methocarbamol (ROBAXIN) 500 mg, Oral, Nightly montelukast (SINGULAIR) 10 mg, Oral, Daily pregabalin (LYRICA) 150 mg, Oral, 3 times daily SUMAtriptan (Imitrex) 100 MG tablet TAKE 1 TABLET BY MOUTH NEEDED FOR MIGRAINE may repeat after 2 (TWO) hours for a max dose OF 200mg in 24 hours topiramate (Topamax) 100 MG tablet TAKE 1 & 1/2 (ONE AND ONE-HALF) TABLETS BY MOUTH DAILY PHYSICAL EXAM: Knee Musculoskeletal Exam Gait Gait is normal. Inspection Leg length disparity: no discrepancy Right Erythema: none Effusion: mild Edema: none Ecchymosis: none Deformity: none Alignment: normal Left Erythema: none Effusion: none Edema: mild Deformity: none Palpation Right Increased warmth: none Masses: none Tenderness: present Medial joint line: moderate Left Crepitus: none Tenderness: present Patella: mild Range of Motion Right Right knee range of motion is normal and full. Active extension: 0 Passive extension: 0 Active flexion: 120 Passive flexion: 125 Left Active extension: 0 Active flexion: 120 Range of motion additional comments: + PAIN ON TERMINAL FLEXION AND EXTENSION Strength Right Right knee strength is normal. Extension: 4+/5. Extension is affected by pain. Flexion: 4+/5. Flexion is affected by pain. Left Extension: 4+/5. Extension is affected by pain. Flexion: 4+/5. Flexion is affected by pain. Instability Right Instability signs: none - stable Varus stress grade: normal Valgus stress grade: normal Anterior drawer: normal Medial Corey test: positive Left Varus stress grade: normal Valgus stress grade: normal Medial Corey test: negative Lateral Corey test: negative Neurovascular Right Right knee neurovascular exam is normal. Pulses - PT: normal Posterior tibial: 2+ Capillary refill: warm and well-perfused Left Pulses - PT: normal Posterior tibial: 2+ Special Signs Right Right knee special signs are normal. Patellar apprehension: none Left Left knee special signs are normal. General Constitutional: appears stated age Labored breathing: no Psychiatric: normal mood and affect Neurological: alert Skin: intact Lymphadenopathy: none Vitals: There is no height or weight on file to calculate BMI. Tobacco Use: Medium Risk (09/13/2024) Patient History Smoking Tobacco Use: Former Smokeless Tobacco Use: Never Passive Exposure: Not on file Alcohol Use: Not on file IMAGING: XR knee 1 or 2 views left Imaging Result: 09/13/2024: AP and lateral views of left knee showed mildly decreased medial joint, flattening of the articular surfaces to the medial joint line and patellofemoral joint. Subchondral sclerosis was noted at the medial joint line surfaces as well as the patellofemoral joint. Marginal osteophytic formation was noted medially on poles of patella. There is no evidence of fracture or dislocation. Impression: degenerative joint disease left knee Nura Adleaida [employer] WASTE TECHNICIAN-METAL SPINNER L Inj/Asp: L knee on 09/13/2024 3:52 PM Indications: pain Details: 21 G needle, anteromedial approach Medications: 40 mg methylPREDNISolone acetate 40 MG/ML Outcome: tolerated well, no immediate complications Site was cleaned with isopropyl alcohol Procedure, treatment alternatives, risks and benefits explained, specific risks discussed. Consent was given by the patient. Orders Placed This Encounter Procedures XR knee 1 or 2 views left Order Specific Question: Reason for exam: Answer: PAIN MR knee right wo IV contrast Standing Status: Future Standing Expiration Date: 09/13/2025 Scheduling Instructions: MRI RT KNEE WITHOUT CONTRAST MAYRA CASTRO; PLEASE CALL PT TO SCHEDULE Order Specific Question: Reason for exam: Answer: RT KNEE INTERNAL DERANGEMENT ASSESSMENT: ICD-10-CM 1. Osteoarthritis of left knee, unspecified osteoarthritis type M17.12 2. Acute pain of left knee M25.562 XR knee 1 or 2 views left 3. Acute internal derangement of right knee M23.91 MR knee right wo IV contrast PLAN: Patient states she had no relief with right knee injection and is still having sharp pain in the medial joint line. I recommend MRI of the right knee to evaluate for medial meniscus tear. She states she did fall on her left knee. I reviewed xrays of the left knee today which showed no acute fracture and mild osteoarthritis. I discussed with the patient the option of an injection for her left knee. I advised the patient of risks associated with an injection including a reaction to medication, infection, failure to improve and possible worsening. The patient demonstrated understanding. Patient requesting injection. Skin Cleansed with alcohol swab. Utilizing aseptic technique patient given 40mg Depomedrol was injected. Patient tolerated this well. Neurovasc intact s/p injection. Post injection care instructions discussed. She will follow up post MRI of the right knee. Questions answered in laymen terms at the bedside. The diagnosis, home exercise plan and any ongoing restrictions/ recommendations reviewed. If unable to be reached in office, I recommend evaluation at nearest Emergency Room if any symptoms worsened or new symptoms develop for requiring urgent evaluation. documented in this encounter [facility] 08-30-2024 History of Present illness Narrative Associated Order(s): L Inj/Asp: R knee Post-Procedure Diagnose(s): Arthritis of right knee Images from the original note were not included. Subjective Patient ID: Clifford Frias is a 64 y.o. female. B/L knee pain, RT>LT. Pain ~ 1 year (2023) for the RT knee. Both knees have gotten worse the last 4 months. NKI. RT knee: 2 weeks s/p Depo medrol injection (08/16/24) with 30% improvement, she had a lot of improvement on day 2 but then it started to decrease again. Still has pain but not as bad. Pain medial knee. Denies radiation. Taking Lyrica for back. Taking Robaxin at HS. Using heat. Denies N/T, swelling. Admits popping and cracking. Not waking her as much. Admits giving out. Hx Fibromyalgia. TX: Lyrica, Robaxin, massager gun, heat, XR NOMS 08/16/24, depo medrol injection 08/16/24 LT knee: Pain medial knee, not as bad. Not favoring her RT leg as much. States she is more worried about the RT leg. TX: Lyrica, Robaxin, massager gun, heat, XR NOMS 08/16/24 Objective Right Knee Exam Tests Corey: Medial - positive Lateral - negative Knee Musculoskeletal Exam Gait Limp: right Inspection Right Erythema: none Effusion: none Edema: none Ecchymosis: none Palpation Right Crepitus: patellofemoral Tenderness: present Medial joint line: moderate Range of Motion Right Active extension: 0 Active flexion: 120 Instability Right Medial Corey test: positive Lateral Corey test: negative L Inj/Asp: R knee on 08/30/2024 11:23 AM Indications: pain Details: 20 G needle, anterolateral approach Medications: 40 mg methylPREDNISolone acetate 40 MG/ML UTILIZING ASEPTIC TECHNIQUE PT GIVEN INJECTION IN RIGHT KNEE, NEUROVASC INTACT S/P INJ, TOLERATED WELL Procedure, treatment alternatives, risks and benefits explained, specific risks discussed. Consent was given by the patient. Assessment/Plan Encounter Diagnoses: ICD-10-CM 1. Pain in both knees, unspecified chronicity M25.561 M25.562 2. Arthritis of right knee M17.11 Discussion of options, pt notes she would like another injection, side effects of bleeding and infection discussed, would like to proceed with the injection, using aspectic technique 40 mg of depo medrol was injected into the right medial knee, pt tolerated well, bandaid applied, may do activities as tolerated, f/u in 2 weeks. Depending on how she is doing may recommend an MRI on the right and she understands this. documented in this encounter [facility] 08-25-2024 Note - From: HUSAM ALCALA DO To: [facility] Clinical Pool ([facility]); Sent: 08/25/2024 10:27:04 EST Subject: FW: Medication Management Due Date/Time: 08/26/2024 10:01:00 EST Caller Name: CLIFFORD FRIAS; Caller Number: H --------- From: [employer] [facility][id number] To: HUSAM ALCALA DO Sent: August 25, 2024 9:01:30 AM 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 Subject: Medication Management Due: August 26, 2024 12:06:22 AM 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 On Hold Pending Signature Drug: pregabalin (pregabalin 200 mg oral capsule), 1 cap(s) Oral TID Quantity: 90 cap(s) Days Supply: 0 Refills: 0 Substitutions Allowed Notes from Pharmacy: Dispensed Drug: pregabalin (pregabalin 200 mg oral capsule), TAKE 1 CAPSULE BY MOUTH THREE TIMES DAILY Quantity: 90 cap(s) Days Supply: 30 Refills: 0 Substitutions Allowed Notes from Pharmacy: --------- From: Ember Prince MA To: [employer] [facility][id number] Sent: 08/25/2024 13:56:44 EST Subject: FW: Medication Management Not Approved: Refill not appropriate, proposal sent to provider pregabalin (pregabalin 200 mg capsule) TAKE 1 CAPSULE BY MOUTH THREE TIMES DAILY Qty: 90 cap(s) Days Supply: 30 Refills: 0 Substitutions Allowed Route To Pharmacy - [facility][id number] Signed by Ember Prince MA [facility] 08-24-2024 Hospital Discharge instructions Patient Education 08/24/2024 15:55:48 Atrophic Vaginitis Atrophic Vaginitis Atrophic vaginitis is a condition in which the tissues that line the vagina become dry and thin. This condition is most common in women who have stopped having regular menstrual periods (are in menopause). This usually starts when a woman is 45 to 55 years old. That is the time when a woman's estrogen levels begin to decrease. Estrogen is a female hormone. It helps to keep the tissues of the vagina moist. It stimulates the vagina to produce a clear fluid that lubricates the vagina for sex. This fluid also protects the vagina from infection. Lack of estrogen can cause the lining of the vagina to get thinner and dryer. The vagina may also shrink in size. It may become less elastic. Atrophic vaginitis tends to get worse over time as a woman's estrogen level drops. What are the causes? This condition is caused by the normal drop in estrogen that happens around the time of menopause. What increases the risk? Certain conditions or situations may lower a woman's estrogen level, leading to a higher risk for atrophic vaginitis. You are more likely to develop this condition if: You are taking medicines that block estrogen. You have had your ovaries removed. You are being treated for cancer with radiation or medicines (chemotherapy). You have given or are . You are older than age 50. You smoke. What are the signs or symptoms? Symptoms of this condition include: Pain, soreness, a feeling of pressure, or bleeding during sex (dyspareunia). Vaginal burning, irritation, or itching. Pain or bleeding when a speculum is used in a vaginal exam. Having burning pain while urinating. Vaginal discharge. In some cases, there are no symptoms. How is this diagnosed? This condition is diagnosed based on your medical history and a physical exam. This will include a pelvic exam that checks the vaginal tissues. Though rare, you may also have other tests, including: A urine test. A test that checks the acid balance in your vagina (acid balance test). How is this treated? Treatment for this condition depends on how severe your symptoms are. Treatment may include: Using an tyld-btn-ppmglob vaginal lubricant before sex. Using a long-acting vaginal moisturizer. Using low-dose estrogen for moderate to severe symptoms that do not respond to other treatments. Options include creams, tablets, and inserts (vaginal rings). Before you use a vaginal estrogen, tell your health care provider if you have a history of: ?Breast cancer. ?Endometrial cancer. ?Blood clots. If you are not sexually active and your symptoms are very mild, you may not need treatment. Follow these instructions at home: Medicines Take wfyl-eic-rkyeyhs and prescription medicines only as told by your health care provider. Do not use herbal or alternative medicines unless your health care provider says that you can. Use jcxt-bpw-vupivgo creams, lubricants, or moisturizers for dryness only as told by your health care provider. General instructions If your atrophic vaginitis is caused by menopause, discuss all of your menopause symptoms and treatment options with your health care provider. Do not douche. Do not use products that can make your vagina dry. These include: ?Scented feminine sprays. ?Scented tampons. ?Scented soaps. Vaginal sex can help to improve blood flow and elasticity of vaginal tissue. If you choose to have sex and it hurts, try using a water-soluble lubricant or moisturizer right before having sex. Contact a health care provider if: Your discharge looks different than normal. Your vagina has an unusual smell. You have new symptoms. Your symptoms do not improve with treatment. Your symptoms get worse. Summary Atrophic vaginitis is a condition in which the tissues that line the vagina become dry and thin. It is most common in women who have stopped having regular menstrual periods (are in menopause). Treatment options include using vaginal lubricants and low-dose vaginal estrogen. Contact a health care provider if your vagina has an unusual smell, or if your symptoms get worse or do not improve after treatment. This information is not intended to replace advice given to you by your health care provider. Make sure you discuss any questions you have with your health care provider. Document Revised: 01/04/2021 Document Reviewed: 01/04/2021 [employer] Patient Education 20[employer]. 08/24/2024 15:55:45 Urinary Tract Infection, Adult Urinary Tract Infection, Adult A urinary tract infection (UTI) is an infection of any part of the urinary tract. The urinary tract includes the kidneys, ureters, bladder, and urethra. These organs make, store, and get rid of urine in the body. An upper UTI affects the ureters and kidneys. A lower UTI affects the bladder and urethra. What are the causes? Most urinary tract infections are caused by bacteria in your genital area around your urethra, where urine leaves your body. These bacteria grow and cause inflammation of your urinary tract. What increases the risk? You are more likely to develop this condition if: You have a urinary catheter that stays in place. You are not able to control when you urinate or have a bowel movement (incontinence). You are female and you: ?Use a spermicide or diaphragm for control. ?Have low estrogen levels. ?Are . You have certain genes that increase your risk. You are sexually active. You take antibiotic medicines. You have a condition that causes your flow of urine to slow down, such as: ?An enlarged prostate, if you are male. ?Blockage in your urethra. ?A kidney stone. ?A nerve condition that affects your bladder control (neurogenic bladder). ?Not getting enough to drink, or not urinating often. You have certain medical conditions, such as: ?Diabetes. ?A weak disease-fighting system (immunesystem). ?Sickle cell disease. ?Gout. ?Spinal cord injury. What are the signs or symptoms? Symptoms of this condition include: Needing to urinate right away (urgency). Frequent urination. This may include small amounts of urine each time you urinate. Pain or burning with urination. Blood in the urine. Urine that smells bad or unusual. Trouble urinating. Cloudy urine. Vaginal discharge, if you are female. Pain in the abdomen or the lower back. You may also have: Vomiting or a decreased appetite. Confusion. Irritability or tiredness. A fever or chills. Diarrhea. The first symptom in older adults may be confusion. In some cases, they may not have any symptoms until the infection has worsened. How is this diagnosed? This condition is diagnosed based on your medical history and a physical exam. You may also have other tests, including: Urine tests. Blood tests. Tests for STIs (sexually transmitted infections). If you have had more than one UTI, a cystoscopy or imaging studies may be done to determine the cause of the infections. How is this treated? Treatment for this condition includes: Antibiotic medicine. Ging-fez-zcwthwk medicines to treat discomfort. Drinking enough water to stay hydrated. If you have frequent infections or have other conditions such as a kidney stone, you may need to see a health care provider who specializes in the urinary tract (urologist). In rare cases, urinary tract infections can cause sepsis. Sepsis is a life-threatening condition that occurs when the body responds to an infection. Sepsis is treated in the hospital with IV antibiotics, fluids, and other medicines. Follow these instructions at home: Medicines Take wdlx-rro-htupaee and prescription medicines only as told by your health care provider. If you were prescribed an antibiotic medicine, take it as told by your health care provider. Do not stop using the antibiotic even if you start to feel better. General instructions Make sure you: ?Empty your bladder often and completely. Do not hold urine for long periods of time. ?Empty your bladder after sex. ?Wipe from front to back after urinating or having a bowel movement if you are female. Use each tissue only one time when you wipe. Drink enough fluid to keep your urine pale yellow. Keep all follow-up visits. This is important. Contact a health care provider if: Your symptoms do not get better after 1 2 days. Your symptoms go away and then return. Get help right away if: You have severe pain in your back or your lower abdomen. You have a fever or chills. You have nausea or vomiting. Summary A urinary tract infection (UTI) is an infection of any part of the urinary tract, which includes the kidneys, ureters, bladder, and urethra. Most urinary tract infections are caused by bacteria in your genital area. Treatment for this condition often includes antibiotic medicines. If you were prescribed an antibiotic medicine, take it as told by your health care provider. Do not stop using the antibiotic even if you start to feel better. Keep all follow-up visits. This is important. This information is not intended to replace advice given to you by your health care provider. Make sure you discuss any questions you have with your health care provider. Document Revised: 02/11/2021 Document Reviewed: 02/16/2021 [employer] Patient Education 2023 [employer]. [facility] 08-24-2024 Note Patient Education Obstetrics and Gynecology Atrophic Vaginitis Atrophic vaginitis is a condition in which the tissues that line the vagina become dry and thin. This condition is most common in women who have stopped having regular menstrual periods (are in menopause). This usually starts when a woman is 45 to 55 years old. That is the time when a woman's estrogen levels begin to decrease. Estrogen is a female hormone. It helps to keep the tissues of the vagina moist. It stimulates the vagina to produce a clear fluid that lubricates the vagina for sex. This fluid also protects the vagina from infection. Lack of estrogen can cause the lining of the vagina to get thinner and dryer. The vagina may also shrink in size. It may become less elastic. Atrophic vaginitis tends to get worse over time as a woman's estrogen level drops. What are the causes? This condition is caused by the normal drop in estrogen that happens around the time of menopause. What increases the risk? Certain conditions or situations may lower a woman's estrogen level, leading to a higher risk for atrophic vaginitis. You are more likely to develop this condition if: ??? You are taking medicines that block estrogen. ??? You have had your ovaries removed. ??? You are being treated for cancer with radiation or medicines (chemotherapy). ??? You have given or are . ??? You are older than age 50. ??? You smoke. What are the signs or symptoms? Symptoms of this condition include: ??? Pain, soreness, a feeling of pressure, or bleeding during sex (dyspareunia). ??? Vaginal burning, irritation, or itching. ??? Pain or bleeding when a speculum is used in a vaginal exam. ??? Having burning pain while urinating. ??? Vaginal discharge. In some cases, there are no symptoms. How is this diagnosed? This condition is diagnosed based on your medical history and a physical exam. This will include a pelvic exam that checks the vaginal tissues. Though rare, you may also have other tests, including: ??? A urine test. ??? A test that checks the acid balance in your vagina (acid balance test). How is this treated? Treatment for this condition depends on how severe your symptoms are. Treatment may include: ??? Using an ekuy-vnp-fdyhbds vaginal lubricant before sex. ??? Using a long-acting vaginal moisturizer. ??? Using low-dose estrogen for moderate to severe symptoms that do not respond to other treatments. Options include creams, tablets, and inserts (vaginal rings). Before you use a vaginal estrogen, tell your health care provider if you have a history of: ? Breast cancer. ? Endometrial cancer. ? Blood clots. If you are not sexually active and your symptoms are very mild, you may not need treatment. Follow these instructions at home: Medicines ??? Take piub-ear-iyzfutm and prescription medicines only as told by your health care provider. ??? Do not use herbal or alternative medicines unless your health care provider says that you can. ??? Use qhxk-qrg-vayqxvc creams, lubricants, or moisturizers for dryness only as told by your health care provider. General instructions ??? If your atrophic vaginitis is caused by menopause, discuss all of your menopause symptoms and treatment options with your health care provider. ??? Do not douche. ??? Do not use products that can make your vagina dry. These include: ? Scented feminine sprays. ? Scented tampons. ? Scented soaps. ??? Vaginal sex can help to improve blood flow and elasticity of vaginal tissue. If you choose to have sex and it hurts, try using a water-soluble lubricant or moisturizer right before having sex. Contact a health care provider if: ??? Your discharge looks different than normal. ??? Your vagina has an unusual smell. ??? You have new symptoms. ??? Your symptoms do not improve with treatment. ??? Your symptoms get worse. Summary ??? Atrophic vaginitis is a condition in which the tissues that line the vagina become dry and thin. It is most common in women who have stopped having regular menstrual periods (are in menopause). ??? Treatment options include using vaginal lubricants and low-dose vaginal estrogen. ??? Contact a health care provider if your vagina has an unusual smell, or if your symptoms get worse or do not improve after treatment. This information is not intended to replace advice given to you by your health care provider. Make sure you discuss any questions you have with your health care provider. Document Revised: 01/04/2021 Document Reviewed: 01/04/2021 [employer] Patient Education ? 2023 [employer]. Urinary Tract Infection, Adult A urinary tract infection (UTI) is an infection of any part of the urinary tract. The urinary tract includes the kidneys, ureters, bladder, and urethra. These organs make, store, and get rid of urine in the body. An upper UTI affects the ureters and kid (more content not included)... [facility] 08-16-2024 History of Present illness Narrative Associated Order(s): L Inj/Asp: R knee Post-Procedure Diagnose(s): Arthritis of right knee Images from the original note were not included. Subjective Patient ID: Clifford Frias is a 64 y.o. female. B/L knee pain, RT>LT. Pain ~ 1 year (2023) for the RT knee. Both knees have gotten worse the last 4 months. NKI. RT knee: Pain medial knee. Can radiate some into thigh. Tightness. Taking Lyrica for back. Does not take any other pain meds. Taking Robaxin at HS. Using heat prn. Not using anything topical Denies N/T, swelling. Occas giving out. Denies popping/grinding. Wakes at HS. Using a massager gun and heat. Hx Fibromyalgia. TX: Lyrica, Robaxin, massager gun, heat, XR [facility] 08/16/24 LT knee: Pain medial knee. Can radiate some into thigh. Tightness. Taking Lyrica for back. Does not take any other pain meds. Taking Robaxin at HS. Denies N/T, swelling. Occas giving out. Denies popping/grinding. Wakes at HS. Using heat prn, not using anything topical. Using a massager gun and heat. TX: Lyrica, Robaxin, massager gun, heat, XR [facility] 08/16/24 Objective Right Knee Exam Tests Corey: Medial - positive Lateral - negative Drawer: Anterior - normal Posterior - normal Left Knee Exam Tests Corey: Medial - positive Drawer: Anterior - normal Posterior - normal Knee Musculoskeletal Exam Inspection Right Erythema: none Effusion: mild Edema: none Ecchymosis: none Left Erythema: none Effusion: none Edema: none Ecchymosis: none Palpation Right Increased warmth: none Masses: none Crepitus: patellofemoral Tenderness: present Medial joint line: moderate Left Crepitus: patellofemoral Tenderness: present Medial joint line: moderate Range of Motion Right Active extension: 0 Active flexion: 120 Left Active extension: 0 Active flexion: 120 Strength Right Extension: 4-/5. Extension is affected by pain. Flexion: 4-/5. Flexion is affected by pain. Left Extension: 4-/5. Extension is affected by pain. Flexion: 4-/5. Flexion is affected by pain. Instability Right Varus stress grade: normal Valgus stress grade: normal Anterior drawer: normal Posterior drawer: normal Medial Corey test: positive Lateral Corey test: negative Left Varus stress grade: normal Valgus stress grade: normal Anterior drawer: normal Posterior drawer: normal Medial Corey test: positive XR knee 1 or 2 views right Imaging Result: AP and lateral of right knee showed varus deformity. There was narrowing of the medial joint line with evidence of flattening of the articular surfaces to the medial tibial plateau and medial femoral condyle. There was evidence of subchondral sclerosis to the medial joint line and patellofemoral joint. There is marginal osteophytes noted to the medial joint line and patellofemoral joint. There is no evidence of fracture dislocations. Bony structures viewed showed appropriate ossification. Impression: Mild varus deforming arthritic degeneration , right knee. No acute bony process noted. XR knee 1 or 2 views left Imaging Result: X-rays AP and lateral of left knee show mild degenerative changes with mild flattening of the articular surfaces to the medial joint line with decreased joint space height to the medial joint line. Lateral joint line appeared to be well preserved there was subchondral sclerosis noted at the medial joint line and patellofemoral joint. There is no evidence of fracture or dislocation. Bony structures visualized appeared to be adequately ossified. L Inj/Asp: R knee on 08/16/2024 10:09 AM Indications: pain Details: 20 G needle, anterolateral approach Medications: 40 mg methylPREDNISolone acetate 40 MG/ML UTILIZING ASEPTIC TECHNIQUE PT GIVEN INJECTION IN RIGHT KNEE, NEUROVASC INTACT S/P INJ, TOLERATED WELL Procedure, treatment alternatives, risks and benefits explained, specific risks discussed. Consent was given by the patient. Assessment/Plan Encounter Diagnoses: ICD-10-CM 1. Pain in both knees, unspecified chronicity M25.561 XR knee 1 or 2 views right M25.562 XR knee 1 or 2 views left 2. Arthritis of left knee M17.12 3. Arthritis of right knee M17.11 L Inj/Asp: R knee Discussion of options, pt notes she would like an injection, side effects of bleeding and infection discussed, would like to proceed with the injection, using aspectic technique 40 mg of depo medrol was injected into the right lateral knee, pt tolerated well, bandaid applied, may do activities as tolerated, f/u in 2 weeks. Depending on how she is doing may recommend an MRI on the right and she understands this. documented in this encounter [facility] 07-27-2024 Note Entered by KARLI ALCALA DO on July 27, 2024 11:53:19 EST From: HUSAM ALCALA DO To: [facility] Sent: 07/27/2024 11:53:19 EST Subject: Medication Management Submitted: Complete:methocarbamol (methocarbamol 500 mg oral tablet) Signed by HUSAM ALCALA DO 07/27/2024 11:53:00 EST Approved methocarbamol (methocarbamol 500 mg tablet) TAKE 1 TABLET BY MOUTH ONCE DAILY IN THE EVENING Qty: 30 tab(s) Days Supply: 30 Refills: 1 Substitutions Allowed Route To Pharmacy - [facility] --------- From: [facility] To: HUSAM ALCALA DO Sent: July 27, 2024 10:03:50 AM 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 Subject: Medication Management Due: July 28, 2024 12:06:39 AM 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 On Hold Pending Signature Drug: methocarbamol (methocarbamol 500 mg oral tablet), TAKE 1 TABLET BY MOUTH IN THE EVENING Quantity: 30 tab(s) Days Supply: 30 Refills: 1 Substitutions Allowed Notes from Pharmacy: Dispensed Drug: methocarbamol (methocarbamol 500 mg oral tablet), TAKE 1 TABLET BY MOUTH ONCE DAILY IN THE EVENING Quantity: 30 tab(s) Days Supply: 30 Refills: 1 Substitutions Allowed Notes from Pharmacy: --------- [facility] 07-01-2024 Note - From: HUSAM ALCALA DO To: [facility] Clinical Pool ([facility]); Sent: 06/30/2024 16:41:23 EST Subject: FW: Medication Management Due Date/Time: 07/01/2024 15:56:00 EST Caller Name: CLIFFORD FRIAS; Caller Number: H --------- From: [id number] To: HUSAM ALCALA DO Sent: June 30, 2024 2:56:31 PM 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 Subject: Medication Management Due: July 01, 2024 12:13:58 AM 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 On Hold Pending Signature Drug: pregabalin (Lyrica 150 mg oral capsule), 1 cap(s) Oral TID Quantity: 90 cap(s) Days Supply: 0 Refills: 0 Substitutions Allowed Notes from Pharmacy: Dispensed Drug: pregabalin (pregabalin 150 mg oral capsule), TAKE 1 CAPSULE BY MOUTH THREE TIMES DAILY Quantity: 90 cap(s) Days Supply: 30 Refills: 0 Substitutions Allowed Notes from Pharmacy: --------- From: Nan Fonseca To: [facility] Sent: 07/01/2024 07:52:29 EST Subject: FW: Medication Management Not Approved: propsed to provider pregabalin (pregabalin 150 mg capsule) TAKE 1 CAPSULE BY MOUTH THREE TIMES DAILY Qty: 90 cap(s) Days Supply: 30 Refills: 0 Substitutions Allowed Route To Pharmacy - [id number] Signed by Nan Fonseca [facility] 06-07-2024 Note - From: HUSAM ALCALA DO To: [facility] Clinical Pool ([facility]); Sent: 06/04/2024 11:43:56 EST Subject: FW: Medication Management Due Date/Time: 06/05/2024 10:44:00 EST Caller Name: CLIFFORD FRIAS; Caller Number: H --------- From: [id number] To: HUSAM ALCALA DO Sent: June 04, 2024 9:44:16 AM 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 Subject: Medication Management Due: June 05, 2024 12:03:56 AM 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 On Hold Pending Signature Drug: pregabalin (Lyrica 150 mg oral capsule), 1 cap(s) Oral TID Quantity: 90 cap(s) Days Supply: 0 Refills: 0 Substitutions Allowed Notes from Pharmacy: Dispensed Drug: pregabalin (pregabalin 150 mg oral capsule), TAKE 1 CAPSULE BY MOUTH THREE TIMES DAILY Quantity: 90 cap(s) Days Supply: 30 Refills: 0 Substitutions Allowed Notes from Pharmacy: --------- From: Nan Fonseca To: [facility] Sent: 06/07/2024 08:06:51 EST Subject: FW: Medication Management Not Approved: proposed to provider pregabalin (pregabalin 150 mg capsule) TAKE 1 CAPSULE BY MOUTH THREE TIMES DAILY Qty: 90 cap(s) Days Supply: 30 Refills: 0 Substitutions Allowed Route To Pharmacy - [id number] Signed by [facility] 05-20-2024 Note Entered by KARLI ALCALA DO on May 20, 2024 13:05:22 EDT From: HUSAM ALCALA DO To: [facility] Sent: 05/20/2024 13:05:22 EDT Subject: Medication Management Submitted: Complete:methocarbamol (methocarbamol 500 mg oral tablet) Signed by HUSAM ALCALA DO 05/20/2024 13:05:00 EDT Approved with modifications: methocarbamol (methocarbamol 500 mg tablet) TAKE 1 TABLET BY MOUTH IN THE EVENING Qty: 30 tab(s) Days Supply: 30 Refills: 1 Substitutions Allowed Route To Pharmacy - [facility] --------- From: [facility] To: HUSAM ALCALA DO Sent: May 20, 2024 11:27:08 AM CDT Subject: Medication Management Due: May 21, 2024 12:08:13 AM CDT On Hold Pending Signature Drug: methocarbamol (methocarbamol 500 mg oral tablet), TAKE 1 TABLET BY MOUTH IN THE EVENING Quantity: 30 tab(s) Days Supply: 30 Refills: 1 Substitutions Allowed Notes from Pharmacy: Dispensed Drug: methocarbamol (methocarbamol 500 mg oral tablet), TAKE 1 TABLET BY MOUTH IN THE EVENING Quantity: 30 tab(s) Days Supply: 30 Refills: 1 Substitutions Allowed Notes from Pharmacy: --------- [facility] 05-19-2024 History and physical note Note Date/Time May 19, 2024 11:24am [facility] [address] [place] [address] Gastroenterology H&P Signed Patient: Clifford Frias MR#: [id number] : 1960 Acct:[id number] Age/Sex: 63 / F Adm Date: 4 Loc: Room: Type: [facility] Attending Dr: Evelyn Frost DO Copies to: DO Husam Chavarria [place], Date of Service: 05/19/2024 HISTORY & PHYSICAL: Patient's history with special attention to the cardiovascular, pulmonary systems and the current problem was reviewed with the patient immediately prior to the procedure. Present medications and doses reviewed in the EMR. Allergies and pertinent laboratory tests were also reviewedat this time in the EMR. The physical examination, as below, was then performed. Indication, assessment and HPI: 63-year-old female who presents for colonoscopy for chronic constipation and history of colon polyps. Last colonoscopy was in 2019 with multiple polyps removed. Family history of GI malignancy? No PHYSICAL EXAMINATION General appearance: cooperative, NAD Skin: No jaundice, no rash or lesions Head: NCAT Eyes: Anicteric Neck: Supple Lungs: Normal respiratory effort, no use of accessory muscles Abdomen: Soft, nondistended Neuro: No focal deficits, Ox3. REVIEW OF SYSTEMS Constitutional: Denies malaise, fevers Cardiovascular: Denies chest pain, palpitations Respiratory: Denies shortness of breath, wheezing Gastrointestinal: As per HPI Genitourinary: Denies dysuria, polyuria Musculoskeletal: Denies joint swelling, joint stiffness Neurological: Denies confusion, numbness, tingling Endocrine: Denies fatigue Written informed consent obtained from the patient. Risks (including but not limited to perforation, infection, bloating, bleeding, need for emergent surgeryand loss of life), benefits and alternatives explained and questions answered. The patient verbalized understanding. Based on history patient is an appropriate candidate for the procedure. Evelyn Frost DO Present medication and doses reviewed in the EMR Documented By: Evelyn Frost DO 05/19/24 1123 Signed By: <Electronically signed by Evelyn Frost DO> 05/19/24 1145 [facility] Work Phone: [phone]) 277-174010-30-2024 [facility] From: HUSAM ALCALA DO To: [facility] Clinical Pool ([facility]); Sent: 05/04/2024 16:24:40 EDT Subject: FW: Medication Management Due Date/Time: 05/05/2024 15:55:00 EDT Caller Name: CLIFFORD FRIAS; Caller Number: H From: [id number] To: HUSAM ALCALA DO Sent: May 04, 2024 2:55:26 PM CDT Subject: Medication Management Due: May 05, 2024 12:23:50 AM CDT On Hold Pending Signature Drug: pregabalin (Lyrica 150 mg oral capsule), 1 cap(s) Oral TID Quantity: 90 cap(s) Days Supply: 0 Refills: 0 Substitutions Allowed Notes from Pharmacy: Dispensed Drug: pregabalin (pregabalin 150 mg oral capsule), TAKE 1 CAPSULE BY MOUTH THREE TIMES DAILY Quantity: 90 cap(s) Days Supply: 30 Refills: 0 Substitutions Allowed Notes from Pharmacy: From: Ember Prince MA To: [facility] Sent: 05/04/2024 16:43:03 EDT Subject: FW: Medication Management Not Approved: Refill not appropriate, proposal sent to provider pregabalin (pregabalin 150 mg capsule) TAKE 1 CAPSULE BY MOUTH THREE TIMES DAILY Qty: 90 cap(s) Days Supply: 30 Refills: 0 Substitutions Allowed Route To Pharmacy - [id number] Signed by Ember Prince [facility]09-25-2024 NoteEntered by HUSAM ALCALA DO on April 14, 2024 08:39:07 EDT From: HUSAM ALCALA DO To: [facility] Sent: 04/14/2024 08:39:07 EDT Subject: Medication Management Submitted: Complete:SUMAtriptan (SUMAtriptan 100 mg oral tablet) Signed by HUSAM ALCALA DO 04/14/2024 08:39:00 EDT Submitted: Complete:levothyroxine (levothyroxine 112 mcg (0.112 mg) oral tablet) Signed by HUSAM ALCALA DO 04/14/2024 08:39:00 EDT Approved with modifications: SUMAtriptan (sumatriptan 100 mg tablet) TAKE 1 TABLET BY MOUTH NEEDED FOR MIGRAINE * may repeat after 2 (TWO) hours for a max dose OF 200mg in 24 hours* Qty: 9 EA Days Supply: 30 Refills: 5 Substitutions Allowed Route To Pharmacy - [facility] Note from Pharmacy: This prescription was filled on 03/25/2024. Any refills authorized will be placedon file. Approved with modifications: levothyroxine (levothyroxine 112 mcg tablet) TAKE 1 TABLET BY MOUTH DAILY Qty: 30 tab(s) Days Supply: 30 Refills: 5 Substitutions Allowed Route To Pharmacy - [facility] Note from Pharmacy: This prescription was filled on 03/25/2024. Any refills authorized will be placedon file. From: [facility] To: HUSAM ALCALA DO Sent: April 14, 2024 7:05:07 AM CDT Subject: Medication Management Due: April 15, 2024 12:10:02 AM CDT On Hold Pending Signature Drug: SUMAtriptan (SUMAtriptan 100 mg oral tablet), TAKE 1 TABLET BY MOUTH NEEDED FOR MIGRAINE *may repeat after 2 (TWO) HOURS for a max OF 200 mg in 24 HOURS * Quantity: 9 tab(s) Days Supply: 0 Refills: 4 Substitutions Allowed Notes from Pharmacy: Dispensed Drug: SUMAtriptan (SUMAtriptan 100 mg oral tablet), TAKE 1 TABLET BY MOUTH NEEDED FOR MIGRAINE * may repeat after 2 (TWO) hours for a max dose OF 200mg in 24 hours* Quantity: 9 EA Days Supply: 30 Refills: 5 Substitutions Allowed Notes from Pharmacy: This prescription was filled on 03/25/2024. Any refills authorized will be placed on file. On Hold Pending Signature Drug: levothyroxine (levothyroxine 112 mcg (0.112 mg) oral tablet), 1 tab(s) Oral Daily,Instr:TAKE 1 TABLET BY MOUTH DAILY Quantity: 30 tab(s) Days Supply: 0 Refills: 1 Substitutions Allowed Notes from Pharmacy: Dispensed Drug: levothyroxine (levothyroxine 112 mcg (0.112 mg) oral tablet), TAKE 1 TABLET BY MOUTH DAILY Quantity: 30 tab(s) Days Supply: 30 Refills: 2 Substitutions Allowed Notes from Pharmacy: This prescription was filled on 03/25/2024. Any refills authorized will be placed on file. [id number] Note From: HUSAM ALCALA DO To: [facility] Clinical Pool ([facility]); Sent: 04/01/2024 09:51:30 EDT Subject: FW: Medication Management Due Date/Time: 04/02/2024 09:35:00 EDT Caller Name: CLIFFORD FRIAS; Caller Number: H From: [id number] To: HUSAM ALCALA DO Sent: April 01, 2024 8:35:48 AM CDT Subject: Medication Management Due: April 02, 2024 12:16:35 AM CDT On Hold Pending Signature Drug: pregabalin (Lyrica 150 mg oral capsule), 1 cap(s) Oral TID Quantity: 90 cap(s) Days Supply: 0 Refills: 0 Substitutions Allowed Notes from Pharmacy: Dispensed Drug: pregabalin (pregabalin 150 mg oral capsule), TAKE 1 CAPSULE BY MOUTH THREE TIMES DAILY Quantity: 90 cap(s) Days Supply: 30 Refills: 0 Substitutions Allowed Notes from Pharmacy: From: Nan Fonseca To: [facility] Sent: 04/01/2024 15:05:17 EDT Subject: FW: Medication Management Not Approved: proposed to provider pregabalin (pregabalin 150 mg capsule) TAKE 1 CAPSULE BY MOUTH THREE TIMES DAILY Qty: 90 cap(s) Days Supply: 30 Refills: 0 Substitutions Allowed Route To Pharmacy - [facility] Signed by [facility]09-05-2024 NoteEntered by HUSAM ALCALA DO on March 25, 2024 12:09:52 EDT From: HUSAM ALCALA DO To: [facility] Sent: 03/25/2024 12:09:52 EDT Subject: Medication Management Submitted: Complete:topiramate (topiramate 100 mg oral tablet) Signed by HUSAM ALCALA DO 03/25/2024 12:09:00 EDT Submitted: Complete:methocarbamol (methocarbamol 500 mg oral tablet) Signed by HUSAM ALCALA DO 03/25/2024 12:09:00 EDT Approved with modifications: topiramate (topiramate 100 mg tablet) TAKE 1 & 1/2 (ONE AND ONE-HALF) TABLETS BY MOUTH DAILY Qty: 135 tab(s) Days Supply: 90 Refills: 1 Substitutions Allowed Route To Pharmacy - [facility] Approved with modifications: methocarbamol (methocarbamol 500 mg tablet) TAKE 1 TABLET BY MOUTH IN THE EVENING Qty: 30 tab(s) Days Supply: 30 Refills: 1 Substitutions Allowed Route To [facility] From: [facility] To: HUSAM ALCALA DO Sent: March 25, 2024 10:18:40 AM CDT Subject: Medication Management Due: March 26, 2024 12:17:48 AM CDT On Hold Pending Signature Drug: topiramate (topiramate 100 mg oral tablet), 1.5 tablet Oral Daily,Instr:TAKE 1 TABLET BY MOUTH DAILY Quantity: 135 EA Days Supply: 0 Refills: 0 Substitutions Allowed Notes from Pharmacy: Dispensed Drug: topiramate (topiramate 100 mg oral tablet), TAKE 1 & 1/2 (ONE AND ONE-HALF) TABLETS BY MOUTH DAILY Quantity: 135 tab(s) Days Supply: 90 Refills: 1 Substitutions Allowed Notes from Pharmacy: On Hold Pending Signature Drug: methocarbamol (methocarbamol 500 mg oral tablet), 1 tab(s) Oral qPM Quantity: 30 tab(s) Days Supply: 0 Refills: 0 Substitutions Allowed Notes from Pharmacy: Dispensed Drug: methocarbamol (methocarbamol 500 mg oral tablet), TAKE 1 TABLET BY MOUTH IN THE EVENING Quantity: 30 tab(s) Days Supply: 30 Refills: 1 Substitutions [id number] Note From: HUSAM ALCALA DO, DO To: [facility] Clinical Pool ([facility]); Sent: 02/26/2024 14:59:10 EDT Subject: FW: Medication Management Due Date/Time: 02/27/2024 11:26:00 EDT Caller Name: CLIFFORD FRIAS; Caller Number: H From: [id number] To: HUSAM ALCALA DO, DO Sent: [...] 0 Substitutions Allowed Route To Pharmacy - [facility] Signed by Nan Fonseca 02/26/2024 15:28:00 EDT Submitted: Complete:methocarbamol (methocarbamol 500 mg oral tablet) Signed by Nan Fonseca 02/26/2024 15:29:00 EDT Not Approved: New Rx to follow methocarbamol (methocarbamol 500 mg tablet) TAKE 1 TABLET BY MOUTH IN THE EVENING Qty: 30 tab(s) Days Supply: 30 Refills: 0 Substitutions Allowed Route To Pharmacy - [facility] Signed by Nan Fonseca From: Nan Fonseca To: [facility] Sent: 02/26/2024 15:30:50 EDT Subject: FW: Medication Management Not Approved: proposed to provider pregabalin (pregabalin 150 mg capsule) TAKE 1 CAPSULE BY MOUTH THREE TIMES DAILY Qty: 90 cap(s) Days Supply: 30 Refills: 0 Substitutions Allowed Route To Pharmacy - [facility] Signed by [facility]07-09-2024 Note From: HUSAM ALCALA DO To: [facility] [place] Sent: 01/26/2024 13:55:29 EDT Subject: FW: Medication Management Due Date/Time: 01/27/2024 13:03:00 EDT Caller Name: CLIFFORD FRIAS; Caller Number: H From: [id number] To: HUSAM ALCALA DO Sent: January [...] Notes from Pharmacy: From: Nan Fonseca To: [facility] Sent: 01/27/2024 09:06:57 EDT Subject: FW: Medication Management Not Approved: proposed to provider pregabalin (pregabalin 150 mg capsule) TAKE 1 CAPSULE BY MOUTH THREE TIMES DAILY Qty: 90 cap(s) Days Supply: 30 Refills: 0 Substitutions Allowed Route To Pharmacy - [id number] Signed by [facility]06-08-2024 Note From: HUSAM ALCALA DO To: [facility] Clinical Pool ([facility]); Sent: 12/27/2023 19:36:45 EDT Subject: FW: Medication Management Due Date/Time: 12/27/2023 17:36:00 EDT Caller Name: CLIFFORD FRIAS; Caller Number: H From: [id number] To: HUSAM ALCALA DO Sent: December [...] Refills: 0 Substitutions [facility]owed [id number] From: HUSAM ALCALA DO To: [facility] Clinical Pool ([facility]); Sent: 11/26/2023 12:38:00 EDT Subject: FW: Medication Management Due Date/Time: 11/27/2023 11:27:00 EDT Caller Name: CLIFFORD FRIAS; Caller Number: H From: [id number] To: HUSAM ALCALA DO Sent: November [...] Notes from Pharmacy: From: Nan Fonseca To: [facility] Sent: 11/26/2023 15:18:31 EDT Subject: FW: Medication Management Not Approved: proposed to provider pregabalin (pregabalin 150 mg capsule) TAKE 1 CAPSULE BY MOUTH THREE TIMES DAILY Qty: 90 cap(s) Days Supply: 30 Refills: 0 Substitutions Allowed Route To Pharm[facility] - [id number] NoteEntered by Ember Prince on November 11, 2023 16:20:40 EDT From: Ember Prince To: [facility] Sent: 11/11/2023 16:20:40 EDT Subject: FW: Medication Management Documented Complete:montelukast (montelukast 10 mg oral tablet) Signed by Ember Prince 11/11/2023 16:20:00 EDT Approved with modifications: montelukast (montelukast 10 mg tablet) TAKE 1 TABLET BY MOUTH DAILY Qty: 30 tab(s) Days Supply: 30 Refills: 11 Substitutions Allowed Route To Pharmacy - [id number] Signed by Ember Prince Patient matched by Ember Prince on 11/11/2023 16:19:37 EDT From: HUSAM ALCALA DO To: [facility] Clinical Pool ([facility]); Sent: 11/11/2023 16:16:57 EDT Subject: FW: Medication Management Due Date/Time: 11/12/2023 11:47:00 EDT From: [id number] To: HUSAM ALCALA DO Sent: November [...] Refills: 11 Substitutions Allowed [id number] Note From: HUSAM ALCALA DO To: [facility] Clinical Pool ([facility]); Sent: 10/30/2023 13:16:13 EDT Subject: FW: Medication Management Due Date/Time: 10/31/2023 11:29:00 EDT Caller Name: CLIFFORD FRIAS; Caller Number: H From: [id number] To: HUSAM ALCALA DO Sent: October [...] Notes from Pharmacy: From: Ember Prince To: [facility] Sent: 10/30/2023 16:08:09 EDT Subject: FW: Medication Management Not Approved: Refill not appropriate, sent to provider. pregabalin (pregabalin 150 mg capsule) TAKE 1 CAPSULE BY MOUTH THREE TIMES DAILY Qty: 90 cap(s) Days Supply: 30 Refills: 0 Substitutions Allowed Route To Pharmacy - [id number] Miscellaneous Notes* Telephone Encounter - Sandhya Paiz APRN.CNP - 08/27/2023 12:38 PM EST The following approved medication requests have been transmitted electronically. Requested Prescriptions Signed Prescriptions Disp Refills amitriptyline (ELAVIL) 10 mg tablet 30 tablet 2 Sig: Take 1 tablet by mouth daily at bedtime. Authorizing Provider: SANDHYA PAIZ APRN.CNP documented [facility]24 NoteHNO ID: [id number] Author: SARITHA MENDEZ MD Service: ? Author Type: Physician Type: Progress Notes Filed: 08/07/2023 11:17 Note Text: SUBJECTIVE: Clifford Frias [facility] for a follow-up [...] Row Office Visit from 08/20/2019 in [facility] Office Visit from 08/06/2016 in [facility] Physical [facility] T Score 37.4 32.4 [...] management Medical Decision Making Level: 4 - ModerateThe [facility]01[facility] NoteHNO ID: [id number] Author: DEISY WEAVER MD Service: ? Author [...] 4 out of 10 for the current moment.Catamarcial malik [facility] was here for checking the device [...] Deisy Weaver MD. Research fellow/ pain management department.[facility]10-23-2023 NoteHNO ID: [id number] Author: Sandhya Paiz APRN.CNP Service: ? Author Type: Nurse Practitioner Type: Progress Notes Filed: 05/12/2023 11:17 AM Note Text: The following approved medication requests have been transmitted electronically. Requested Prescriptions Signed Prescriptions Disp Refills amitriptyline (ELAVIL) 10 mg tablet 30 tablet 2 Sig: Take 1 tablet by mouth daily at bedtime. Sandhya Paiz APRN.CNPThe [facility]10-23-2023 History of Present illness Narrative* Sandhya Paiz APRN.CNP - 05/12/2023 11:16 AM EDT The following approved medication requests have been transmitted electronically. Requested Prescriptions Signed Prescriptions Disp Refills amitriptyline (ELAVIL) 10 mg tablet 30 tablet 2 Sig: Take 1 tablet by mouth daily at bedtime. Sandhya Paiz APRN.CNP documented in this encounterPremier [facility]08-28-2023 NoteHNO ID: [id number] Author: Saritha Mendez MD Service: ? Author Type: Physician Type: Progress Notes Filed: 03/21/2023 4:21 PM Note Text: [facility] Follow Up Evaluation [...] doing well. She got a membership at [employer] in Jul 2022 and has been performing [...] all PHQ-9 Self-Harm (I (more content not included)...[facility] 03-17-2023 NoteHNO ID: [id number] Author: Deisy Weaver MD Service: ? Author Type: Fellow Type: Progress Notes Filed: 03/17/2023 11:32 AM Note Text: Summary: Research Update Clifford Kasperdae is a part of [employer] study IRB [...] 10 for the current moment. Zuri malik [facility] was here for checking on the [...] Deisy Weaver MD. Research fellow/ pain management department.[facility]08-28-2023 History of Present illness Narrative* Saritha Mendez MD - 03/17/2023 11:00 AM EDT [facility] Follow Up Evaluation [...] doing well. She got a membership at [employer] in Jul 2022 and has been performing [...] was reviewed and is consistent with the reportedmedication use. Pain medications reviewed: Yes Pertinent Imaging: [...] disturbance, mood disorder and recent psychosocial stressors. HEMATOLOGIC/LYMPHATIC/IMMUNOLOGIC: Negative for prolonged bleeding, bruising easily or [...] on low-dose amitriptyline to help with the numb ness. Numbness and tingling of both legs Lumbar [...] I agree with the findings and plan asdocumented. Saritha Mendez MD March 21, 2023 Medical Decision Making: Problems: Moderate: 1+ chronic illnesses with change Risk: Moderate: Drug management Medical Decision Making Level: 4 - Moderate documented in this encounterPremier [facility]08-28-2023 History of Present illness Narrative* Deisy Weaver MD - 03/17/2023 10:51 AM EDTSummary: Research Update Clifford Frias is a part of [employer] study IRB # [id number] Mendez, the patient was seen today in the clinic for the 18 months follow up visit. The patient completed the study questionnaires according to the study protocol (SWAPNA, Back Pain NRS,EQ-5D, Percent pain relief, SGIC, Treatment satisfaction), the patient rated the LBP at 2 out of 10for the last 24 hours and 2 out of 10 for the current moment. Zuri malik [facility] was here for checking on the devise and do the necessary programing. The Healthcare utilization, Leg pain and low back pain description questionnaire were filled out byme according to the patient's answers. All the [...] fellow/ pain management department. documented in this encounterPrem[facility]02-09-2023 NoteHNO ID: [id number] Author: Jason Shipman MD, PhD Service: ? Author Type: Physician Type: Progress Notes Filed: 09/04/2022 1:37 AM Note Text: [facility] Established Patient Patient name: Clifford Frias Date of Service: August 29, 2022 Site of Service: [facility] Established care at [facility]: yes HPI Clifford Frias presents [facility] for a follow-up [...] SIGNATURE, Jason Barba (more content not included)... [facility]02-09-2023 NoteHNO ID: [id number] Author: Deisy Weaver MD Service: ? Author [...] Deisy Weaver MD. Research fellow/ pain management department.[facility]02-09-2023 History of Present illness Narrative* Jason Shipman MD, PhD - 08/29/2022 11:27 AM EST [facility] Established Patient Patient name: Clifford Frias Date of Service: August 29, 2022 Site of Service: [facility] Established care at [facility]: yes HPI Clifford Frias [facility] for a follow-up [...] extremity coordination and muscle stretch reflexes are physiologicand symmetric. Review of data Imaging Imaging listed below was directly visualized and independently reviewed. Medical Decision Making Assessment Clifford Frias is a 62 year old woman with a history of of chronic bilateral L>R low back pain without leg pain who received the Reactiv8 device and who presents for follow up for 12-month followup. Today she underwent interrogation of the device [...] Plan is as outlined. ELECTRONIC SIGNATURE, Jason hSipman MD, PhD documented in this encounterPrem[facility]02-09-2023 History of Present illness Narrative* Deisy Weaver MD - 08/29/2022 10:58 AM ESTSummary: Research update Clifford Frias is a part of [employer] study IRB # [id number] Mendez, the patient was seen today in the clinic for the 12 months follow up visit. The patient completed the study questionnaires according to the study protocol (SWAPNA, Back Pain NRS,EQ-5D, Percent pain relief, SGIC, Treatment satisfaction), the patient rated the LBP at 6 out of 10for the last 24 hours for an instance she had which was picking sticks in her backyard and 2 out of10 for the current moment, she would average her pain over the last period at 2. The Healthcare utilization, Leg pain and low back pain description questionnaire were filled out byme according to the patient's answers. The patient will be contacted again for the 18 Months Follow up visit once the window opens. The patient has all my contact information for any concerns or questions. Deisy Weaver MD. Research fellow/ pain management department. documented in this encounterPrem[facility]09-14-2022 NotePROCEDURE: XR SHOULDER LT 2V or > HISTORY: Pain of left shoulder joint for several months; no known injury COMPARISON: None. FINDINGS: BONES:No fracture, acute abnormality, or significant arthropathy. SOFT TISSUES:No visible soft tissue swelling. EFFUSION:None visible. OTHER: Incidental calcified granuloma within lateral left midlung. IMPRESSION: 1. No acute bone abnormality or significant degenerative changes of the left shoulder. Electronically authenticated by: MEHUL BAIG Date: 2022-04-03 14:18[facility]07-18-2022 History of Present illness Narrative* Deisy Weaver MD - 02/04/2022 1:10 PM EDTSummary: research update Clifford Frias is a part of [employer] study IRB # [id number] Mendez, she was seen today in the clinic for his 6 Months follow up visit. The patient completed the study questionnaires according to the study protocol (SWAPNA, Back Pain NRS,EQ-5D, Percent pain relief, SGIC, Treatment satisfaction) The semaj rated her LBP as 6 out of [...] Weaver MD. Research fellow/ pain management department [phone] documented in this encounterPrem[facility]06-06-2022 History of Present illness Narrative* Deisy Weaver MD - 12/24/2021 12:52 PM EDTSummary: Research update Clifford Frias is a part of [employer] study IRB # [id number] Mendez, He was seen today in the clinic for his 3 Months follow up visit The patient completed the study questionnaires according to the study protocol (SWAPNA, Back Pain NRS,EQ-5D, Percent pain relief, SGIC, Treatment satisfaction), Where [...] Weaver MD. Research fellow/ pain management department [email or web address] [phone] documented in this encounterPrem[facility]03-21-2022 History of Present illness Narrative* Saritha Mendez MD - 10/08/2021 1:36 PM EDT SUBJECTIVE: Clifford Frias [facility] for a follow-up [...] who titrated the device to her satisfaction. Alannah follow up as per Reactiv8 protocol. (Z00.6) [...] I agree with the findings and plan asdocumented. Saritha Mendez MD October 10, 2021 Medical Decision Making: Problems: Moderate: 1+ chronic illnesses with change Data: Unique test result(s) reviewed: 2 Medical Decision Making Level: 3 - Low documented in this encounterPremier Health [facility]02-10-2022 History of Present illness Narrative* Sunita Griffiths PA-C - 08/30/2021 11:00 AM EST SUBJECTIVE: Clifford Frias is a 61 year old female who [facility] for suture removal [...] 09/03 TACHO Fishman PA-C documented [facility] + [facility] Future Scheduled Tests Radiology* XR Abdomen 1 View 08/31/24 * US Renal 08/31/24 [facility] evaluation note* Diagnosis Clinical trial participant- Primary Chronic low back pain without sciatica, unspecified back pain laterality Lumbar spondylosis Lumbosacral spondylosis without myelopathy documented [facility] encounter [facility]* Diagnosis Lumbar spondylosis- Primary Lumbosacral spondylosis without myelopathy Chronic left-sided low back pain without sciatica documented in this encounter [facility]* Diagnosis Chronic low back pain without sciatica, unspecified back pain laterality- Primary Examination of participant or control in clinical research Examination of participant in clinical trial documented [facility] encounter [facility]* Diagnosis Myofascial low back pain- Primary Numbness and tingling of both legs Disturbance of skin sensation Lumbar spondylosis Lumbosacral spondylosis without myelopathy documented in this encounter [facility]* Diagnosis Idiopathic peripheral neuropathy Unspecified hereditary and idiopathic peripheral neuropathy documented [facility] encounter [facility] noteNo assessment information availableMer[facility] Work Phone: Evaluation note* Diagnosis Onset Date Resolution Status Chronic constipation acute Indigestion acute [facility] Work Phone: Evaluation note* Diagnosis Pain in both knees, unspecified chronicity- Primary Arthritis of left knee Arthritis of right knee documented in this encounter [facility] note* Diagnosis Pain in both knees, unspecified chronicity- Primary Arthritis of right knee [facility] Diagnosis Acute internal derangement of right knee- Primary Acute pain of left knee Osteoarthritis of left knee, unspecified osteoarthritis type [facility] Narrative No data available for this section [facility] Hospital Discharge instructions No data available for this section [facility] Progress note No data available for this section [facility] Summary Purpose Family History No Family History Records Found Relationship Condition Age at Onset Recorded Date/T keyona Not Specified Malignant neoplasm of colon Unknown father Malignant neoplasm Unknown History of skin disorder Unknown Not Specified Family history of colon cancer Unknown Family history of mental disorder Unknown Malignant neoplasm Unknown Unknown Relationship Condition Age at Onset Recorded Date/T keyona mother Malignant neoplasm of colon Unknown father Malignant neoplasm Unknown History of skin disorder Unknown mother Family history of colon cancer Unknown Family history of mental disorder Unknown Malignant neoplasm Unknown Unknown Relationship Condition Age at Onset Recorded Date/T keyona mother Malignant neoplasm of colon Unknown Unknown Family history of mental disorder Unknown Malignant neoplasm Unknown father History of skin disorder Unknown Advance Directives No Advanced Directives Records FoundDocuments on File Type Date Recorded 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 Advance Directive(s) 08/09/2021 3:10 PM Advance Directive(s) 04/24/2021 2:57 PM Advance Directive Response Recorded Date/ Time Advance Directives No May 26, 2020 3:46pm Chief Complaint and Reason for Visit Chief Complaint diverticulosis, spas tic colon Chief Complaint 3 month follow up Reason for Visit Chronic constipation Indigestion Chief Complaint 3 month follow up hx of colon polyps/constipation/ab pain hx of colon polyps/constipation/ab pain Reason for Visit Chronic constipation Indigestion Additional Source Comments INFORMATION SOURCE (unrecogn ized section and content) DATE CREATED AUTHOR 07/10/2021 [facility] DATE CREATED AUTHOR AUTHOR'S ORGANIZ ATION 08/03/2022 [facility] DATE CREATED AUTHOR AUTHOR'S ORGANIZ ATION 08/08/2023 [facility] DATE CREATED AUTHOR AUTHOR'S ORGANIZ ATION 06/03/2024 [facility] DATE CREATED AUTHOR AUTHOR'S ORGANIZ ATION 09/18/2024 [facility] DATE CREATED AUTHOR AUTHOR'S ORGANIZ ATION 09/28/2024 [facility] DATE CREATED AUTHOR AUTHOR'S ORGANIZ ATION 10/25/2024 [facility] l Source Comments (unrecognize d section and content) In the event this informatio n is protected by the Federal Confidentiality of Alcohol and Drug Abuse Patient Records regulations: The Federal rules restrict any use of the information to criminally investigate or prosecute any alcohol or drug abuse patient.[facility] HospitalIn the event this information is protected by the Federal Confidentiality of Alcohol and Drug Abuse Patient Records regulations: The Federal rules restrict any use of the information to criminally investigate or prosecute any alcohol or drug abuse patient.[facility] HospitalIn the event this information is protected by the Federal Confidentiality of Alcohol and Drug Abuse Patient Records regulations: The Federal rules restrict any use of the information to criminally investigate or prosecute any alcohol or drug abuse patient.[facility] HospitalIn the event this information is protected by the Federal Confidentiality of Alcohol and Drug Abuse Patient Records regulations: The Federal rules restrict any use of the information to criminally investigate or prosecute any alcohol or drug abuse patient.[facility] HospitalIn the event this information is protected by the Federal Confidentiality of Alcohol and Drug Abuse Patient Records regulations: The Federal rules restrict any use of the information to criminally investigate or prosecute any alcohol or drug abuse patient.[facility] the event this information is protected by the Federal Confidentiality of Alcohol and Drug Abuse Patient Records regulations: The Federal rules restrict any use of the information to criminally investigate or prosecute any alcohol or drug abuse patient.[facility] HospitalIn the event this information is protected by the Federal Confidentiality of Alcohol and Drug Abuse Patient Records regulations: The Federal rules restrict any use of the information to criminally investigate or prosecute any alcohol or drug abuse patient.[facility] HospitalIn the event this information is protected by the Federal Confidentiality of Alcohol and Drug Abuse Patient Records regulations: The Federal rules restrict any use of the information to criminally investigate or prosecute any alcohol or drug abuse patient.[facility] HospitalIn the event this information is protected by the Federal Confidentiality of Alcohol and Drug Abuse Patient Records regulations: The Federal rules restrict any use of the information to criminally investigate or prosecute any alcohol or drug abuse patient.[facility] HospitalIn the event this information is protected by the Federal Confidentiality of Alcohol and Drug Abuse Patient Records regulations: The Federal rules restrict any use of the information to criminally investigate or prosecute any alcohol or drug abuse patient.[facility] Reason for Visit (unrecogniz ed section and content) Reason Comments Medication Update Establish Care Reason Comments Establish Care Medication Update Reason Comments Follow Up Medication Update Reason Comments Refill Request Reason Comments Pain Reason Comments Follow-up Reason Comments Pain Care Teams (unrecognized sec tion and content) Medical Instructor Relationship Specialty Start Date End Date Cari Husam Burlesondaniel Kyle PCP - General Family Practice 07/11/16 Medical Instructor Relationship Specialty Start Date End Date Husam Alcala Sr. PCP - General Family Practice 07/11/16 Medical Instructor Relationship Specialty Start Date End Date Husam Alcala Sr. PCP - General Family Practice 07/11/16 Medical Instructor Relationship Specialty Start Date End Date Husam Alcala Sr. PCP - General Family Medicine 07/11/16 Medical Instructor Relationship Specialty Start Date End Date Husam Alcala Sr. PCP - General Family Medicine 07/11/16 Medical Instructor Relationship Specialty Start Date End Date Husam Alcala Sr. PCP - General Family Medicine 07/11/16 Medical Instructor Relationship Specialty Start Date End Date Husam Alcala Sr. PCP - General Family Medicine 07/11/16 Medical Instructor Relationship Specialty Start Date End Date Husam Alcala Sr., DO PCP - General Family Medicine 07/11/16 Medical Instructor Relationship Specialty Start Date End Date Husam Alcala Sr., DO PCP - General Family Medicine 07/11/16 Team Status: Active Member Role Status Dates Husam Alcala DO Primary Care Provider Active Team Status: Inactive Member Role Status Dates Evelyn L Ly , Attending Provider Active St art: January 07, 2024 End: January 07, 2024 Husam Alcala DO Primary Care Provider Active Start: January 07, 2024 End: January 07, 2024 Team Status: Inactive Member Role Status Dates Husam Alcala DO Primary Care Provider Active Start: April 26, 2024 End: April 26, 2024 Evelyn L Ly , DO Attending Provider Active St art: April 26, 2024 End: April 26, 2024 Team Status: Inactive Member Role Status Dates Husam Alcala DO Primary Care Provider Active Start: May 19, 2024 End: May 19, 2024 Evelyn L Ly , DO Attending Provider Active St art: May 19, 2024 End: May 19, 2024 Team Status: Active Member Role Status Dates Husam Alcala DO Primary Care Provider Active Start: May 19, 2024 Evelyn L Ly , DO Attending Provider, Other Provider Active Start: May 19, 2024 Medical Instructor Relationship Specialty Start Date End Date Husam Alcala MD [address] [place] [id number] PCP - General Family Medicine 12/23/23 Medical Instructor Relationship Specialty [place] [address] [place] [id number] PCP - General Family Medicine 12/23/23 Medical Instructor Relationship Specialty Start Date End Date Husam Alcala MD [address] [place] [id number] PCP - General Family Medicine 12/23/23 Medical Instructor Relationship Specialty Start Date End Date Husam Alcala MD [address] [place] [id number] PCP - General Family Medicine 12/23/23 Medical Instructor Relationship Specialty Start Date End Date Husam Alcala MD [address] [place] [phone] PCP - General Family Medicine 12/23/23 Medical Instructor Relationship Specialty Start Date End Date Husam Alcala MD [address] [place] [id number] PCP - General Family Medicine 12/23/23 Goals (unrecognized section and content) Goals may be documented in a n alternate sectionGoals may be documented in an alternate section No data available for this section No data available for this section FOR RECORDS PERTAINING TO PATIENTS WHO [...] BE BASED ON THE PRIMARY CLINICAL RECORDS. [facility] provides no warranty or guarantee of the accuracy or completeness of information in this document.
== END 2024-10-26 12:51 | disposition home or self-care (01) ==
LOC: RAD 12:52
PROVIDERS: PCP Family Medicine; Visit Provider Family Medicine
DX: Z00.00 Encounter for general adult medical examination without abnormal findings (principal); Z12.31 Encounter for screening mammogram for malignant neoplasm of breast; M79.7 Fibromyalgia; E03.9 Hypothyroidism, unspecified; G95.9 Disease of spinal cord, unspecified; G62.9 Polyneuropathy, unspecified; M48.04 Spinal stenosis, thoracic region; M54.50 Low back pain, unspecified; Z80.0 Family history of malignant neoplasm of digestive organs; Z80.8 Family history of malignant neoplasm of other organs or systems; M51.369 Other intervertebral disc degeneration, lumbar region without mention of lumbar back pain or lower extremity pain; Z96.82 Presence of neurostimulator
CPT/HCPCS: 72100; 77063; 77067